=== PATIENT | female | born 2000 | race Caucasian/White ===

== ENCOUNTER 2024-03-15 10:06 | Emergency (ER) | payer BC, MEDICAID, SELFPAY ==
[2024-03-15 10:07] VITALS: PULSE 72; RESP 16; TEMP 35.7; O2SAT 100
[2024-03-15 10:10] VITALS: BP 103/67
--- NOTE | 2024-03-15 10:33 | EDS_ITS ---
HPI HPI - GI History of Present Illness Chief Complaint: Abd Pain Informant: patient Abdominal Pain/Flank Pain Onset: Today Context: Gradual Onset Timing: Intermittent Quality: Cramping Location: Epigastric, RUQ and LUQ Current Severity: Mild Maximum Severity: Mild Worsened by: Nothing Relieved by: Nothing Nausea/Vomiting/Emesis GI Symptom: Positive for Nausea and Vomiting Onset: Days Severity: Mild Diarrhea/Melena/Hematochezia GI Symptom: Positive for Diarrhea; Negative for Melena or Hematochezia Onset: Days Stool Quality: Positive for Loose Severity: Mild Associated Symptoms Associated Symptoms: Negative for Dysuria, Frequency, Hematuria or Urgency Narrative Narrative: 23-year-old female 10 weeks G2, P1 Ab0. States this morning she is in for abdominal epigastric and upper quadrant cramping. She has had intermittent nausea and vomiting with the first trimester. Intermittent loose stools. No melena. No dysuria. No fever. She has never had any prior abdominal surgeries. She had a recent ultrasound done at the [facility] showed a single live any uterine this was done about 1-1/2 weeks ago. Denies any vaginal bleeding. Prior similar symptoms: No Recent Illness/Hospitalization: No PFSH PFSH Medical History no medical history no medical history Allergy/AdvReac Type Severity Reaction Status Date / Time latex Allergy Intermediate Rash Verified 03/15/24 10:10 Penicillins (PCN) Allergy Intermediate Rash Verified 03/15/24 10:10 Social History Smoking Status: Never smoker ROS ROS ED ROS Narrative First trimester nausea and vomiting. Abdominal cramping. Constitutional Constitutional ED: Denies chills or fever(s) ENT ENT ED: Denies ear pain Cardiovascular Cardiovascular: Denies chest pain Respiratory/Chest Respiratory/Chest: Denies cough or dyspnea Gastrointestinal Gastrointestinal: Reports abdominal pain, diarrhea, nausea and vomiting; Denies constipation or melena Genitourinary Genitourinary ED: Denies dysuria or hematuria Musculoskeletal Musculoskeletal: Denies arthralgias, back pain or myalgias Integumentary Denies abscess, Abrasions or rash Neurologic Neurologic: Denies headache(s) Psychiatric Psychiatric: Denies anxiety, depression or suicidal thoughts Endocrine Endocrinology: Denies polydipsia or polyphagia Hematologic/Lymphatic Hematologic/Lymphatic: Denies easy bleeding, easy bruising or lymphadenopathy Allergic/Immunologic Allergic/Immunologic ED: Denies mouth swelling, tongue swelling or urticaria EXAM Physical Exam Narrative Exam Narrative: 23-year-old female no acute distress. Vital signs stable afebrile. H EENT exam unremarkable. Neck nontender. Lungs clear to auscultation bilaterally. Heart regular rhythm no murmur. Abdomen soft, nondistended normal bowel sounds no peritoneal signs. Minimal epigastric tenderness. No Rudd sign or McBurney point tenderness. No distention. No signs of obstruction. No hernia or mass. No uterine or lower quadrant tenderness. Moving all 4 extremities. Nontender no edema. Back nontender. Neurologically she is awake alert no focal motor deficits. Const Vital Signs: 03/15/24 10:07 03/15/24 10:10 Temperature 96.2 F L Temperature Source Temporal Pulse Rate 72 Respiratory Rate 16 Blood Pressure 103/67 Blood Pressure Mean 79 Pulse Ox 100 Oxygen Delivery Method Room Air Positive well nourished and well developed; Negative for obese, cachectic, contractures or unkempt General Appearance ED: well developed and NAD; Negative for unkempt, cachectic, contractures or pallor Nutritional Appearance: Negative for cachectic or obese HEENT Reports moist mucous membranes normocephalic and atraumatic; Negative for trauma or tenderness Eyes PERRL and EOMs intact bilaterally General Eye ED: Negative for pale conjunctiva or scleral icterus Neck no lymphadenopathy, supple and no JVD General: Negative for tenderness Carotids: Negative for other Lymph Lymphatic: Negative for other Resp normal respiratory effort and clear to auscultation bilaterally Effort and Inspection: Negative for respiratory distress Auscultation: Negative for rales, rhonchi or wheezes Cardio regular rate, regular rhythm, S1 normal heart sound, S2 normal heart sound and no murmurs Rate: Negative for bradycardia or tachycardic Rhythm: Negative for abnormal rhythm GI non-distended and no masses; Negative for non-tender GI Narrative: Mild epigastric tenderness. Inspection: Negative for abdominal distention Auscultation: normoactive bowel sounds Palpation: soft and tender; Negative for guarding, rigid, hepatomegaly, splenomegaly, hernia, mass or rebound tenderness present Back/Spine no CVA tenderness General Back: Negative for CVA tenderness Cervical Spine: Negative for cervical spine tenderness Thoracic Spine / Upper Back: Negative for thoracic spinal tenderness Lumbar Spine / Lower Back: Negative for lumbar spinal tenderness Extremity full ROM General Extremety ED: Negative for edema or tenderness General Extremity: Negative for edema Neuro CN's II-XII intact bilaterally and moves all extremities Sensorium / Orientation: alert, oriented to person, oriented to place and oriented to time; Negative for orientation impaired or confused Motor Exam: strength 5/5 throughout Psych mental status grossly normal and thought process normal Appearance: Negative for unkempt Attitude: No agitated Mood & Affect: Negative for depressed, anxious or tearful Skin no wounds General Skin Exam: Negative for jaundice or pallor Lesions: no lesions Rashes: no rashes MDM MDM MDM Narrative Medical decision making narrative: 23-year-old female G2, P1 approximately 10 weeks and ultrasound done a week and a half ago at the [facility] showed a single live IUP. Complaining of upper abdominal cramping today. Exam is benign. IV fluids, Zofran for nausea. Tylenol for discomfort. Screening labs. I do not think she needs an ultrasound. She is having no vaginal bleeding or pelvic pain. Repeat exam at 12:02 PM History & Record Review Discussion w/independent historian: Patient Additional record(s) reviewed:: No prior records Lab Data Attestation: I reviewed the patient's lab results. Lab results narrative: CBC shows a white count of 8. H&H 12 and 38. Platelets 238. Electrolytes shows sodium 138. Gap 4. Normal BUN and creatinine. Liver enzymes unremarkable. Lipase normal at 20. Urinalysis unremarkable. No nitrates. No white or red cells. 1+ bacteria. Contaminated with epithelial cells. Labs: Laboratory Results - last 24 hr 03/15/24 03/15/24 10:40 11:38 WBC 8.9 RBC 4.72 Hgb 12.2 Hct 38.3 MCV 81.1 MCH 25.8 L MCHC 31.9 L RDW Std Deviation 41.9 RDW Coeff of [place] 14.4 Plt Count 238 MPV 10.3 Immature Gran % (Auto) 0.400 Neut % (Auto) 72.8 H Lymph % (Auto) 21.1 [place] % (Auto) 4.7 Eos % (Auto) 0.7 Baso % (Auto) 0.3 Absolute Neuts (auto) 6.5 Absolute Lymphs (auto) 1.88 Nucleated RBC % 0 Sodium 138 Potassium 3.7 Chloride 110 H Carbon Dioxide 24.0 Anion Gap 4 L BUN 5 L Creatinine 0.47 L Est GFR (MDRD) Af Amer 208 Est GFR (MDRD) Non-Af 172 BUN/Creatinine Ratio 10.6 Glucose 79 Calcium 8.7 Total Bilirubin 0.10 L AST 16 ALT 13 Alkaline Phosphatase 60 Total Protein 6.6 Albumin 3.1 L Globulin 3.5 Albumin/Globulin Ratio 0.9 Lipase 20 Urine Color Yellow Urine Clarity Sl. Cloudy Urine pH 7.0 Ur Specific [place] 1.010 Urine Protein Negative Urine Glucose (UA) Normal Urine Ketones Negative Urine Occult Blood Negative Urine Nitrite Negative Urine Bilirubin Negative Urine Urobilinogen Normal Ur Leukocyte Esterase Negative Urine RBC 0 SEEN Urine WBC 0 SEEN Ur Squamous Epith Cells 5-10 SEEN Urine Bacteria 1+ Urine Mucus 0 SEEN Discharge Plan Triage Chief Complaint: Abd Pain Other Complaint: ED Provider: Ray Humphries Dx/Rx/DC Orders Primary Care Provider: Jessica Ocasio Referrals: Jessica Ocasio, DO [Primary Care Provider] - Print Language: Upper Sorbian
[2024-03-15] MEDS: Acetaminophen 500 MG Tablet 1000 MG PO (10:46)
[2024-03-15] MEDS: Ondansetron 4 MG/2 ML Vial IV (10:47)
[2024-03-15] MEDS: 0.9% Normal Saline (1000mL) 1,000 ML 999 ML IV (10:47)
[2024-03-15 10:49] LABS: Absolute Lymphocyte Count 1.88 X10^3/uL (0.83-4.51); Absolute Neutrophil Count 6.5 X10^3/uL (2.0-7.7); Basophil# 0.03 X10^3/uL; Basophil% 0.3 % (0-1); Eosinophil# 0.06 X10^3/uL; Eosinophils% 0.7 % (0-5); Hematocrit 38.3 % (37-47); Hemoglobin 12.2 g/dL (12.0-15.0); Lymphocyte # 1.88 X10^3/ul (0.83-4.51); Lymphocyte % 21.1 % (19-41); Mean Corp Hgb Conc 31.9 g/dL (32-36); Mean Corpuscular Hgb 25.8 pg (27.0-32.0); Mean Corpuscular Volume 81.1 fL (81-99); Mean Platelet Vol. 10.3 fl (6.2-12.0); Monocyte# 0.42 X10^3/uL; Monocyte% 4.7 % (0-10); NRBC Flagged by Analyzer 0 % (0-5); Neutrophil # 6.48 X10^3/uL (2.7-7.7); Neutrophil % 72.8 % (47-70); Platelet Count 238 K/mm3 (150-450); RBC Distribution Width CV 14.4 % (11.6-14.6); RBC Distribution Width SD 41.9 fl (35.1-43.9); Red Blood Count 4.72 M/mm3 (4.2-5.4); White Blood Count 8.9 K/mm3 (4.4-11.0)
[2024-03-15 11:05] LABS: ALB/GLOB Ratio 0.9 RATIO (0.9-2.4); AST(SGOT) 16 U/L (15-37); Alanine Aminotransfer ALT/SGPT 13 U/L (13-56); Albumin, Serum 3.1 g/dL (3.2-5.0); Alkaline Phosphatase 60 U/L (45-117); Anion Gap 4 (5-15); BUN 5 mg/dL (7-18); BUN/Creat Ratio 10.6 RATIO (10-20); Calcium,Total 8.7 mg/dL (8.5-10.1); Chloride 110 mmol/L (98-107); Creatinine, Serum 0.47 mg/dL (0.55-1.02); EST Glomerular Filtration Rate 172 mL/min (>60); Est Glom Filt Rate - Afr Amer 208 mL/min (>60); Globulin 3.5 g/dL (2.2-4.2); Glucose 79 mg/dL (74-106); Lipase 20 U/L (13-75); Potassium 3.7 mmol/L (3.5-5.1); Protein, Total 6.6 g/dL (6.4-8.2); Sodium Level 138 mmol/L (136-145)
--- NOTE | 2024-03-15 11:42 | ED.RN ---
PHYSICIAN NOTIFIED PT STATES SHE HAD SPOTTING WHEN SHE WENT TO THE [facility]
[2024-03-15 11:47] LABS: Mucous, Urine 0 SEEN /hpf (<or=2+); Red Blood Cells-Urine 0 SEEN /hpf (0-5); White Blood Cells 0 SEEN /hpf (0-5)
[2024-03-15 11:51] LABS: Color, Urine Yellow (Yellow); Glucose, Dipstick Normal (Normal); Ketone-Dipstick Negative (Negative); Leukocyte Esterase-Dipstick Negative /ul (Negative); Nitrite-Dipstick Negative (Negative); Occult Blood-Urine Negative /ul (Negative); Protein-Dipstick Negative (Negative); Urine Bilirubin Dipstick Negative (Negative); Urine Clarity Sl. Cloudy (Clear); Urine Urobilinogen Normal (Normal)
[2024-03-15 11:57] LABS: Bacteria 1+ /hpf (None Seen); Squamous Epithelial Cells - UA 5-10 SEEN /hpf (5-10)
[2024-03-15 12:09] VITALS: BP 108/67; PULSE 72; RESP 15; TEMP 36.3; O2SAT 97
== END 2024-03-15 12:16 | disposition home or self-care (01) ==
PROVIDERS: Emergency Provider Emergency Medicine; PCP Student in an Organized Health Care Education/Training Program; Visit Provider Emergency Medicine
DX: O99.891 Other specified diseases and conditions complicating pregnancy (principal); R10.11 Right upper quadrant pain; R10.13 Epigastric pain; R11.0 Nausea; Z3A.10 10 weeks gestation of pregnancy
CPT/HCPCS: 80053; 81001; 83690; 85025; 96361; 96374; 99284; J7030; A4216; J2405

== ENCOUNTER 2024-10-07 05:45 | Inpatient (IN) | payer BC, MEDICAID, SELFPAY ==
[2024-10-07] VITALS (47 sets, daily range): BP systolic 107–139; BP diastolic 61–86; PULSE 60–146; RESP 16–18; TEMP 36.6–37.6; O2SAT 73–100; BMI 28.2
[2024-10-07] MEDS: Lactated Ringers 1,000 ML 50 ML IV (05:42)
[2024-10-07 06:05] LABS: ROM Internal Control Test YES-OK TO RESULT pt. (Internal QC); ROM Patient Test Negative (Negative); Record Kit Lot#, ROM+ K2871
[2024-10-07 06:39] LABS: Absolute Lymphocyte Count 2.46 X10^3/uL (0.83-4.51); Absolute Neutrophil Count 5.5 X10^3/uL (2.0-7.7); Basophil# 0.05 X10^3/uL; Basophil% 0.6 % (0-1); Eosinophil# 0.17 X10^3/uL; Eosinophils% 1.9 % (0-5); Hematocrit 39.5 % (37-47); Hemoglobin 12.2 g/dL (12.0-15.0); Lymphocyte # 2.46 X10^3/ul (0.83-4.51); Lymphocyte % 27.9 % (19-41); Mean Corp Hgb Conc 30.9 g/dL (32-36); Mean Corpuscular Hgb 25.2 pg (27.0-32.0); Mean Corpuscular Volume 81.4 fL (81-99); Mean Platelet Vol. 11.1 fl (6.2-12.0); Monocyte# 0.62 X10^3/uL; NRBC Flagged by Analyzer 0 % (0-5); Neutrophil # 5.45 X10^3/uL (2.7-7.7); Neutrophil % 61.7 % (47-70); POSITIVE MORPHOLOGY YES; Platelet Count 169 K/mm3 (150-450); RBC Distribution Width CV 20.2 % (11.6-14.6); Red Blood Count 4.85 M/mm3 (4.2-5.4); White Blood Count 8.8 K/mm3 (4.4-11.0)
[2024-10-07 06:45] LABS: Differential Indicated SCAN CRITERIA MET
[2024-10-07 07:15] LABS: Syphilis Antibodies Nonreactive (Nonreactive)
[2024-10-07] MEDS: Vancomycin HCl 1,500 MG in 0.9% Normal Saline (500mL Bag) 500 ML 250 MG IV (07:30)
--- NOTE | 2024-10-07 07:30 | PCM.HP.OB ---
HPI - General General Date of Admission: 10/07/24 Date of Service: 10/07/24 Chief Complaint: labor HPI Narrative LISA SINGH, is a 24 F who presents with contractions and LOF. [facility] Medical History (Updated 10/07/24 @ 07:[address] Ana Campos DO) depression HSV (herpes simplex virus) infection Home Medications ?Medication ?Instructions ?Recorded ?Last Taken ?Type PNV#14-iron fum-FA#7-[id number] cap PO 10/07/24 10/06/24 20:00 History 27 mg iron-1 mg-300 mg-50 mg capsule acyclovir 200 mg capsule 200 mg PO TID 10/07/24 10/06/24 19:30 History ferrous sulfate PO 10/07/24 10/06/24 20:00 History Allergy/AdvReac Type Severity Reaction Status Date / Time latex Allergy Intermediate Rash Verified 10/07/24 05:14 Penicillins (PCN) Allergy Intermediate Rash Verified 10/07/24 05:14 Family History no significant family his Surgical History no surgical history Social History Smoking Status: Never smoker History Elective abortions Hx Para 1 Spontaneous abortions Hx # Term Pregnancies Ectopic pregnancies Hx # Pregnancies Multiple births # of living children NST FHR Rate Baby A Baseline: 125 Variability:: Moderate Accelerations:: 15 x 15 Decelerations:: None NST Reactive:: Yes FHR Category:: Category I Uterine Activity:: regular ctx's Vital Signs Vital Signs Vital Signs: 10/07/24 05:19 10/07/24 05:19 10/07/24 05:19 Temperature Temperature Source Pulse Rate 69 Respiratory Rate Blood Pressure 135/85 H BP Systolic 135 BP Diastolic 85 Pulse Ox 95 10/07/24 05:19 10/07/24 05:19 10/07/24 05:19 Temperature 98.7 F Temperature Source Temporal Pulse Rate Respiratory Rate 16 Blood Pressure BP Systolic BP Diastolic Pulse Ox 10/07/24 05:23 10/07/24 05:23 10/07/24 07:02 Temperature Temperature Source Pulse Rate 61 80 Respiratory Rate Blood Pressure 132/85 H BP Systolic 132 BP Diastolic 85 Pulse Ox 10/07/24 07:02 10/07/24 07:07 10/07/24 07:07 Temperature Temperature Source Pulse Rate 70 Respiratory Rate Blood Pressure BP Systolic BP Diastolic Pulse Ox 100 78 10/07/24 07:07 10/07/24 07:07 10/07/24 07:12 Temperature Temperature Source Pulse Rate 84 76 Respiratory Rate Blood Pressure BP Systolic BP Diastolic Pulse Ox 80 10/07/24 07:12 10/07/24 07:13 10/07/24 07:13 Temperature Temperature Source Pulse Rate 80 Respiratory Rate Blood Pressure BP Systolic BP Diastolic Pulse Ox 100 91 10/07/24 07:17 10/07/24 07:17 10/07/24 07:19 Temperature Temperature Source Pulse Rate 86 97 Respiratory Rate Blood Pressure BP Systolic BP Diastolic Pulse Ox 99 10/07/24 07:19 10/07/24 07:22 10/07/24 07:22 Temperature Temperature Source Pulse Rate 73 Respiratory Rate Blood Pressure BP Systolic BP Diastolic Pulse Ox 88 85 10/07/24 07:24 10/07/24 07:24 10/07/24 07:26 Temperature Temperature Source Pulse Rate 69 77 Respiratory Rate Blood Pressure 138/86 H BP Systolic 138 BP Diastolic 86 Pulse Ox 10/07/24 07:26 10/07/24 07:27 10/07/24 07:27 Temperature Temperature Source Pulse Rate 81 Respiratory Rate Blood Pressure BP Systolic BP Diastolic Pulse Ox 73 100 10/07/24 07:29 10/07/24 07:29 Temperature Temperature Source Pulse Rate 80 Respiratory Rate Blood Pressure 139/83 H BP Systolic 139 BP Diastolic 83 Pulse Ox Weight Weight: 164 lb 6 oz Body Mass Index (BMI) 28.2 Labs Labs Labs: Blood Type Pending Antibody Screen Pending Hct 39.5 % (37-47) Hgb 12.2 g/dL (12.0-15.0) Syphilis Total Ab Nonreactive (Nonreactive) Assessment & Plan (1) 39 weeks gestation of : (2) Active labor at term: PLAN: Epidural for pain control. EFW < 4500 grams and pelvis adequate. Routine intrapartum care. (3) History of herpes genitalis: PLAN: Has been on suppression since 36 weeks. No HSV outbreak in this . No active lesions or prodromal symptoms at this time. (4) Positive GBS test: PLAN: Hives with PCN. Resistant to Clinda. Vanc ordered.
[2024-10-07] MEDS: fentaNYL-bupivacaine (epidural) 100 ML BAG EPIDURAL (07:38)
[2024-10-07 07:45] LABS: Anisocytosis 2+; Differential Comment SCANNED
[2024-10-07] MEDS: Oxytocin 10 UNITS/ML Vial IM (10:39)
[2024-10-07] MEDS: Oxytocin 15 Units/NS 250ml 15 UNITS/250 ML IV.SOLN 83 UNITS IV (10:43)
--- NOTE | 2024-10-07 10:52 | EX.PCM.OBVAG ---
Assessment & Plan (1) Positive GBS test: (2) History of herpes genitalis: (3) Active labor at term: (4) 39 weeks gestation of : (5) Vaginal delivery: Vaginal Delivery Maternal Presentation Maternal Presentation: Active Labor Vaginal Delivery Information Procedure Performed: Spontaneous Vaginal Delivery Surgeon/Practitioner: Ana Campos Date of Procedure: 10/07/24 Pre-Procedure Diagnosis: 39 week gestation, spontaneous labor Post-Procedure Diagnosis: As above Type of anesthesia: Epidural Special Medications: None Estimated Blood Loss: 50 mL Fluids Replaced: N/A Findings Description of procedure: Patient complete and pushing. The head of the infant was delivered in left occiput anterior position. The shoulders and body of the infant were delivered spontaneously without any traction, force, or delay. A vigorous viable female infant was placed on the maternal abdomen. The cord was clamped and cut after a 60 second delay by the father of the baby. Cord blood was obtained. The placenta delivered spontaneously and was noted to be intact and normal-appearing with a three-vessel cord. Fundus firm and bleeding hemostatic. A first-degree vaginal laceration was noted to be bleeding. 3-0 Vicryl was used to repair the first-degree vaginal laceration in usual fashion to achieve hemostasis. A vaginal sweep was performed. Sponge and sharp counts were correct. Procedure findings: Vigorous VFI in vertex presentation Presentation: Vertex Amniotic Membrane Rupture Type: Artificial (AROM performed for clear fluid once cvx 10/100/0) Amniotic Fluid Description: Clear Placental Delivery Description: Spontaneous Specimen collected: No Cord Vessel Description: 3 Vessels Cord Entanglement: None A Gender: Female (1 minute): 9 (5 minute): 9 Delayed Cord Clamping: Yes Electron Beam Welding Machine Operator chief inspector: No Post Vaginal Deli Medications given after delivery: IV Pitocin and IM Pitocin Episiotomy Description: None Laceration: 1st degree Complication Complications: No
[2024-10-07] MEDS: Ibuprofen 600 MG Tablet PO ×2 (16:47→23:40)
[2024-10-08] VITALS (8 sets, daily range): BP systolic 111–133; BP diastolic 62–76; PULSE 61–75; RESP 14–16; TEMP 36.4–37.2; O2SAT 96–97
[2024-10-08] MEDS: Ibuprofen 600 MG Tablet PO ×3 (06:13→20:25)
[2024-10-08] MEDS: Senna/Docusate Sodium 1 Tablet PO (07:54)
--- NOTE | 2024-10-08 11:01 | PCM.PN.BLA ---
Progress Note pain well controlled, average lochia. Denies LUCAS or visual changes. Working on Physical Exam Const alert and no apparent distress Narrative: Fundus firm, below umbilicus. Assessment & Plan Assessment/Plan (1) Vaginal delivery: PLAN: PPD#1 Doing well routine care working on . anticipate d/c in am
--- NOTE | 2024-10-08 14:10 | CASEMGMT ---
Social Work Assessment Labor and Delivery Unit Patient Address: [address], [place] [address] Phone number: [phone] Date of Referral: 10/07/2024 Time of Referral: 15:43 Referred By: Ana Campos Date of Intervention: ?10/08/2024 Time of Intervention: 14:11 Reason for Referral: Mental Health History obtained from: Medical records, mother of baby (MOB) and father of baby (FOB).? Household composition: MOB FOB (Elijah Velasco, age 24), their 18 month old son Minh Velasco and their daughter Isabel Velasco, born on 10/07/2024. Patient's parent/guardian status: MOB and FOB have been together for almost 3 years (3 years in December of this year).? MOB and FOB are not .? Both are actively involved and will be providing care for baby. MOB denied any concerns with domestic violence and described a positive and supportive relationship with the FOB. Medical History: : 2, Para, now 2. ?REINA received PNC through [facility] beginning at 8 weeks and 6 days. Visits were observed to be routine. Apgars: 9 and 9. Weight: 3375 grams. Carpenter Packing: Not yet decided but [facility].? REINA hoping to get established with Mer Clark as the compliance assistant for her other child is retiring. Educational Status: MOB and FOB denied any issues or concerns with reading or writing. MOB has some college and the FOB is a high school graduate. Financial Status: MOB and FOB reported their income is sufficient to meet the needs of their family at this time. 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 The FOB has been laid off of work but is scheduled to go back in 1 week, full-time as a gas production line worker.? FOB works days during the week. Infant Supplies: MOB and FOB reported they have all the supplies they need for baby at this time including but not limited to: Car Seat, bassinet, pack-n-play, crib, diapers, bottles, breast pump and clothing. Childcare/Caregiver(s):? MOB reported she and the FOB work opposite schedules and will each be the caregivers for both children. Transportation:? 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 No transportation issues identified. FOB used to be a licensed backhaul driver however due to some ?traffic violation issues?, isn?t able to drive for another year. Programs/Agencies Involved: REINA is currently on Medicaid and receives some food stamps.? WIC used to be involved however MOB didn?t find it to be helpful and does not plan to get reconnected at this time. Both the MOB and FOB were each involved in counseling in the past; MOB due to family conflict and the FOB due to dealing with the divorce of his parents. No current involvement. Children Services/Legal Issues:? Denied. 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 MOB stated the PPD was substantial however denied ever having any thoughts of self-harm during that time. FOLuma reported he has ADHD. ?Substance Use History:? Denied ???Family History: Denied?? Drug Screens: ?None obtained at the time of this admission. ?pack worker supervisor administered the [place].? MOB?s score was a 2. ??pack worker supervisor provided verbal education about the screening tool as well as scores to look out for in the future which MOB reported she understood. Family/Social Stressors: ?MOB and FOB denied any current family or social stressors. Support Systems: Ample.? MOB identified her biggest supports as? the FOB and ?s paternal grandmother (PGM). Depression/Shaken Baby/Safe Sleeping: pack worker supervisor provided verbal and written education on PPD, Safe Sleeping and Shaken Baby.? Parents verbalized an understanding. ??? ASSESSMENT:? MOB and FOB provided consent to social work visit. Upon arrival, MOB was lying in the hospital bed holding and the FOB was sitting close-by. Both MOB and FOB were verbally engaged and social welfare clerk observed positive interaction between the MOB and also towards .?? MOB had wrapped in a plush blanket and was observed to be very gentle and attentive with . FOB was also observed to be helpful and gave MOB something to drink without being asked. At the end of the visit, social welfare clerk requested to speak with the MOB alone which both MOB and FOB were agreeable to.? MOB denied any previous or current issues of domestic violence and reported feeling safe in her home.? MOB denied any drug or alcohol abuse or unmanaged mental health with either herself or the FOB. Safe Plan of Care for related to substance use: N/A; not needed. ? PLAN:? Baby to be discharged home when ready.? pack worker supervisor also provided written information on depression, depression resources and Help Me Grow as additional resources offered by social welfare clerk which MOB and FOB accepted. No other services requested or indicated. Martha Osman, PRINTING ROLLER POLISHER, MANUFACTURING MILLWRIGHT
[2024-10-09 02:19] VITALS: BP 131/77; PULSE 69; O2SAT 96
[2024-10-09 02:30] VITALS: BP 131/77; PULSE 70; RESP 16; TEMP 36.8; O2SAT 96
[2024-10-09 08:17] VITALS: PULSE 60; O2SAT 96
[2024-10-09 08:18] VITALS: BP 127/65; BP 136/68; PULSE 60; PULSE 64; RESP 16; TEMP 36.8; O2SAT 97
[2024-10-09 08:19] VITALS: BP 127/65; PULSE 64
--- NOTE | 2024-10-09 08:35 | PCM.PN.OB ---
Subjective Subjective Doing well per patient and nursing staff. Ambulating and taking PO without difficulty. Voiding and passing flatus. Pain controlled. , services for assistance. Denies headache, visual changes, chest pain, shortness of breath, leg pain or increased bleeding. Lochia normal. Objective Data Objective Data Vital Signs: Vital Signs Temp Pulse Resp BP Pulse Ox O2 Del Method 98.2 F 64 16 127/65 H 97 Room Air 10/09/24 08:18 10/09/24 08:19 10/09/24 08:18 10/09/24 08:19 10/09/24 08:18 10/09/24 08:18 Oxygen Delivery Method Room Air Weight: 164 lb 6 oz Body Mass Index (BMI) 28.2 Intake & Output: Intake and Output for Last 24 Hours 10/07/24 10/08/24 10/09/24 23:59 23:59 23:59 Intake Total 1780.00 / 1780.00 Output Total 1950 / 1950 Balance -170.00 / -170.00 Lab / Micro Data 10/07/24 06:10 ROS Constitutional Constitutional: Reports systems reviewed and no addt'l complaints, except as documented; Denies headache(s) Eyes Eyes: Denies acute decrease in peripheral vision, blurry vision or change in vision ENT HEENT: Reports systems reviewed and no addt'l complaints, except as documented Cardiovascular Cardiovascular: Denies chest pain or dizziness Respiratory/Chest Respiratory/Chest: Denies cough, dyspnea, dyspnea on exertion, shortness of breath at rest or shortness of breath with exertion Gastrointestinal Gastrointestinal: Denies abdominal pain, diarrhea, nausea or vomiting Genitourinary Genitourinary: Denies abdominal discomfort Musculoskeletal Musculoskeletal: Denies limited range of motion Integumentary Integumentary: Reports systems reviewed and no addt'l complaints, except as documented Neurologic Neurologic: Reports systems reviewed and no addt'l complaints, except as documented Psychiatric Psychiatric: Reports systems reviewed and no addt'l complaints, except as documented Endocrine Endocrinology: Reports systems reviewed and no addt'l complaints, except as documented Hematologic/Lymphatic Hematologic/Lymphatic: Reports systems reviewed and no addt'l complaints, except as documented Allergic/Immunologic Allergic/Immunologic: Reports systems reviewed and no addt'l complaints, except as documented Physical Exam Const alert and oriented x3 General Appearance: cooperative Orientation / Consciousness: awake, oriented to person, oriented to place and oriented to time Exam Limitations: no limitations HEENT normocephalic Head and Scalp: normal to inspection, normocephalic and atraumatic Face and Sinus: normal facial exam Eyes General Eye: normal appearance of both eyes Neck full ROM Chest Chest: symmetrical chest wall rise Resp normal respiratory effort and normal air movement Auscultation: clear to auscultation bilaterally Cardio regular rate, regular rhythm, S1 normal heart sound, S2 normal heart sound, no murmurs, no rub, no gallops and no clicks GI normal to inspection, nondistended, normoactive bowel sounds and non-tender appearance of the vagina normal Bladder / Kidney Exam: no CVA tenderness Back/Spine normal ROM Extremity normal to inspection and full ROM Skin no rashes or lesions noted Neuro oriented x3, CN's II-XII intact bilaterally and moves all extremities Sensorium / Orientation: awake, alert and oriented to person Motor Exam: clonus absent Deep Tendon Reflexes: Rt Patellar (L4): 2+ and Lt Patellar (L4): 2+ Assessment & Plan (1) Vaginal delivery: (2) History of depression: PLAN: Plan 1) Routine care, PPD #2 2) Vitals signs stable. BP slightly elevated in 130s. BP check in 2 days and reviewed preeclampsia signs and when to call. Discussed medication if necessary. 3) Pain controlled 4) , services PRN 5) D/C home 6) Follow up in 2 weeks and 6 weeks
--- NOTE | 2024-10-09 08:36 | PCM.DC.SUM ---
Providers Date of Admission: 10/07/24 Primary Care Physician: Dr. Jessica Ocasio, DO Reason For Visit: VAG DELIVERY Diagnosis Discharge Diagnosis (1) Vaginal delivery: Status: Acute Code(s): O80 - Encounter for full-term uncomplicated delivery (2) History of depression: Status: Acute Code(s): Z87.59 - Personal history of other complications of , childbirth and the puerperium; Z86.59 - Personal history of other mental and behavioral disorders Plan 1) Routine care, PPD #2 2) Vitals signs stable. BP slightly elevated in 130s. BP check in 2 days and reviewed preeclampsia signs and when to call. Discussed medication if necessary. 3) Pain controlled 4) , services PRN 5) D/C home 6) Follow up in 2 weeks and 6 weeks Medications at Discharge Home Medications PNV#14-iron [id number] 27 mg iron-1 mg-300 mg-50 mg capsule cap PO 10/07/24 acyclovir 200 mg capsule 200 mg PO TID 10/07/24 acetaminophen 500 mg tablet 1,000 mg (2 x 500 mg) PO Q6H PRN PRN Pain 1-10 Or Fever #0 tabs 10/09/24 ibuprofen 600 mg tablet 600 mg PO Q6H PRN PRN Pain Score 1-10 #0 tabs 10/09/24 Weight / BMI Weight Weight: 164 lb 6 oz Body Mass Index (BMI) 28.2 ABG / Lab / Microbiology Data 10/07/24 06:10 D/C Instructions Discharge Diet: No restrictions Discharge Activity: Return to Normal Activity, May Drive, May Shower and May Take a Tub Bath May resume sexual activity in: 6 weeks Weight Bearing Status: Full weight bearing Call your doctor if you observe: Fever of 101 or Higher, Inability to urinate, Using more than 1 pad per hour, Shortness of breath, Chest pain, Increased palpitations (irregular heartbeat), Calf discomfort and Uncontrolled pain DC O2, CPAP, BIPAP Needs Home O2 Discharge instructions: No Please Follow Up With: Kasia Lambert CNM When: 2 week virtual visit and 6 week visit Meaningful Use Info Meaningful Use Meaningful Use Diagnoses (Choose all that apply): None applicable Ischemic Stroke Statin Dosing Therapy Reference: STATIN DOSE THERAPY REFERENCE: * Patients > 75 years receive moderate or high dose statin therapy. * Patients 75 years or YOUNGER should receive HIGH intensity statin dose unless contraindicated. You will be required to document reason for non-treatment if statin daily dose does not meet guidelines. HIGH DOSE STATIN THERAPY DAILY Atorvastatin > than or = to 40 mg Rosuvastatin > than or = to 20 mg Amlodipine + Atorvastatin > than or = to 2.5/40 mg Ezetimibe + Simvastatin 10/80 mg Simvastatin 80mg Discharge Plan Admission Admit Date/Time: 10/07/24 05:45 Primary Reason for Your Visit: Vaginal Delivery Attending Provider: Ana Campos Primary Care Provider: Jessica Ocasio Discharge Orders/Prescriptions Prescriptions: New acetaminophen 500 mg Tablet 1,000 mg PO Q6H PRN PRN (Reason: Pain 1-10 Or Fever) Qty: 0 0RF ibuprofen 600 mg Tablet 600 mg PO Q6H PRN PRN (Reason: Pain Score 1-10) Qty: 0 0RF Continued acyclovir 200 mg capsule 200 mg PO TID PNV #14-iron-[id number] 27 mg iron-1 mg -300 mg-50 mg capsule PO Discontinued ferrous sulfate PO Referrals / Follow Up: Jessica Ocasio, DO [Primary Care Provider] - Disposition Disposition (needs filled in before D/C Order can be placed): Home, Self Care
--- NOTE | 2024-10-09 08:44 | NURSING ---
BP at 0818 was higher than 0819 due to patient bending her arm trying to calm baby. Retook BP at 0819 with patient's arm straight.
[2024-10-09] MEDS: Ibuprofen 600 MG Tablet PO (08:53)
== END 2024-10-09 10:50 | disposition home or self-care (01) | DRG 807 ==
LOC: WPOUT 05:49 → WP 05:58
PROVIDERS: Admitting Provider Obstetrics & Gynecology; PCP Student in an Organized Health Care Education/Training Program; Referring Provider Obstetrics & Gynecology; Visit Provider Obstetrics & Gynecology
DX: O98.32 Other infections with a predominantly sexual mode of transmission complicating childbirth (principal); Z37.0 Single live birth; R03.0 Elevated blood-pressure reading, without diagnosis of hypertension; A60.00 Herpesviral infection of urogenital system, unspecified; O99.824 Streptococcus B carrier state complicating childbirth; O99.893 Other specified diseases and conditions complicating puerperium; O70.0 First degree perineal laceration during delivery; Z3A.39 39 weeks gestation of pregnancy; Z79.899 Other long term (current) drug therapy; Z86.59 Personal history of other mental and behavioral disorders
CPT/HCPCS: 59025; 59050; 84112; 85025; 86780; 86850; 86900; 86901

== ENCOUNTER 2025-05-25 11:51 | Emergency (ER) | payer BC, MEDICAID, SELFPAY ==
[2025-05-25 11:51] VITALS: BP 113/63; PULSE 72; RESP 16; TEMP 36.9; O2SAT 99; BMI 21.9
[2025-05-25 12:39] LABS: Mucous, Urine 0 SEEN /hpf (<or=2+); Red Blood Cells-Urine 0 SEEN /hpf (0-5)
[2025-05-25 12:42] LABS: Color, Urine Yellow (Yellow); Glucose, Dipstick Normal (Normal); Ketone-Dipstick Negative (Negative); Leukocyte Esterase-Dipstick Negative /ul (Negative); Nitrite-Dipstick Negative (Negative); Occult Blood-Urine 50 /ul (Negative); Protein-Dipstick Negative (Negative); Specific Gravity, Urine 1.010 (1.002-1.030); Urine Bilirubin Dipstick Negative (Negative)
[2025-05-25 12:42] LABS: Hematocrit 47.1 % (37-47); Hemoglobin 15.0 g/dL (12.0-15.0); Immature Granulocytes Count 0.030 X10^3/uL (0.0-0.0); Mean Corp Hgb Conc 31.8 g/dL (32-36); Mean Corpuscular Volume 84.0 fL (81-99); Mean Platelet Vol. 10.9 fl (6.2-12.0); NRBC Flagged by Analyzer 0 % (0-5); Platelet Count 255 K/mm3 (150-450); RBC Distribution Width CV 13.1 % (11.6-14.6); RBC Distribution Width SD 39.8 fl (35.1-43.9); Red Blood Count 5.61 M/mm3 (4.2-5.4); White Blood Count 9.8 K/mm3 (4.4-11.0)
[2025-05-25 12:51] LABS: Squamous Epithelial Cells - UA 0-5 SEEN /hpf (5-10)
[2025-05-25 12:52] LABS: Internal QC Validated? YES +Cl - CLEAR BKGD; Pregnancy, Serum, hCG Quali. NEGATIVE Negative; Record Kit Lot#, Serum Preg. 0000980607
[2025-05-25 13:04] LABS: AST(SGOT) 24 U/L (<=31); Alanine Aminotransfer ALT/SGPT 10 U/L (<=34); Albumin, Serum 5.1 g/dL (3.5-5.0); Alkaline Phosphatase 102 U/L (35-104); Anion Gap 11 (5-15); BUN 9 mg/dL (4-19); BUN/Creat Ratio 13.4 RATIO (10-20); Calcium,Total 9.8 mg/dL (7.6-11.0); Carbon Dioxide 26.9 mmol/L (21.0-32.0); Chloride 101 mmol/L (98-108); Estimated Creatinine Clearance 115.24 ml/min (50-250); Globulin 2.9 g/dL (2.2-4.2); Glucose 54 mg/dL (70-99); Lipase 49 U/L (13-75); Potassium 3.8 mmol/L (3.3-5.1)
--- OUTSIDE RECORDS SUMMARY | 2025-05-25 13:41 | XMS RPT_ITS | CCD ---
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 [facility] Comment on above: Order Comment: Speci men Type: BLOOD SPECIMENOrdering Facility: [facility] Address: [address] [place] [address] Performed By: #### 5 7021-8 ####[facility]ITALAMADORLIA [id number] [place] [address] [place] Hematocrit (Bld) [Volume fraction] 34.1 % Low 36.0-46.0 [facility] Comment on above: Order Comment: Speci men Type: BLOOD SPECIMENOrdering Facility: [facility] Address: [address] [place] [address] Performed By: #### 5 7021-8 ####[facility]PITALAMADORLIA [id number] [place] [address] [place] Hemoglobin (Bld) [Mass/Vol] 10.4 g/dL Low 11.5-15.5 [facility] Comment on above: Order Comment: Speci men Type: BLOOD SPECIMENOrdering Facility: [facility] Address: [address] [place] [address] Performed By: #### 5 7021-8 ####[facility]PITALNCLIA [id number] [place] [address] [place] Immature granulocytes (Bld) [#/Vol] 0.08 10*3/uL Normal <0.10 [facility] Comment on above: Order Comment: Speci men Type: BLOOD SPECIMENOrdering Facility: [facility] Address: [address] [place] [address] Performed By: #### 5 7021-8 ####[facility] [id number] [place] [address] [place] Immature granulocytes/100 WBC (Bld) 1.0 % Normal [facility] Comment on above: Order Comment: Speci men Type: BLOOD SPECIMENOrdering Facility: [facility] Address: [address] [place] [address] Performed By: #### 5 7021-8 ####[facility] [id number] [place] [address] [place] Lymphocytes (Bld) [#/Vol] 2.22 10*3/uL Normal 1.00-4.00 [facility] Comment on above: Order Comment: Speci men Type: BLOOD SPECIMENOrdering Facility: [facility] Address: [address] [place] [address] Performed By: #### 5 7021-8 ####[facility] [id number] [place] [address] [place] Lymphocytes/100 WBC (Bld) 28.7 % Normal [facility] Comment on above: Order Comment: Speci men Type: BLOOD SPECIMENOrdering Facility: [facility] Address: [address] [place] [address] Performed By: #### 5 7021-8 ####[facility] [id number] [place] [address] [place] MCH (RBC) [Entitic mass] 24.2 pg Low 26.0-34.0 [facility] Comment on above: Order Comment: Speci men Type: BLOOD SPECIMENOrdering Facility: [facility] Address: [address] [place] [address] Performed By: #### 5 7021-8 ####[facility] MILDREDGAYBALDEV [id number] [place] [address] [place] MCHC (RBC) [Mass/Vol] 30.5 g/dL Normal 30.5-36.0 [facility] Comment on above: Order Comment: Speci men Type: BLOOD SPECIMENOrdering Facility: [facility] Address: [address] [place] [address] Performed By: #### 5 7021-8 ####[facility]AM[facility]ORUNIV[facility] [id number] [place] [address] [place] MCV (RBC) [Entitic vol] 79.3 fL Low 80.0-100.0 [facility] Comment on above: Order Comment: Speci men Type: BLOOD SPECIMENOrdering Facility: [facility] Address: [address] [place] [address] Performed By: #### 5 7021-8 ####[facility] [id number] [place] [address] [place] Monocytes (Bld) [#/Vol] 0.58 10*3/uL Normal <0.87 [facility] Comment on above: Order Comment: Speci men Type: BLOOD SPECIMENOrdering Facility: [facility] Address: [address] [place] [address] Performed By: #### 5 7021-8 ####[facility]PITALNCLI [id number] [place] [address] [place] Monocytes/100 WBC (Bld) 7.5 % Normal [facility] Comment on above: Order Comment: Speci men Type: BLOOD SPECIMENOrdering Facility: [facility] Address: [address] [place] [address] Performed By: #### 5 7021-8 ####[facility] MILLWNCLIA [id number] [place] [address] [place] Neutrophils (Bld) [#/Vol] 4.68 10*3/uL Normal 1.45-7.50 [facility] Comment on above: Order Comment: Speci men Type: BLOOD SPECIMENOrdering Facility: [facility] Address: [address] [place] [address] Performed By: #### 5 7021-8 ####[facility] H[facility]ITALWMTLIA [id number] [place] [address] [place] Neutrophils/100 WBC (Bld) 60.5 % Normal [facility] Comment on above: Order Comment: Speci men Type: BLOOD SPECIMENOrdering Facility: [facility] Address: [address] [place] [address] Performed By: #### 5 7021-8 ####[facility] [id number] [place] [address] [place] Nucleated RBC (Bld) [#/Vol] 10*3/uL Normal <0.01 [facility] Comment on above: Order Comment: Speci men Type: BLOOD SPECIMENOrdering Facility: [facility] Address: [address] [place] [address] Performed By: #### 5 7021-8 ####[facility] H[facility]ITALL[facility] [id number] [place] [address] [place] Nucleated RBC/100 WBC (Bld) [Ratio] 0.0 /100 WBC Normal [facility] Comment on above: Order Comment: Speci men Type: BLOOD SPECIMENOrdering Facility: [facility] Address: [address] [place] [address] Performed By: #### 5 7021-8 ####[facility]PITALNCLI [id number] [place] [address] [place] Platelet mean volume (Bld) [Entitic vol] 10.1 fL Normal 9.0-12.7 [facility] Comment on above: Order Comment: Speci men Type: BLOOD SPECIMENOrdering Facility: [facility] Address: [address] [place] [address] Performed By: #### 5 7021-8 ####[facility] HOSPITALNCHAKANA [id number] [place] [address] [place] Platelets (Bld) [#/Vol] 239 10*3/uL Normal 150-400 [facility] Comment on above: Order Comment: Speci men Type: BLOOD SPECIMENOrdering Facility: [facility] Address: [address] [place] [address] Performed By: #### 5 7021-8 ####[facility]NC[facility] [id number] [place] [address] [place] RBC (Bld) [#/Vol] 4.30 10*6/uL Normal 3.90-5.20 [facility] Comment on above: Order Comment: Speci men Type: BLOOD SPECIMENOrdering Facility: [facility] Address: [address] [place] [address] Performed By: #### 5 7021-8 ####[facility] HOSPITALNCA [id number] [place] [address] [place] WBC (Bld) [#/Vol] 7.74 10*3/uL Normal 3.70-11.00 [facility] Comment on above: Order Comment: Speci men Type: BLOOD SPECIMENOrdering Facility: [facility] Address: [address] [place] [address] Performed By: #### 5 7021-8 ####[facility]PITALNCLIA [id number] [place] [address] [place] CNCOon 09-01-2024 CNCO Letter Text Normal [facility] URINE OB DIP B/Oon Glucose Ql (U) Negative Neg mg/dL [facility] Protein.monoclonal (U) [Mass/Vol] Negative Neg mg/dL [facility] CBC panel Auto (Bld)on 08-16 Erythrocyte distribution width (RBC) [Ratio] 16.6 % High 11.5-15.0 [facility] Comment on above: Order Comment: Speci men Type: BLOOD SPECIMENOrdering Facility: [facility] Address: [address] [place] [address] Performed By: #### 5 8410-2 ####[facility] [id number] [place] [address] [place] Hematocrit (Bld) [Volume fraction] 30.4 % Low 36.0-46.0 [facility] Comment on above: Order Comment: Speci men Type: BLOOD SPECIMENOrdering Facility: [facility] Address: [address] [place] [address] Performed By: #### 5 8410-2 ####[facility] [id number] [place] [address] [place] Hemoglobin (Bld) [Mass/Vol] 9.4 g/dL Low 11.5-15.5 [facility] Comment on above: Order Comment: Speci men Type: BLOOD SPECIMENOrdering Facility: [facility] Address: [address] [place] [address] Performed By: #### 5 8410-2 ####[facility] [id number] [place] [address] [place] MCH (RBC) [Entitic mass] 24.9 pg Low 26.0-34.0 [facility] Comment on above: Order Comment: Speci men Type: BLOOD SPECIMENOrdering Facility: [facility] Address: [address] [place] [address] Performed By: #### 5 8410-2 ####[facility] [id number] [place] [address] [place] MCHC (RBC) [Mass/Vol] 30.9 g/dL Normal 30.5-36.0 [facility] Comment on above: Order Comment: Speci men Type: BLOOD SPECIMENOrdering Facility: [facility] Address: [address] [place] [address] Performed By: #### 5 8410-2 ####[facility]PITALBAL[facility] [id number] [place] [address] [place] MCV (RBC) [Entitic vol] 80.4 fL Normal 80.0-100.0 [facility] Comment on above: Order Comment: Speci men Type: BLOOD SPECIMENOrdering Facility: [facility] Address: [address] [place] [address] Performed By: #### 5 8410-2 ####[facility] [id number] [place] [address] [place] Nucleated RBC (Bld) [#/Vol] 10*3/uL Normal <0.01 [facility] Comment on above: Order Comment: Speci men Type: BLOOD SPECIMENOrdering Facility: [facility] Address: [address] [place] [address] Performed By: #### 5 8410-2 ####[facility]PITALMAT[facility] [id number] [place] [address] [place] Platelet mean volume (Bld) [Entitic vol] 10.6 fL Normal 9.0-12.7 [facility] Comment on above: Order Comment: Speci men Type: BLOOD SPECIMENOrdering Facility: [facility] Address: [address] [place] [address] Performed By: #### 5 8410-2 ####[facility]PITALNCLIA [id number] [place] [address] [place] Platelets (Bld) [#/Vol] 231 10*3/uL Normal 150-400 [facility] Comment on above: Order Comment: Speci men Type: BLOOD SPECIMENOrdering Facility: [facility] Address: [address] [place] [address] Performed By: #### 5 8410-2 ####[facility]PITALNCLIA [id number] [place] [address] [place] RBC (Bld) [#/Vol] 3.78 10*6/uL Low 3.90-5.20 [facility] Comment on above: Order Comment: Speci men Type: BLOOD SPECIMENOrdering Facility: [facility] Address: [address] [place] [address] Performed By: #### 5 8410-2 ####[facility]PITALNCLIA [id number] [place] [address] [place] WBC (Bld) [#/Vol] 9.12 10*3/uL Normal 3.70-11.00 [facility] Comment on above: Order Comment: Speci men Type: BLOOD SPECIMENOrdering Facility: [facility] Address: [address] [place] [address] Performed By: #### 5 8410-2 ####[facility] HOSPITALNCLIA [id number] [place] [address] [place] Barry 07-24-2024 GUERO Telephone (OBGYWM) ROSA SCHULER ([id number]) 1 F Date Time Provider Department 07/24/24 WILFREDO CAMPOS During your visit today, we recorded the following information about you: Sandra Barboza RN 07/24/2024 11:44 AM Signed Patient did not view provider's [employer] message for CBC result. Left message for patient to call office or check mychart. Message copied below. MUKUND Jackson- You are anemic. I recommend starting Ferrous Sulfate 325 mg by mouth every other day. To take with orange juice if you can to help with absorption, and avoid taking with calcium containing foods/supplements that can interfere with absorption. We will recheck your anemia in 4 weeks. -Rowena Francisco RN 07/24/2024 12:28 PM Signed Pt notified. CBC pending. Please file and will contact Pt to get lab appt scheduled. Wilfredo Campos MD 07/24/2024 1:05 PM Signed filed Sandra Barboza RN 07/24/2024 1:29 PM Signed Added to 08/18/24 appt note to recheck CBC. Sandra Barboza RN Allergies As of Date: 07/24/2024 Noted Allergy Reaction LATEX 09/22/2022 7 - Swelling PENICILLINS 09/22/2022 4 - Hives Date Reviewed: 07/21/2024 Reviewed by: Martha Thomason MD - Fully Assessed Reason for Visit: Results [95] Primary Visit Diagnosis:Anemia during in third trimester [O99.013] Order(s):COMPLETE BLOOD COUNT [SQCBC] Order #: [id number] FUTURE Prescriptions as of 07/24/2024 - no122/iron/folic acid ( MULTI ORAL) Take by mouth once daily. 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 Body mass index (BMI) of 19.0 to 19.9 in adult *03/09/2024 Short interval between pregnancies affecting pr*06/02/2024 Penicillin allergy [Z88.0] 06/02/2024 Other specified anemias [D64.89] 07/21/2024 Encounter Status:Closed by SANDRA BARBOZA on 07/24/24 Normal [facility] CBC W Auto Differential pane l (Bld)on 07-21-2024 Basophils (Bld) [#/Vol] 0.04 10*3/uL Normal <0.11 [facility] Comment on above: Order Comment: Speci men Type: BLOOD SPECIMENOrdering Facility: [facility] Address: [address] [place] [address] Performed By: #### 5 7021-8 ####[facility] [id number] [place] [address] [place] Basophils/100 WBC (Bld) 0.4 % Normal [facility] Comment on above: Order Comment: Speci men Type: BLOOD SPECIMENOrdering Facility: [facility] Address: [address] [place] [address] Performed By: #### 5 7021-8 ####[facility] [id number] [place] [address] [place] Differential cell count method Nom (Bld) Auto Normal [facility] Comment on above: Order Comment: Speci men Type: BLOOD SPECIMENOrdering Facility: [facility] Address: [address] [place] [address] Performed By: #### 5 7021-8 ####[facility] [id number] [place] [address] [place] Eosinophils (Bld) [#/Vol] 0.30 10*3/uL Normal <0.46 [facility] Comment on above: Order Comment: Speci men Type: BLOOD SPECIMENOrdering Facility: [facility] Address: [address] [place] [address] Performed By: #### 5 7021-8 ####[facility]PITALL[facility] [id number] [place] [address] [place] Eosinophils/100 WBC (Bld) 3.3 % Normal [facility] Comment on above: Order Comment: Speci men Type: BLOOD SPECIMENOrdering Facility: [facility] Address: [address] [place] [address] Performed By: #### 5 7021-8 ####[facility] [id number] [place] [address] [place] Erythrocyte distribution width (RBC) [Ratio] 14.0 % Normal 11.5-15.0 [facility] Comment on above: Order Comment: Speci men Type: BLOOD SPECIMENOrdering Facility: [facility] Address: [address] [place] [address] Performed By: #### 5 7021-8 ####[facility] [id number] [place] [address] [place] Hematocrit (Bld) [Volume fraction] 31.4 % Low 36.0-46.0 [facility] Comment on above: Order Comment: Speci men Type: BLOOD SPECIMENOrdering Facility: [facility] Address: [address] [place] [address] Performed By: #### 5 7021-8 ####[facility]PITALNCLI [id number] [place] [address] [place] Hemoglobin (Bld) [Mass/Vol] 9.9 g/dL Low 11.5-15.5 [facility] Comment on above: Order Comment: Speci men Type: BLOOD SPECIMENOrdering Facility: [facility] Address: [address] [place] [address] Performed By: #### 5 7021-8 ####[facility] [id number] [place] [address] [place] Immature granulocytes (Bld) [#/Vol] 0.09 10*3/uL Normal <0.10 [facility] Comment on above: Order Comment: Speci men Type: BLOOD SPECIMENOrdering Facility: [facility] Address: [address] [place] [address] Performed By: #### 5 7021-8 ####[facility] MILLRENETTAWNCLIA [id number] [place] [address] [place] Immature granulocytes/100 WBC (Bld) 1.0 % Normal [facility] Comment on above: Order Comment: Speci men Type: BLOOD SPECIMENOrdering Facility: [facility] Address: [address] [place] [address] Performed By: #### 5 7021-8 ####[facility]PITALNCLIA [id number] [place] [address] [place] Lymphocytes (Bld) [#/Vol] 2.12 10*3/uL Normal 1.00-4.00 [facility] Comment on above: Order Comment: Speci men Type: BLOOD SPECIMENOrdering Facility: [facility] Address: [address] [place] [address] Performed By: #### 5 7021-8 ####[facility] H[facility]PITALNCLIA [id number] [place] [address] [place] Lymphocytes/100 WBC (Bld) 23.4 % Normal [facility] Comment on above: Order Comment: Speci men Type: BLOOD SPECIMENOrdering Facility: [facility] Address: [address] [place] [address] Performed By: #### 5 7021-8 ####[facility]PITALNCLIA [id number] [place] [address] [place] MCH (RBC) [Entitic mass] 25.3 pg Low 26.0-34.0 [facility] Comment on above: Order Comment: Speci men Type: BLOOD SPECIMENOrdering Facility: [facility] Address: [address] [place] [address] Performed By: #### 5 7021-8 ####[facility]PITALNCLIA [id number] [place] [address] [place] MCHC (RBC) [Mass/Vol] 31.5 g/dL Normal 30.5-36.0 [facility] Comment on above: Order Comment: Speci men Type: BLOOD SPECIMENOrdering Facility: [facility] Address: [address] [place] [address] Performed By: #### 5 7021-8 ####[facility] [id number] [place] [address] [place] MCV (RBC) [Entitic vol] 80.3 fL Normal 80.0-100.0 [facility] Comment on above: Order Comment: Speci men Type: BLOOD SPECIMENOrdering Facility: [facility] Address: [address] [place] [address] Performed By: #### 5 7021-8 ####[facility] [id number] [place] [address] [place] Monocytes (Bld) [#/Vol] 0.72 10*3/uL Normal <0.87 [facility] Comment on above: Order Comment: Speci men Type: BLOOD SPECIMENOrdering Facility: [facility] Address: [address] [place] [address] Performed By: #### 5 7021-8 ####[facility] [id number] [place] [address] [place] Monocytes/100 WBC (Bld) 7.9 % Normal [facility] Comment on above: Order Comment: Speci men Type: BLOOD SPECIMENOrdering Facility: [facility] Address: [address] [place] [address] Performed By: #### 5 7021-8 ####[facility] HOSPITALLI [id number] [place] [address] [place] Neutrophils (Bld) [#/Vol] 5.79 10*3/uL Normal 1.45-7.50 [facility] Comment on above: Order Comment: Speci men Type: BLOOD SPECIMENOrdering Facility: [facility] Address: [address] [place] [address] Performed By: #### 5 7021-8 ####[facility] [id number] [place] [address] [place] Neutrophils/100 WBC (Bld) 64.0 % Normal [facility] Comment on above: Order Comment: Speci men Type: BLOOD SPECIMENOrdering Facility: [facility] Address: [address] [place] [address] Performed By: #### 5 7021-8 ####[facility] [id number] [place] [address] [place] Nucleated RBC (Bld) [#/Vol] 10*3/uL Normal <0.01 [facility] Comment on above: Order Comment: Speci men Type: BLOOD SPECIMENOrdering Facility: [facility] Address: [address] [place] [address] Performed By: #### 5 7021-8 ####[facility] [id number] [place] [address] [place] Nucleated RBC/100 WBC (Bld) [Ratio] 0.0 /100 WBC Normal [facility] Comment on above: Order Comment: Speci men Type: BLOOD SPECIMENOrdering Facility: [facility] Address: [address] [place] [address] Performed By: #### 5 7021-8 ####[facility] [id number] [place] [address] [place] Platelet mean volume (Bld) [Entitic vol] 10.2 fL Normal 9.0-12.7 [facility] Comment on above: Order Comment: Speci men Type: BLOOD SPECIMENOrdering Facility: [facility] Address: [address] [place] [address] Performed By: #### 5 7021-8 ####[facility] CAITLINNCLIA [id number] [place] [address] [place] Platelets (Bld) [#/Vol] 259 10*3/uL Normal 150-400 [facility] Comment on above: Order Comment: Speci men Type: BLOOD SPECIMENOrdering Facility: [facility] Address: [address] [place] [address] Performed By: #### 5 7021-8 ####[facility] [id number] [place] [address] [place] RBC (Bld) [#/Vol] 3.91 10*6/uL Normal 3.90-5.20 [facility] Comment on above: Order Comment: Speci men Type: BLOOD SPECIMENOrdering Facility: [facility] Address: [address] [place] [address] Performed By: #### 5 7021-8 ####[facility] [id number] [place] [address] [place] WBC (Bld) [#/Vol] 9.06 10*3/uL Normal 3.70-11.00 [facility] Comment on above: Order Comment: Speci men Type: BLOOD SPECIMENOrdering Facility: [facility] Address: [address] [place] [address] Performed By: #### 5 7021-8 ####[facility] [id number] [place] [address] [place] GESTATIONAL GLUCOSE SCREEN, 1-HOUR, 50 GRAM, NON-FASTINGon 07-21-2024 Glucose [Mass/Vol] 104 mg/dL Normal 74-134 [facility] Comment on above: Order Comment: Speci men Type: BLOOD SPECIMENOrdering Facility: [facility] Address: [address] [place] [address] Result Comment: [facility] Congress of Obstetricians and Gynecologists (Robyn/So) guidelines state a gestational diabetes mellitus positive screen is made, in women not previously diagnosed with overt diabetes, when the 1 hr plasma glucose level is equal to or above 140 mg/dL. The [facility] Reprographics Technician and [facility] [place] recommends a 135 mg/dL cutoff. Performed By: #### G LTGST ####[facility] [id number] [place] [address] [place] Reagin and Treponema pallidu m IgG and IgM [Interp]on 07-21-2024 T. pallidum IgG+IgM IA Ql (S) Non-Reactive Normal Nonreactive [facility] Comment on above: Order Comment: Speci men Type: BLOOD SPECIMENOrdering Facility: [facility] Address: [address] [place] [address] Performed By: #### 7 3752-8 ####[facility] LABIA [id number] [place] [id number] [place] Reagin+T pallidum IgG+IgM Se rPl-Impon 07-21-2024 Reagin and Treponema pallidum IgG and IgM [Interp] Cannot exclude recent Treponemal infection if specimen collected within 7-10 days after appearance of suspect lesions or 2-3 weeks after an exposure. Clinical correlation is required. Normal [facility] Comment on above: Order Comment: Speci men Type: BLOOD SPECIMENOrdering Facility: [facility] Address: [address] [place] [address] Performed By: #### 7 3752-8 ####[facility] LABIA [id number] [place] [id number] [place] Examination level ultrasound on 06-02-2024 Indication Standard anatomic survey Impression REMOTE READ The patient is referred for a standard anatomic survey. - Single, live, intrauterine . - biometry is consistent with the established gestational age. - No malformations were visualized on a complete standard anatomic survey. - The amniotic fluid volume is normal amount. - The placenta is posterior, fundal. - The Transabdominal cervical length measures 32.8 mm with no evidence of funneling or other dynamic changes. - Not all structural malformations can be detected by ultrasound examination. Recommendations Additional follow-up as clinically indicated. Maternal Assessment Height 165 cm Height (ft) 5 ft Height (in) 5 in Physical Exam Initial weight (lb) 114 lb Initial BMI 18.97 kg/m Maternal assessment other: 2 Para 1 Method Transabdominal ultrasound examination. View: Adequate visualization Olmos . Number of fetuses: 1 Dating LMP on: 01/07/2024 Cycle: regular cycle GA by LMP 21 w + 0 d ANDRIA by LMP: 10/13/2024 GA by prior assessment 21 w + 0 d ANDRIA by prior assessment: 10/13/2024 Ultrasound examination on: 06/02/2024 GA by U/S based upon: AC, BPD, Femur, HC GA by U/S 21 w + 0 d ANDRIA by U/S: 10/13/2024 Assigned: based on stated ANDRIA, selected on 06/02/2024 Assigned GA 21 w + 0 d Assigned ANDRIA: 10/13/2024 General Evaluation Cardiac activity present. FHR 140 bpm. movements: present. Presentation: breech Placenta: Placental site: posterior, fundal Umbilical cord: Cord vessels: 3 vessel cord Amniotic fluid: Amount of AF: normal amount. MVP 5.4 cm Growth Overview Exam date GA BPD (mm) HC (mm) AC (mm) FL (mm) HL (mm) EFW (g) 06/02/2024 21w 0d 47.2 21% 183.2 40% 162.3 54% 36.8 88% 33.7 61% 417 63% Biometry Standard BPD 47.2 mm 20w 2d 21% Hadlock OFD 66.4 mm 20w 6d 72% Nicolaides HC 183.2 mm 20w 5d 40% Nitin Cerebellum tr 21.3 mm 20w 1d 32% Hill Nuchal fold 4.7 mm AC 162.3 mm 21w 2d 54% Hadlock Femur 36.8 mm 21w 6d 88% Nitin Humerus 33.7 mm 21w 3d 61% Nitin EFW 417 g 21w 2d 63% Hadlock EFW (lb) 0 lb EFW (oz) 15 oz EFW by: Hadlock (HC-AC-FL) Extended Bar Helper 6.7 mm CM 3.7 mm 9% Nicolaides Extremities / Bony Struc FL / HC 0.20 79% Hadlock Other Structures FHR 140 bpm Anatomy Cranium: normal Lateral ventricles: normal Choroid plexus: normal Midline falx: normal Cavum septi pellucidi: normal Cerebellum: normal Cisterna magna: normal Head / Neck Vermis: Normal but not required for a standard anatomy exam Neck: Normal but not required for a standard anatomy exam Nuchal fold: Normal but not required for a standard anatomy exam Lips: normal Profile: Normal but not required for a standard anatomy exam Nose: Normal but not required for a standard anatomy exam Face Maxilla: Normal but not required for a standard anatomy exam Mandible: Normal but not required for a standard anatomy exam Orbits: Normal but not required for a standard anatomy exam Lens: Normal but not required for a standard anatomy exam 4-chamber view: normal RVOT view: normal LVOT view: normal 3-vessel view: normal 3-bcvtll-mgskjfa view: normal Heart / Thorax Situs: situs solitus (normal) Aortic arch view: Normal but not required for a standard anatomy exam SVC: Normal but not required for a standard anatomy exam IVC: Normal but not required for a standard anatomy exam Cardiac axis: normal Rt lung: Normal but not required for a standard anatomy exam Lt lung: Normal but not required for a standard anatomy exam Diaphragm: Normal but not required for a standard anatomy exam Cord insertion: normal Stomach: normal Kidneys: normal Bladder: normal Genitals: normal Abdomen Abdom. wall: normal Cervical spine: normal Thoracic spine: normal Lumbar spine: normal Sacral spine: normal Arms: normal Legs: normal Rt upper arm: normal Rt forearm: normal Rt hand: normal Rt fingers: normal Lt upper arm: normal Lt forearm: normal Lt hand: normal Lt fingers: normal Rt upper leg: normal Rt lower leg: normal Rt foot: normal Lt upper leg: normal Lt lower leg: normal Lt foot: normal Gender: Unspecified Wants to know sex: no Maternal Structures Uterus / Cervix Uterus: Visualized Cervix: Visualized Approach: Transabdominal Cervical length 32.8 mm Other: Patient declined transvaginal ultrasound for cervical length. Ovaries / Tubes / Adnexa Rt ovary: Not visualized Lt ovary: Visualized Performed By: Kassandra Amaya RDMS, RVT Read By: Sheri Garcia M.D. MATERNAL MEDICINE [facility] Radiology Study observation (narrative) [facility] Quantiferon TB-Gold+on 05-30 QFT MITOGEN QUINN > 10.00 Normal . [facility] Comment on above: Performed By: #### L 3400.8000 #### [facility] [address] [place], [address] QFT NIL VALUE 0 IU/mL Normal . [facility] Comment on above: Performed By: #### L 3400.8000 #### [facility] [address] [place], [address] QFT TB GOLD+ Comment Normal . [facility] Comment on above: Result Comment: Cam tiFERON-TB Gold Plus is a qualitative indirect test for M tuberculosis infection (including disease) and is intended for use in conjunction with risk assessment, radiography, and other medical and diagnostic evaluations. The QuantiFERON-TB Gold Plus result is determined by subtracting the Nil value from either TB antigen (Ag) value. The Mitogen tube serves as a control for the test. Performed By: #### L 3400.8000 #### [facility] [address] [place], [address] QFT TB POS CRIT Negative Normal Negative [facility] Comment on above: Result Comment: No r esponse to M tuberculosis antigens detected. Infection with M tuberculosis is unlikely, but high risk individuals should be considered for additional testing (ATS/IDSA/CDC Clinical Practice Guidelines, 2017). The reference range is an Antigen minus Nil result of <0.35 IU/mL. The specimen received for QuantiFERON testing was incubated by the ordering institution. Specific procedures outlined in our Directory of Services and in the package insert for the QuantiFERON Gold (In Tube) test must be followed to enable for proper stimulation of cells for the production of interferon gamma. Chemiluminescence immunoassay methodology Performed at: [facility] [id number] Costume Technician: Tarun Koehler PhD, Phone: [phone] Performed By: #### L 3400.8000 #### [facility] [address] [place], [place], [address] QFT TB1+ AG QUINN 0 IU/mL Normal . [facility] Comment on above: Performed By: #### L 3400.8000 #### [facility] [address] [place], [place], [address] QFT TB2+ AG QUINN 0.01 IU/mL Normal . [facility] Comment on above: Performed By: #### L 3400.8000 #### [facility] [address] [place], [place], [id number] Office Visit Reporton 2023 Office Visit Report [facility] [address] [place] [address] OFFICE VISIT Date of Service: 05/26/24 MR#: [id number] Acct: [id number] Patient: ROSA SCHULER Rep #: [id number] : 2000 Provider: GARRETT Carey Age/Sex: 23/F Location: [facility] Status: Signed Intake Vital Signs 03/15/24 10:07 Height 1.65 m Intake Visit Reasons: QUANTIFERON, FIT TEST/ [place] Chief Complaint: work physical Allergies latex Allergy (Intermediate, Verified 03/15/24 10:10) Rash Penicillins (PCN) Allergy (Intermediate, Verified 03/15/24 10:10) Rash Office Procedures [facility] Billing Sheet Testing Respirator Fit Testing: Yes Occquant-Quantiferon: Yes Assessment and Plan Assessment and Plan Orders: Orders Quantiferon TB-Gold+ 05/26/24 Z02.1 - Encounter for pre-employment examination 05/30/24 0604 Date Eyad TUCKER Cosigner Signature: Date (if applicable) CC: Normal [facility] Office Visit Reporton [address] [facility] JACEY Thrasher [address] OFFICE VISIT Date of Service: 05/26/24 MR#: [id number] Acct: [id number] Patient: ROSA SCHULER Rep #: [id number] : 2000 Provider: GARRETT Carey Age/Sex: 23/F Location: [facility] Status: Signed Intake Vital Signs 03/15/24 10:07 Height 1.65 m Intake Visit Reasons: PE NON DOT PHYSICAL/ [place] Chief Complaint: work physical Allergies latex Allergy (Intermediate, Verified 03/15/24 10:10) Rash Penicillins (PCN) Allergy (Intermediate, Verified 03/15/24 10:10) Rash PFSH Social History Smoking Status: Never smoker HPI HPI Chief Complaint: work physical Details: ROSA SCHULER, is a 23 F who presents to the office today for work physical [facility] Office Procedures Physical Exam Coding PE Coding Pre-employment PE: Yes Coding Level of Care Code No Charge Diagnoses Physical exam Z00.00 Assessment and Plan Assessment and Plan (1) Physical exam: Status: Acute Plan: work physical [facility] with respirator fitness clearance. 05/26/24 1004 Date Eyad Spring Signature: Date (if applicable) CC: Normal [facility] CNOVon 05-20-2024 CNOV Office Visit (UCWSTR ) ROSA SCHULER ([id number]) 1 F Date Time Provider Department 05/20/24 9:15 AM LOPEZ MARTINEZ [facility] During your visit today, we recorded the following information about you: Temperature Pulse Respiration Blood pressure 97.5 degrees 111/minute 18/minute 118/78 Weight 58.5 kg Lopez Martinez APRN.EARLY CHILDHOOD SPECIALIST 05/20/2024 9:17 AM Signed Subjective HPI Nontoxic-appearing 19-week female presents urgent care chief complaint sore throat. Duration of symptoms 2 days. Associate symptoms listed above. States significant other sick similar signs and symptoms. No OTC medication use. No difficulty swallowing and secretion decreased range of motion neck or trismus. No fevers. Past medical history prescription medications allergies reviewed. BP 118/78 Pulse 111 Temp 36.4 ?C (97.5 ?F) (Tympanic) Resp 18 Wt 58.5 kg (128 lb 15.5 oz) LMP 01/07/2024 SpO2 99% BMI 21.46 kg/m? Hr 93 .Patient presents with: Sore Throat: ST x 2 days PAST MEDICAL HISTORY Diagnosis Date History of depression after my first PAST SURGICAL HISTORY Procedure Laterality Date EXTRACTION, ERUPTED TOOTH OR EXPOSED ROOT (ELEVATION AND/OR FORCEPS REMOVAL) TONSILLECTOMY AND ADENOIDECTOMY ALLERGIES Latex and Penicillins MEDICATIONS no122/iron/folic acid ( MULTI ORAL) Take by mouth. pantoprazole DR (PROTONIX) 40 mg tablet Take 1 tablet by mouth once daily. (Patient not taking: Reported on 05/20/2024) FAMILY HISTORY Problem Relation Age of Onset Diabetes Mother Diabetes Maternal Grandfather Social History Tobacco Use Smoking status: Former Types: Cigarettes Smokeless tobacco: Never Tobacco comments: 2016 stop vaping 2021 Vaping Use Vaping status: Former Quit date: 2022 Substance Use Topics Alcohol use: Not Currently Drug use: Not Currently Comment: marijuana in the past Review of Systems Constitutional: Negative for chills, fever and malaise/fatigue. HENT: Positive for sore throat. Negative for congestion, ear discharge, ear pain and sinus pain. Eyes: Negative for blurred vision, pain, discharge and redness. Respiratory: Negative for cough, hemoptysis, sputum production, shortness of breath, wheezing and stridor. Cardiovascular: Negative for chest pain. Gastrointestinal: Negative for abdominal pain, diarrhea, nausea and vomiting. Musculoskeletal: Negative for myalgias. Skin: Negative for itching and rash. Neurological: Negative for dizziness and headaches. Objective Physical Exam Constitutional: General: She is not in acute distress. Appearance: She is not diaphoretic. HENT: Head: Normocephalic. Jaw: No trismus, tenderness, swelling or pain on movement. Mouth/Throat: Mouth: Mucous membranes are moist. Pharynx: Oropharynx is clear. Uvula midline. Posterior oropharyngeal erythema present. No pharyngeal swelling, oropharyngeal exudate or uvula swelling. Eyes: Conjunctiva/sclera: Conjunctivae normal. Pupils: Pupils are equal, round, and reactive to light. Cardiovascular: Rate and Rhythm: Normal rate and regular rhythm. Heart sounds: Normal heart sounds. Pulmonary: Effort: Pulmonary effort is normal. No tachypnea, accessory muscle usage or respiratory distress. Breath sounds: Normal breath sounds. No stridor. No wheezing, rhonchi or rales. Abdominal: General: There is no distension. Palpations: Abdomen is soft. Tenderness: There is no abdominal tenderness. There is no guarding or rebound. Musculoskeletal: Cervical back: Normal range of motion and neck supple. No edema, erythema, rigidity or tenderness. No pain with movement. Normal range of motion. Lymphadenopathy: Cervical: No cervical adenopathy. Skin: General: Skin is warm and dry. Neurological: Mental Status: She is alert and oriented to person, place, and time. ASSESSMENT/PLAN: 1. Sore throat - ICD9: 462, ICD10: J02.9 (primary diagnosis) - STREP A MOLECULAR (POC) 2. Viral illness - ICD9: 079.99, ICD10: B34.9 Strep test negative. Diagnosed with viral pharyngitis. Follow-up PCP 2 to 3 days reevaluation. Patient was educated on supportive therapies. Patient will follow up with primary care provider as needed. Patient was instructed to immediately proceed to emergency room for any new, worsening, or symptoms lasting longer than anticipated. The patient's clinical presentation is otherwise unremarkable at this time. Based on exam and clinical finding, the patient is stable for discharge. Plan of care was discussed with patient. Patient verbalizes understanding and agrees to plan of care. This note was generated using [employer] software. It may contain errors in wording, punctuation, or spelling. Lopez Martinez APRN.EARLY CHILDHOOD SPECIALIST Allergies As of Date: 05/20/2024 Noted Allergy Reaction LATEX 09/22/2022 7 - Swelling (more content not included)... Normal [facility] STREP A MOLECULAR (POC)on Procedural Control Valid [facility] Strep A (POCT) Negative Negative [facility] nuchal translucency me asured by USon 04-12-2024 Indication First trimester anatomic survey Impression remote read The patient is referred for a first trimester anatomy scan including nuchal translucency measurement as clinically indicated. - Single, live, intrauterine . - Waggoner rump length measurement is consistent with the established gestational age. - A qualitative screen of the nuchal translucency and other anatomic structures was unremarkable on a complete first trimester anatomic assessment. - Not all structural malformations can be detected by ultrasound examination. - An anatomic survey at 18-20 weeks is recommended given no identified risk factors. Maternal Structures: Right Ovary: Size 29 mm x 23 mm x 22 mm Left Ovary: Size 18 mm x 18 mm x 11 mm Recommendations - An anatomic survey at 18-20 weeks given no identified risk factors. - Additional follow up as clinically indicated. Maternal Assessment Height 165 cm Height (ft) 5 ft Height (in) 5 in Weight 53 kg Weight (lb) 116 lb BMI 19.30 kg/m Physical Exam Initial weight (lb) 114 lb Initial BMI 18.97 kg/m Method Transabdominal ultrasound examination [place] . Number of fetuses: 1 Dating LMP on: 01/07/2024 Cycle: regular cycle GA by LMP 12 w + 6 d ANDRIA by LMP: 10/13/2024 Ultrasound examination on: 04/06/2024 GA by U/S based upon: CRL GA by U/S 12 w + 4 d ANDRIA by U/S: 10/15/2024 Assigned: based on the LMP, selected on 03/09/2024 Assigned GA 12 w + 6 d Assigned ANDRIA: 10/13/2024 General Evaluation Cardiac activity present Placenta: posterior Cord vessels: 3 vessel cord, normal insertion Amniotic fluid: normal amount Biometry Standard FHR 148 bpm CRL 61.0 mm 12w 4d 21% Hadlock NT 1.40 mm First Trimester Anatomy Calvarium: normal Falx cerebri: normal Choroid plexus: normal Profile: normal Nasal bone: normal Retronasal triangle: normal Maxilla: normal Mandible: normal Nuchal translucency: Unremarkable Situs: normal Cardiac position: normal Cardiac axis: normal 4-chamber view: normal 4-chamber view with color: normal 7-wzucyw-laxkxou view: normal Abdominal cord insertion: normal Stomach: normal Kidneys: normal Bladder: normal Color doppler of perivesical umbilical arteries: normal Vertebral alignment: normal Arms: normal Hands: normal Legs: normal Feet: normal Maternal Structures Uterus / Cervix Uterus: Visualized Uterus position: anteverted Ovaries / Tubes / Adnexa Rt ovary: Normal Rt ovary D1 29 mm Rt ovary D2 23 mm Rt ovary D3 22 mm Rt ovary Vol 7.5 cm Lt ovary: Normal Lt ovary D1 18 mm Lt ovary D2 18 mm Lt ovary D3 11 mm Lt ovary Vol 1.9 cm Performed By: Angeles Velasquez RDMS Read By: Bar Dinero M.D. MATERNAL MEDICINE [facility] nuchal translucency me asured by USon 04-06-2024 Radiology Study observation (narrative) [facility] CBC W/Diff, Automatedon Absolute Lymph 1.88 X10 3/uL Normal 0.83-4.51 [facility] Comment on above: Performed By: #### L 100.0100, L500.4050, L501.2450 #### [facility] [address] [place], [address] Absolute Neut 6.5 X10 3/uL Normal 2.0-7.7 [facility] Comment on above: Performed By: #### L 100.0100, L500.4050, L501.2450 #### [facility] [address] [place], [address] Basophils/100 WBC (Bld) 0.3 % Normal 0-1 [facility] Comment on above: Performed By: #### L 100.0100, L500.4050, L501.2450 #### [facility] [address] [place], [address] Eosinophils/100 WBC (Bld) 0.7 % Normal 0-5 [facility] Comment on above: Performed By: #### L 100.0100, L500.4050, L501.2450 #### [facility] [address] [place], [address] Erythrocyte distribution width (RBC) [Ratio] 14.4 % Normal 11.6-14.6 [facility] Comment on above: Performed By: #### L 100.0100, L500.4050, L501.2450 #### [facility] [address] [place], [address] Hematocrit (Bld) [Volume fraction] 38.3 % Normal 37-47 [facility] Comment on above: Performed By: #### L 100.0100, L500.4050, L501.2450 #### [facility] [address] [place], [address] Hemoglobin (Bld) [Mass/Vol] 12.2 g/dL Normal 12.0-15.0 [facility] Comment on above: Performed By: #### L 100.0100, L500.4050, L501.2450 #### [facility] [address] [place], [address] IG% 0.400 Normal 0.0-0.9 [facility] Comment on above: Result Comment: IG% - Immature Granulocytes (promyelocytes, myelocytes and metamyelocytes) > 1% indicates that a LEFT SHIFT is Present. Performed By: #### L 100.0100, L500.4050, L501.2450 #### [facility] [address] [place], [address] Lymphocytes/100 WBC (Bld) 21.1 % Normal 19-41 [facility] Comment on above: Performed By: #### L 100.0100, L500.4050, L501.2450 #### [facility] [address] [place], [address] MCH (RBC) [Entitic mass] 25.8 pg Low 27.0-32.0 [facility] Comment on above: Performed By: #### L 100.0100, L500.4050, L501.2450 #### [facility] [address] [place], [address] MCHC (RBC) [Mass/Vol] 31.9 g/dL Low 32-36 [facility] Comment on above: Performed By: #### L 100.0100, L500.4050, L501.2450 #### [facility] [address] [place], [address] MCV (RBC) [Entitic vol] 81.1 fL Normal 81-99 [facility] Comment on above: Performed By: #### L 100.0100, L500.4050, L501.2450 #### [facility] [address] [place], [address] Monocytes/100 WBC (Bld) 4.7 % Normal 0-10 [facility] Comment on above: Performed By: #### L 100.0100, L500.4050, L501.2450 #### [facility] [address] [place], [address] Neutrophils/100 WBC (Bld) 72.8 % High 47-70 [facility] Comment on above: Performed By: #### L 100.0100, L500.4050, L501.2450 #### [facility] [address] [place], [address] Nucleated RBC (Bld) [#/Vol] 0 10*3/uL Normal 0-5 [facility] Comment on above: Performed By: #### L 100.0100, L500.4050, L501.2450 #### [facility] [address] [place], [address] Platelet mean volume (Bld) [Entitic vol] 10.3 fL Normal 6.2-12.0 [facility] Comment on above: Performed By: #### L 100.0100, L500.4050, L501.2450 #### [facility] [address] [place], [address] Platelets (Bld) [#/Vol] 238 10*3/uL Normal 150-450 [facility] Comment on above: Performed By: #### L 100.0100, L500.4050, L501.2450 #### [facility] [address] [place], [address] RBC (Bld) [#/Vol] 4.72 10*6/uL Normal 4.2-5.4 [facility] Comment on above: Performed By: #### L 100.0100, L500.4050, L501.2450 #### [facility] [address] [place], [address] RDW SD 41.9 fl Normal 35.1-43.9 [facility] Comment on above: Performed By: #### L 100.0100, L500.4050, L501.2450 #### [facility] [address] [place], [address] WBC (Bld) [#/Vol] 8.9 10*3/uL Normal 4.4-11.0 [facility] Comment on above: Performed By: #### L 100.0100, L500.4050, L501.2450 #### [facility] [address] [place], [address] Comprehensive Metabolic Prof ilon 03-15-2024 Albumin [Mass/Vol] 3.1 g/dL Low 3.2-5.0 [facility] Comment on above: Performed By: #### L 100.0100, L500.4050, L501.2450 #### [facility] [address] [place], [address] Albumin/Globulin [Mass ratio] 0.9 {ratio} Normal 0.9-2.4 [facility] Comment on above: Performed By: #### L 100.0100, L500.4050, L501.2450 #### [facility] [address] [place], [address] ALK P 60 U/L Normal 45-117 [facility] Comment on above: Performed By: #### L 100.0100, L500.4050, L501.2450 #### [facility] [address] [place], [address] ALT [Catalytic activity/Vol] 13 U/L Normal 13-56 [facility] Comment on above: Performed By: #### L 100.0100, L500.4050, L501.2450 #### [facility] [address] [place], [address] AST [Catalytic activity/Vol] 16 U/L Normal 15-37 [facility] Comment on above: Performed By: #### L 100.0100, L500.4050, L501.2450 #### [facility] [address] [place], [address] Bilirubin [Mass/Vol] 0.10 mg/dL Low 0.20-1.00 [facility] Comment on above: Result Comment: For patients on eltrombopag therapy, use of Dimension [place] TBIL is not recommended. Performed By: #### L 100.0100, L500.4050, L501.2450 #### [facility] [address] [place], [address] BUN/CRE 10.6 RATIO Normal 10-20 [facility] Comment on above: Performed By: #### L 100.0100, L500.4050, L501.2450 #### [facility] [address] [place], [address] CA,Total 8.7 mg/dL Normal 8.5-10.1 [facility] Comment on above: Performed By: #### L 100.0100, L500.4050, L501.2450 #### [facility] [address] [place], [address] Chloride [Moles/Vol] 110 mmol/L High 98-107 [facility] Comment on above: Performed By: #### L 100.0100, L500.4050, L501.2450 #### [facility] [address] [place], [address] CO2 [Moles/Vol] 24.0 mmol/L Normal 21.0-32.0 [facility] Comment on above: Performed By: #### L 100.0100, L500.4050, L501.2450 #### [facility] [address] [place], [address] Creatinine [Mass/Vol] 0.47 mg/dL Low 0.55-1.02 [facility] Comment on above: Result Comment: The validity of the calculated GFR GFRAA in patients over 70 years has not been determined. Clinical correlation is essential. Performed By: #### L 100.0100, L500.4050, L501.2450 #### [facility] [address] [place], [address] EST GFR - AA 208 mL/min Normal >60 [facility] Comment on above: Result Comment: Afri can Romanian GFR Calc Performed By: #### L 100.0100, L500.4050, L501.2450 #### [facility] [address] [place], [address] GAP 4 Low 5-15 [facility] Comment on above: Performed By: #### L 100.0100, L500.4050, L501.2450 #### [facility] [address] [place], [address] GFR/1.73 sq M.predicted among non-blacks MDRD (S/P/Bld) [Vol rate/Area] 172 mL/min/{1.73_m2} Normal >60 [facility] Comment on above: Result Comment: Non- GFR Calc Performed By: #### L 100.0100, L500.4050, L501.2450 #### [facility] [address] [place], [address] Globulin (S) [Mass/Vol] 3.5 g/dL Normal 2.2-4.2 [facility] Comment on above: Performed By: #### L 100.0100, L500.4050, L501.2450 #### [facility] [address] [place], [address] Glucose [Mass/Vol] 79 mg/dL Normal 74-106 [facility] Comment on above: Performed By: #### L 100.0100, L500.4050, L501.2450 #### [facility] [address] [place], [address] Potassium [Moles/Vol] 3.7 mmol/L Normal 3.5-5.1 [facility] Comment on above: Performed By: #### L 100.0100, L500.4050, L501.2450 #### [facility] [address] [place], [address] Sodium [Moles/Vol] 138 mmol/L Normal 136-145 [facility] Comment on above: Performed By: #### L 100.0100, L500.4050, L501.2450 #### [facility] [address] [place], [address] T PROT 6.6 g/dL Normal 6.4-8.2 [facility] Comment on above: Performed By: #### L 100.0100, L500.4050, L501.2450 #### [facility] [address] [place], [address] Urea nitrogen [Mass/Vol] 5 mg/dL Low 7-18 [facility] Comment on above: Performed By: #### L 100.0100, L500.4050, L501.2450 #### [facility] [address] [place], [address] Emergency Department Summary on 03-15-2024 Emergency Department Summary [facility] Medical Records Department [address] [place] [address] Emergency Department Summary 03/15/24 MR#: [id number] Acct: [id number] Name: ROSA SCHULER Rep #: [id number] : 2000 23 From: Ray Humphries MD PCP: Dr. Neo Ocasio, DO Status:DEP ER Location: ED HPI HPI - GI History of Present Illness Chief Complaint: Abd Pain Informant: patient Abdominal Pain/Flank Pain Onset: Today Context: Gradual Onset Timing: Intermittent Quality: Cramping Location: Epigastric, RUQ and LUQ Current Severity: Mild Maximum Severity: Mild Worsened by: Nothing Relieved by: Nothing Nausea/Vomiting/Emesis GI Symptom: Positive for Nausea and Vomiting Onset: Days Severity: Mild Diarrhea/Melena/Hematochezi a GI Symptom: Positive for Diarrhea; Negative for Melena or Hematochezia Onset: Days Stool Quality: Positive for Loose Severity: Mild Associated Symptoms Associated Symptoms: Negative for Dysuria, Frequency, Hematuria or Urgency Narrative Narrative: 23-year-old female 10 weeks G2, P1 Ab0. States this morning she is in for abdominal epigastric and upper quadrant cramping. She has had intermittent nausea and vomiting with the first trimester. Intermittent loose stools. No melena. No dysuria. No fever. She has never had any prior abdominal surgeries. She had a recent ultrasound done at the [facility] [place] showed a single live any uterine this was done about 1-1/2 weeks ago. Denies any vaginal bleeding. Prior similar symptoms: No Recent Illness/Hospitalization: No PFSH PFSH Medical History no medical history no medical history Allergy/AdvReac Type Severity Reaction Status Date / Time latex Allergy Intermediate Rash Verified 03/15/24 10:10 Penicillins (PCN) Allergy Intermediate Rash Verified 03/15/24 10:10 Social History Smoking Status: Never smoker ROS ROS ED ROS Narrative First trimester nausea and vomiting. Abdominal cramping. Constitutional Constitutional ED: Denies chills or fever(s) ENT ENT ED: Denies ear pain Cardiovascular Cardiovascular: Denies chest pain Respiratory/Chest Respiratory/Chest: Denies cough or dyspnea Gastrointestinal Gastrointestinal: Reports abdominal pain, diarrhea, nausea and vomiting; Denies constipation or melena Genitourinary Genitourinary ED: Denies dysuria or hematuria Musculoskeletal Musculoskeletal: Denies arthralgias, back pain or myalgias Integumentary Denies abscess, Abrasions or rash Neurologic Neurologic: Denies headache(s) Psychiatric Psychiatric: Denies anxiety, depression or suicidal thoughts Endocrine Endocrinology: Denies polydipsia or polyphagia Hematologic/Lymphatic Hematologic/Lymphatic: Denies easy bleeding, easy bruising or lymphadenopathy Allergic/Immunologic Allergic/Immunologic ED: Denies mouth swelling, tongue swelling or urticaria EXAM Physical Exam Narrative Exam Narrative: 23-year-old female no acute distress. Vital signs stable afebrile. H EENT exam unremarkable. Neck nontender. Lungs clear to auscultation bilaterally. Heart regular rhythm no murmur. Abdomen soft, nondistended normal bowel sounds no peritoneal signs. Minimal epigastric tenderness. No Rudd sign or McBurney point tenderness. No distention. No signs of obstruction. No hernia or mass. No uterine or lower quadrant tenderness. Moving all 4 extremities. Nontender no edema. Back nontender. Neurologically she is awake alert no focal motor deficits. Const Vital Signs: 03/15/24 10:07 03/15/24 10:10 Temperature 96.2 F L Temperature Source Temporal Pulse Rate 72 Respiratory Rate 16 Blood Pressure 103/67 Blood Pressure Mean 79 Pulse Ox 100 Oxygen Delivery Method Room Air Positive well nourished and well developed; Negative for obese, cachectic, contractures or unkempt General Appearance ED: well developed and NAD; Negative for unkempt, cachectic, contractures or pallor Nutritional Appearance: Negative for cachectic or obese HEENT Reports moist mucous membranes normocephalic and atraumatic; Negative for trauma or tenderness Eyes PERRL and EOMs intact bilaterally General Eye ED: Negative for pale conjunctiva or scleral icterus Neck no lymphadenopathy, supple and no JVD General: Negative for tenderness Carotids: Negative for other Lymph Lymphatic: Negative for other Resp normal respiratory effort and clear to auscultation bilaterally Effort and Inspection: Negative for respiratory distress Auscultation: Negative for rales, rhonchi or wheezes Cardio regular rate, regular rhythm, S1 normal heart sound, S2 normal heart sound and no murmurs Rate: Negative for bradycardia or tachycardic Rhythm: Negative for abnormal rhythm GI non-distended and no masses; Negative for n (more content not included)... Normal [facility] Lipaseon 03-15-2024 Lipase [Catalytic activity/Vol] 20 U/L Normal 13-75 [facility] Comment on above: Result Comment: Pancho serna note: LIPASE revised reference range effective 22. New Lipase methodology. Expected to produce lower values than the previous assay method. NEW Reference Range: 13 - 75 U/L Performed By: #### L 100.0100, L500.4050, L501.2450 #### [facility] [address] [place], [place], [id number] Urinalysis, Completeon 03-15 BACTERIA 1+ /hpf Normal None Seen [facility] Comment on above: Order Comment: CLEAN CATCH Performed By: #### L 400.0001 #### [facility] [address] [place], [address] EPI,SQUAMOUS 5-10 SEEN Normal 5-10 [facility] Comment on above: Order Comment: CLEAN CATCH Performed By: #### L 400.0001 #### [facility] [address] [place], [address] Mucus Ql (Urine sed) 0 SEEN Normal [facility] Comment on above: Order Comment: CLEAN CATCH Performed By: #### L 400.0001 #### [facility] [address] [place], [address] RBC 0 SEEN Normal 0-5 [facility] Comment on above: Order Comment: CLEAN CATCH Performed By: #### L 400.0001 #### [facility] [address] [place], [address] WBC 0 SEEN Normal 0-5 [facility] Comment on above: Order Comment: CLEAN CATCH Performed By: #### L 400.0001 #### [facility] [address] [place], [address] POC LAST INSERTER ULTRASOUNDon 03-09-20 Indication Viability; confirm cardiac activity Impression Single intrauterine gestational sac, CRL is appropriate for clinical dates, corresponding to ANDRIA cardiac activity is visualized Recommendations Follow up for NT scan if desired Method Transvaginal ultrasound examination [place] . Number of embryos: 1 Dating LMP on: 01/07/2024 Cycle: regular cycle GA by LMP 8 w + 6 d ANDRIA by LMP: 10/13/2024 Assigned: based on the LMP, selected on 03/09/2024 Assigned GA 8 w + 6 d Assigned ANDRIA: 10/13/2024 Assessment Gestational sac: visualized. Location: intrauterine Yolk sac: visualized Embryo: visualized Cardiac activity: present General Evaluation Cardiac activity present Performed By: Carrie Garay CNM Read By: Carrie Garay CNM MATERNAL MEDICINE [facility] Radiology Study observation (narrative) [facility] CT HEAD OR BRAIN W/O CONTRAS Ton 08-04-2023 CT HEAD OR BRAIN W/O CONTRAST ORIGINAL EXAMINATION: CT HEAD TECHNIQUE: Axial CT images from skull base to vertex without IV contrast. This exam was performed according to our departmental dose optimization program, and includes the following measures where applicable: automated exposure control, adjustment of the mAs and/or kVp according to patient size and/or exam, and an iterative reconstruction algorithm. COMPARISON: CT head 07/27/2023 HISTORY: ORDERING SYSTEM PROVIDED HISTORY: Reason for Exam: pain; trauma patient FINDINGS: Parenchyma: No acute intracranial hemorrhage, midline shift, mass effect or acute ischemic infarct is demonstrated. The aden-white matter junctions are preserved. No space occupying intra-axial masses or extra-axial fluid collections are seen. Ventricles: No evidence of hydrocephalus or ventricular effacement. Vessels: No atherosclerotic calcifications. Orbits: Unremarkable. Calvarium: Unremarkable. Paranasal sinuses: Clear. Mastoid sinuses: Clear. IMPRESSION: Unremarkable examination. Interpreted by: Josh Mayfield MD Preliminary Report By: Josh Mayfield MD Electronically signed By Josh Mayfield MD Dictated Date: 08/04/2023 8:08:04 AM Prelim Date: 08/04/2023 8:10:46 AM Sign Date: 08/04/2023 8:10:46 AM Ordering Provider: VU THOMAS [facility]) XR CHEST 2 VIEWSon 3 XR CHEST 2 VIEWS ORIGINAL EXAMINATION: TWO XRAY VIEWS OF THE CHEST08/04/2023 8:04 am XR Chest two views COMPARISON: 07/27/2022 HISTORY: ORDERING SYSTEM PROVIDED HISTORY: Reason for Exam: SOB/Cough/Fever, FINDINGS: No suspicious nodule, acute infiltrate, consolidation,mass, pneumothorax, pleural fluid, or vascular congestion is seen. Heart size and mediastinal contours are within normal limits for age and projection. There is a left clavicle fracture evaluated separately. IMPRESSION: No acute cardiopulmonary process. Interpreted by: Greg Perez MD Preliminary Report By: Greg Perez MD Electronically signed By Greg Perez MD Dictated Date: 08/04/2023 8:56:34 AM Prelim Date: 08/04/2023 8:57:15 AM Sign Date: 08/04/2023 8:57:15 AM Ordering Provider: VU THOMAS [facility] XR CLAVICLE LEFTon 3 XR CLAVICLE LEFT ORIGINAL EXAMINATION: 2 XRAY VIEWS OF THE LEFT OILMFAUH93/27/2023 8:03 am COMPARISON: None HISTORY: ORDERING SYSTEM PROVIDED HISTORY: Reason for Exam: pain, trauma FINDINGS: There is a moderately displaced fracture through the middle 3rd of the left clavicle without obvious angulation and with only minimal overriding. There is borderline increased separation of the AC joint. Coracoclavicular distance is within normal limits. IMPRESSION: Left clavicle fracture. Interpreted by: Greg Perez MD Preliminary Report By: Greg Perez MD Electronically signed By Greg Perez MD Dictated Date: 08/04/2023 8:55:24 AM Prelim Date: 08/04/2023 8:56:16 AM Sign Date: 08/04/2023 8:56:16 AM Ordering Provider: VU THOMAS [facility] ([place] 42on 03-29-2023 42 Attempted latch, inf ant latches, sucks a few times then off breast, repeated multiple times and no transfer obtained. Following plan is previous note for home. Parents educated that did not transfer during time of breast Normal [facility] 42 Shown section of Taking Care of Yourself and Baby' Booklet. Reviewed baby-led, cue based feedings (8-12x/day), how to know baby is getting enough, output parameters and milk storage guidelines. Discussed engorgement, plugged ducts and mastitis. Patient encouraged to seek help LAURYN for any concerns. phone number and [facility] Support Group information shared from booklet. Mom voiced understanding. No further questions. States has been better at latching, encouraged mother to call for observation before discharge and strongly encouraged for mother to come to group after discharge Home plan as follows: Patient to feed on demand but if it's been 2-3 hrs and is not showing hunger signs, to unwrap infant, place skin to skin, hand express and attempt at breast for 15-20 minutes. If becomes fussy at breast, calm infant and retry. If no latch obtained after 15-20 minutes or not transferring approprietly at breast, supplement with 2-10 ml (first 24 hrs) 5-15 ml (24-48 hrs) 15-30 ml (48-72 hr) and 30-60 (72-96 hrs) may require more if infant still showing hunger signs. If no STEVO available then formula will need to be given to make up difference. Discussed all alterative feeding methods and nipple confusion risks with mother. Educated mother every time supplementation is given, mother must pump with double electric breast pump to protect milk supply. Mother states understanding of importance of pumping 8-10 times a day. If able to latch and transfers well and no supplementation given then no need to pump. Parents states understanding of feeding plan. Strongly encouraged calling for more observation before discharge and to come to support group for update in plan [facility] CARECOORDon 03-29-2023 CARECOORD Date: 03/29/2023 Name: Rosa Schuler : 2000 County Information Patient Information Primary Caregiver: Self Accompanied by/Relationship: S/O;Family Marital Status: Support System: SO/Family Amish/Cultural Factors: Activities of Daily Living Communication: See demographics Living Arrangements Current Residence: Private residence Lives With: S/O; Family Support System: S/O; Family Income Information Income Source: Employed Financial Resource Strain How hard is it for you to pay for the very basics like food, housing, medical care and heating? N/A Housing Stability In the last 12 months, was there a time when you did not have a steady place to sleep or slept in a retirement (including now)? No Transportation Needs Has the lack of Transportation kept you from medical appointments? No In the past 12 months, has the lack of transportation kept you from meetings, work, or from getting things needed for daily living? No Food Insecurity Within the past 12 months, have you worried that your food would run out before you got the money to buy more? No Stress Do you feel stress - tense, restless, nervous, or anxious, or unable to sleep at night because you mind is troubled all the time? Mood stable Referral To Financial Resources: N/A Community Resources: Admission folder given upon admission to PP Unit Social Work: N/A CLP: N/A Medical Information 22 year old admitted for active labor at 39 weeks. 1 Para 0. Vaginal delivery. History of THC, patient states she did not used during . MAT negative. Discharge Plan Home or Community Resources: Admission folder given upon admission to PP unit Equipment: N/A Education Given: Patient is independent and has insurance. She is prepared with her baby supplies. Denies any needs for housing, transportation or food. Discussion on the A. B. C's of safe sleep. Always place your baby on his or her back to sleep, use a firm sleep surface and your baby should not sleep in an adult bed, on a couch or chair. Keep soft objects, toys and loose bedding out of your baby's sleep area. Reviewed depression. It is common to have blues. This is a normal response to many of the hormonal changes, stress and lack of sleep that go with raising a and physically recovering from the . Don't hesitate to talk to your provider with any concerns. There are resources in your home going booklet. To help prevent germs from spreading to you and your baby, make sure everyone washes their hands before they handle your . Avoid crowds, and keep infant away from sick people, anyone who is sick with a cough or fever, including family members. Post- warning signs information reviewed with patient per nurse with discharge To be discharged to home. Denies any concerns at this time. Additional Information: N/A Mental Health Services: N/A Developmental Delay: N/A Children's Services: N/A Normal [facility] CARECOORD Sw consult due to hx thc use, tox negative on admission. Per RN CM, pt reports no use of thc during . SW available if needed [facility] Progress Noteon 03-29-2023 Progress Note Pt reports the pt pollard s been putting to breast to try to latch . Pt reports latches but she feels like it is not a good latch and he only sucks for a few minutes before getting frustrated. Pt will give formula after latching and then breast pump. Pt is not getting a measurable amount out when she is using the pump thus far. Normal [facility] Progress Note VAGINAL D ELIVERY POST DAY # 2 Rosa Schuler, 22 y.o. This patient was seen & examined today. Her was complicated by: Patient Active Problem List Diagnosis Indication for care in labor and delivery, antepartum Today she is doing well without any chief complaint. Her lochia is light. She denies Headache, Chest Pain, Vision Changes, and Shortness of Breath. She is ambulating well. She is tolerating solids. Vital Signs: Vitals: 03/27/23 1335 03/27/23 2201 03/28/23 0835 03/28/23 1958 BP: 139/84 134/77 123/81 119/80 BP Location: Left arm Patient Position: Sitting Pulse: 90 71 88 82 Resp: 20 16 18 18 Temp: 37.3 ?C (99.2 ?F) 37 ?C (98.6 ?F) 36.8 ?C (98.2 ?F) 37 ?C (98.6 ?F) TempSrc: Temporal Temporal Temporal Temporal SpO2: 99% 97% 98% 95% Weight: Height: Physical Exam: GENERAL APPEARANCE: alert, well appearing, in no apparent distress ABDOMEN : benign non-tender, without masses or organomegaly palpable EXTREMITIES: no redness or tenderness in the calves or thighs, mild pitting edema present in bilateral lower extremities NEUROLOGIC: alert, oriented, normal speech, no focal findings or movement disorder noted UTERUS : normal size, well involuted, firm, non-tender Lab: Lab Results Component Value Date HGB 11.2 (L) 03/27/2023 Lab Results Component Value Date HCT 34.8 (L) 03/27/2023 O+ Antibody Screen: No results found for: LABANTI No results found for: RUBELLAIGG LABOR DELIVERY ??? SCD's ONLY (labor through ambulation) SCD's PLUS Prophylactic Anticoagulation until discharge SCD's PLUS Prophylactic Anticoagulation for 6 weeks SCD's PLUS Therapeutic Anticoagulation for 6 weeks Vaginal Delivery [] BMI ? 40 kg/m2 Delivery All patients Vaginal Delivery [] BMI ? 40 kg/m2 AND [] Antepartum hospitalization ? 72 hours within the past month Delivery 1 Major Risk Factor: [] BMI ? 35 kg/m2 [] Low Risk Thrombophilia [] PPH+RBCs, IR, or operation [] Infection+Antibiotics [] Antepartum hospitalization ? 72 hours within the past month [] PMH: Sickle Cell, SLE, Cardiac Dz, Active IBD, Active Cancer, Nephrotic Syndrome OR 2 Minor Risk Factors: [] Multiple gestation [] Age > 40 [] PPH ? 1,000cc [] (+)FMH of VTE [] Smoker [] Preeclampsia [] BMI ? 40 kg/m2 AND [] Low Risk Thrombophilia OR ANY OF THE FOLLOWING: [] High Risk Thrombophilia without prior VTE [] Low Risk Thrombophilia with (+)FMH of VTE [] Any single prior VTE ANY OF THE FOLLOWING: [] Already on LMWH/UFH [] Multiple prior VTE [] High Risk Thrombophilia with prior VTE Low Risk Thrombophilia: FVL (heterozygous), Prothrombin (heterozygous), Protein C, Protein S High Risk Thrombophilia: FVL (homozygous), Prothrombin (homozygous), FVL+Prothrombin (heterozygous), Antithrombin III, APLS Assessment/Plan: Rosa Schuler is PPD # 2 s/p Care - Doing well, VSS - Male - bottle feeding - Contraception: Depo - Encourage ambulation - VTE Prophylaxis: Not Indicated Thyroid Nodule - S/p biopsy, non-diagnostic - Plan for endocrinology follow-up Disposition: Continue current care. Based on my clinical assessment, this patient is safe for self discharge (does not need transport by wheelchair) if she so chooses. Provider's Name: MD María Jacob MD 03/29/2023, 5:27 AM I reviewed and agree with the care provided by the resident during or immediately following the visit including the patient's medical history, the resident's findings in the physical exam, patient's diagnosis and treatment plan. Doing well, no concerns. Reports good pain control, and her bleeding is decreasing. Infant circ completed this morning. Plan for discharge home. [facility] 42on 03-28-2023 42 Called in to mom's r oom. Mom states she tried to nurse baby but baby will not latch. Mom pumping. Instructed dad on paced bottlefeeding. Instructed to give baby 15cc formula if not latching and nursing. Mom should continue to pump. Normal [facility] 42 [facility] at [facility] but baby sleepy and not rooting. Mom set up with hospital bedside pump, no STEVO obtained. Finger fed baby 12cc formula to assist with suck training and organizing his suck. Normal [facility] 42 Baby over 24 hours o ld and has not latched. Getting drops of colostrum. Attempted to latch baby in laid back position, alert but not rooting. Helped mom express a spoonful of colostrum. Finger fed the 2 ml STEVO to baby. Placed baby skin to skin to see if baby with start rooting after receiving the colostrum. Mom has Spectra pump for home. Normal [facility] Progress Noteon 03-28-2023 Progress Note .Nutrition rescreen completed. Chart reviewed. Patient to be monitored and followed by the diet photographic equipment technician. LAURA Marti [facility] Progress Note Vancomycin therapy h as been discontinued by Dr. Cary Kim on 03/27. Thank you for the consult. Pharmacy signing off for vancomycin dosing. Janell Murray [facility], PharmD Date: 03/28/23 Time: 8:30 AM [facility] Progress Note ------- Attestation signed by Laurie Mac DO at 03/28/2023 11:28 AM (Updated) Patient seen and doing well. Having difficulty with and latching. Working with . Desires circumcision but will wait until is more established. Informed consent obtained. Otherwise pain well controlled and bleeding decreasing. Desires Depo for PPBC. Orders placed and will give prior to discharge. Had an isolated mild range BP during labor but otherwise normotensive. Will continue to monitor and anticipate discharge on PPD#2. VAGINAL DELIVERY POST DAY # 1 Rosa Schuler, 22 y.o. This patient was seen & examined today. Her was complicated by: Patient Active Problem List Diagnosis Indication for care in labor and delivery, antepartum Today she is doing well without any chief complaint. Her lochia is light. She denies Headache, Chest Pain, Vision Changes, and Shortness of Breath. She is ambulating well. She is tolerating solids. Vital Signs: Vitals: 03/27/23 0700 03/27/23 0800 03/27/23 1335 03/27/23 2201 BP: 139/84 134/77 BP Location: Left arm Patient Position: Sitting Pulse: 95 109 90 71 Resp: 20 16 Temp: 36.7 ?C (98.1 ?F) 37.3 ?C (99.2 ?F) 37 ?C (98.6 ?F) TempSrc: Temporal Temporal SpO2: 99% 97% Weight: Height: Physical Exam: GENERAL APPEARANCE: alert, well appearing, in no apparent distress ABDOMEN : benign non-tender, without masses or organomegaly palpable EXTREMITIES: no redness or tenderness in the calves or thighs, no edema NEUROLOGIC: alert, oriented, normal speech, no focal findings or movement disorder noted UTERUS : normal size, well involuted, firm, non-tender Lab: Lab Results Component Value Date HGB 11.2 (L) 03/27/2023 Lab Results Component Value Date HCT 34.8 (L) 03/27/2023 O Antibody Screen: No results found for: LABANTI No results found for: RUBELLAIGG LABOR DELIVERY ??? SCD's ONLY (labor through ambulation) SCD's PLUS Prophylactic Anticoagulation until discharge SCD's PLUS Prophylactic Anticoagulation for 6 weeks SCD's PLUS Therapeutic Anticoagulation for 6 weeks Vaginal Delivery [] BMI ? 40 kg/m2 Delivery All patients Vaginal Delivery [] BMI ? 40 kg/m2 AND [] Antepartum hospitalization ? 72 hours within the past month Delivery 1 Major Risk Factor: [] BMI ? 35 kg/m2 [] Low Risk Thrombophilia [] PPH+RBCs, IR, or operation [] Infection+Antibiotics [] Antepartum hospitalization ? 72 hours within the past month [] PMH: Sickle Cell, SLE, Cardiac Dz, Active IBD, Active Cancer, Nephrotic Syndrome OR 2 Minor Risk Factors: [] Multiple gestation [] Age > 40 [] PPH ? 1,000cc [] (+)FMH of VTE [] Smoker [] Preeclampsia [] BMI ? 40 kg/m2 AND [] Low Risk Thrombophilia OR ANY OF THE FOLLOWING: [] High Risk Thrombophilia without prior VTE [] Low Risk Thrombophilia with (+)FMH of VTE [] Any single prior VTE ANY OF THE FOLLOWING: [] Already on LMWH/UFH [] Multiple prior VTE [] High Risk Thrombophilia with prior VTE Low Risk Thrombophilia: FVL (heterozygous), Prothrombin (heterozygous), Protein C, Protein S High Risk Thrombophilia: FVL (homozygous), Prothrombin (homozygous), FVL+Prothrombin (heterozygous), Antithrombin III, APLS Assessment/Plan: Rosa Schuler is PPD # 1 s/p Care - Doing well, VSS - Male - breast feeding - Contraception: Declines - Encourage ambulation - VTE Prophylaxis: Not Indicated Hx HSV-1 - Primary outbreak at 28 weeks, s/p acute course of valtrex and then valtrex suppression - SSE negative on admission 3. Thyroid Nodule - s/p biopsy that was non-diagnostic - plan to follow up with endo pp 4. Equivocal varicella IgM, Positive IgG - suspected chronic infection - s/p MFM consult, no further workup needed Disposition: Continue current care. Based on my clinical assessment, this patient is safe for self discharge (does not need transport by wheelchair) if she so chooses. Provider's Name: MD Cary Jacob, DO 03/28/2023, 5:45 AM Normal [facility] ABO and Rh group panel (Bld) on 03-27-2023 ABO Grouping O [facility] Blood type and Crossmatch pa mikey (Bld)on 03-27-2023 Blood group antibody screen GEL Ql Negative [facility] CBC panel Auto (Bld)Ordered By: Atif Greene on 03-27-2023 Erythrocyte distribution width (RBC) [Ratio] 16.2 % High 11.5 - 14.5 % [facility] Hematocrit (Bld) [Volume fraction] 34.8 % Low 35.0 - 47.0 % [facility] Hemoglobin (Bld) [Mass/Vol] 11.2 g/dL Low 11.7 - 16.0 g/dL [facility] Interpretation and review of laboratory results Abnormal [facility] MCH (RBC) [Entitic mass] 26.2 pg 26.0 - 34.0 pg [facility] MCHC (RBC) [Mass/Vol] 32.3 % 32.0 - 36.0 % [facility] MCV (RBC) [Entitic vol] 81.1 fL 80.0 - 98.0 fL [facility] Platelet mean volume (Bld) [Entitic vol] 10.2 fL 7.4 - 12.4 fL [facility] Platelets (Bld) [#/Vol] 213 10*3/uL 140 - 440 10*3/uL [facility] RBC (Bld) [#/Vol] 4.29 10*6/uL 3.8 - 5.20 10*6/uL [facility] WBC (Bld) [#/Vol] 12.3 10*3/uL High 3.6 - 10.7 10*3/uL [facility] Comprehensive metabolic 1998 panelon 03-27-2023 Albumin [Mass/Vol] 3.9 g/dL 3.5 - 5.0 g/dL [facility] ALP [Catalytic activity/Vol] 184 U/L High 38 - 126 U/L [facility] ALT [Catalytic activity/Vol] 13 U/L 0 - 34 U/L [facility] Anion gap [Moles/Vol] 12 mmol/L 3 - 13 mmol/L [facility] AST [Catalytic activity/Vol] 34 U/L 15 - 46 U/L [facility] Bilirubin [Mass/Vol] 0.3 mg/dL 0.2 - 1.3 mg/dL [facility] Calcium [Mass/Vol] 8.6 mg/dL 8.4 - 10. 4 mg/dL [facility] Chloride [Moles/Vol] 105 mmol/L 98 - 107 mmol/L [facility] CO2 [Moles/Vol] 19 mmol/L Low 22 - 30 mmol/L [facility] Creatinine [Mass/Vol] 0.48 mg/dL Low 0.52 - 1.04 mg/dL [facility] GFR/1.73 sq M.predicted MDRD (S/P/Bld) [Vol rate/Area] - PINF [facility] Comment on above: Calculation based on the Chronic Kidney Disease Epidemiology Collaboration (CKD-EPI) equation refit without adjustment for race Glucose [Mass/Vol] 81 mg/dL 70 - 100 mg/dL [facility] Interpretation and review of laboratory results Abnormal [facility] Potassium [Moles/Vol] 4.3 mmol/L 3.5 - 5.1 mmol/L [facility] Protein [Mass/Vol] 6.9 g/dL 6.3 - 8.2 g/dL [facility] Sodium [Moles/Vol] 137 mmol/L 135 - 145 mmol/L [facility] Urea nitrogen [Mass/Vol] 16 mg/dL 7 - 17 mg/dL [facility] Consulton 03-27-2023 Consult Pharmacy Managed Van comycin Dosing Service Consult Note Consult Date: 03/27/23 Consulted By: Dr. Sherita Gage Room:H2-302/H2-302 A Patient Name: Rosa Schuler Allergies: Latex and Penicillins Age: 22 y.o. Sex: female Ht: Height: 162.6 cm (5' 4) TBW: Weight: 70.3 kg (155 lb) BMI: Body mass index is 26.61 kg/m?. Calculated CrCl: capped at 125ml/min Lab Results Component Value Date CREATININE 0.48 (L) 03/27/2023 BUN 16 03/27/2023 WBC 12.3 (H) 03/27/2023 Trough: No results found for: VANCOTROUGH Random: No results found for: VANCORANDOM Infectious Diagnosis: GBS Prophylaxis (goal AUC = 400-600 mg/L*h) Antimicrobials: Patient recently received an antibiotic (last 12 hours) Date/Time Action Medication Dose Rate 03/27/23 0218 New Bag vancomycin (Vancocin) 1500 mg in NS 250 mL IVPB (compounded premix) 1,500 mg 125 mL/hr Assessment/Plan: Start Vancomycin 1.5 grams Q 8 hours based on patient age, weight, renal function, and infectious diagnosis (21.3mg/kg). Will assess random level prior to 4th dose on 03/28/23 @ 01:30 and adjust as appropriate. Will follow renal function closely. Thank you for this consult. Please page/call with questions. Date: 03/27/23 Time: 5:33 AM Name: Lucia Lima RPh Phone: [phone] [facility] Labor and Delivery Noteon Labor and Delivery Note Attestation signed by Laurie Mac DO at 03/27/2023 1:27 PM I was present and scrubbed the entire delivery and agree with the delivery note. Vaginal Delivery Note Department of Obstetrics and Gynecology Patient: Rosa Schuler : 2000 Date of delivery: 03/27/2023 Pre-operative Diagnosis: Rosa Schuler at 39w0d 1. Thyroid nodule 2. HSV 3. Hx THC use 4. Equivocal Varicella IgM, Positive IgG Post-operative Diagnosis: Live Born male Delivering Audio Engineer & Risk Advisor(s): Dr. Mac; Dr. Kim Infant Information: Information for the patient's : Govind Schuler [[id number]] Information for the patient's : Govind Schuler [[id number]] Description: normal Meconium Noted: No Anesthesia: epidural anesthesia Complications: None Application and Delivery: Rosa Schuler at 39w0d admitted for active labor. Her labor course AROM with blood tinged fluid. She was known to be GBS positive and received Vancomycin prophylaxis. After pushing with contractions the head delivered Cephalic, occiput anterior over an intact perineum. A nuchal cord was not present. The anterior, then posterior shoulder delivered easily and atraumatically followed by the rest of the infant. The infant was placed on the maternal abdomen and attended by the RN for evaluation. The infant was stimulated and dried. The cord was clamped and cut. The delivery of the placenta was spontaneous and appeared intact. Pitocin was started. The vagina was swept of all clots and debris. The perineum and vagina were evaluated. No lacerations were found.. All counts were correct. Mother and baby tolerated procedure well. No uterotonics were required during delivery. EBL: 100ml QBL: VTE Prophylaxis: Not Indicated LABOR DELIVERY ??? SCD's ONLY (labor through ambulation) SCD's PLUS Prophylactic Anticoagulation until discharge SCD's PLUS Prophylactic Anticoagulation for 6 weeks SCD's PLUS Therapeutic Anticoagulation for 6 weeks Vaginal Delivery [] BMI ? 40 kg/m2 Delivery All patients Vaginal Delivery [] BMI ? 40 kg/m2 AND [] Antepartum hospitalization ? 72 hours within the past month Delivery 1 Major Risk Factor: [] BMI ? 35 kg/m2 [] Low Risk Thrombophilia [] PPH+RBCs, IR, or operation [] Infection+Antibiotics [] Antepartum hospitalization ? 72 hours within the past month [] PMH: Sickle Cell, SLE, Cardiac Dz, Active IBD, Active Cancer, Nephrotic Syndrome OR 2 Minor Risk Factors: [] Multiple gestation [] Age > 40 [] PPH ? 1,000cc [] (+)FMH of VTE [] Smoker [] Preeclampsia [] BMI ? 40 kg/m2 AND [] Low Risk Thrombophilia OR ANY OF THE FOLLOWING: [] High Risk Thrombophilia without prior VTE [] Low Risk Thrombophilia with (+)FMH of VTE [] Any single prior VTE ANY OF THE FOLLOWING: [] Already on LMWH/UFH [] Multiple prior VTE [] High Risk Thrombophilia with prior VTE Low Risk Thrombophilia: FVL (heterozygous), Prothrombin (heterozygous), Protein C, Protein S High Risk Thrombophilia: FVL (homozygous), Prothrombin (homozygous), FVL+Prothrombin (heterozygous), Antithrombin III, APLS Specimen: Cord Gases Blood Type and Rh: O Rubella Immunity Status: No results found for: EMILY Kim DO 03/27/2023, 9:03 AM Normal [facility] - Blood bankon ABO group Nom (Bld) O [facility] D Ag Ql (RBC) Positive [facility] - Drug toxicology Ordered By: aMrbin Conway on 03-27-2023 Amphetamines Ql (U) Negative Negative [facility] Benzodiazepines Ql (U) Negative Negative [facility] Cocaine Ql (U) Negative Negative [facility] Ethanol [Mass/Vol] Negative Negative [facility] Methadone Ql (U) Negative Negative [facility] Opiates Ql (U) Negative Negative [facility] No Panel Informationon 03-27 External Rh Factor Positive [facility] No Panel InformationOrdered By: Marbin Conway on 03-27-2023 BARBITURATES Negative Negative [facility] BUPRENORPHINE SCREEN Negative Negative [facility] FENTANYL Negative Negative [facility] OXYCODONE/OXYMORPHO NE Negative Negative [facility] PCP Negative Negative [facility] THC Negative Negative [facility] The expected value f or the drugs listed above is Negative. The following drugs or drug groups have been screened for by Immunoassay at the following thresholds: Amphetamine class(1000ng/mL) Barbituates(200ng/mL) Benzodiazepines(200ng/mL) Cocaine(300ng/mL) Ethanol (50 ng/mL) Methadone(300ng/mL) Opiates(300ng/mL) Oxycodone(100ng/mL) PCP(25ng/mL) Buprenorphine(5ng/mL) THC(50ng/mL) Fentanyl(1ng/mL) Positive results are NOT confirmed by a more specific alternative method unless requested. If confirmation is needed, request confirmation under separate order. NOTE: These results are for medical treatment only. Analysis performed using non-forensic procedures. [facility] Progress Noteon 03-26-2023 Progress Note Department of Obstet rics and Gynecology Labor and Delivery Triage Note CHIEF COMPLAINT: Contractions HISTORY OF PRESENT ILLNESS: The patient is a 22 y.o. 39w0d. OB History 1 Para Term AB Living SAB IAB Ectopic Multiple Live Births Estimated Due Date: Estimated Date of Delivery: 04/03/23 REVIEW OF SYSTEMS: Pertinent items are noted in HPI. APPEARANCE: Pain: yes PHYSICAL EXAM: Vital Signs: Elevated BPs/Respirations normal effort Vitals: 03/26/23 2128 03/27/23 0054 BP: (!) 137/96 Pulse: 78 Resp: 18 Temp: 36.8 ?C (98.2 ?F) TempSrc: Oral Weight: 155 lb (70.3 kg) Height: 5' 4 (1.626 m) Speculum Exam: negative for HSV lesions heart rate: Category I Cervix: Membranes: Intact BSUS: Vertex presentation Triage course: Patient presented initially 3 cm, 2 hour recheck 4 cm more uncomfortable, wanting epidural. Will admit for Active labor IMPRESSION: Active labor DISCUSSED WITH C PROVIDER: Dr. Mac DISPOSITION: Admit to L&D Normal [facility] Progress Note ------- Attestation signed by Pauline Flores MD at 03/26/2023 9:05 AM Hospital Care (Independent): I independently saw and evaluated the patient. I agree with the findings and plan of care as documented in the resident's note. Department of Obstetrics and Gynecology Labor and Delivery Triage Note CHIEF COMPLAINT: R/o Labor HISTORY OF PRESENT ILLNESS: The patient is a 22 y.o. 38w6d. OB History 1 Para Term AB Living SAB IAB Ectopic Multiple Live Births Patient presents with a chief complaint as above. Endorses Ctx that began at 0200 that are q5-10mins and uncomfortable. Additionally endorses LOF at 0400 for clear fluid and reports leakage since then. Denies DFM/VB Estimated Due Date: Estimated Date of Delivery: 04/03/23 PAST MEDICAL HISTORY: History reviewed. No pertinent past medical history. PAST SURGICAL HISTORY: Past Surgical History: Procedure Laterality Date TONSILLECTOMY WISDOM TOOTH EXTRACTION SOCIAL HISTORY: reports that she has never smoked. She has never used smokeless tobacco. She reports that she does not currently use alcohol. She reports that she does not use drugs. MEDICATIONS: Prior to Admission medications Medication Sig Start Date End Date Taking? Authorizing Provider valACYclovir (Valtrex) 500 MG tablet Take 500 mg by mouth daily. Historical Provider, CARE: Complicated by: HSV, Hx THC REVIEW OF SYSTEMS: Pertinent items are noted in HPI. APPEARANCE: Pain: No PHYSICAL EXAM: Vital Signs: VS wnl-reviewed/Respirations normal effort Vitals: 08/18/23 0540 BP: 129/88 Pulse: 97 Resp: 18 Temp: 36.7 ?C (98 ?F) TempSrc: Oral SpO2: 99% Abdomen: soft, NT, ND, no rebound/guarding Uterus: gravid/non-tender LE Edema: trace Speculum Exam: no pooling of fluid seen, Nitrizine test is negative, no visible HSV lesions heart rate: Category I Cervix: 2/50/-3 Contraction frequency: regular, every 5-10 minutes per patient Membranes: Intact TRIAGE COURSE: Pt presented for r/o labor with contractions. SVE 2/50/-3 changed from 1.5cm in office one week ago. SSE negative for HSV, no pooling of fluid and negative nitrizine. FHT Cat I with baseline 130s, moderate variability, spontaneous accelerations, and no decelerations. Bps normotensive. Plan for recheck in 2 hours. SVE unchanged at this time. FHT Cat I. BPS normotensive. Patient has an appointment later today in the office. Stable for discharge at this time. IMPRESSION: False Labor Pain assessment and plan: None DISCUSSED WITH PNC PROVIDER: Dr. Ling DISPOSITION: Discharge to Home Normal [facility] No Panel Informationon 01-29 External Strep Group B Ag Positive Abnormal Negative [facility] [email or web address] Interpretation and review of laboratory results Abnormal [facility] Progress Noteon 09-22-2022 Reproduction Order Processor Authentication Interface Message Text Maternal Medicine Consult Date of Service: 09/22/2022 Referring Provider: Laurie Mac Primary Care Provider: Neo Ocasio DO Reason for Consult: Dr. Laurie Mac requests that Rosa be evaluated due to equivocal IgM testing for VZV. Rosa is a 22 y.o. at 12w3d gestation who presents for evaluation of concerns related to equivocal testing for VZV on IgM and +IgG with no exposures and no rash this . She is here today for an ultrasound and reports being anxious about this consult. The FOB is here today. HPI OB History Para Term AB Living 1 0 0 0 0 0 SAB IAB Ectopic Multiple Live Births 0 0 0 0 0 # Outcome Date GA Lbr Rich/2nd Weight Sex Delivery Anes PTL Lv 1 Current Past Medical History: Diagnosis Date No past medical history Thyroid nodule Past Surgical History: Procedure Laterality Date TONSILLECTOMY done at 5 years old done at [facility] WISDOM TOOTH EXTRACTION 01/2019 Allergies Allergen Reactions Latex Swelling Pcn [Penicillins] Hives Social History Socioeconomic History Marital status: Single Spouse name: None Number of children: None Years of education: None Highest education level: None Tobacco Use Smoking status: Never Passive exposure: Yes Smokeless tobacco: Never Substance and Sexual Activity Alcohol use: Not Currently Drug use: Yes Types: Marijuana Comment: last used 08/26/22 Infections Live with someone with or exposed to TB No History of STI's Rash or viral illness since last menstruation No 2nd STI GBS 3rd STI Hx of Chicken Pox No vaccinated as child Other infections No Partner has hx of genital herpes No Genetics Age is > than 35y as of estimated date No Thalassemia No Neural Tube Defect No Congenital Heart Defect No Down Syndrome No Talib-Sachs No Argenis Disease No Sickle Cell Disease or Trait No Hemophilia, Thrombophilia No Muscular Dystrophy No Cystic Fibrosis No Marcela's Chorea No Intellectual Disability/Autism No Metabolic Disorder No Recurrent Loss, or a Stillbirth No Inherited Genetic or Chromosomal Disorder No Illicit; Rec.drugs; Alcohol since last menses No Family History Problem Relation Age of Onset High Blood Pressure Mother Diabetes Mellitus II Mother High Blood Pressure Maternal Grandfather Diabetes Mellitus II Maternal Grandfather Heart Disease Paternal Grandfather Outpatient Encounter Medications as of 09/22/2022 Medication Sig Dispense Refill Vit-Fe Fumarate-FA ( VITAMIN PO) Take by mouth daily [DISCONTINUED] cyproheptadine (PERIACTIN) 4 MG tablet Take 2 Tabs (8 mg) by mouth every 12 hours (Patient not taking: Reported on 09/22/2022) 120 Tab 2 [DISCONTINUED] ibuprofen (MOTRIN) 100 MG TABS tablet Take by mouth every 8 hours as needed for Pain [DISCONTINUED] naproxen (NAPROSYN) 250 MG tablet Take by mouth 2 times daily No facility-administered encounter medications on file as of 09/22/2022. Review of Systems negative Physical Exam Vitals: 09/22/22 112 BP: 108/64 Body mass index is 17.63 kg/m . Vitals: 09/22/22 1123 Weight: (!) 46.6 kg (102 lb 11.2 oz) Height: 162.6 cm Laboratory Test Results: Reviewed the labs from OB office Ultrasound Results: - Please see Ultrasound test for full details. Assessment/Plan: Rosa Schuler is a 22 y.o. at 12w3d with: Active Non-Hospital Problems Diagnosis Date Noted Abnormal blood chemistry test 09/26/2022 Drawn on labs IgM VZV 0.94 equivocal results, less than 0.9 is considered negative VZV IgG positive Consult 09/22/22 Discussed that the result cannot be interpreted as positive or negative because it is below the limit of detection for the test, given that the IgG is positive I suspect this result is not clinically relevant The patient reports being vaccinated as a child and no rash or concern this Thyroid nodule 08/27/22: TSH 0.40 Free T4 1.3 Per [facility] records: this has been previously monitored at [facility]. She has ultrasound and insufficient biopsy, then it decreased in size. [facility] getting more records for needed follow up, follow up as recommended by [facility] Family history of diabetes mellitus 08/14/2011 Follow up As clinically indicated Anatomy with MFM to ensure no clinical concerns for VZV, as I stated to the couple I believe this equivocal testing is no clinically relevant given IgG (immunity) is present. I would be more concerned if she was not immune and could consider repeating the testing, but given there is immunity do not repeat this testing. The total patient time of the visit was 20 minutes, of which greater than 50% of the time was spent counseling and coordinating care. Normal [facility] LABORATORYOrdered By: Kassie Smith on 09-05-2022 Appearance (U) Turbid *ABN* (09/05/22 7:48 AM) Invalid Interpretation Code Clear AO Auto Urine SS Bacteria LM.HPF (Urine sed) [#/Area] 1 /[HPF] Invalid Interpretation Code AO Auto Urine SS Bilirubin Ql (U) Negative (09/05/22 7:48 AM) Invalid Interpretation Code Negative AO Auto Urine SS Color (U) Yellow (09/05/22 7:48 AM) Invalid Interpretation Code AO Auto Urine SS Crystals.amorphous LM.HPF (Urine sed) [#/Area] 4 /[HPF] Invalid Interpretation Code AO Auto Urine SS Glucose Test strip (U) [Mass/Vol] Negative Invalid Interpretation Code Negativemg/dL AO Auto Urine SS Hemoglobin Auto test strip (U) [Mass/Vol] Negative (09/05/22 7:48 AM) Invalid Interpretation Code Negative AO Auto Urine SS Ketones Ql (U) >=160 mg/dL Invalid Interpretation Code Negativemg/dL AO Auto Urine SS UA Leuk Est Trace *ABN* (09/05/22 7:48 AM) Invalid Interpretation Code Negative AO Auto Urine SS UA Mucous Trace /HPF Invalid Interpretation Code AO Auto Urine SS UA Nitrite Negative (09/05/22 7:48 AM) Invalid Interpretation Code Negative AO Auto Urine SS UA pH 8.5 *ABN* (09/05/22 7:48 AM) Invalid Interpretation Code 5.0 - 8.0 AO Auto Urine SS UA Protein Trace mg/dL Invalid Interpretation Code Negativemg/dL AO Auto Urine SS UA RBC None Seen /HPF Invalid Interpretation Code None Seen/HPF AO Auto Urine SS UA Spec Grav 1.020 (09/05/22 7:48 AM) Invalid Interpretation Code 1.015-1.025 AO Auto Urine SS UA Specimen Type Clean Catch (09/05/22 7:48 AM) Invalid Interpretation Code AO Auto Urine SS UA Squam Epithelial 15-25 /HPF Invalid Interpretation Code None Seen/HPF AO Auto Urine SS UA Urobilinogen 0.2 E.U./dL Invalid Interpretation Code 0.2-1.0E.U./d L AO Auto Urine SS WBC LM.HPF (Urine sed) [#/Area] 5-10 /HPF Invalid Interpretation Code None Seen/HPF AO Auto Urine SS LABORATORYOrdered By: Herlinda Steele on 09-05-2022 Basophil, Absolute 0.0 103/mcL Invalid Interpretation Code 0.0 - 0.2 10^3/mcL AO Workflow SS Basophils/100 WBC (Bld) 0.1 % Invalid Interpretation Code 0.0 - 2.5 % AO Workflow SS Eosinophil, Absolute 0.0 103/mcL Invalid Interpretation Code 0.0 - 0.4 10^3/mcL AO Workflow SS Eosinophils/100 WBC (Bld) 0.1 % Invalid Interpretation Code 0.0 - 7.0 % AO Workflow SS Erythrocyte distribution width (RBC) [Ratio] 14.0 % Invalid Interpretation Code 11.5 - 14.5 % AO Workflow SS Hematocrit (Bld) [Volume fraction] 37.6 % Invalid Interpretation Code 37.0 - 47.0 % AO Workflow SS Hemoglobin (Bld) [Mass/Vol] 12.6 G/dL Invalid Interpretation Code 12.0 - 16.0 G/dL AO Workflow SS Lymphocyte, Absolute 1.1 103/mcL Invalid Interpretation Code 0.8 - 3.9 10^3/mcL AO Workflow SS Lymphocytes/100 WBC (Bld) 9.0 % Invalid Interpretation Code 10.0 - 50.0 % AO Workflow SS MCH (RBC) [Entitic mass] 27.0 pg Invalid Interpretation Code 27.0 - 31.2 pg AO Workflow SS MCHC 33.5 G/dL Invalid Interpretation Code 33.0 - 37.0 G/dL AO Workflow SS MCV (RBC) [Entitic vol] 80.8 fL Invalid Interpretation Code 80.0 - 94.0 fL AO Workflow SS Monocyte distribution width Auto (Bld) [Entitic vol] 15.66 Invalid Interpretation Code 0.00 - 20.00 AO Workflow SS Comment on above: Result Comment: For ED adult patients suspected of sepsis, MDW<=20.0 does not rule out sepsis or risk of sepsis Monocyte, Absolute 0.4 103/mcL Invalid Interpretation Code 0.2 - 1.0 10^3/mcL AO Workflow SS Monocytes/100 WBC (Bld) 3.1 % Invalid Interpretation Code 1.7 - 13.0 % AO Workflow SS Neutrophil, Absolute 11.0 103/mcL Invalid Interpretation Code 2.9 - 6.2 10^3/mcL AO Workflow SS Neutrophils/100 WBC (Bld) 87.7 % Invalid Interpretation Code 37.0 - 80.0 % AO Workflow SS Platelet mean volume (Bld) [Entitic vol] 8.4 fL Invalid Interpretation Code 7.4 - 10.4 fL AO Workflow SS Platelets (Bld) [#/Vol] 260 103/mcL Invalid Interpretation Code 130 - 400 10^3/mcL AO Workflow SS RBC (Bld) [#/Vol] 4.65 106/mcL Invalid Interpretation Code 4.20 - 5.40 10^6/mcL AO Workflow SS WBC (Bld) [#/Vol] 12.5 103/mcL Invalid Interpretation Code 4.6 - 10.8 10^3/mcL AO Workflow SS LABORATORYOrdered By: SYSTEM SYSTEM on 09-05-2022 Calcium [Mass/Vol] 8.9 mg/dL Invalid Interpretation Code 8.4 - 10.2 mg/dL AO ADM SS Chloride [Moles/Vol] 99 mmol/L Invalid Interpretation Code 98 - 107 mmol/L AO ADM SS CO2 [Moles/Vol] 22 mmol/L Invalid Interpretation Code 22 - 29 mmol/L AO ADM SS Creatinine [Mass/Vol] 0.59 mg/dL Invalid Interpretation Code 0.55 - 1.02 mg/dL AO ADM SS Electrolyte Balance 12.0 mEq/L Invalid Interpretation Code 4.0 - 15.0 mEq/L AO ADM SS GFR 154 ml/min/1.73sqm Invalid Interpretation Code AO Chemistry S GFR Non- 127 ml/min/1.73sqm Invalid Interpretation Code AO Chemistry S Glucose [Mass/Vol] 100 mg/dL Invalid Interpretation Code 70 - 105 mg/dL AO ADM SS HCG Qn mIU/mL Invalid Interpretation Code AO ADM SS Potassium [Moles/Vol] 3.1 mmol/L Invalid Interpretation Code 3.5 - 5.1 mmol/L AO ADM SS Sodium [Moles/Vol] 133 mmol/L Invalid Interpretation Code 136 - 145 mmol/L AO ADM SS Urea nitrogen [Mass/Vol] 5 mg/dL Invalid Interpretation Code 7 - 18 mg/dL AO ADM SS Urea nitrogen/Creatinine [Mass ratio] 8 ratio Invalid Interpretation Code 7 - 27 ratio AO ADM SS Chlamydia sp identified Org specific cx Nom (Genital specimen)on 09-03-2022 External Chlamydia Screen Negative Negative [facility] No Panel Informationon 09-03 External Gonorrhea Screen Negative Negative [facility] HBV surface Ag IA Qlon 09-01 External Hepatitis B Surface Ag Negative Negative, None Detected [facility] HIV 1+2 Ab and HIV1 p24 Ag I A.rapid Nom (S/P/Bld)on 09-01-2022 HIV-1/HIV-2 Ab Negative [facility] No Panel Informationon 09-01 External Rubella IGG Quantitation Positive [facility] Reagin Ab RPR Ql (S)on 09-01 External RPR Non-Reactive Borderline, Nonreactive, Weakly Reactive, Equivocal, Undetermined [facility] LABORATORYOrdered By: Kassie Smith on 08-07-2022 Appearance (U) Cloudy *ABN* (08/07/22 9:32 AM) Invalid Interpretation Code Clear AO Auto Urine SS Bacteria LM.HPF (Urine sed) [#/Area] 4 /[HPF] Invalid Interpretation Code AO Auto Urine SS Bilirubin Ql (U) Negative (08/07/22 9:32 AM) Invalid Interpretation Code Negative AO Auto Urine SS Color (U) Yellow (08/07/22 9:32 AM) Invalid Interpretation Code AO Auto Urine SS Crystals.amorphous LM.HPF (Urine sed) [#/Area] 1 /[HPF] Invalid Interpretation Code AO Auto Urine SS Glucose Test strip (U) [Mass/Vol] 100 mg/dL Invalid Interpretation Code Negativemg/dL AO Auto Urine SS HCG ( test) Ql Positive (08/07/22 9:32 AM) Invalid Interpretation Code AO Manual Urine SS Hemoglobin Auto test strip (U) [Mass/Vol] Trace *ABN* (08/07/22 9:32 AM) Invalid Interpretation Code Negative AO Auto Urine SS Ketones Ql (U) >=160 mg/dL Invalid Interpretation Code Negativemg/dL AO Auto Urine SS test (u) int Detected Invalid Interpretation Code AO Manual Urine SS UA Leuk Est Negative (08/07/22 9:32 AM) Invalid Interpretation Code Negative AO Auto Urine SS UA Nitrite Negative (08/07/22 9:32 AM) Invalid Interpretation Code Negative AO Auto Urine SS UA pH 6.5 (08/07/22 9:32 AM) Invalid Interpretation Code 5.0 - 8.0 AO Auto Urine SS UA Protein Trace mg/dL Invalid Interpretation Code Negativemg/dL AO Auto Urine SS UA RBC 0-5 /HPF Invalid Interpretation Code None Seen/HPF AO Auto Urine SS UA Spec Grav >=1.030 *ABN* (08/07/22 9:32 AM) Invalid Interpretation Code 1.015-1.025 AO Auto Urine SS UA Specimen Type Clean Catch (08/07/22 9:32 AM) Invalid Interpretation Code AO Auto Urine SS UA Squam Epithelial 5-10 /HPF Invalid Interpretation Code None Seen/HPF AO Auto Urine SS UA Urobilinogen 0.2 E.U./dL Invalid Interpretation Code 0.2-1.0E.U./d L AO Auto Urine SS WBC LM.HPF (Urine sed) [#/Area] 0-5 /HPF Invalid Interpretation Code None Seen/HPF AO Auto Urine SS Basophil, Absolute 0.0 103/mcL Invalid Interpretation Code 0.0 - 0.2 10^3/mcL AO Workflow SS Basophils/100 WBC (Bld) 0.4 % Invalid Interpretation Code 0.0 - 2.5 % AO Workflow SS Eosinophil, Absolute 0.0 103/mcL Invalid Interpretation Code 0.0 - 0.4 10^3/mcL AO Workflow SS Eosinophils/100 WBC (Bld) 0.3 % Invalid Interpretation Code 0.0 - 7.0 % AO Workflow SS Erythrocyte distribution width (RBC) [Ratio] 13.4 % Invalid Interpretation Code 11.5 - 14.5 % AO Workflow SS Hematocrit (Bld) [Volume fraction] 37.4 % Invalid Interpretation Code 37.0 - 47.0 % AO Workflow SS Hemoglobin (Bld) [Mass/Vol] 12.4 G/dL Invalid Interpretation Code 12.0 - 16.0 G/dL AO Workflow SS Lymphocyte, Absolute 1.8 103/mcL Invalid Interpretation Code 0.8 - 3.9 10^3/mcL AO Workflow SS Lymphocytes/100 WBC (Bld) 14.4 % Invalid Interpretation Code 10.0 - 50.0 % AO Workflow SS MCH (RBC) [Entitic mass] 26.7 pg Invalid Interpretation Code 27.0 - 31.2 pg AO Workflow SS MCHC 33.3 G/dL Invalid Interpretation Code 33.0 - 37.0 G/dL AO Workflow SS MCV (RBC) [Entitic vol] 80.1 fL Invalid Interpretation Code 80.0 - 94.0 fL AO Workflow SS Monocyte distribution width Auto (Bld) [Entitic vol] 15.31 Invalid Interpretation Code 0.00 - 20.00 AO Workflow SS Comment on above: Result Comment: For ED adult patients suspected of sepsis, MDW<=20.0 does not rule out sepsis or risk of sepsis Monocyte, Absolute 0.6 103/mcL Invalid Interpretation Code 0.2 - 1.0 10^3/mcL AO Workflow SS Monocytes/100 WBC (Bld) 4.9 % Invalid Interpretation Code 1.7 - 13.0 % AO Workflow SS Neutrophil, Absolute 10.2 103/mcL Invalid Interpretation Code 2.9 - 6.2 10^3/mcL AO Workflow SS Neutrophils/100 WBC (Bld) 80.0 % Invalid Interpretation Code 37.0 - 80.0 % AO Workflow SS Platelet mean volume (Bld) [Entitic vol] 7.9 fL Invalid Interpretation Code 7.4 - 10.4 fL AO Workflow SS Platelets (Bld) [#/Vol] 317 103/mcL Invalid Interpretation Code 130 - 400 10^3/mcL AO Workflow SS RBC (Bld) [#/Vol] 4.66 106/mcL Invalid Interpretation Code 4.20 - 5.40 10^6/mcL AO Workflow SS WBC (Bld) [#/Vol] 12.7 103/mcL Invalid Interpretation Code 4.6 - 10.8 10^3/mcL AO Workflow SS LABORATORYOrdered By: SYSTEM SYSTEM on 08-07-2022 Albumin BCP dye [Mass/Vol] 4.4 G/dL Invalid Interpretation Code 3.5 - 5.0 G/dL AO ADM SS Albumin/Globulin [Mass ratio] 1.5 {ratio} Invalid Interpretation Code 1.1 - 2.5 ratio AO ADM SS ALP [Catalytic activity/Vol] 100 U/L Invalid Interpretation Code 40 - 135 U/L AO ADM SS ALT With P-5'-P [Catalytic activity/Vol] 20 U/L Invalid Interpretation Code 14 - 59 U/L AO ADM SS AST With P-5'-P [Catalytic activity/Vol] 22 U/L Invalid Interpretation Code 10 - 40 U/L AO ADM SS Bilirubin [Mass/Vol] 0.6 mg/dL Invalid Interpretation Code 0.2 - 1.0 mg/dL AO ADM SS Calcium [Mass/Vol] 9.5 mg/dL Invalid Interpretation Code 8.4 - 10.2 mg/dL AO ADM SS Chloride [Moles/Vol] 104 mmol/L Invalid Interpretation Code 98 - 107 mmol/L AO ADM SS CO2 [Moles/Vol] 19 mmol/L Invalid Interpretation Code 22 - 29 mmol/L AO ADM SS Creatinine [Mass/Vol] 0.75 mg/dL Invalid Interpretation Code 0.55 - 1.02 mg/dL AO ADM SS Electrolyte Balance 17.0 mEq/L Invalid Interpretation Code 4.0 - 15.0 mEq/L AO ADM SS GFR 117 ml/min/1.73sqm Invalid Interpretation Code AO Chemistry S GFR Non- 97 ml/min/1.73sqm Invalid Interpretation Code AO Chemistry S Globulin 3.0 G/dL Invalid Interpretation Code AO ADM SS Glucose [Mass/Vol] 173 mg/dL Invalid Interpretation Code 70 - 105 mg/dL AO ADM SS Lipase [Catalytic activity/Vol] 16 U/L Invalid Interpretation Code 16 - 77 U/L AO ADM SS Potassium [Moles/Vol] 3.6 mmol/L Invalid Interpretation Code 3.5 - 5.1 mmol/L AO ADM SS Protein [Mass/Vol] 7.4 G/dL Invalid Interpretation Code 6.4 - 8.2 G/dL AO ADM SS Sodium [Moles/Vol] 140 mmol/L Invalid Interpretation Code 136 - 145 mmol/L AO ADM SS Urea nitrogen [Mass/Vol] 14 mg/dL Invalid Interpretation Code 7 - 18 mg/dL AO ADM SS Urea nitrogen/Creatinine [Mass ratio] 19 ratio Invalid Interpretation Code 7 27 ratio AO ADM SS CBC AND DIFFERENTIALon 04-04 % AUTOMATED IMMATURE GRAN 0.4 % Normal 0.0 - 0.9 [facility] Comment on above: Result Comment: Ashleigh ture Granulocyte Count (IG) includes promyelocytes, myelocytes and metamyelocytes but does not include bands. Percent differential counts (%) should be interpreted in the context of the absolute cell counts (cells/L). Performed By: #### C BCDF #### [facility] [address] [place] [address] Basophils (Bld) [#/Vol] 0.04 10*3/uL Normal 0.00 - 0.10 [facility] Comment on above: Performed By: #### C BCDF #### [facility] [address] [place] [address] Basophils/100 WBC (Bld) 0.5 % Normal 0.0 - 2.0 [facility] Comment on above: Performed By: #### C BCDF #### [facility] [address] [place] [address] Eosinophils (Bld) [#/Vol] 0.16 10*3/uL Normal 0.00 - 0.70 [facility] Comment on above: Performed By: #### C BCDF #### [facility] [address] [place] [address] Eosinophils/100 WBC (Bld) 2.1 % Normal 0.0 - 6.0 [facility] Comment on above: Performed By: #### C BCDF #### [facility] [address] [place] [address] Erythrocyte distribution width (RBC) [Ratio] 13.5 % Normal 11.5 - 14.5 [facility] Comment on above: Performed By: #### C BCDF #### [facility] [address] [place] [address] Hematocrit (Bld) [Volume fraction] 42.9 % Normal 36.0 - 46.0 [facility] Comment on above: Performed By: #### C BCDF #### [facility] [address] [place] [address] Hemoglobin (Bld) [Mass/Vol] 13.5 g/dL Normal 12.0 - 16.0 [facility] Comment on above: Performed By: #### C BCDF #### [facility] [address] [place] [address] Lymphocytes (Bld) [#/Vol] 2.36 10*3/uL Normal 1.20 - 4.80 [facility] Comment on above: Performed By: #### C BCDF #### [facility] [address] [place] [address] Lymphocytes/100 WBC (Bld) 30.3 % Normal 13.0 - 44.0 [facility] Comment on above: Performed By: #### C BCDF #### [facility] [address] [place] [address] MCHC (RBC) [Mass/Vol] 31.5 g/dL Low 32.0 - 36.0 [facility] Comment on above: Performed By: #### C BCDF #### [facility] [address] [place] [address] MCV (RBC) [Entitic vol] 87 fL Normal 80 - 100 [facility] Comment on above: Performed By: #### C BCDF #### [facility] [address] [place] [address] Monocytes (Bld) [#/Vol] 0.64 10*3/uL Normal 0.10 - 1.00 [facility] Comment on above: Performed By: #### C BCDF #### [facility] [address] [place] [address] Monocytes/100 WBC (Bld) 8.2 % Normal 2.0 - 10.0 [facility] Comment on above: Performed By: #### C BCDF #### [facility] [address] [place] [address] Neutrophils (Bld) [#/Vol] 4.56 10*3/uL Normal 1.20 - 7.70 [facility] Comment on above: Performed By: #### C BCDF #### [facility] [address] [place] [address] Neutrophils/100 WBC (Bld) 58.5 % Normal 40.0 - 80.0 [facility] Comment on above: Performed By: #### C BCDF #### [facility] [address] [place] [address] NUCLEATED RBC 0.0 /100 WBC Normal 0.0-0.0 [facility] Comment on above: Performed By: #### C BCDF #### [facility] [address] [place] [address] Platelets (Bld) [#/Vol] 236 10*3/uL Normal 150 - 450 [facility] Comment on above: Performed By: #### C BCDF #### [facility] [address] [place] [address] RBC 4.93 x10E12/L Normal 4.00 - 5.20 [facility] Comment on above: Performed By: #### C BCDF #### [facility] [address] [place] [address] WBC (Bld) [#/Vol] 7.8 10*3/uL Normal 4.4 - 11.3 [facility] Comment on above: Performed By: #### C BCDF #### [facility] [address] [place] [address] COMPREHENSIVE PANELon 2021 Albumin [Mass/Vol] 4.8 g/dL Normal 3.4 - 5.0 [facility] Comment on above: Performed By: #### C MP #### [facility] [address] [place] [address] ALP [Catalytic activity/Vol] 77 U/L Normal 33 - 110 [facility] Comment on above: Performed By: #### C MP #### [facility] [address] [place] [address] ALT [Catalytic activity/Vol] 8 U/L Normal 7 - 45 [facility] Comment on above: Result Comment: Mitra ents treated with Sulfasalazine may generate falsely decreased results for ALT. Performed By: #### C MP #### [facility] [address] [place] [address] Anion gap [Moles/Vol] 14 mmol/L Normal 10 - 20 [facility] Comment on above: Performed By: #### C MP #### [facility] [address] [place] [address] AST [Catalytic activity/Vol] 19 U/L Normal 9 - 39 [facility] Comment on above: Performed By: #### C MP #### [facility] [address] [place] [address] Bilirubin [Mass/Vol] 0.3 mg/dL Normal 0.0 - 1.2 [facility] Comment on above: Performed By: #### C MP #### [facility] [address] [place] [address] Calcium [Mass/Vol] 9.4 mg/dL Normal 8.6 - 10.6 [facility] Comment on above: Performed By: #### C MP #### [facility] [address] [place] [address] Chloride [Moles/Vol] 104 mmol/L Normal 98 - 107 [facility] Comment on above: Performed By: #### C MP #### [facility] [address] [place] [address] Creatinine [Mass/Vol] 0.64 mg/dL Normal 0.50 - 1.05 [facility] Comment on above: Performed By: #### C MP #### [facility] [address] [place] [address] eGFR FEMALE >90 Normal >90 [facility] Comment on above: Result Comment: CALC ULATIONS OF ESTIMATED GFR ARE PERFORMED USING THE 2020 CKD-EPI STUDY REFIT EQUATION WITHOUT THE RACE VARIABLE FOR THE IDMS-TRACEABLE CREATININE METHODS. https://jasn.asnjournals.org/content//ASN.[email or web address] 88 Performed By: #### C MP #### [facility] [address] [place] [address] Glucose [Mass/Vol] 70 mg/dL Low 74 - 99 [facility] Comment on above: Performed By: #### C MP #### [facility] [address] [place] [address] HCO3 (Bld) [Moles/Vol] 25 mmol/L Normal 21 - 32 [facility] Comment on above: Performed By: #### C MP #### [facility] [address] [place] [address] Potassium [Moles/Vol] 4.3 mmol/L Normal 3.5 - 5.3 [facility] Comment on above: Performed By: #### C MP #### [facility] [address] [place] [address] Protein [Mass/Vol] 7.0 g/dL Normal 6.4 - 8.2 [facility] Comment on above: Performed By: #### C MP #### [facility] [address] [place] [address] Sodium [Moles/Vol] 139 mmol/L Normal 136 - 145 [facility] Comment on above: Performed By: #### C MP #### [facility] [address] [place] [address] Urea nitrogen [Mass/Vol] 10 mg/dL Normal 6 - 23 [facility] Comment on above: Performed By: #### C MP #### [facility] [address] [place] [address] HEPATITIS B SURF ABon 2021 HEP B SURF AB >1000.0 Normal <10 [facility] Comment on above: Result Comment: INTE RPRETIVE CRITERIA: <10 mIU/mL....NONREACTIVE >=10 mIU/mL...REACTIVE . Biotin interference may cause falsely decreased results. Patients taking a Biotin dose of up to 5 mg/day should refrain from taking Biotin for 24 hours before sample collection. Providers may contact their local laboratory for further information. Performed By: #### H BAB3 #### [facility] [address] [place] [address] LIPID PANEL (CORONARY RISK 2 )on 04-04-2022 Cholesterol [Mass/Vol] 120 mg/dL Normal 0 - 199 [facility] Comment on above: Result Comment: . AGE DESIRABLE BORDERLINE HIGH HIGH 0-19 Y 0 - 169 170 - 199 >/= 200 20-24 Y 0 - 189 190 - 224 >/= 225 >24 Y 0 - 199 200 - 239 >/= 240 All ranges are based on fasting samples. Specific therapeutic targets will vary based on patient-specific cardiac risk. . Pediatric guidelines reference:Pediatrics 2011, 128(S5). Adult guidelines reference: NCEP ATPIII Guidelines, MARTHA 2001, 258:2486-97 . Venipuncture immediately after or during the administration of Metamizole may lead to falsely low results. Testing should be performed immediately prior to Metamizole dosing. Performed By: #### L IPID #### [facility] [address] [place] [address] Cholesterol in HDL [Mass/Vol] 49.7 mg/dL Normal [facility] Comment on above: Result Comment: . AGE VERY LOW LOW NORMAL HIGH 0-19 Y < 35 < 40 40-45 ---- 20-24 Y ---- < 40 >45 ---- >24 Y ---- < 40 40-60 >60 . Performed By: #### L IPID #### [facility] [address] [place] [address] Cholesterol in LDL [Mass/Vol] 58 mg/dL Normal 0 - 119 [facility] Comment on above: Result Comment: . NEAR BORD AGE DESIRABLE OPTIMAL HIGH HIGH VERY HIGH 0-19 Y 0 - 109 --- 110-129 >/= 130 ---- 20-24 Y 0 - 119 --- 120-159 >/= 160 ---- >24 Y 0 - 99 100-129 130-159 160-189 >/=190 . Performed By: #### L IPID #### [facility] [address] [place] [address] Cholesterol in VLDL [Mass/Vol] 13 mg/dL Normal 0 - 40 [facility] Comment on above: Performed By: #### L IPID #### [facility] [address] [place] [address] Cholesterol.total/C holesterol in HDL [Mass ratio] 2.4 {ratio} Normal [facility] Comment on above: Result Comment: REF VALUES DESIRABLE < 3.4 HIGH RISK > 5.0 Performed By: #### L IPID #### [facility] [address] [place] [address] NON-HDL CHOLESTEROL 70 mg/dL Normal 0 - 149 [facility] Comment on above: Result Comment: AGE DESIRABLE BORDERLINE HIGH HIGH VERY HIGH 0-19 Y 0 - 119 120 - 144 >/= 145 >/= 160 20-24 Y 0 - 149 150 - 189 >/= 190 ---- >24 Y 30 MG/DL ABOVE LDL CHOLESTEROL GOAL . Performed By: #### L IPID #### [facility] [address] [place] [address] Triglyceride [Mass/Vol] 64 mg/dL Normal 0 - 149 [facility] Comment on above: Result Comment: . AGE DESIRABLE BORDERLINE HIGH HIGH VERY HIGH 0 D-90 D 19 - 174 ---- ---- ---- 91 D- 9 Y 0 - 74 75 - 99 >/= 100 ---- 10-19 Y 0 - 89 90 - 129 >/= 130 ---- 20-24 Y 0 - 114 115 - 149 >/= 150 ---- >24 Y 0 - 149 150 - 199 200- 499 >/= 500 . Venipuncture immediately after or during the administration of Metamizole may lead to falsely low results. Testing should be performed immediately prior to Metamizole dosing. Performed By: #### L IPID #### [facility] [address] [place] [address] TSH WITH REFLEX TO FREE T4 I F ABNORMALon 04-04-2022 TSH Qn 0.47 m[IU]/L Normal 0.44 - 3.98 [facility] Comment on above: Result Comment: TSH testing is performed using different testing methodology at [facility] than at other [facility]. Direct result comparisons should only be made within the same method. Performed By: #### T HYDS #### [facility] [address] [place] [address] VITAMIN D, 25-HYDROXYon 03-10 VITAMIN D, 25-HYDROXY 36 ng/mL Normal [facility] Comment on above: Result Comment: . DEFICIENCY: < 20 NG/ML INSUFFICIENCY: 20-29 NG/ML SUFFICIENCY: 30-100 NG/ML THIS ASSAY ACCURATELY QUANTIFIES THE SUM OF VITAMIN D3, 25-HYDROXY AND VIT D2,25-HYDROXY. Performed By: #### V TDOH #### [facility] [address] [place] [address] Complete Blood Count + Diffe bijan 04-03-2022 Basophils/100 WBC (Bld) 0.5 % 0.0 - 2.0 [facility] Work Phone: Erythrocyte distribution width (RBC) [Ratio] 13.5 % See Below [facility] Work Phone: Comment on above: Reference Range: 11. 5 - 14.5 Hematocrit (Bld) [Volume fraction] 42.9 % See Below [facility] Work Phone: Comment on above: Reference Range: 36. 0 - 46.0 Hemoglobin (Bld) [Mass/Vol] 13.5 g/dL See Below [facility] Work Phone: Comment on above: Reference Range: 12. 0 - 16.0 Lymphocytes/100 WBC (Bld) 30.3 % See Below [facility] Work Phone: Comment on above: Reference Range: 13. 0 - 44.0 MCHC (RBC) [Mass/Vol] 31.5 g/dL below low threshold See Below [facility] Work Phone: Comment on above: Reference Range: 32. 0 - 36.0 MCV (RBC) [Entitic vol] 87 fL 80 - 100 [facility] Work Phone: Monocytes/100 WBC (Bld) 8.2 % 2.0 - 10.0 [facility] Work Phone: Neutrophils/100 WBC (Bld) 58.5 % See Below [facility] Work Phone: Comment on above: Reference Range: 40. 0 - 80.0 Platelets (Bld) [#/Vol] 236 10*3/uL 150 - 450 [facility] Work Phone: RBC (Bld) [#/Vol] 4.93 {x10E12/L} See Below [facility] Work Phone: Comment on above: Reference Range: 4.0 0 - 5.20 WBC (Bld) [#/Vol] 7.8 10*3/uL 4.4 - 11.3 [facility] Work Phone: Complete Blood Count + Differential 0.04 {x10E9/L} See Below [facility] Work Phone: Comment on above: Reference Range: 0.0 0 - 0.10 Complete Blood Count + Differential 0.16 {x10E9/L} See Below [facility] Work Phone: Comment on above: Reference Range: 0.0 0 - 0.70 Complete Blood Count + Differential 0.64 {x10E9/L} See Below [facility] Work Phone: Comment on above: Reference Range: 0.1 0 - 1.00 Complete Blood Count + Differential 2.36 {x10E9/L} See Below [facility] Work Phone: Comment on above: Reference Range: 1.2 0 - 4.80 Complete Blood Count + Differential 4.56 {x10E9/L} See Below [facility] Work Phone: Comment on above: Reference Range: 1.2 0 - 7.70 Complete Blood Count + Differential 2.1 % 0.0 - 6.0 [facility] Work Phone: Complete Blood Count + Differential 0.4 % 0.0 - 0.9 [facility] Work Phone: Comment on above: Immature Granulocyte Count (IG) includes promyelocytes, myelocytes and metamyelocytes but does not include bands. Percent differential counts (%) should be interpreted in the context of the absolute cell counts (cells/L). Complete Blood Count + Differential 0.0 {/100_WBC} 0.0-0.0 [facility] Work Phone: 19-49 Yearson 04-03-2022 19-49 Years Diagnoses/Problems Health Maintenance/Risks Encounter for preventive health examination (V70.0) (Z00.00) Patient Discussion/Summary 1. Patient to have additional blood titers drawn 2. Patient to call if questions or concerns History of Present Illness Patient presents for physical exam. Fam Hx Mom () living, Dad () living, Exercise walks ETOH denies Caffeine denies Tobacco denies Patient denies other complaints at this time. Review of Systems Constitutional: no chills, not feeling poorly, not feeling tired and no fever. Eyes: no blurred vision, no eyesight problems, no eye pain and eyes not red. ENT: no earache, no discharge from the ear(s), the ears do not feel full, no hearing loss, no nasal congestion and no sinus pressure. Neck: no mass(es). Cardiovascular: no chest pain, no palpitations and no syncope. Respiratory: no cough, no shortness of breath during exertion, no shortness of breath at rest and no wheezing. Gastrointestinal: no abdominal pain, no constipation, no diarrhea, no nausea and no vomiting. Genitourinary: no dysuria. Musculoskeletal: no arthralgias and no localized joint pain. Integumentary: skin wound, but no rashes. Neurological: no confusion. Endocrine: no changes in appetite. Hematologic/Lymphatic: no tendency for easy bleeding and no tendency for easy bruising. Active Problems Problems Abnormal weight loss (783.21) (R63.4) Acute pharyngitis (462) (J02.9) Acute URI (465.9) (J06.9) Amenorrhea, secondary (626.0) (N91.1) Colicky right upper quadrant pain (789.01) (R10.11) Depression with anxiety (300.4) (F41.8) Exophthalmos (376.30) (H05.20) GERD (gastroesophageal reflux disease) (530.81) (K21.9) Headache (784.0) (R51.9) Heartburn (787.1) (R12) Hematochezia (578.1) (K92.1) Nasal valve collapse (478.19) (J34.89) Need for vaccination (V05.9) (Z23) Palpitations (785.1) (R00.2) Syncopal episodes (780.2) (R55) Thyroid nodule (241.0) (E04.1) Thyromegaly (240.9) (E01.0) TMJ (temporomandibular joint disorder) (524.60) (M26.609) Tuberculosis screening (V74.1) (Z11.1) Past Medical History Problems History of Up-to-date with immunizations (V20.2) (Z92.29) Surgical History Problems History of Tonsillectomy Family History Mother No pertinent family history Father Family history of bipolar disorder (V17.0) (Z81.8) Maternal Grandfather Family history of bipolar disorder (V17.0) (Z81.8) Family history of diabetes mellitus (V18.0) (Z83.3) Social History Problems Occasional cigarette smoker (305.1) (Z72.0) Use of non-nicotine containing substance in combustion-free vaporization device (V69.8) (Z72.89) Allergies Medication No Known Drug Allergies Recorded By: Yolanda Moctezuma; 10/13/2017 3:57:13 PM Current Meds Medication NameInstruction Nexplanon 68 MG Subcutaneous Implant Vitals Vital Signs Recorded: [id number] 02:39PM Heart Rate80 Eoaklctq653 Ltmknwqyn65 Blood Pressure Cuff SizeAdult Height5 ft 5 in Eorjwz939 lb BMI Rournqpixk74.14 kg/m2 BSA Calculated1.56 Tobacco Useb) No PHQ-2 #1. Over the last 2 weeks have you felt down, depressed or hopeless? (If yes, answer PHQ-9 below)No PHQ-2 #2. Over the last 2 weeks have you felt little interest or pleasure in doing things? (If yes, answer PHQ-9 below)No Physical Exam Constitutional: Alert and in no acute distress. Well developed, well nourished. Head and Face: Head and face: Normal. Palpation of the face and sinuses: Normal. Eyes: Normal external exam. Pupils were equal in size, round, reactive to light (PERRL) with normal accommodation and extraocular movements intact (EOMI). Ears, Nose, Mouth, and Throat: External inspection of ears and nose: Normal. Otoscopic examination: Normal. Hearing: Normal. Nasal mucosa, septum, and turbinates: Normal. Neck: No neck mass was observed. Supple. Cardiovascular: Palpation of heart: Normal. Heart rate and rhythm were normal, normal S1 and S2, no gallops, no murmurs and no pericardial rub. No peripheral edema. Pulmonary: No respiratory distress. Palpation of chest: Normal. Clear bilateral breath sounds. Abdomen: Soft nontender; no abdominal mass palpated. Normal bowel sounds. No organomegaly. Genitourinary:. External genitalia and vagina: Normal. Urethra: Normal. Bladder: Normal on palpation. Cervix: Normal. Musculoskeletal: Gait and station: Normal. No clubbing or cyanosis of the fingernails. No joint swelling seen, normal movements of all extremities. Range of motion: Normal. Muscle strength/tone: Normal. Skin: Normal skin color and pigmentation, normal skin turgor, and no rash. Neurologic: Cranial nerves 2-12 grossly intact. Deep tendon reflexes were 2+ and symmetric. Sensation: Normal. Coordination: Normal. Psychiatric: Judgment and insight: Intact. Alert and oriented x 3. Recent and remote memory: Normal. Mood and affect: Normal. Lymphatic: No cervical lymphadenopathy. 'Scores and Scales' Signatures (more content not included)... Normal [facility] Hepatitis B Surface Antibody on 04-03-2022 HBV surface Ag IA Ql >1000.0 <10 [facility] Work Phone: Comment on above: INTERPRETIVE CRITERI A:<10 mIU/mL....NONREACTIVE >=10 mIU/mL...REACTIVE . Biotin interference may cause falsely decreased results. Patients taking a Biotin dose of up to 5 mg/day should refrain from taking Biotin for 24 hours before sample collection. Providers may contact their local laboratory for further information. Laboratory - Chemistry and C hemistry - challengeon 04-03-2022 Albumin BCP dye [Mass/Vol] 4.8 g/dL 3.4 - 5.0 [facility] Work Phone: ALP [Catalytic activity/Vol] 77 U/L 33 - 110 [facility] Work Phone: ALT With P-5'-P [Catalytic activity/Vol] 8 U/L 7 - 45 [facility] Work Phone: Comment on above: Patients treated wit h Sulfasalazine may generate falsely decreased results for ALT. Anion gap [Moles/Vol] 14 mmol/L 10 - 20 [facility] Work Phone: AST With P-5'-P [Catalytic activity/Vol] 19 U/L 9 - 39 [facility] Work Phone: Bilirubin [Mass/Vol] 0.3 mg/dL 0.0 - 1.2 [facility] Work Phone: Calcium [Mass/Vol] 9.4 mg/dL 8.6 - 10.6 [facility] Work Phone: Chloride [Moles/Vol] 104 mmol/L 98 - 107 [facility] Work Phone: CO2 [Moles/Vol] 25 mmol/L 21 - 32 [facility] Work Phone: Creatinine [Mass/Vol] 0.64 mg/dL See Below [facility] Work Phone: Comment on above: Reference Range: 0.5 0 - 1.05 Glucose [Mass/Vol] 70 mg/dL below low threshold 74 - 99 [facility] Work Phone: Potassium [Moles/Vol] 4.3 mmol/L 3.5 - 5.3 [facility] Work Phone: Protein [Mass/Vol] 7.0 g/dL 6.4 - 8.2 [facility] Work Phone: Sodium [Moles/Vol] 139 mmol/L 136 - 145 [facility] Work Phone: TSH Qn 0.47 m[IU]/L See Below [facility] Work Phone: Comment on above: Reference Range: 0.4 4 - 3.98 TSH testing is performed using different testing methodology at [facility] than at other [facility]. Direct result comparisons should only be made within the same method. Urea nitrogen [Mass/Vol] 10 mg/dL 6 - 23 [facility] Work Phone: Lipid Panelon 04-03-2022 Cholesterol [Mass/Vol] 120 mg/dL 0 - 199 [facility] Work Phone: Comment on above: . AGE DESIRABLE BORD MARIZOL HIGH HIGH 0-19 Y 0 - 169 170 - 199 >/= 200 20-24 Y 0 - 189 190 - 224 >/= 225 >24 Y 0 - 199 200 - 239 >/= 240 All ranges are based on fasting samples. Specific therapeutic targets will vary based on patient-specific cardiac risk.. Pediatric guidelines reference:Pediatrics 2011, 128(S5). Adult guidelines reference: NCEP ATPIII Guidelines, MARTHA 2001, 258:2486-97. Venipuncture immediately after or during the administration of Metamizole may lead to falsely low results. Testing should be performed immediately prior to Metamizole dosing. Cholesterol in HDL [Mass/Vol] 49.7 mg/dL [facility] Work Phone: Comment on above: . AGE VERY LOW LOW N ORMAL HIGH 0-19 Y < 35 < 40 40-45 ---- 20- 24 Y ---- < 40 >45 ---- >24 Y ---- < 40 40-60 >60. Cholesterol in LDL [Mass/Vol] 58 mg/dL 0 - 119 [facility] [employer] [facility] Work Phone: Comment on above: . NEAR BORD AGE DEONTE RABLE OPTIMAL HIGH HIGH VERY HIGH 0-19 Y 0 - 109 --- 110-129 >/= 130 ---- 20-24 Y 0 - 119 --- 120-159 >/= 160 ---- >24 Y 0 - 99 100-129 130-159 160-189 >/=190. Cholesterol non HDL [Mass/Vol] 70 mg/dL 0 - 149 [facility] [employer] [facility] Work Phone: Comment on above: AGE DESIRABLE BORDER LINE HIGH HIGH VERY HIGH 0-19 Y 0 - 119 120 - 144 >/= 145 >/= 160 20-24 Y 0 - 149 150 - 189 >/= 190 ---- >24 Y 30 MG/DL ABOVE LDL CHOLESTEROL GOAL. Cholesterol.total/C holesterol in HDL [Mass ratio] 2.4 {ratio} [facility] [employer] [facility] Work Phone: Comment on above: REF VALUESDESIRABLE < 3.4HIGH RISK > 5.0 Triglyceride [Mass/Vol] 64 mg/dL 0 - 149 [facility] Work Phone: Comment on above: . AGE DESIRABLE BORD MARIZOL HIGH HIGH VERY HIGH 0 D-90 D 19 - 174 ---- ---- ----91 D- 9 Y 0 - 74 75 - 99 >/= 100 ---- 10-19 Y 0 - 89 90 - 129 >/= 130 ---- 20-24 Y 0 - 114 115 - 149 >/= 150 ---- >24 Y 0 - 149 150 - 199 200- 499 >/= 500. Venipuncture immediately after or during the administration of Metamizole may lead to falsely low results. Testing should be performed immediately prior to Metamizole dosing. Lipid Panel 13 mg/dL 0 - 40 [facility] Work Phone: No Panel Informationon 04-03 >90 >90 [facility] Work Phone: Comment on above: CALCULATIONS OF ELLI MATED GFR ARE PERFORMED USING THE 2020 CKD-EPI STUDY REFIT EQUATION WITHOUT THE RACE VARIABLE FOR THE IDMS-TRACEABLE CREATININE METHODS.https://jasn.asnjournals.org/content/early//ASN. 6153322768 Tobacco Screening.on 022 Adult depression screening assessment No [facility] Work Phone: Tobacco use status [facility]PH[facility] b) No [facility] Work Phone: Tobacco Screening. Adult [facility] Work Phone: Vitamin D 25-Hydroxyon 04-03 25-hydroxyvitamin D3 [Mass/Vol] 36 ng/mL [facility] Work Phone: Comment on above: .DEFICIENCY: < 20 NG /MLINSUFFICIENCY: 20-29 NG/MLSUFFICIENCY: 30-100 NG/MLTHIS ASSAY ACCURATELY QUANTIFIES THE SUM OFVITAMIN D3, 25-HYDROXY AND VIT D2,25-HYDROXY. PPD Result Noteon 03-12-2022 PPD Result Note PPD Results ROSA SCHULER has had the PPD results read:. The PPD was placed on 03-10-2022 The PPD was read on 03-12-2022 It was Read by Karime Tracey RN. PPD Result is negative and showed 0 mm induration Signatures Electronically signed by : Karime Tracey R.N.; Mar 12 2022 10:40AM EST (Author) Normal [facility] LABORATORYOrdered By: Katya olmos on 12-16-2021 Beta HCG ( test) Ql (U) Negative (12/16/21 5:06 PM) [facility] Work Phone: LABORATORYOrdered By: Talita Moctezuma on 12-16-2021 Appearance (U) Cloudy *ABN* (12/16/21 4:44 PM) Invalid Interpretation Code Clear AH Auto Urine SS Bacteria LM.HPF (Urine sed) [#/Area] Trace /HPF Invalid Interpretation Code Negative/HPF AH Auto Urine SS Bilirubin Ql (U) Negative (12/16/21 4:44 PM) Invalid Interpretation Code Neg-Trace AH Auto Urine SS Color (U) Yellow (12/16/21 4:44 PM) Invalid Interpretation Code AH Auto Urine SS Crystals.amorphous LM.HPF (Urine sed) [#/Area] 2 /[HPF] Invalid Interpretation Code AH Auto Urine SS Glucose Test strip (U) [Mass/Vol] Negative Invalid Interpretation Code Negativemg/dL AH Auto Urine SS Hemoglobin Auto test strip (U) [Mass/Vol] Negative (12/16/21 4:44 PM) Invalid Interpretation Code Neg-Trace AH Auto Urine SS Ketones Ql (U) 80 mg/dL Invalid Interpretation Code Neg-Tracemg/d L AH Auto Urine SS UA Leuk Est Negative (12/16/21 4:44 PM) Invalid Interpretation Code Negative AH Auto Urine SS UA Mucous 1+ /HPF Invalid Interpretation Code AH Auto Urine SS UA Nitrite Negative (12/16/21 4:44 PM) Invalid Interpretation Code Negative AH Auto Urine SS UA pH >=8.5 *ABN* (12/16/21 4:44 PM) Invalid Interpretation Code 5.0 - 8.0 AH Auto Urine SS UA Protein 30 mg/dL Invalid Interpretation Code Negativemg/dL AH Auto Urine SS UA RBC Negative Invalid Interpretation Code 0-2/HPF AH Auto Urine SS UA Spec Grav 1.020 (12/16/21 4:44 PM) Invalid Interpretation Code 1.006-1.029 AH Auto Urine SS UA Specimen Type Clean Catch (12/16/21 4:44 PM) Invalid Interpretation Code AH Auto Urine SS UA Squam Epithelial 3-5 /HPF Invalid Interpretation Code 0-20/HPF AH Auto Urine SS UA Urobilinogen 0.2 E.U./dL Invalid Interpretation Code 0.2-1.0E.U./d L AH Auto Urine SS WBC LM.HPF (Urine sed) [#/Area] 0-2 /HPF Invalid Interpretation Code 0-5/HPF AH Auto Urine SS LABORATORYOrdered By: SYSTEM SYSTEM on 12-16-2021 Albumin BCP dye [Mass/Vol] 4.8 G/dL Invalid Interpretation Code 3.2 - 4.8 G/dL AH ADM SS Albumin/Globulin [Mass ratio] 1.8 {ratio} Invalid Interpretation Code 0.9 - 1.6 ratio AH ADM SS ALP [Catalytic activity/Vol] 88 U/L Invalid Interpretation Code 38 - 126 U/L AH ADM SS ALT No additional P-5'-P [Catalytic activity/Vol] 11 U/L Invalid Interpretation Code 10 - 49 U/L AH ADM SS AST [Catalytic activity/Vol] 29 U/L Invalid Interpretation Code 8 - 34 U/L AH ADM SS Basophils (Bld) [#/Vol] 0.00 103/mcL Invalid Interpretation Code 0.00 - 0.27 10^3/mcL AH Remisol SS Basophils/100 WBC (Bld) 0.1 % Invalid Interpretation Code 0.0 - 2.5 % AH Remisol SS Bilirubin [Mass/Vol] 0.60 mg/dL Invalid Interpretation Code 0.20 - 1.20 mg/dL AH ADM SS Calcium [Mass/Vol] 10.5 mg/dL Invalid Interpretation Code 8.7 - 10.4 mg/dL AH ADM SS Chloride [Moles/Vol] 109 mmol/L Invalid Interpretation Code 98 - 110 mEq/L AH ADM SS CO2 [Moles/Vol] 19 mmol/L Invalid Interpretation Code 22 - 32 mEq/L AH ADM SS Creatinine [Mass/Vol] 0.58 mg/dL Invalid Interpretation Code 0.50 - 1.20 mg/dL AH ADM SS Electrolyte Balance 13.0 mEq/L Invalid Interpretation Code 4.0 - 15.0 mEq/L AH ADM SS Eosinophils (Bld) [#/Vol] 0.00 103/mcL Invalid Interpretation Code 0.00 - 0.65 10^3/mcL AH Remisol SS Eosinophils/100 WBC (Bld) 0.0 % Invalid Interpretation Code 0.0 - 6.0 % AH Remisol SS Erythrocyte distribution width (RBC) [Ratio] 13.1 % Invalid Interpretation Code 11.5 - 15.5 % AH Remisol SS GFR/1.73 sq M.predicted among blacks MDRD (S/P/Bld) [Vol rate/Area] ml/min/1.73sqm Invalid Interpretation Code ADM SS GFR/1.73 sq M.predicted among non-blacks MDRD (S/P/Bld) [Vol rate/Area] ml/min/1.73sqm Invalid Interpretation Code AH ADM SS Globulin 2.7 G/dL Invalid Interpretation Code 1.5 - 3.8 G/dL AH ADM SS Glucose [Mass/Vol] 129 mg/dL Invalid Interpretation Code 70 - 110 mg/dL AH ADM SS Hematocrit (Bld) [Volume fraction] 40.3 % Invalid Interpretation Code 34.0 - 46.0 % AH Remisol SS Hemoglobin (Bld) [Mass/Vol] 13.3 G/dL Invalid Interpretation Code 12.0 - 16.0 G/dL Remisol SS Lipase [Catalytic activity/Vol] 20 U/L Invalid Interpretation Code 12 - 53 U/L AH ADM SS Lymphocytes (Bld) [#/Vol] 0.80 103/mcL Invalid Interpretation Code 0.90 - 4.32 10^3/mcL AH Remisol SS Lymphocytes/100 WBC (Bld) 5.3 % Invalid Interpretation Code 20.0 - 40.0 % AH Remisol SS MCH (RBC) [Entitic mass] 26.7 pg Invalid Interpretation Code 27.0 - 33.0 pg AH Remisol SS MCHC (RBC) [Mass/Vol] 33.0 G/dL Invalid Interpretation Code 32.0 - 36.0 G/dL AH Remisol SS MCV (RBC) [Entitic vol] 81.0 fL Invalid Interpretation Code 80.0 - 99.0 fL AH Remisol SS Monocytes (Bld) [#/Vol] 0.60 103/mcL Invalid Interpretation Code 0.09 - 1.40 10^3/mcL AH Remisol SS Monocytes/100 WBC (Bld) 4.4 % Invalid Interpretation Code 2.0 - 13.0 % AH Remisol SS Neutrophils (Bld) [#/Vol] 13.30 103/mcL Invalid Interpretation Code 2.25 - 8.10 10^3/mcL AH Remisol SS Neutrophils/100 WBC (Bld) 90.2 % Invalid Interpretation Code 50.0 - 75.0 % AH Remisol SS Platelet mean volume (Bld) [Entitic vol] 8.8 fL Invalid Interpretation Code 6.6 - 10.5 fL AH Remisol SS Platelets (Bld) [#/Vol] 218 103/mcL Invalid Interpretation Code 150 - 450 10^3/mcL AH Remisol SS Potassium [Moles/Vol] 3.3 mmol/L Invalid Interpretation Code 3.5 - 5.0 mEq/L AH ADM SS Protein [Mass/Vol] 7.5 G/dL Invalid Interpretation Code 5.7 - 8.2 G/dL AH ADM SS RBC (Bld) [#/Vol] 4.97 106/mcL Invalid Interpretation Code 4.10 - 5.30 10^6/mcL AH Remisol SS Sodium [Moles/Vol] 141 mmol/L Invalid Interpretation Code 136 - 145 mEq/L AH ADM SS Urea nitrogen [Mass/Vol] 9.0 mg/dL Invalid Interpretation Code 8.0 - 22.0 mg/dL AH ADM SS Urea nitrogen/Creatinine [Mass ratio] 15.5 ratio Invalid Interpretation Code 10.0 - 22.0 ratio AH ADM SS WBC (Bld) [#/Vol] 14.70 103/mcL Invalid Interpretation Code 4.50 - 10.80 10^3/mcL AH Remisol SS ROUTINE COVIDon 07-30-2021 SARS-CoV-2 (COVID-19) RNA MADDISON+probe Ql (Unsp spec) Positive Invalid Interpretation Code NEGATIVE [facility] Comment on above: Order Comment: Harper ruiz: GABINO Result Comment: Posi tive results are indicative of the presence of SARS-CoV-2 RNA; clinical correlation with patient history and other diagnostic information is necessary to determine patient infection status. Positive results do not rule out bacterial infection or co-infection with other viruses. The agent detected may not be the definite cause of disease. This test has been authorized by the FDA under the Emergency Use Authorization (EUA) for use by authorized laboratories. This test was performed by PCR. Performed By: #### L [phone] #### [facility] [place] [address] [facility] REPORT Normal [facility] DATE OF SERVICE: HISTORY OF PRESENT ILLNESS: This is a 21-year-old female with fever, chills, no taste or smell, sore throat, COVID exposed. She was exposed Yehuda to several people that are COVID positive. ALLERGIES: LATEX, PENICILLIN. PAST MEDICAL HISTORY: Unremarkable. HABITS: Nonsmoker, does drink alcohol. FAMILY HISTORY: Positive for diabetes, cancer, high blood pressure. SOCIAL HISTORY: Unremarkable. PHYSICAL EXAMINATION: Weight 120 pounds, blood pressure 130/87, pulse 70, respirations 20, temperature 97.3, pulse oximetry is 98% on room air. This is a 21-year-old female. HEENT: Membranes are inflamed. Pharynx is inflamed. Neck: Supple. Heart: Regular rate and rhythm. Lungs: Mild expiratory wheeze. No areas of consolidation or solid pneumonias could be appreciated. Extremities and neurologic: Grossly intact. We did do a COVID test. That will be forwarded to the lab. IMPRESSION: Respiratory illness, rule out COVID. [facility] PATIENT NAME: ROSA SCHULER [address] [place] MEDICAL REC #: [id number] [place] [address] [facility] REPORT STATCARE PHYSICIAN PLAN: Self-quarantine until results. Patient is placed on Zithromax 500 once a day for 5 days, Decadron 4 mg once a day for 4 days, and Tessalon Perles for cough. Rest, fluids, finish all medicines. Follow in 7 to 10 days, sooner if complications or problems arise. Jeanne Lang DO /[id number] [facility] File#: [id number] END OF DOCUMENT / CHANGE LOG FOLLOWS Last Edited By [employer]. Signed By Jeanne Lang DO #Jeanne Lackey DO #TIANA on 08/11/2021 08:22 ET on 08/11/2021 08:22 ET Revision Number - 2 Verified/Reviewed by 08/11/21821 TIANA [facility] PATIENT NAME: ROSA SCHULER [address] MEDICAL REC #: [id number] [place] [address] [facility] REPORT STATCARE PHYSICIAN Normal [facility] US Soft Tissue Head/Neckon 0 04-25-2021 US Soft Tissue Head/Neck ULTRASOUND THYROID: Indication: Thyroid nodule. Examination: Ultrasonographic evaluation of the thyroid Comparison: 01/17/2021 with right lobe biopsy 01/31/2021 Findings: RIGHT LOBE: 3.8 x 1.3 x 1.4cm LEFT LOBE: 3.5 x 1.4 x 1.0cm ECHOGENICITY PATTERN: Small right lobe nodule otherwise fairly homogeneous with slightly small size IMPRESSION: THYROID ULTRASOUND : 1. 0.9 cm partly cystic and hypoechoic nodule right lobe with question of tiny microcalcification. This is graded as TI RADS 4-measurement is smaller than on last exam three months ago (measured 1.2 cm) 2. Prominent cervical lymph nodes bilaterally with normal architecture are unchanged since last exam three months ago Report Dictated on Authenticated by: Walt Anderson On: 04/25/2021 11:56 Read by: WALT ANDERSON MD Date: 04/25/2021 11:[address] [facility] [address] Soft Tissue Neck w/ Contr onesimo 04-04-2021 CT Soft Tissue Neck w/ Contrast Patient Name: ROSA SCHULER Computed Tomography ACCESSION EXAM DATE/TIME PROCEDURE ORDERING PROVIDER [id number] 04/04/2021 09:[address] Soft Tissue Neck w/ MATTHEW DAMON Contrast CPT code 79772 [id number] Reason For Exam (CT Soft Tissue Neck w/ Contrast) cervical lymphadenopathy Addendum Addendum: Comparison was made to prior outside thyroid ultrasound images dated 12/27/2020. The right thyroid nodule seen on the current study is essentially unchanged on comparison with the thyroid ultrasound. No additional abnormalities are seen on further review. Report Dictated on Final Addendum Dictated: 04/08/2021 10:17 am Addendum Dictating Physician: DO FLAHERTY ALFRED Signed Date and Time: 04/08/2021 10:18 am Signed by: DO FLAHERTY ALFRED Transcribed Date and Time: 04/08/2021 10:[address] CERVICAL SOFT TISSUES WITH CONTRAST: INDICATION: Cervical lymphadenopathy COMPARISON: No previous studies are available for comparison.. Contrast: 75 cc of Isovue-370. Technique: A multislice, volume acquisition was obtained from the petrous apices to the upper mediastinum. Images were reconstructed in 3 mm intervals in the axial, sagittal and coronal planes. The oropharynx, nasopharynx and surrounding parapharyngeal soft tissues are intact and symmetric in appearance. Tissue planes are generally well preserved. The tongue is grossly unremarkable. The parotid and submandibular glands show no evidence of focal abnormality. The epiglottis is intact. The true and false vocal cords are normal and symmetric in appearance. The subglottic airway and upper trachea are widely patent. There is no evidence of deviation from the midline. Computed Tomography Report Bilateral mildly prominent cervical lymph nodes are present without gross matted lymphadenopathy. The largest lymph node on the right has a short axis dimension of approximately 7 mm. The largest left-sided cervical lymph node has a short axis dimension of approximately 6 mm. There is no disruption of the soft tissue planes. There are no supraclavicular masses. The upper mediastinum is generally unremarkable. The great vessels of the neck are intact. A small right thyroid nodule is noted. IMPRESSION: Mildly prominent bilateral cervical lymph nodes without gross lymphadenopathy. No cervical soft tissue masses or disruption of the soft tissue planes are noted. No supraclavicular nodes are seen Report Dictated on Final Dictated: 04/04/2021 1:52 pm Dictating Physician: DO FLAHERTY ALFRED Signed Date and Time: 04/04/2021 1:56 pm Signed by: DO FLAHERTY ALFRED Transcribed Date and Time: 04/04/2021 1:52 Report last revised on 04/08/2021 10:18 EDT by DO FLAHERTY ALFRED [facility] T-SPOT. TBon 03-25-2021 [facility]. [facility] Work Phone: T-SPOT. TB 0 1 [facility] Work Phone: T-SPOT. TB Negative See Below [facility] Work Phone: Comment on above: Reference Range: Nor mal Value: NegativeA negative test result does not exclude the possibility of exposure to or infection with Mycobacterium tuberculosis (M. tuberculosis). Patients with recent exposure to TB infected individuals exhibiting a negative T-SPOT.TB result should be considered for retesting within 6 weeks or if other relevant clinical symptoms indicate. Results from T-SPOT.TB testing must be used in conjunction with each individual's epidemiological history, current medical status, and results of other diagnostic evaluations. The T-SPOT.TB test is qualitative and results are reported as positive, borderline or negative, given that the test controls perform as expected. In line with the Centers for Disease Control and Prevention's 2010 recommendation to report quantitative measurements alongside the qualitative result, the laboratory provides spot counts for informational purposes only. The T-SPOT.TB test should not be interpreted as a quantitative test. Hepatitis B Surface Antibody on 03-21-2021 HBV surface Ag IA Ql 5.9 {mIU/mL} <10 [facility] [employer] Work Phone: Comment on above: INTERPRETIVE CRITERI A:<10 mIU/mL....NONREACTIVE >=10 mIU/mL...REACTIVE . Biotin interference may cause falsely decreased results. Patients taking a Biotin dose of up to 5 mg/day should refrain from taking Biotin for 24 hours before sample collection. Providers may contact their local laboratory for further information. IO Vision Screeningon 2020 IO Vision Screening 20/25 [facility] Work Phone: IO Vision Screening 20/20 [facility] Work Phone: Mumps IgG Antibodyon 021 MuV IgG (S) [Titer] Positive [facility] Work Phone: Comment on above: INTERPRETATIVE COMME NT NEGATIVE: No IgG antibodies specific to Mumps detected. It is likely that the patient has not had a previous exposure to Mumps through infection or vaccination. Alternatively, the patient may have been exposed to Mumps but a failure to respond may indicate immunodeficiency. EQUIVOCAL:Equivocal results; obtain additional sample for retesting. POSITIVE: IgG antibody to Mumps detected. This may indicate that the patient was exposed to Mumps through infection or vaccination.The interpretation of serological tests should take into accountthe immunological status of the patient. Test results forpatients, including immunocompromised patients, neonates, andpediatric patients, reflect their capacity to respondimmunologically to the virus as well as their exposure to thepathogen. Patients treated with IVIG may demonstrate alteredresults in serological assays. Rubella IgG Antibodyon 03-21 Rubella virus IgG IA Ql Positive [facility] Work Phone: Comment on above: INTERPRETATIVE COMME NT NEGATIVE: No IgG antibodies specific to Rubella detected. It is likely that the patient has not had a previous exposure to Rubella through infection or vaccination. Alternatively, the patient may have been exposed to Rubella but a failure to respond may indicate immunodeficiency. EQUIVOCAL:Equivocal results; obtain additional sample for retesting. POSITIVE: IgG antibody to Rubella detected. This may indicate that the patient was exposed to Rubella through infection or vaccination.The interpretation of serological tests should take into accountthe immunological status of the patient. Test results forpatients, including immunocompromised patients, neonates, andpediatric patients, reflect their capacity to respondimmunologically to the virus as well as their exposure to thepathogen. Patients treated with IVIG may demonstrate alteredresults in serological assays. Rubeola IgG Antibodyon 03-21 MeV IgG IA Ql (S) Positive [employer] [facility] [employer] Work Phone: Comment on above: INTERPRETATIVE COMME NT NEGATIVE: No IgG antibodies specific to Measles detected. It is likely that the patient has not had a previous exposure to Measles through infection or vaccination. Alternatively, the patient may have been exposed to Measles but a failure to respond may indicate immunodeficiency. EQUIVOCAL:Equivocal results; obtain additional sample for retesting. POSITIVE: IgG antibody to Measles detected. This may indicate that the patient was exposed to Measles through infection or vaccination.The interpretation of serological tests should take into accountthe immunological status of the patient. Test results forpatients, including immunocompromised patients, neonates, andpediatric patients, reflect their capacity to respondimmunologically to the virus as well as their exposure to thepathogen. Patients treated with IVIG may demonstrate alteredresults in serological assays. Varicella Zoster IgG Antibod yon 03-21-2021 VZV IgG IA Ql (S) Positive NEGATIVE [employer] [facility] Work Phone: Comment on above: INTERPRETATIVE COMME NT NEGATIVE: No IgG antibodies specific to VZV detected. It is likely that the patient has not had a previous exposure to VZV through infection or vaccination. Alternatively, the patient may have been exposed to VZV but a failure to respond may indicate immunodeficiency. EQUIVOCAL:Equivocal results; obtain additional sample for retesting. POSITIVE: IgG antibody to VZV detected. This may indicate that the patient was exposed to VZV through infection or vaccination.The interpretation of serological tests should take into accountthe immunological status of the patient. Test results forpatients, including immunocompromised patients, neonates, andpediatric patients, reflect their capacity to respondimmunologically to the virus as well as their exposure to thepathogen. Patients treated with IVIG may demonstrate alteredresults in serological assays. Cytology Reporton 01-31-2021 Pathology / Cytology See Reference Lab Report [facility] Comment on above: Order Comment: RT TH YROID NODULE WITH MO LECULAR Performed By: #### U #### [facility] [address] [place] [address] US Guided FNA of 1st lesiono n 01-31-2021 US Guided FNA of 1st lesion ULTRASOUND GUIDED THYROID BIOPSY (RIGHT): CLINICAL INDICATION: Complex cystic lesion with a large solid component in the medial aspect of the mid-level of the right lobe COMPARISON: Ultrasound from 01/17/2021 PROCEDURE: Real-time ultrasonographic evaluation of the thyroid demonstrates a complex cystic lesion on the right as noted on the prior examination. There are no clearly identified microcalcifications at this time. The solid component results in the TI-RADS 4 classification. Ultrasound evaluation of the cervical lymph nodes demonstrates multiple elongated lymph nodes, none of which demonstrate cortical thickness of greater than 0.3 cm. Lymph node biopsy was not performed at this time. Following discussion with the patient regarding risks, benefits and alternatives along with timeout to document the patient's name, site and nature of the procedure, the skin was sterilely prepared and local anesthesia was applied. The ultrasound probe was prepared with a sterile cover and sterile gel was utilized. Under real-time ultrasound guidance, fine needle aspiration of the complex cystic nodule on the right, (into the solid component) was performed utilizing a 25-gauge spinal needle. Two additional passes were performed with separate 25-guage spinal needles as well. One of the specimens was submitted for molecular imaging with Affir[employer]. Cytology was submitted for evaluation. The patient tolerated procedure well. Report Dictated on Authenticated by: Lopez Monte On: 01/31/2021 13:45 Read by: LOPEZ MONTE MD Date: 01/31/2021 13:45 [facility] US Soft Tissue Head/Neckon 0 01-17-2021 US Soft Tissue Head/Neck *ADDENDUM Addendum: The dominant lesion in the right lobe measuring up to 1.2 cm has six TI- Rads points, based on identifiable features, including 1 point because it is partially cystic, 2 points for hypoechogenicity, 3 points for microcalcifications. The number of points corresponds to a TI-RADS level 4 lesion, which is moderately suspicious. Aspiration recommended for lesions >= 1.5 cm. See original report. Report Dictated on Authenticated by: Varsha Farias On: 02/04/2021 21:46 Read by: VARSHA FARIAS MD Date: 02/04/2021 21:46 *ORIGINAL Indication: Thyroid nodule. Adenopathy. FINDINGS: Right lobe 1.2 x 1.4 x 3.7 cm, normal size. Nodules detail below. Location: Mid pole Size: 0.8 x 0.8 x 1.2cm (AP x transverse x cephalocaudad) Echogenicity: Partially cystic. Hypoechoic. Margins: well-circumscribed Microcalcifications: Microcalcifications. TI-RADS: 6 Change since last exam: Not applicable Left lobe 1.3 x 1.3 x 3.6 cm. No discrete nodules. Evaluation was performed for the presence of lymph nodes. Right neck: level 1: lymph node 2.9 x 0.6 x 1.4 cm. level 2:1.5 x 0.4 x 1.4 cm lymph node. Left neck Level 2: 1.5 x 05 x 1.3 Level 2: 1.4 x 0.6 x 1.3 cm. Left 3: 2.6 x 0.6 x 1.2 cm. Left 3: 2.1 x 0.5 x 1 cm. IMPRESSION: Dominant nodule of the right lobe. Consider biopsy. Below is an example of published guidelines for evaluation of nodules to be used at the physician's discretion. Bilateral neck adenopathy possibly related. The significance is not certain. TI-RADS (2017) Reference: Ekaterina Gross. ACR Thyroid Imaging, Reporting and Data System (TI-RADS): White Paper of the ACR TI-RADS. Journal of [employer]. December 2016. Thyroid nodule details (add points for total score): Composition(points): 1 - mixed cystic and solid 2 - solid Echogenicity: 1 - hyperechoic or isoechoic 2 - hypoechoic 3 - very hypoechoic Shape: 3 - taller than wide Margin: 2 - lobulated or irregular 3 - extrathyroidal extension Echogenic foci: 1 - macrocalcifications 2 - rim calcification 3 - microcalcifications Risk for malignancy: TI-RADS 1 - 0 points - (benign) <2% risk TI-RADS 2 - 2 points - (not suspicious) <5% TI-RADS 3 - 3 points - (mildly suspicious) <5% - FNA >/= 2.5cm. Follow >1.5cm at 1, 3 and 5 years TI-RADS 4 - 4-6 points - (moderately suspicious) 5-20% - FNA >/= 1.5cm. Follow >1cm at 1, 2, 3 and 5 years TI-RADS 5 - 7+ points - (highly suspicious) >20% - FNA >/= 1cm. Follow >0.5cm every year for up to 5 years . Report Dictated on Authenticated by: Varsha Farias On: 01/17/2021 10:06 Read by: VARSHA FARIAS MD Date: 01/17/2021 10:06 [facility] TSH Receptor Antibodyon Thyrotropin Receptor Ab <1.10 Normal 0.00-1.75 [facility] Comment on above: Order Comment: Perfo rmed at: - [facility] [id number] Costume Technician: Shannan Richardson MD, Phone: [phone] Performed By: #### T SHRAB #### [facility] RESULTS ACTHon 01-08-2021 ACTH, Plasma 14.8 pg/mL Normal 7.2-63.3 [facility] Comment on above: Order Comment: Perfo rmed at: - [facility] [address] [id number] Costume Technician: Tarun Koehler PhD, Phone: [phone] Result Comment: ACTH reference interval for samples collected between 7 and 10 AM. Performed By: #### A CT #### [facility] RESULTS Cortisol Totalon 01-07-2021 Biotin Interference Samples should not b e taken from patients receiving therapy with high biotin doses (i.e. >5mg/day) until at least 8 hours following the last biotin administration. [facility] Comment on above: Performed By: #### T HYCASR, ABHINAV #### [place] [address] Cortisol 10.0 ug/mL [facility] Comment on above: Performed By: #### T HYCASR, ABHINAV #### [place] [address] Cortisol Ref Range AM CORTISOL 6.2 - 19 .4 PM CORTISOL 2.3 - 11.9 [facility] Comment on above: Performed By: #### T HYCASR, ABHINAV #### [place] [id number] Thyroid Cascading Reflexon 0 01-07-2021 Biotin Interference Concentrations of Bi otin in excess of 100ng/ml in patient samples can potentially result in interference of TSH. [facility] Comment on above: Performed By: #### T HYCASR, ABHINAV #### [place] [address] TSH 1.39 uIU/mL Normal 0.27-4.20 [facility] Comment on above: Performed By: #### T HYCASR, ABHINAV #### [place] [address] TSH comment <0.001% of patients express a rare TSH variant which yields falsely low values in this assay. Interpret low TSH values along with T4 and T3 levels and the clinical history. [facility] Comment on above: Performed By: #### T HYCASR, ABHINAV #### [place] [id number] Antithyroid Perox. Abon 05-2 TPO Ab Qn 33 [IU]/mL [facility] Work Phone: Comment on above: Negative: <=60 U/mLP ositive: >60 U/mL Radiologyon 12-27-2020 US Thyroid gland Normal [facility] Work Phone: T3 - Free Triiodothyronine, Serumon 12-27-2020 Free T3 [Mass/Vol] 3.9 pg/mL 3.0 - 4.7 [facility] [employer] Work Phone: T4 - Free Thyroxine, Serumon 12-27-2020 Free T4 [Mass/Vol] 1.35 ng/dL See Below [facility] Work Phone: Comment on above: Reference Range: 0.7 8 - 1.48 Thyroxine Free testing is performed using different testing methodology at [facility] than at other [facility]. Direct result comparisons should only be made within the same method. TSH - Thyroid Stimulating Ho rmone, Serumon 12-27-2020 TSH Qn 0.63 m[IU]/L See Below [facility] Work Phone: Comment on above: Reference Range: 0.4 4 - 3.98 TSH testing is performed using different testing methodology at [facility] than at other [facility]. Direct result comparisons should only be made within the same method. Thyrotropin Receptor Abon TSH receptor Ab Qn (S) <1.10 See Below [facility] [employer] Work Phone: Comment on above: Reference Range: 0.0 0 - 1.75 ADDITIONAL INFORMATION At a decision limit of 1.75 IU/L, this assay has 97% sensitivity and 99% specificity for detection of Graves' disease. In healthy individuals and in patients with thyroid disease without diagnosis of Graves' disease, the upper limit of anti-TSHR values are 1.22 IU/L and 1.58 IU/L, respectively (97.5th percentiles). Test Performed by:[facility] [place] [id number] Director: Walt Conley M.D. Ph.D.; CLIA# [id number] US THYROIDon 12-27-2020 US THYROID Patient Name: ROSA SCHULER STUDY: US THYROID 12/27/2020 11:26 am INDICATION: 20 y/o F with Capitation's, exophthalmos, thyromegaly, syncopal episodes. COMPARISON: None. ACCESSION NUMBER(S): [id number] ORDERING CLINICIAN: NEO OCASIO TECHNIQUE: Multiple grayscale ultrasonographic images were obtained through the thyroid. FINDINGS: RIGHT THYROID LOBE: The right thyroid measures at 3.9 x 1.2 x 1.2 cm. A complex cystic and solid nodule is seen in the posteromedial right lobe of the thyroid, measuring at up to 1.1 x 0.7 x 0.7 cm. The right lobe of the thyroid is otherwise homogeneous in echotexture without additional nodules. LEFT THYROID LOBE: The left thyroid measures at 3.6 x 1.0 x 1.1 cm. The left lobe of the thyroid is homogeneous in echotexture without discrete nodules. ISTHMUS: The isthmus measures at 1 mm in thickness. CERVICAL LYMPHADENOPATHY: None. IMPRESSION: Complex cystic and solid nodule in the right lobe of the thyroid, as above. Electronically signed by: KIM NOVAK MD [facility] Anion gap [Moles/Vol] 6 mmol/L Normal 5-16 [facility] Comment on above: Order Comment: Campu s: M Performed By: #### L 500.05202, L500.95833, L500.97998 #### [facility] [address] [place] [address] Calcium [Mass/Vol] 10.3 mg/dL Normal 8.5-10.5 [facility] Comment on above: Order Comment: Campu s: M Result Comment: NOTE NEW NORMAL RANGE DUE TO REAGENT CHANGE Performed By: #### L 500.15721, L500.20140, L500.21602 #### [facility] [address] [place] [address] Chloride [Moles/Vol] 108 mmol/L High 98-107 [facility] Comment on above: Order Comment: Campu s: M Performed By: #### L 500.58861, L500.34454, L500.82761 #### [facility] [address] [place] [address] CO2 [Moles/Vol] 24.0 mmol/L Normal 21-32 [facility] Comment on above: Order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 [facility] [email or web address] 03-26-2023 05:40-0400 Systolic blood pressure 129 mm[Hg] Laurie Marsley DO Work Phone: [facility] [email or web address] 01-13-2023 14:23-0400 Body temperature 97.7 [degF] DR TONY PURCELL DO [facility] 01-13-2023 14:23-0400 Diastolic Blood Pressure Non-Invasive [address] TONY PURCELL DO [facility] 01-13-2023 14:23-0400 Heart rate 84 /min DR TONY PURCELL DO [facility] 01-13-2023 14:23-0400 Respiratory rate 16 /min DR TONY PURCELL DO [facility] 01-13-2023 14:23-0400 Systolic Blood Pressure Non-Invasive [address] TONY PURCELL DO [facility] 11-15-2022 06:24-0400 Body height 165.1 cm MARYBETH ARREAGA MD [facility] 11-15-2022 06:24-0400 Body weight 50 kg MARYBETH ARREAGA MD [facility] 11-15-2022 06:24-0400 Body weight 18.34 kg/m2 MARYBETH ARREAGA MD [facility] 11-15-2022 06:13-0400 Body temperature 98.06 [degF] MARYBETH ARREAGA MD [facility] 11-15-2022 06:13-0400 Diastolic Blood Pressure Non-Invasive 62 1 MARYBETH ARREAGA MD [facility] 11-15-2022 06:13-0400 Heart rate 76 /min MARYBETH ARREAGA MD [facility] 11-15-2022 06:13-0400 Systolic Blood Pressure Non-Invasive 111 1 MARYBETH ARREAGA MD [facility] 09-05-2022 10:18-0500 Diastolic Blood Pressure Non-Invasive [address] AYLEEN PUGA MD [facility] 09-05-2022 10:18-0500 Heart rate 70 /min DR AYLEEN PUGA MD [facility] 09-05-2022 10:18-0500 Respiratory rate 18 /min DR AYLEEN PUGA MD [facility] 09-05-2022 10:18-0500 Systolic Blood Pressure Non-Invasive [address] AYLEEN PUGA MD [facility] 09-05-2022 06:11-0500 Body height 162.[address] AYLEEN PUGA MD [facility] 09-05-2022 06:11-0500 Body temperature 98.06 [degF] DR AYLEEN PUGA MD [facility] 09-05-2022 06:11-0500 Body weight [address] AYLEEN PUGA MD [facility] 09-05-2022 06:11-0500 Diastolic Blood Pressure Non-Invasive [address] AYLEEN PUGA MD [facility] 09-05-2022 06:11-0500 Heart rate 73 /min DR AYLEEN PUGA MD [facility] 09-05-2022 06:11-0500 Respiratory rate 18 /min DR AYLEEN PUGA MD [facility] 09-05-2022 06:11-0500 Systolic Blood Pressure Non-Invasive [address] AYLEEN PUGA MD [facility] 08-07-2022 11:55-0500 Diastolic Blood Pressure Non-Invasive 70 1 GEREMIAS MOCTEZUMA DO [facility] [facility] 08-07-2022 11:55-0500 Heart rate 94 /min GEREMIAS MOCTEZUMA DO [facility] 08-07-2022 11:55-0500 Respiratory rate 18 /min GEREMIAS MOCTEZUMA DO [facility] 08-07-2022 11:55-0500 Systolic Blood Pressure Non-Invasive 118 1 GEREMIAS MOCTEZUMA DO [facility] 08-07-2022 08:10-0500 Body temperature 98.24 [degF] GEREMIAS MOCTEZUMA DO [facility] 08-07-2022 08:10-0500 Diastolic Blood Pressure Non-Invasive 72 1 GEREMIAS MOCTEZUMA DO [facility] 08-07-2022 08:10-0500 Heart rate 102 /min GEREMIAS MOCTEZUMA DO [facility] 08-07-2022 08:10-0500 Respiratory rate 18 /min GEREMIAS MOCTEZUMA DO [facility] 08-07-2022 08:10-0500 Systolic Blood Pressure Non-Invasive 110 1 GEREMIAS MOCTEZUMA DO [facility] 07-27-2022 21:57-0500 Diastolic Blood Pressure Non-Invasive 68 1 GEREMIAS MOCTEZUMA DO [facility] 07-27-2022 21:57-0500 Heart rate 78 /min GEREMIAS MOCTEZUMA DO [facility] 07-27-2022 21:57-0500 Respiratory rate 18 /min GEREMIAS MOCTEZUMA DO [facility] 07-27-2022 21:57-0500 Systolic Blood Pressure Non-Invasive 120 1 GEREMIAS MOCTEZUMA DO [facility] 07-27-2022 20:00-0500 Diastolic Blood Pressure Non-Invasive 70 1 GEREMIAS MOCTEZUMA DO [facility] 07-27-2022 20:00-0500 Heart rate 82 /min GEREMIAS MOCTEZUMA DO [facility] 07-27-2022 20:00-0500 Systolic Blood Pressure Non-Invasive 128 1 GEREMIAS MOCTEZUMA DO [facility] 07-27-2022 18:11-0500 Body temperature 98.24 [degF] GEREMIAS MOCTEZUMA DO [facility] 07-27-2022 18:11-0500 Diastolic Blood Pressure Non-Invasive 78 1 GEREMIAS MOCTEZUMA DO [facility] 07-27-2022 18:11-0500 Heart rate 110 /min GEREMIAS MOCTEZUMA DO [facility] 07-27-2022 18:11-0500 Respiratory rate 20 /min GEREMIAS MOCTEZUMA DO [facility] 07-27-2022 18:11-0500 Systolic Blood Pressure Non-Invasive 122 1 GEREMIAS MOCTEZUMA DO [facility] 04-03-2022 14:39-0400 Body height 165.1 cm Neo Ocasio Work Phone: [employer] [facility] Work Phone: 04-03-2022 14:39-0400 Body mass index (BMI) [Ratio] 19.14 kg/m2 Neo Ocasio Work Phone: [employer] [facility] Work Phone: 04-03-2022 14:39-0400 Body surface area Derived from formula 1.56 m2 Neo Ocasio Work Phone: [facility] Work Phone: 04-03-2022 14:39-0400 Body weight 52.16 kg Neo Ocasio Work Phone: [facility] Work Phone: 04-03-2022 14:39-0400 Diastolic blood pressure 68 mm[Hg] Neo Ocasio Work Phone: [facility] Work Phone: 04-03-2022 14:39-0400 Heart rate 80 /min Neo Ocasio Work Phone: [facility] Work Phone: 04-03-2022 14:39-0400 Systolic blood pressure 100 mm[Hg] Neo Ocasio Work Phone: [facility] Work Phone: 12-16-2021 17:06-0400 Diastolic blood pressure 51 mm[Hg] ELOISA [facility] 12-16-2021 17:06-0400 Heart rate 74 /min ELOISA KEARNEY MD [facility] 12-16-2021 17:06-0400 Respiratory rate 16 /min ELOISA KEARNEY MD [facility] 12-16-2021 17:06-0400 Systolic blood pressure 101 mm[Hg] ELOISA KEARNEY MD [facility] 12-16-2021 16:43-0400 Diastolic blood pressure 28 mm[Hg] ELOISA KEARNEY MD [facility] 12-16-2021 16:43-0400 Heart rate 72 /min ELOISA KEARNEY MD [facility] 12-16-2021 16:43-0400 Respiratory rate 16 /min ELOISA KEARNEY MD [facility] 12-16-2021 16:43-0400 Systolic blood pressure 92 mm[Hg] ELOISA KEARNEY MD [facility] 12-16-2021 14:07-0400 Diastolic blood pressure 74 mm[Hg] ELOISA KEARNEY MD [facility] 12-16-2021 14:07-0400 Heart rate 99 /min ELOISA KEARNEY MD [facility] 12-16-2021 14:07-0400 Respiratory rate 18 /min ELOISA KEARNEY MD [facility] 12-16-2021 14:07-0400 Systolic blood pressure 109 mm[Hg] ELOISA KEARNEY MD [facility] 12-16-2021 13:15-0400 Body temperature 97.7 [degF] ELOISA KEARNEY MD [facility] 12-16-2021 13:15-0400 Body weight 54.5 kg ELOISA KEARNEY MD [facility] 03-21-2021 10:03-0400 Body temperature 98 [degF] Neo Ocasio Work Phone: [facility] Work Phone: 03-21-2021 10:03-0400 Body weight 48.54 kg Neo Ocasio Work Phone: [facility] Work Phone: 03-21-2021 10:03-0400 Diastolic blood pressure 60 mm[Hg] Neo Ocasio Work Phone: [facility] Work Phone: 03-21-2021 10:03-0400 Heart rate 80 /min Neo Ocasio Work Phone: [facility] Work Phone: 03-21-2021 10:03-0400 Systolic blood pressure 102 mm[Hg] Neo Ocasio Work Phone: [facility] Work Phone: 12-27-2020 09:11-0400 Body height 164.47 cm Neo Ocasio Work Phone: [facility] Work Phone: 12-27-2020 09:11-0400 Body mass index (BMI) [Ratio] 17.68 kg/m2 Neo Ocasio Work Phone: [facility] Work Phone: 12-27-2020 09:11-0400 Body surface area Derived from formula 1.5 m2 Neo Ocasio Work Phone: [facility] Work Phone: 12-27-2020 09:11-0400 Body temperature 97.7 [degF] Neo Ocasio Work Phone: [facility] Work Phone: 12-27-2020 09:11-0400 Body weight 47.81 kg Neo Ocasio Work Phone: [facility] Work Phone: 12-27-2020 09:11-0400 Diastolic blood pressure 68 mm[Hg] Neo Ocasio Work Phone: [facility] Work Phone: 12-27-2020 09:11-0400 Heart rate 68 /min Neo Ocasio Work Phone: [facility] Work Phone: 12-27-2020 09:11-0400 Systolic blood pressure 108 mm[Hg] Neo Ocasio Work Phone: [facility] Work Phone: Encounters Encounter Date Encounter Type Care Provider Facility Start: 04-11-2025 End: 04-11-2025 ambulatory Key Madera APRN.EARLY CHILDHOOD SPECIALIST Work Phone: Psychiatry Comment on above: History of postpartu m depression (Primary Dx); Suicidal thoughts; Anxiety Start: 04-11-2025 End: 04-11-2025 Telemedicine consultation with patient Key Jonesguru ANHEARLY CHILDHOOD SPECIALIST Work Phone: Psychiatry Start: 03-27-2025 End: 03-27-2025 E-mail encounter from caregiver Key J Aniceto MAGAÑA Work Phone: Psychiatry Start: 03-27-2025 End: 03-27-2025 Patient encounter procedure Key Madera APRN.EARLY CHILDHOOD SPECIALIST Work Phone: Psychiatry Comment on above: Appointment Start: 03-21-2025 End: 03-21-2025 Telephone encounter Kasia Lambert APRN.CNM Work Phone: OB/Gynecology Comment on above: Appointment Start: 03-20-2025 End: 03-20-2025 Patient encounter procedure Kasia Lambert APRN.CNM Work Phone: OB/Gynecology Comment on above: History of postpartu m depression (Primary Dx); Suicidal thoughts; Anxiety; depression Start: 03-20-2025 End: 03-20-2025 ambulatory KASIA LAMBERT Facility:[facility] Start: 01-31-2025 End: 01-31-2025 Telephone encounter Martha Thomason MD Work Phone: OB/Gynecology Comment on above: Refill Request Start: 12-22-2024 End: 12-22-2024 Patient encounter procedure Wilfredo Campos MD Work Phone: OB/Gynecology Comment on above: Encounter for IUD in sertion (Primary Dx) Start: 12-22-2024 End: 12-22-2024 ambulatory WILFREDO CAMPOS Facility:[facility] Start: 12-14-2024 End: 12-14-2024 Patient encounter procedure Wilfredo Campos MD Work Phone: OB/Gynecology Comment on above: care and examination (HCC) (Primary Dx); Encounter for insertion of Mirena IUD Start: 12-14-2024 End: 12-14-2024 ambulatory WILFREDO CAMPOS Facility:[facility] Start: 11-02-2024 End: 11-02-2024 Office outpatient new 45 minutes Linda Soria MD Work Phone: [facility] Comment on above: Closed displaced fra cture of nasal bone, initial encounter (Primary Dx); Non-seasonal allergic rhinitis, unspecified trigger; Hypertrophy of inferior nasal turbinate Start: 11-02-2024 End: 11-06-2024 ambulatory PHYSICIAN NO [facility] Start: 10-28-2024 End: 10-28-2024 Emergency department patient visit DEEPTI SINGH CERDA [facility] Start: 10-13-2024 ambulatory Ted Harrison Facility[facility] Start: 10-07-2024 End: 10-09-2024 ambulatory Wilfredo Campos MD Work Phone: OB/Gynecology Comment on above: Ob Delivery Note Start: 10-07-2024 End: 10-09-2024 Evaluation and management of inpatient Neo Ocasio Facility:[facility] Start: 10-06-2024 End: 10-06-2024 ambulatory TED HARRISON Facility:[facility] Start: 10-06-2024 End: 10-06-2024 Patient encounter procedure Ted Harrison MD Work Phone: OB/Gynecology Comment on above: Supervision of high risk in third trimester (Primary Dx); Anemia during in third trimester; 39 weeks gestation of ; Genital herpes simplex virus (HSV) infection in mother affecting Start: 09-29-2024 End: 09-29-[facility] Start: 09-29-2024 End: 11-29-2024 Follow-up encounter Bhumi Salmeron APRN.CNP Work Phone: OB/Gynecology Start: 09-29-2024 End: 09-29-2024 [facility] Comment on above: Population Health Na vigation Outreach (Ob peds) Supervision of high risk in third trimester (Primary Dx); 38 weeks gestation of ; Anemia during in third trimester; Genital herpes simplex virus (HSV) infection in mother affecting ; Group beta Strep positive; Anemia due to other cause, not classified Start: 09-22-2024 End: 11-22-2024 Follow-up encounter Martha Thomason MD Work Phone: OB/Gynecology Start: 09-19-2024 End: 09-19-2024 ambulatory MARTHA THOMASON Facility:[facility] Start: 09-19-2024 End: 09-19-2024 Patient encounter procedure Martha Thomason MD Work Phone: OB/Gynecology Comment on above: 36 weeks gestation o f (Primary Dx); Encounter for supervision of other normal in third trimester Start: 09-14-2024 End: 09-15-2024 Telephone encounter Ted Harrison MD Work Phone: OB/Gynecology Comment on above: Breast Pump RX Start: 09-13-2024 End: 09-13-2024 ambulatory MARTHA THOMASON Facility:[facility] Start: 09-13-2024 End: 09-13-2024 Office outpatient visit 15 minutes Martha Thomason MD Work Phone: OB/Gynecology Comment on above: 35 weeks gestation o f (Primary Dx); Encounter for supervision of other normal in third trimester Start: 09-01-2024 End: 09-01-2024 ambulatory MARTHA THOMASON Facility:[facility] Start: 09-01-2024 End: 09-01-2024 Patient encounter procedure Ted Harrison MD Work Phone: OB/Gynecology Comment on above: Encounter for superv ision of other normal in third trimester (Primary Dx); Anemia during in third trimester; 34 weeks gestation of Start: 08-16-2024 End: 08-16-2024 Office outpatient visit 15 minutes Martha Thomason MD Work Phone: OB/Gynecology Comment on above: Encounter for superv ision of other normal in third trimester (Primary Dx); Anemia during in third trimester; 31 weeks gestation of ; Anemia due to other cause, not classified Start: 08-16-2024 End: 08-16-2024 ambulatory MARTHA THOMASON Facility:[facility] Start: 08-04-2024 End: 08-04-2024 ambulatory MARTHA MIGUEL Facility:[facility] Start: 08-04-2024 End: 08-04-2024 Office outpatient visit 15 minutes Martha Thomason MD Work Phone: OB/Gynecology Comment on above: Encounter for superv ision of other normal in third trimester (Primary Dx); Anemia during in third trimester; 30 weeks gestation of Start: 07-24-2024 End: 07-24-2024 Telephone encounter Wilfredo Campos MD Work Phone: OB/Gynecology Comment on above: Results Start: 07-21-2024 End: 07-21-2024 Office outpatient visit 15 minutes Martha Thomason MD Work Phone: OB/Gynecology Comment on above: Encounter for superv ision of other normal in second trimester (Primary Dx); 28 weeks gestation of Start: 07-21-2024 End: 07-21-2024 ambulatory MARTHA THOMASON Facility:[facility] Start: 06-30-2024 End: 06-30-2024 ambulatory WILFREDO CAMPOS Facility:[facility] Start: 06-30-2024 End: 06-30-2024 Patient encounter procedure Wilfredo Campos MD Work Phone: OB/Gynecology Comment on above: Encounter for superv ision of other normal in second trimester (Primary Dx); 25 weeks gestation of ; Short interval between pregnancies affecting in second trimester, antepartum Start: 06-02-2024 End: 06-02-2024 ambulatory [facility] Facility:[facility] Start: 06-02-2024 End: 06-02-2024 Patient encounter procedure Bhumi Salmeron APRN.EARLY CHILDHOOD SPECIALIST Work Phone: OB/Gynecology Comment on above: Encounter for superv ision of other normal in second trimester (Primary Dx); 21 weeks gestation of ; Heartburn during in first trimester; Short interval between pregnancies affecting in second trimester, antepartum; Penicillin allergy Encounter for anatomic survey (Primary Dx); 21 weeks gestation of Start: 05-26-2024 Encounter for genera l adult medical examination without abnormal findings Eyad TUCKER [facility] Start: 05-26-2024 End: 05-26-2024 ambulatory Eyad TUCKER Facility[facility] Start: 05-20-2024 End: 05-20-2024 ambulatory [facility] Facility:[facility] Start: 05-20-2024 End: 05-20-2024 Office outpatient visit 15 minutes Lopez Martinez APRN.EARLY CHILDHOOD SPECIALIST Work Phone: [facility] Comment on above: Sore throat (Primary Dx); Viral illness Start: 05-05-2024 End: 05-05-2024 [facility] Facility:[facility] Start: 05-05-2024 End: 05-05-2024 Patient encounter procedure Carrie Garay APRN.CNM Work Phone: OB/Gynecology Comment on above: 17 weeks gestation o f (Primary Dx); Multigravida in second trimester; Nausea and vomiting during Start: 04-06-2024 End: 04-06-2024 Patient encounter procedure Wilfredo Campos MD Work Phone: OB/Gynecology Comment on above: Encounter for superv ision of normal first in second trimester (Primary Dx); 12 weeks gestation of Encounter for lela watson screening for malformation using ultrasound (Primary Dx); with uncertain dates, antepartum Start: 03-23-2024 End: 03-23-2024 Patient encounter procedure Ted Harrison MD Work Phone: OB/Gynecology Comment on above: Bleeding in early pr egnancy (Primary Dx) Start: 03-15-2024 End: 03-15-2024 Emergency department patient visit Ray Humphries Facility:[facility] Start: 03-09-2024 End: 03-09-2024 Patient encounter procedure Carrie Tobymitseh HAJIM Work Phone: OB/Gynecology Comment on above: with uncer tain dates, antepartum (Primary Dx); Screening for cervical cancer; Screening for human papillomavirus; Nausea and vomiting during ; Heartburn during in first trimester; Post depression; Genital herpes simplex virus (HSV) infection in mother affecting ; 8 weeks gestation of ; Encounter for supervision of normal first in first trimester; Body mass index (BMI) of 19.0 to 19.9 in adult Start: 11-12-2023 End: 11-16-2023 ambulatory YUMIKO LONGORIA MD Facility:[facility] Start: 11-11-2023 End: 11-11-2023 ambulatory YUMIKO LONGORIA MD Facility:[facility] Start: 08-04-2023 End: 08-04-2023 Emergency department patient visit DR NEO OCASIO DO Facility:[facility] Start: 08-04-2023 End: 08-04-2023 Emergency department patient visit VU THOMAS MD [facility] Start: 03-26-2023 End: 03-29-2023 Evaluation and management of inpatient RICK HUFF [facility] Start: 03-26-2023 End: 03-29-2023 Evaluation and management of inpatient Rick Huff MD Work Phone: [facility] Start: 03-26-2023 End: 03-26-[address] [facility] Start: 03-26-2023 End: 03-26-2023 Subsequent hospital visit by physician Laurie Mac DO Work Phone: [facility] Start: 01-16-2023 End: 01-16-2023 Emergency department patient visit ELOISA KEARNEY MD Facility:[facility] Start: 01-13-2023 End: 01-13-[address] TONY PURCELL DO Facility:[facility] Start: 01-13-2023 End: 01-13-[address] TONY PURCELL DO [facility] Start: 11-15-2022 End: 11-15-2022 SAME DAY STAY MARYBETH ARREAGA MD [facility] Start: 11-03-2022 End: 11-03-2022 ambulatory [facility] Start: 09-22-2022 End: 09-22-2022 ambulatory NEO OCASIO [facility] Start: 09-05-2022 End: 09-05-2022 Emergency department patient visit DR AYLEEN PUGA MD [facility] Start: 08-07-2022 End: 08-07-2022 Emergency department patient visit GEREMIAS MOCTEZUMA DO [facility] Start: 07-27-2022 End: 07-27-2022 Emergency department patient visit GEREMIAS MOCTEZUMA DO [facility] Start: 04-04-2022 Chart Update Neo Ocasio Work Phone: [facility] Work Phone: Start: 03-10-2022 Patient encounter procedure Neo Ocasio Work Phone: [employer] [facility] Work Phone: Start: 12-19-2021 Patient encounter procedure Neo Marcus Ocasio Work Phone: [employer] [facility] Work Phone: Start: 12-16-2021 End: 12-16-2021 Emergency department patient visit ELO[facility] Start: 07-31-2021 Patient encounter procedure Jeanne Lang DO Work Phone: [facility] Start: 07-31-2021 Progress Note Jeanne hinton DO Work Phone: [facility] Start: 07-29-2021 End: 07-29-2021 Subsequent hospital visit by physician Jeanne Lang Work Phone: [facility] Comment on above: FEVER,CHILLS,NO TAST E SMELL,SORE THROAT,COVID EXPO Start: 05-02-2021 Patient encounter procedure Neochitra Ocasio Work Phone: [employer] [facility] Work Phone: Start: 04-25-2021 End: 04-25-2021 ambulatory NEO OCASIO [facility] Start: 03-28-2021 Chart Update Neo Ocasio Work Phone: [employer] [facility] Work Phone: Start: 03-24-2021 Chart Update Neo Ocasio Work Phone: [employer] [facility] Work Phone: Start: 01-31-2021 End: 02-01-2021 ambulatory IRVING SENIOR MD [facility] Start: 01-17-2021 End: 01-18-2021 ambulatory IRVING SENIOR MD [facility] Start: 01-07-2021 End: 01-08-2021 ambulatory IRVING SENIOR MD [facility] Start: 12-30-2020 Chart Update Neo Ocasio Work Phone: [facility] Work Phone: Start: 12-04-2019 Patient encounter procedure Neo Ocasio [facility] Work Phone: Start: 11-28-2019 Patient encounter procedure Neo Ocasio [facility] Work Phone: Start: 11-13-2019 Patient encounter procedure Neo Ocasio [facility] Work Phone: Start: 05-29-2019 Patient encounter procedure Neo Ocasio [facility] Work Phone: Start: 11-25-2018 Patient encounter procedure Neo Ocasio [facility] Work Phone: Start: 10-11-2018 Patient encounter procedure Neo Ocasio [facility] Work Phone: Start: 09-13-2018 Patient encounter procedure Neo Ocasio [facility] Work Phone: Start: 08-17-2018 Patient encounter procedure Neo Ocasio [facility] Work Phone: Start: 05-03-2018 Patient encounter procedure Neo Ocasio [facility] Work Phone: Start: 03-22-2018 Patient encounter procedure Neo Ocasio [facility] Work Phone: Start: 03-07-2018 Patient encounter procedure Neo Ocasio [facility] Work Phone: Procedures Date Procedure Procedure Detail Performing Clinician Start: 12-22-2024 UA DIP,URINE HCG (POC) Wilfredo Campos MD Work Phone: Start: 12-14-2024 UA DIP,URINE HCG (POC) Wilfredo Campos MD Work Phone: Start: 10-06-2024 Urnls dip stick/tabl et rgnt non-auto w/o micrscp Ted Harrison MD Work Phone: Start: 09-29-2024 Urnls dip stick/tabl et rgnt non-auto w/o micrscp Kasia Fausto SANFORIZING MACHINE OPERATOR.CNM Work Phone: Start: 09-19-2024 Urnls dip stick/tabl et rgnt non-auto w/o micrscp Martha Thomason MD Work Phone: Start: 09-01-2024 Urnls dip stick/tabl et rgnt non-auto w/o micrscp Ted Harrison MD Work Phone: Start: 06-02-2024 Us preg uterus after 1st trimest / gestation Carrie Garay SANFORIZING MACHINE OPERATOR.CNM Work Phone: Start: 05-20-2024 STREP A MOLECULAR (POC) Lopez Martinez SANFORIZING MACHINE OPERATOR.EARLY CHILDHOOD SPECIALIST Work Phone: Start: 04-06-2024 Us nuchal translucency 1st gestation Carrie Garay SANFORIZING MACHINE OPERATOR.CNM Work Phone: Start: 03-09-2024 Us uterus l imited /> fetuses Carrie Plotmitesh SANFORIZING MACHINE OPERATOR.CNM Work Phone: Start: 03-09-2024 Microscopic observat ion [Identifier] in Cervix by Cyto stain Linda Soria MD Work Phone: Start: 03-27-2023 [facility] RH FACT OR, EXTERNAL RESULT Laurie Mac DO Work Phone: Start: 03-27-2023 MEDICATION ASSISTED TREATMENT PANEL Sherita Gage DO Work Phone: Start: 03-27-2023 ABO and Rh group [Ty pe] in Blood by Confirmatory method Sherita Gage DO Work Phone: Start: 03-27-2023 End: 03-27-2023 Blood typing serologic abo Sherita Morris lezama DO Work Phone: Start: 03-27-2023 Comprehensive metabo lic panel Sherita Nancebillsiria DO Work Phone: Start: 03-27-2023 OXYGEN THERAPY Sherita Caceres Steve DO Work Phone: Start: 01-29-2023 Iadna streptococcus group b amplified probe tq Laurie Mac DO Work Phone: Start: 09-03-2022 Chlamydia trachomatis M abilio Mac DO Work Phone: Start: 09-01-2022 Antibody hiv-1&hiv-2 single result Laurie Mac DO Work Phone: Start: 09-01-2022 Iaad ia hepatitis b surface antigen Laurie Mac DO Work Phone: Start: 04-03-2022 Lipid 1996 panel - S david or Plasma Laurie Mac DO Work Phone: Start: 12-07-2020 Ecg routine ecg w/le ast 12 lds i&r only Start: 12-04-2019 Blood count complete auto&auto difrntl wbc Neo Ocasio Start: 12-04-2019 CMV IgG and IgM Ab Rubin en Ocasio Start: 12-04-2019 Comprehensive metabo lic 2000 panel Neo Ocasio Start: 12-04-2019 EBV Screen (VCA IgG/IgM) Neo Ocasio Hx of tonsillectomy ELOISA RENNER MD Tonsillectomy Neo Ocasio Tonsillectomy ELOISA KEARNEY MD Plan of Treatment Date Care Activity Detail Author Start: 2050 Zoster Vaccines (1 o f 2) Zoster Vaccines (1 of 2) [facility] Start: 12-20-2031 DTaP/Tdap/Td Vaccine s (8 - Td or Tdap) DTaP/Tdap/Td Vaccines (8 - Td or Tdap) [facility] Start: 12-20-2031 Tetanus vaccination Tetanus: Every [address] [facility] Start: 12-20-2031 Urine microalbumin profile DTaP,Tdap,Td Vaccine (8 - Td or Tdap) [facility] Start: 04-03-2027 Lipid panel Lipid Panel [facility] Start: 03-09-2027 Screening for malign ant neoplasm of cervix [facility] Start: 04-11-2025 End: 04-11-2025 Patient encounter procedure 04/11/2025 1:00 PM EDT [facility] [address] [place] [address] Key Madera, SANFORIZING MACHINE OPERATOR.EARLY CHILDHOOD SPECIALIST [address] [place] [address] new referral for Psychiatry Comment on above: new referral for Start: 04-09-2025 Influenza vaccination [facility] Start: 03-20-2025 End: 06-18-2025 25-hydroxyvitamin D3 [Mass/volume] in Serum or Plasma [facility] Comment on above: Expected: 03/20/2025 , Expires: 06/18/2025 Start: 03-20-2025 End: 06-18-2025 Thyrotropin [Units/volume] in Serum or Plasma [facility] Work Phone: Comment on above: Expected: 03/20/2025 , Expires: 06/18/2025 Start: 03-20-2025 End: 06-18-2025 Thyroxine (T4) free [Mass/volume] in Serum or Plasma [facility] Comment on above: Expected: 03/20/2025 , Expires: 06/18/2025 Start: 03-09-2025 GC (Gonorrhea) Screening (18-24) GC (Gonorrhea) Screening (18-24) [facility] Start: 03-09-2025 Screening for Chlamy manny trachomatis Chlamydia Screening (18-24) [facility] Start: 02-01-2025 End: 02-01-2025 Patient encounter procedure 02/01/2025 4:00 PM EDT Office Visit [facility] [address] [place] [address] [place] [address] Linda Soria MD [address] [place] [address] [facility] Start: 01-29-2025 End: 01-29-2025 Patient encounter procedure 01/29/2025 3:20 PM EDT Office Visit OB/Gynecology [address] [place] [address] Wilfredo Campos MD [address] [place] [address] IUD follow up OB/Gynecology Comment on above: IUD follow up Start: 12-22-2024 End: 12-22-2024 Patient encounter procedure 12/22/2024 11:10 AM EDT Office Visit OB/Gynecology [address] [place] [address] Kaylyn Che MD [address] [place] [address] iud insert OB/Gynecology Comment on above: iud insert Start: 10-13-2024 End: 10-13-2024 Patient encounter procedure 10/13/2024 3:15 PM EST Routine Office Visit OB/Gynecology [address] [place] [address] Kasia Lambert APRN.CN [address] [place] [address] OB OB/Gynecology Comment on above: OB Start: 10-06-2024 End: 10-06-2024 Patient encounter procedure 10/06/2024 2:40 PM EST Routine Office Visit OB/Gynecology [address] [place] [address] Ted Harrison MD [address] [place] [address] OB OB/Gynecology Comment on above: OB Start: 09-29-2024 End: 09-29-2024 Patient encounter procedure 09/29/2024 2:30 PM EST Routine Office Visit OB/Gynecology [address] [place] [address] Kasia Lambert APRN.CN [address] [place] [address] OB OB/Gynecology Comment on above: OB Start: 09-19-2024 End: 09-19-2024 Patient encounter procedure 09/19/2024 2:50 PM EST Routine Office Visit OB/Gynecology [address] [place] [address] Martha Thomason MD [address] [place] [address] OB Routine OB/Gynecology Comment on above: OB Routine Start: 09-16-2024 End: 12-16-2024 CBC panel - Blood by Automated count COMPLETE BLOOD COUNT Lab Routine Anemia during in third trimester Expected: 09/16/2024, Expires: 12/16/2024 [facility] Work Phone: Comment on above: Expected: 09/16/2024 , Expires: 12/16/2024 Start: 09-01-2024 End: 12-01-2024 ANEMIA REFLEX PANEL [facility] Work Phone: Comment on above: Expected: 09/01/2024 , Expires: 12/01/2024 Start: 09-01-2024 End: 09-01-2024 Patient encounter procedure 09/01/2024 9:50 AM EST Routine Office Visit OB/Gynecology [address] [place] [address] Ted Harrison MD [address] [place] [address] OB Routine OB/Gynecology Comment on above: OB Routine Start: 08-24-2024 End: 11-23-2024 CBC panel - Blood by Automated count COMPLETE BLOOD COUNT Lab Routine Anemia during in third trimester Expected: 08/24/2024 (Approximate), Expires: 11/23/2024 [facility] Work Phone: Comment on above: Expected: 08/24/2024 (Approximate), Expires: 11/23/2024 Start: 08-18-2024 RSV Vaccine (1 - Ris k 1-dose series) RSV Vaccine (1 - Risk 1-dose series) [facility] Start: 08-18-2024 End: 08-18-2024 Patient encounter procedure OB/Gynecology Comment on above: OB Routine OB Routine - check C BC Start: 08-04-2024 End: 08-04-2024 Patient encounter procedure 08/04/2024 9:50 AM EST Routine Office Visit OB/Gynecology [address] [place] [address] Martha Thomason MD [address] [place], [place] [id number] OB Routine OB/Gynecology Comment on above: OB Routine Start: 07-21-2024 End: 10-20-2024 CBC W Auto Differential panel - Blood COMPLETE BLOOD COUNT AND DIFFERENTIAL Lab Routine 25 weeks gestation of Encounter for supervision of other normal in second trimester Short interval between pregnancies affecting in second trimester, antepartum Expected: 07/21/2024 (Approximate), Expires: 10/20/2024 [facility] Comment on above: Expected: 07/21/2024 (Approximate), Expires: 10/20/2024 Start: 07-21-2024 End: 10-20-2024 GESTATIONAL GLUCOSE SCREEN, 1-HOUR, 50 GRAM, NON-FASTING GESTATIONAL GLUCOSE SCREEN, 1-HOUR, 50 GRAM, NON-FASTING Lab Routine 25 weeks gestation of Encounter for supervision of other normal in second trimester Short interval between pregnancies affecting in second trimester, antepartum Expected: 07/21/2024 (Approximate), Expires: 10/20/2024 [facility] Work Phone: Comment on above: Expected: 07/21/2024 (Approximate), Expires: 10/20/2024 Start: 07-21-2024 End: 10-20-2024 SYPHILIS TREPONEMAL W/REFLEX SYPHILIS TREPONEMAL W/REFLEX Lab Routine 25 weeks gestation of Encounter for supervision of other normal in second trimester Short interval between pregnancies affecting in second trimester, antepartum Expected: 07/21/2024 (Approximate), Expires: 10/20/2024 [facility] Comment on above: Expected: 07/21/2024 (Approximate), Expires: 10/20/2024 Start: 07-21-2024 End: 07-21-2024 Patient encounter procedure 07/21/2024 10:20 AM EST Routine Office Visit OB/Gynecology [address] [place] [address] Martha Thomason MD [address] [place] [address] OB Routine OB/Gynecology Comment on above: OB Routine Start: 07-21-2024 End: 07-21-2024 ambulatory 07/21/2024 10:00 AM EST Results Only [place] [facility] [address] [place] [address] Glucose Test and LABS [facility] Comment on above: Glucose Test and LAB S Start: 06-30-2024 End: 06-30-2024 Patient encounter procedure 06/30/2024 10:10 AM EST Routine Office Visit OB/Gynecology [address] [place] [address] Wilfredo Campos MD [address] [place] [address] OB OB/Gynecology Comment on above: OB Start: 06-02-2024 End: 06-02-2024 Patient encounter procedure OB/Gynecology Comment on above: Anatomy Anatomy/OB Start: 06-01-2024 End: 06-01-2024 Patient encounter procedure OB/Gynecology Comment on above: Anatomy Anatomy/OB Start: 05-05-2024 End: 05-05-2024 Patient encounter procedure 05/05/2024 2:30 PM EDT Routine Office Visit OB/Gynecology [address] [place] [address] Carrie Garay APRN.[facility] [address] [place] [address] OB OB/Gynecology Comment on above: OB Start: 04-09-2024 Covid-19 Vaccine ( season) Covid-19 Vaccine () [facility] Start: 04-09-2024 Covid-19 Vaccine ( season) Covid-19 Vaccine () [facility] Start: 04-09-2024 Influenza vaccination Influenza Vacc ine (#1) [facility] Start: 04-06-2024 End: 04-06-2024 Patient encounter procedure OB/Gynecology Comment on above: Nuchal Est New OB OB-Needs repeat urin e culture Start: 03-09-2024 End: 06-08-2024 CBC panel - Blood by Automated count COMPLETE BLOOD COUNT Lab Routine with uncertain dates, antepartum Expected: 03/09/2024, Expires: 06/08/2024 [facility] Work Phone: Comment on above: Expected: 03/09/2024 , Expires: 06/08/2024 Start: 03-09-2024 End: 06-08-2024 Hepatitis B virus surface Ag [Presence] in Serum HEPATITIS B SURFACE ANTIGEN Lab Routine with uncertain dates, antepartum Expected: 03/09/2024, Expires: 06/08/2024 [facility] Comment on above: Expected: 03/09/2024 , Expires: 06/08/2024 Start: 03-09-2024 End: 06-08-2024 Hepatitis C virus Ab [Presence] in Serum HEPATITIS C ANTIBODY IA WITH CONFIRMATION Lab Routine with uncertain dates, antepartum Expected: 03/09/2024, Expires: 06/08/2024 [facility] Comment on above: Expected: 03/09/2024 , Expires: 06/08/2024 Start: 03-09-2024 End: 06-08-2024 HIV 1+2 Ab [Presence] in Serum or Plasma by Immunoassay HIV 1/2 COMBO WITH REFLEX TO DIFFERENTIATION Lab Routine with uncertain dates, antepartum Expected: 03/09/2024, Expires: 06/08/2024 [facility] Comment on above: Expected: 03/09/2024 , Expires: 06/08/2024 Start: 03-09-2024 End: 03-09-2025 NUCHAL TRANSLUCENCY WHI NUCHAL TRANSLUCENCY WHI Anc Imaging Routine with uncertain dates, antepartum Expected: 03/09/2024, Expires: 03/09/2025 [facility] Comment on above: Expected: 03/09/2024 , Expires: 03/09/2025 Start: 03-09-2024 End: 03-09-2025 OBSTETRIC ULTRASOUND WHI OBSTETRIC ULTRASOUND WHI Anc Imaging Routine with uncertain dates, antepartum Expected: 03/09/2024, Expires: 03/09/2025 [facility] Comment on above: Expected: 03/09/2024 , Expires: 03/09/2025 Start: 03-09-2024 End: 06-08-2024 RUBELLA IGG ANTIBODY RUBELLA IGG ANTIBODY Lab Routine with uncertain dates, antepartum Expected: 03/09/2024, Expires: 06/08/2024 [facility] Comment on above: Expected: 03/09/2024 , Expires: 06/08/2024 Start: 03-09-2024 End: 06-08-2024 SYPHILIS TOTAL W/REFLEX SYPHILIS TOTAL W/REFLEX Lab Routine with uncertain dates, antepartum Expected: 03/09/2024, Expires: 06/08/2024 [facility] Comment on above: Expected: 03/09/2024 , Expires: 06/08/2024 Start: 03-09-2024 End: 06-08-2024 TYPE + SCREEN TYPE + SCREEN Blood Bank Routine with uncertain dates, antepartum Expected: 03/09/2024, Expires: 06/08/2024 [facility] Comment on above: Expected: 03/09/2024 , Expires: 06/08/2024 Start: 09-03-2023 Screening for Chlamy manny trachomatis Chlamydia and Gonorrhea Screening [facility] Start: 04-09-2023 Covid-19 Vaccine () Covid-19 Vaccine () [facility] Start: 04-09-2023 Influenza vaccination Influenza Vacc ine (#1) [facility] Start: 2021 Screening for malign ant neoplasm of cervix [facility] Start: 2018 Anxiety Screening Anxiety Screening [facility] Start: 2018 GC (Gonorrhea) Screening (18-24) GC (Gonorrhea) Screening (18-24) [facility] Start: 2018 Hepatitis C screening Hepatitis C Sc reening [facility] Start: 2018 HIV screening HIV Screening [facility] Start: 2018 Screening for Chlamy manny trachomatis Chlamydia Screening () [facility] Start: 2016 Meningococcal B Vaccine: Consider Based On Risk (1 of 2 - Patient Seeks Protection) Meningococcal B Vaccine: Consider Based On Risk (1 of 2 - Patient Seeks Protection) [facility] Start: 11-15-2015 History and physical examination, annual for health maintenance Wellness Visit [facility] Start: 2014 Peds To Adult Transition Annual Assessment Peds To Adult Transition Annual Assessment [facility] Start: 2012 Depression Screening [facility] Start: 2012 Peds To Adult Transition Initial Discussion Peds To Adult Transition Initial Discussion [facility] Start: 02-12-2012 HPV Vaccine (2 - 2-d ose series) HPV Vaccine (2 - 2-dose series) [facility] Start: 02-12-2012 HPV Vaccines (2 - 2-dose series) HPV Vaccines (2 - 2-dose series) [facility] Start: 2000 COVID-19 Vaccine (#1) COVID-19 Vacci ne (#1) [facility] Start: 2000 HIV screening HIV Screening [facility] Start: 2000 Screening for Chlamy manny trachomatis Chlamydia Screening [facility] Bacteria identified in Urine by Culture URINE CULTURE Microbiology Routine with uncertain dates, antepartum 03/09/2024 9:50 AM EDT [facility] Bacteria identified in Urine by Culture URINE CULTURE Microbiology Routine 12 weeks gestation of Encounter for supervision of normal first in second trimester 04/06/2024 10:13 AM EDT [facility] Work Phone: Chlamydia trachomatis+Neisseria gonorrhoeae DNA [Presence] in Unspecified specimen by MADDISON with probe detection GONORRHEA/CHLAMYDIA NAAT Lab Routine with uncertain dates, antepartum 03/09/2024 9:50 AM EDT [facility] GROUP B STREPTOCOCCU S BY PCR, ROUTINE SCREENING GROUP B STREPTOCOCCUS BY PCR, ROUTINE SCREENING Microbiology Routine 36 weeks gestation of Encounter for supervision of other normal in third trimester 09/19/2024 3:02 PM EST [facility] Work Phone: Insertion intrauteri ne device iud INSERT INTRAUTERINE DEVICE Procedures Routine care and examination (HCC) Encounter for insertion of Mirena IUD Ordered: 12/14/2024 [facility] Work Phone: Comment on above: Ordered: 12/14/2024 Insertion intrauteri ne device iud INSERT INTRAUTERINE DEVICE Procedures Routine Encounter for IUD insertion Ordered: 12/22/2024 [facility] Work Phone: Comment on above: Ordered: 12/22/2024 PAP TEST PAP TEST Lab Rou deb with uncertain dates, antepartum Screening for cervical cancer Screening for human papillomavirus 03/09/2024 9:50 AM EDT [facility] End: 03-26-2023 US POCUS OB LIMITED [facility] Work Phone: Comment on above: Once for 1 Occurrenc es starting 03/26/2023 until 03/26/2023 Immunizations Immunization Date Immunization Notes Care Provider [facility] 03-27-2023 diphtheria, tetanus toxoids and acellular pertussis vaccine, unspecified formulation Rick Huff MD Work Phone: [facility] 03-27-2023 measles, mumps and rubella virus vaccine Rick Huff MD Work Phone: [facility] 03-10-2022 tuberculin skin test ; purified protein derivative solution, intradermal; Translations: [Tubersol 5 UNIT/0.1ML Intradermal Solution] Neo Ocasio Work Phone: [facility] Work Phone: Comment on above: Series: 12-19-2021 hepatitis B vaccine, adult dosage; Translations: [Hepatitis B, adult] Neo Ocasio Work Phone: [facility] Work Phone: Comment on above: Series: 12-19-2021 tetanus toxoid, redu abdi diphtheria toxoid, and acellular pertussis vaccine, adsorbed; Translations: [Tdap (Boostrix)] Neo Ocasio Work Phone: [facility] Work Phone: Comment on above: Series: 05-02-2021 hepatitis B vaccine, adult dosage; Translations: [Hepatitis B, adult] Neo Ocasio Work Phone: [facility] Work Phone: Comment on above: Series: 03-28-2021 hepatitis B vaccine, adult dosage; Translations: [Hepatitis B, adult] Neo Ocasio Work Phone: [facility] Work Phone: Comment on above: Series: 05-03-2018 meningococcal oligosaccharide (groups A, C, Y and W-135) diphtheria toxoid conjugate vaccine (MCV4O); Translations: [Menveo Intramuscular Solution Reconstituted] Neo Ocasio [facility] Work Phone: Comment on above: Series: 08-18-2012 influenza virus vacc ine, live, attenuated, for intranasal use Neo Ocasio Work Phone: [facility] Work Phone: 08-18-2012 influenza virus vacc ine, unspecified formulation Laurie Mac DO Work Phone: [facility] 08-14-2011 human papilloma viru s vaccine, quadrivalent Noe Ocasio Work Phone: [facility] Work Phone: Comment on above: Series: 08-14-2011 influenza virus vacc ine, live, attenuated, for intranasal use Neo Ocasio Work Phone: [facility] Work Phone: 08-14-2011 meningococcal polysaccharide (groups A, C, Y and W-135) diphtheria toxoid conjugate vaccine (MCV4P) Neo Ocasio Work Phone: [facility] Work Phone: Comment on above: Series: 08-14-2011 tetanus toxoid, redu abdi diphtheria toxoid, and acellular pertussis vaccine, adsorbed Neo Ocasio Work Phone: [facility] Work Phone: Comment on above: Series: 08-14-2011 HPV, unspecified formulation Laurie Mac DO Work Phone: [facility] 06-13-2010 influenza virus vacc ine, live, attenuated, for intranasal use Neo Ocasio Work Phone: [facility] Work Phone: 03-27-2009 varicella virus vaccine Rubin Ocasio Work Phone: [facility] Work Phone: Comment on above: Series: 03-27-2005 diphtheria, tetanus toxoids and acellular pertussis vaccine Neo Ocasio Work Phone: [facility] Work Phone: Comment on above: Series: 03-27-2005 measles, mumps and rubella virus vaccine Neo Ocasio Work Phone: [facility] Work Phone: Comment on above: Series: 03-27-2005 poliovirus vaccine, inactivated Neo Ocasio Work Phone: [facility] Work Phone: Comment on above: Series: 05-11-2003 measles, mumps and rubella virus vaccine Neo Ocasio Work Phone: [facility] Work Phone: Comment on above: Series: 05-11-2002 diphtheria, tetanus toxoids and acellular pertussis vaccine Neo Ocasio Work Phone: [facility] Work Phone: Comment on above: Series: 05-11-2002 haemophilus influenz ae type b vaccine, PRP-OMP conjugate Neo Ocasio Work Phone: [facility] Work Phone: Comment on above: Series: 05-11-2002 hepatitis B vaccine, pediatric or pediatric/adolescent dosage Neo Ocasio Work Phone: [facility] Work Phone: Comment on above: Series: 05-11-2002 varicella virus vaccine Rubin Ocasio Work Phone: [facility] Work Phone: 05-26-2001 poliovirus vaccine, inactivated Neo Ocasio Work Phone: [facility] Work Phone: Comment on above: Series: 2000 diphtheria, tetanus toxoids and acellular pertussis vaccine, unspecified formulation Neo Ocasio Work Phone: [facility] Work Phone: 2000 pneumococcal conjuga te vaccine, 13 valent Neo Ocasio Work Phone: [facility] Work Phone: Comment on above: Series: 2000 diphtheria, tetanus toxoids and acellular pertussis vaccine, unspecified formulation Neo Ocasio Work Phone: [facility] Work Phone: 2000 haemophilus influenz ae type b vaccine, PRP-OMP conjugate Neo Ocasio Work Phone: [facility] Work Phone: Comment on above: Series: 2000 pneumococcal conjuga te vaccine, 13 valent Neo Ocasio Work Phone: [facility] Work Phone: Comment on above: Series: 2000 poliovirus vaccine, inactivated Neo Ocasio Work Phone: [facility] Work Phone: 2000 diphtheria, tetanus toxoids and acellular pertussis vaccine, unspecified formulation Neo Ocasio Work Phone: [facility] Work Phone: 2000 haemophilus influenz ae type b vaccine, PRP-T conjugate Neo Ocasio Work Phone: [facility] Work Phone: 2000 hepatitis B vaccine, pediatric or pediatric/adolescent dosage Neo Ocasio Work Phone: [facility] Work Phone: Comment on above: Series: 2000 pneumococcal conjuga te vaccine, 7 valent Neo Marcus Ninfa Work Phone: [facility] Work Phone: 2000 poliovirus vaccine, inactivated Neo Marcus Ninfa Work Phone: [facility] Work Phone: 2000 hepatitis B vaccine, pediatric or pediatric/adolescent dosage Neo Marcus Ninfa Work Phone: [facility] Work Phone: Payers Date Payer Category Payer Unknown [id number] 2024 Self-pay 2023 [facility] [id number] 2023 Unknown [id number] 2023 Medicaid [id number] 2022 Medicaid [id number] 2022 Private Health Insurance [id number] 2014 Unknown 2000 Unknown [id number] 2.16.8 [id number] 2000 Unknown [id number] 2.16.8 [id number] 2000 Unknown [id number] 2.16.8 [id number] 2000 Unknown [id number] 2.16.8 [id number] 2000 Unknown [id number] 2.16. [id number] 2000 Unknown [id number] 2.16. [id number] 2000 Unknown [id number] 2.16. [id number] 2000 Unknown [id number] 2.16.8 [id number] 2000 Unknown [id number] 2.16.8 [id number] 2000 Unknown [id number] 2.16.8 [id number] 2000 Unknown [id number] 2.16.8 [id number] 2000 Unknown [id number] 2.16.8 [id number] 2000 Unknown [id number] 2.16. [id number] 2000 Unknown [id number] 2.16. [id number] 1959 Unknown [id number] Unknown [id number] 2.16.8 [id number] Unknown [id number] 2.16.8 [id number] Unknown [id number] 2.16.8 [id number] Unknown [id number] 2.16.8 [id number] Unknown [id number] 2.16.8 [id number] Unknown [id number] 2.16.8 [id number] Social History Date Type Detail Facility Assertion Tobacco smoking consumption unknown (finding) [facility] Work Phone: Start: 03-26-2023 End: 03-23-2024 Occasional cigarette smoker Occasional cigarette smoker [facility] Start: 2000 Sex Assigned At Not on file [facility] Start: 03-26-2023 End: 11-02-2024 Tobacco smoking status Never smoked tobacco (finding) [facility] Assigned At Sex [facility] Start: 09-05-2022 End: 03-09-2024 Tobacco smoking status Ex-smoker (finding) [facility] Start: 03-26-2023 End: 03-09-2024 Tobacco use and exposure Smokeless tobacco non-user [facility] Start: 03-26-2023 End: 12-22-2024 Alcohol intake Ex-drinker (finding) [facility] Start: 03-26-2023 End: 03-23-2024 Tobacco use panel [facility] Start: 07-11-2022 [facility] Start: 03-16-2023 End: 03-27-2023 Exposure to SARS-CoV-2 (event) Not sure [facility] History of tobacco use Current smoker [facility] History of tobacco use Cigarette Smoker C [facility] Start: 06-27-2021 National Score (1-10 0), lower number is lower risk 51 [facility] Start: 03-09-2024 Tobacco Comment 2017 stop vaping [facility] The thought of edouard nair myself has occurred to me Sometimes [facility] Functional Status Date Assessment Result Facility 08-04-2023 [facility] Functional Status Standard Safet y ID band on, Allergy Band on, Call device within reach, Bed in low position, Wheels locked [facility] 01-13-2023 Functional Status Activity Statu s ADL Ambulating in room [facility] 11-15-2022 Functional Status [facility]-05[facility] Functional Status Independent Eva [facility] 09-05-2022 Functional Status Standard Safet y ID band on, Allergy Band on, Call device within reach, Bed in low position, Wheels locked, Upper/Half-Length side-rails up, personal items within reach, Visitor at bedside [facility] 12-16-2021 Functional Status Eva patino 12-16-2021 Functional Status Eva patino NEGATED: Highlighted row Functional performance Functional status health issues are not documented Disease [facility] Work Phone: Mental Status Date Assessment Result Facility 12-27-2023 Mental Status Orientation Orie nted x 4 [facility] 08-04-2023 Mental Status [facility] 11-15-2022 Mental Status Orientation Orie nted x 4 [facility] 09-05-2022 Mental Status Orientation Orie nted x 4 [facility] 09-05-2022 Mental Status [facility] 07-27-2022 Mental Status Orientation Orie nted x 4 [facility] 12-16-2021 Mental Status [facility] 12-16-2021 [facility] Status [facility] NEGATED: Highlighted row Cognitive function [Interpretation] Cognitive status health issues are not documented Disease [facility] Work Phone: Clinical Notes 07-31-2021 to 04-11-2025 Key Madera APRN.CNP - 04/11/2025 1:26 PM EDTTelephone Encounter - Ju Cordon LPN - 03/27/2025 10:06 AM EDTTelephone Encounter - Ju Cordon LPN - 03/27/2025 10:06 AM EDT Note Date & Type Note Facility 04-11-2025 Note HNO ID: [id number] Author: KEY MADERA APRN.CNP Service: ? Author Type: Nurse Practitioner Type: Progress Notes Filed: 04/11/2025 13:28 Note Text: Patient did not log in for her new patient appointment today. [facility] 04-11-2025 History of Present illness Narrative Formatting of this note might be differe nt from the original. Patient did not log in for her new patient appointment today. documented in this encounter [facility] 03-27-2025 Note HNO ID: [id number] Author: SRI BRAY LISW Service: ? Author Type: Gardening Supervisor Type: Progress Notes Filed: 03/27/2025 12:49 Note Text: Summary: Integrated Mental Health Plan of Care Integrated Mental Health Plan of Care Review of referral with patient. Was patient aware of [facility] referral placement by provider?Yes Is the patient currently connected for care : No Is the patient agreeable to connecting to services? Yes If agreeable to referral, are they:Psychiatry Assisted in making appt at: [facility] Psychiatry Appointment date and time: 04/11/25 @ 1pm Current priority status of the referral Medium Additional information [facility] did not speak with patient directly. Patient scheduled with [facility] psychiatry for 04/11/25 @ 1pm with Key Madera APRN.EARLY CHILDHOOD SPECIALIST. [facility] 03-27-2025 Telephone encounter Note Formatting of this note might be differe nt from the original. MC message sent with VV info sent. Ju Cordon LPN [facility] 03-27-2025 Miscellaneous Notes Formatting of this note might be differe nt from the original. MC message sent with VV info sent. Ju Cordon LPN documented in this encounter [facility] 03-21-2025 Telephone encounter Note Formatting of this note might be differe nt from the original. Patient notified and is ok with scheduling with Key, [facility] 03-21-2025 Miscellaneous Notes Formatting of this note might be differe nt from the original. Patient notified and is ok with scheduling with Key, Left message for patient to call office. Mychart message sent to Pt as well. Rowena Mckeon RN Can you please call patient and let her know I spoke with pyschiatry and ok to start her on Lexapro. Start with half a tablet by mouth once daily for 7 days then increase to full tablet. Can patient make virtual appointment on April 11 at either 1 pm or 2 pm? This would be with Key Madera CNP. If so can you notify Key's office to assist with scheduling. Key offered these times. Thank you, Kasia Lambert APRN.CNM documented in this encounter [facility] 03-21-2025 Telephone encounter Note Formatting of this note might be differe nt from the original. Left message for patient to call office. Mychart message sent to Pt as well. Rowena Mckeon RN [facility] 03-21-2025 Telephone encounter Note Formatting of this note might be differe nt from the original. Can you please call patient and let her know I spoke with pyschiatry and ok to start her on Lexapro. Start with half a tablet by mouth once daily for 7 days then increase to full tablet. Can patient make virtual appointment on April 11 at either 1 pm or 2 pm? This would be with Key Madera CNP. If so can you notify Key's office to assist with scheduling. Key offered these times. Thank you, Kasia Lambert APRN.CNM [facility] 03-20-2025 Instructions Kasia Lambert APRN.CNM - 03/20/2025 3:14 PM EDT CRISIS: CRISIS HOTLINE [phone], 911 or go to the nearest ER. [facility] [phone] / [facility] [phone] https://www.[facility] healthcare systemrb.org Crisis text line text the word HOME to [phone] Here are some links for wonderful Providers here in the community and surrounding areas. Do not hesitate to contact their offices, many are offering virtual visits during this time. 3-555-6-NZBA0NRAV - [place] Maternal Mental Health Hotline If you are in suicidal crisis, please call or text 8-796-831-TALK ( ) or visit the National Suicide Prevention Lifeline website. mchb.[facility] hospitala.gov Referral to the [facility] To schedule an appointment, please call the [place] [facility] Appointment Line: [phone] option 1 [facility] Psychology, Psychiatry, Counseling Connect with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 proceed with the sensitive examination. (Sensitive examination includes inspection and/or palpation of the breasts, pelvis, prostate and anorectal regions). BP 100/60 Wt 140 lb 9.6 oz (63.8kg) LMP 01/07/2024 GENERAL: pleasant, female in no apparent distress HEENT: Normocephalic and atraumatic NECK: full range of motion DERMATOLOGY: Normal, without lesions, non-icteric, and non-hirsute BREAST: soft, non-tender, symmetric, no dominant mass, normal nipple-areolar complex, no lymphadenopathy, and no nipple discharge CHEST: Normal inspiratory effort ABDOMEN: soft, non-tender, and no masses. INCISION: N/A PELVIC: external genitalia normal, normal Bartholin's glands, urethra, Randalia's glands, no vulvar lesions, no cervical lesions, good vaginal support, physiologic discharge present, normal appearing perineal body and perianal region BIMANUAL: uterus normal size, shape and consistency, no adnexal masses, and non-tender NEURO: exam grossly non-focal EXTREMITIES: normal ASSESSMENT AND PLAN: 24 year old status post with normal course. Contraception plan: IUD - Mirena Follow up: RTC for insertion of IUD Wilfredo Campos DO [facility] 12-14-2024 History of Present illness Narrative Formatting of this note is different fro m the original. Pediatric Acute Care Unit Nurse offered: Patient declines. VISIT Rosa Schuler is a 24 year old year old here for visit. Delivery Summary: 10/07/2024 ROS/ Recovery: Feeding: Bottle feeding problems: None Menses since delivery: None Menstrual pattern prior to : Irregular periods Panther Burn since delivery: Resumed. Using withdrawal method and last sexually active a few days ago Depression: denies symptoms of depression. OB Depression and Anxiety Screening- This Encounter Over the past 2 weeks have you felt down, depressed, or hopeless? Negative Over the past two weeks, have you felt little interest or pleasure in doing things? Negative Feeling nervous, anxious or on edge 0-Not at all Not being able to stop or control worrying 0-Not al all Anxiety Pre-Screening Total (If >/= 3 additional questions will be reviewed) 0 Emotional support: Yes Bowel symptoms: Negative for abdominal discomfort, blood in stools or black stools and change in bowel habits Abdomen: N/A Bladder symptoms: No dysuria, gross hematuria, urinary frequency, urinary urgency, or incontinence Other issues: BP, was told to f/u after delivery , discuss control Last Pap: 2023 normal HPV: N/A PAST MEDICAL HISTORY Diagnosis Date History of depression after my first Other specified anemias 07/21/2024 PAST SURGICAL HISTORY Procedure Laterality Date EXTRACTION, ERUPTED TOOTH OR EXPOSED ROOT (ELEVATION AND/OR FORCEPS REMOVAL) TONSILLECTOMY & ADENOIDECTOMY <AGE 12 FAMILY HISTORY Problem Relation Age of Onset Diabetes Mother Diabetes Maternal Grandfather Social History Tobacco Use Smoking status: Former Types: Cigarettes Smokeless tobacco: Never Tobacco comments: 2016 stop vaping 2021 Vaping Use Vaping status: Former Quit date: 2022 Substance Use Topics Alcohol use: Not Currently Drug use: Not Currently Comment: marijuana in the past PHYSICAL EXAMINATION: SENSITIVE EXAM: The sensitive examination was discussed with the Patient or Patient's Authorized Insole Rasper. As applicable, any other physician, advance practice provider, medical student, or other health professional student that will be observing or involved in the sensitive examination for educational or training purposes was discussed with the Patient or Authorized Insole Rasper. The Patient or Authorized Insole Rasper has agreed to proceed with the sensitive examination. (Sensitive examination includes inspection and/or palpation of the breasts, pelvis, prostate and anorectal regions). BP 100/60 Wt 140 lb 9.6 oz (63.8kg) LMP 01/07/2024 GENERAL: pleasant, female in no apparent distress HEENT: Normocephalic and atraumatic NECK: full range of motion DERMATOLOGY: Normal, without lesions, non-icteric, and non-hirsute BREAST: soft, non-tender, symmetric, no dominant mass, normal nipple-areolar complex, no lymphadenopathy, and no nipple discharge CHEST: Normal inspiratory effort ABDOMEN: soft, non-tender, and no masses. INCISION: N/A PELVIC: external genitalia normal, normal Bartholin's glands, urethra, Randalia's glands, no vulvar lesions, no cervical lesions, good vaginal support, physiologic discharge present, normal appearing perineal body and perianal region BIMANUAL: uterus normal size, shape and consistency, no adnexal masses, and non-tender NEURO: exam grossly non-focal EXTREMITIES: normal ASSESSMENT AND PLAN: 24 year old status post with normal course. Contraception plan: IUD - Mirena Follow up: RTC for insertion of IUD Wilfredo Campos DO documented in this encounter [facility] 11-02-2024 Note [facility] [address] ([address]) [facility] [address] MEDICAL OFFICE [facility] [address] Dept: [phone] Loc: [phone] MD Rosa Joy 24 y.o. female Patient presents with a chief complaint of ED F/U 10/28 - closed fracture of nasal bone Temp 97.9 degrees F (36.6 degrees C) (Oral) Ht 5' 5 Wt 62.7 kg (138 lb 3.2 oz) BMI 23.00 kg/m History of Presenting Illness: The patient/caregiver reports a history of complaint with the following features: Onset: started after injury 5 days ago Timing: new onset Duration: since injury, struck in face with toddler's head Quality: nasal tenderness Location: nasal dorsum Severity: pain mild, left obstruction Risk factors: history of nasal collapse prior to injury Alleviating factors: no relief with Afrin limited use Aggravating factors: nothing makes it worse Associated factors: no nosebleeds Review of systems covering 10 systems is reviewed and pertinent positives and negatives are noted as above. History reviewed. No pertinent past medical history. Current Medications[1] Allergies[2] History reviewed. No pertinent surgical history. Social History [3] History reviewed. No pertinent family history. PHYSICAL EXAM: The patient was examined today 11/02/2024 with findings as follows: CONSTITUTIONAL: General Appearance: well-appearing, nontoxic, alert, no acute distress Communication: understanding at normal conversational tones, normal voicing, speech intelligible HEAD/FACE: Head: atraumatic, normocephalic, no lesions Facial Inspection: no lesions, healthy skin Facial Strength: motor strength normal, symmetric strength, symmetric movement Sinuses: no sinus tenderness Salivary Glands: no enlargements of parotid glands, no tenderness of parotid glands, no masses of parotid glands, clear salivary flow on palpation from Stensen's ducts, no duct stones of Stensen's duct, no enlargement of submandibular glands, no tenderness of submandibular glands, no masses of submandibular glands, clear salivary flow from Albany's ducts, no stones of Albany's ducts Temporomandibular Joint: no crepitus with motion, no tenderness on palpation, no trismus, motion symmetric EYES: Pupils: PERRLA, extra-ocular movements intact, no nystagmus, sclera white, no redness of eyes, no watering of eyes EARS: Bilateral External Ears: no pits, no tags Right External Ear: normally formed, no lesions, no mastoid tenderness Left External Ear: normally formed, no lesions, no mastoid tenderness Right External Auditory Canal: normal, healthy skin, no obstructing cerumen, no discharge Left External Auditory Canal: normal, healthy skin, no obstructing cerumen, no discharge Right Tympanic Membrane: normal landmarks, translucent, mobile to pneumatic otoscopy, no perforation Left Tympanic Membrane: normal landmarks, translucent, mobile to pneumatic otoscopy, no perforation Hearing: intact to spoken voice NOSE: Nasal Skin: no lesions, no lacerations, no scars Nasal Dorsum: symmetric with no visible or palpable deformities, mild fading bruising Nasal Tip: normal symmetric nasal tip, normal nasal valves Nasal Mucosa: normal, pink and moist Septum: not markedly deformed, midline, no exposed vessels, no bleeding, no septal granuloma Turbinates: 4+size Nasopharynx: normal ORAL CAVITY/MOUTH: Lips, teeth, gums: normal lips, normal gums, dentition intact, no dental pain on palpation Oral Mucosa: normal, moist, no lesions Palate: normal hard palate, normal soft palate, symmetric palatal elevation Floor of Mouth: normal floor of mouth Tongue: normal tongue, no lesions, no edema, no masses, normal mucosa, mobile Tonsils: normal tonsils, symmetric, no lesions Posterior pharynx: normal NECK: Neck: no masses, trachea midline, normal range of motion, no cysts or pits, no tenderness to palpation Thyroid: normal thyroid, no enlargement, no tenderness, no nodules LYMPH NODES: Cervical: no palpable lymph node enlargement RESPIRATORY: Inspection/Auscultation: good air movement, chest expands symmetrically, normal breath sounds, no wheezing, no stridor CARDIOVASCULAR SYSTEM: Auscultation: regular rate and rhythm, carotid pulse normal, no carotid thrills, no carotid bruits Observation/Palpation of Peripheral Vascular System: no varicosities, no cyanosis, no edema SKIN: General Appearance: no lesions, warm and dry, normal turgor, no bruising NEUROLOGICAL SYSTEM: Orientation: oriented to time, oriented to place, oriented to person Cranial Nerves: Cranial Nerves II-XII intact, normal facial movement PSYCHIATRIC: Mood and affect: normal mood, normal affect Assessment and Plan: She presents after nasal injury. I have independently reviewed the patient's CT maxillofacial results and images with them today. This shows some high nasal septal deviation and minima (more content not included)... [facility] 11-02-2024 History of Present illness Narrative Formatting of this note is different fro m the original. [facility] [address] ([address]) [facility] [address] [facility] [address] Dept: [phone] Loc: [phone] MD Rosa Joy 24 y.o. female Patient presents with a chief complaint of ED F/U 10/28 - closed fracture of nasal bone Temp 97.9 F (36.6 C) (Oral) Ht 5' 5 Wt 62.7 kg (138 lb 3.2 oz) BMI 23.00 kg/m History of Presenting Illness: The patient/caregiver reports a history of complaint with the following features: Onset: started after injury 5 days ago Timing: new onset Duration: since injury, struck in face with toddler's head Quality: nasal tenderness Location: nasal dorsum Severity: pain mild, left obstruction Risk factors: history of nasal collapse prior to injury Alleviating factors: no relief with Afrin limited use Aggravating factors: nothing makes it worse Associated factors: no nosebleeds Review of systems covering 10 systems is reviewed and pertinent positives and negatives are noted as above. History reviewed. No pertinent past medical history. Current Medications[1] Allergies[2] History reviewed. No pertinent surgical history. Social History [3] History reviewed. No pertinent family history. PHYSICAL EXAM: The patient was examined today 11/02/2024 with findings as follows: CONSTITUTIONAL: General Appearance: well-appearing, nontoxic, alert, no acute distress Communication: understanding at normal conversational tones, normal voicing, speech intelligible HEAD/FACE: Head: atraumatic, normocephalic, no lesions Facial Inspection: no lesions, healthy skin Facial Strength: motor strength normal, symmetric strength, symmetric movement Sinuses: no sinus tenderness Salivary Glands: no enlargements of parotid glands, no tenderness of parotid glands, no masses of parotid glands, clear salivary flow on palpation from Stensen's ducts, no duct stones of Stensen's duct, no enlargement of submandibular glands, no tenderness of submandibular glands, no masses of submandibular glands, clear salivary flow from Albany's ducts, no stones of Albany's ducts Temporomandibular Joint: no crepitus with motion, no tenderness on palpation, no trismus, motion symmetric EYES: Pupils: PERRLA, extra-ocular movements intact, no nystagmus, sclera white, no redness of eyes, no watering of eyes EARS: Bilateral External Ears: no pits, no tags Right External Ear: normally formed, no lesions, no mastoid tenderness Left External Ear: normally formed, no lesions, no mastoid tenderness Right External Auditory Canal: normal, healthy skin, no obstructing cerumen, no discharge Left External Auditory Canal: normal, healthy skin, no obstructing cerumen, no discharge Right Tympanic Membrane: normal landmarks, translucent, mobile to pneumatic otoscopy, no perforation Left Tympanic Membrane: normal landmarks, translucent, mobile to pneumatic otoscopy, no perforation Hearing: intact to spoken voice NOSE: Nasal Skin: no lesions, no lacerations, no scars Nasal Dorsum: symmetric with no visible or palpable deformities, mild fading bruising Nasal Tip: normal symmetric nasal tip, normal nasal valves Nasal Mucosa: normal, pink and moist Septum: not markedly deformed, midline, no exposed vessels, no bleeding, no septal granuloma Turbinates: 4+size Nasopharynx: normal ORAL CAVITY/MOUTH: Lips, teeth, gums: normal lips, normal gums, dentition intact, no dental pain on palpation Oral Mucosa: normal, moist, no lesions Palate: normal hard palate, normal soft palate, symmetric palatal elevation Floor of Mouth: normal floor of mouth Tongue: normal tongue, no lesions, no edema, no masses, normal mucosa, mobile Tonsils: normal tonsils, symmetric, no lesions Posterior pharynx: normal NECK: Neck: no masses, trachea midline, normal range of motion, no cysts or pits, no tenderness to palpation Thyroid: normal thyroid, no enlargement, no tenderness, no nodules LYMPH NODES: Cervical: no palpable lymph node enlargement RESPIRATORY: Inspection/Auscultation: good air movement, chest expands symmetrically, normal breath sounds, no wheezing, no stridor CARDIOVASCULAR SYSTEM: Auscultation: regular rate and rhythm, carotid pulse normal, no carotid thrills, no carotid bruits Observation/Palpation of Peripheral Vascular System: no varicosities, no cyanosis, no edema SKIN: General Appearance: no lesions, warm and dry, normal turgor, no bruising NEUROLOGICAL SYSTEM: Orientation: oriented to time, oriented to place, oriented to person Cranial Nerves: Cranial Nerves II-XII intact, normal facial movement PSYCHIATRIC: Mood and affect: normal mood, normal affect Assessment and Plan: She presents after nasal injury. I have independently reviewed the patient's CT maxillofacial results and images with them today. This shows some high nasal septal deviation and minimally displaced nasal bone fracture. This clinically does not seem displaced to warrant surgical reduction. There is also significant inferior turbinate hypertrophy that is the more likely source of her more chronic nasal obstruction complaints and a trial of nasal steroid and nasal antihistamine is suggested. 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 1. Closed displaced fracture of nasal bone, initial encounter 2. Non-seasonal allergic rhinitis, unspecified trigger fluticasone propionate (FLONASE) 50 mcg/actuation nasal spray azelastine (ASTELIN) 137 mcg (0.1 %) nasal spray 3. Hypertrophy of inferior nasal turbinate Return in about 3 months (around 02/02/2025). The patient and/or caregiver is to notify the office if no improvement or worsening of symptoms is noted prior to the scheduled follow-up for sooner evaluation. The patient and/or caregiver is able to state an understanding of these recommendations and is agreeable to the treatment plan. --Linda Soria MD on 11/02/2024 at 4:32 PM An electronic signature was used to authenticate this note. [1] Current Outpatient Medications: azithromycin (ZITHROMAX) 250 MG tablet, Take 1 (one) tablet (250 mg total) by mouth daily for 5 days ., Disp: 5 tablet, Rfl: 0 azelastine (ASTELIN) 137 mcg (0.1 %) nasal spray, 1 (one) spray by Each Nare route 2 (two) times a day ., Disp: 30 mL, Rfl: 12 fluticasone propionate (FLONASE) 50 mcg/actuation nasal spray, Instill 2 (two) sprays into each nostril daily ., Disp: 16 g, Rfl: 12 [2] Allergies Allergen Reactions Latex Swelling Penicillins Rash [3] Social History Socioeconomic History Marital status: Single Tobacco Use Smoking status: Never Smokeless tobacco: Never Review of Systems Constitutional: Negative. HENT: Positive for sinus pressure and sinus pain. Eyes: Negative. Respiratory: Negative. Cardiovascular: Negative. Gastrointestinal: Negative. Endocrine: Negative. Genitourinary: Negative. Musculoskeletal: Negative. Skin: Negative. Allergic/Immunologic: Negative. Neurological: Negative. Hematological: Negative. Psychiatric/Behavioral: Negative. documented in this encounter [facility] 10-09-2024 Note HNO ID: [id number] Author: MARTHA JACOBO RN Service: ? Author Type: Registered Nurse Type: Progress Notes Filed: 10/09/2024 08:55 Note Text: Patient delivered via at [facility] on 10/07/24 per Tony Maldonado See OB Outcome note. Martha Jacobo RN [facility] 10-09-2024 History of Present illness Narrative Formatting of this note might be differe nt from the original. Patient delivered via at [facility] on 10/07/24 per Tony Maldonado See OB Outcome note. Martha Jacobo RN documented in this encounter [facility] 10-09-2024 Note [facility] Medical Records Department [address] [place] [address] Discharge Summary 10/09/24 0836 MR#: [id number] Acct: [id number] Name: ROSA SCHULER Rep #: [id number] : 2000 24 From: Kasia Lambert CNM PCP: Dr. Neo Ocasio DO Status:ADM IN Location: [place] [id number] Providers Date of Admission: 10/07/24 Primary Care Physician: Dr. Neo Ocasio DO Reason For Visit: VAG DELIVERY Diagnosis Discharge Diagnosis (1) Vaginal delivery: Status: Acute Code(s): O80 - Encounter for full-term uncomplicated delivery (2) History of depression: Status: Acute Code(s): Z87.59 - Personal history of other complications of , childbirth and the puerperium; Z86.59 - Personal history of other mental and behavioral disorders Plan 1) Routine care, PPD #2 2) Vitals signs stable. BP slightly elevated in 130s. BP check in 2 days and reviewed preeclampsia signs and when to call. Discussed medication if necessary. 3) Pain controlled 4) , services PRN 5) D/C home 6) Follow up in 2 weeks and 6 weeks Medications at Discharge Home Medications PNV#[id number] 27 mg iron-1 mg-300 mg-50 mg capsule cap PO 10/07/24 acyclovir 200 mg capsule 200 mg PO TID 10/07/24 acetaminophen 500 mg tablet 1,000 mg (2 x 500 mg) PO Q6H PRN PRN Pain 1-10 Or Fever #0 tabs 10/09/24 ibuprofen 600 mg tablet 600 mg PO Q6H PRN PRN Pain Score 1-10 #0 tabs 10/09/24 Weight / BMI Weight Weight: 164 lb 6 oz Body Mass Index (BMI) 28.2 ABG / Lab / Microbiology Data 10/07/24 06:10 D/C Instructions Discharge Diet: No restrictions Discharge Activity: Return to Normal Activity, May Drive, May Shower and May Take a Tub Bath May resume sexual activity in: 6 weeks Weight Bearing Status: Full weight bearing Call your doctor if you observe: Fever of 101 or Higher, Inability to urinate, Using more than 1 pad per hour, Shortness of breath, Chest pain, Increased palpitations (irregular heartbeat), Calf discomfort and Uncontrolled pain DC O2, CPAP, BIPAP Needs Home O2 Discharge instructions: No Please Follow Up With: Kasia Lambert CNM When: 2 week virtual visit and 6 week visit Meaningful Use Info Meaningful Use Meaningful Use Diagnoses (Choose all that apply): None applicable Ischemic Stroke Statin Dosing Therapy Reference: STATIN DOSE THERAPY REFERENCE: * Patients > 75 years receive moderate or high dose statin therapy. * Patients 75 years or YOUNGER should receive HIGH intensity statin dose unless contraindicated. You will be required to document reason for non-treatment if statin daily dose does not meet guidelines. HIGH DOSE STATIN THERAPY DAILY Atorvastatin > than or = to 40 mg Rosuvastatin > than or = to 20 mg Amlodipine + Atorvastatin > than or = to 2.5/40 mg Ezetimibe + Simvastatin 10/80 mg Simvastatin 80mg Discharge Plan Admission Admit Date/Time: 10/07/24 05:45 Primary Reason for Your Visit: Vaginal Delivery Attending Provider: Wilfredo Campos Primary Care Provider: Neo Ocasio Discharge Orders/Prescriptions Prescriptions: New acetaminophen 500 mg Tablet 1,000 mg PO Q6H PRN PRN (Reason: Pain 1-10 Or Fever) Qty: 0 0RF ibuprofen 600 mg Tablet 600 mg PO Q6H PRN PRN (Reason: Pain Score 1-10) Qty: 0 0RF Continued acyclovir 200 mg capsule 200 mg PO TID PNV #[id number] 27 mg iron-1 mg -300 mg-50 mg capsule PO Discontinued ferrous sulfate PO Referrals / Follow Up: Neo Ocasio DO [Primary Care Provider] - Disposition Disposition (needs filled in before D/C Order can be placed): Home, Self Care 10/09/24 0839 Cosigner Signature (if applicable): CC: KARINE Lambert; Dr. Neo Ocasio DO Signed [facility] 10-06-2024 Progress note Formatting of this note might be differe nt from the original. KJ - S: Rosa denies LOF, contractions or vaginal bleeding. O: 39w0d, see flow sheet SENSITIVE EXAM: Sensitive exam not performed. A/P: Assessment & Plan Supervision of high risk in third trimester Orders: URINE OB DIP B/O Anemia during in third trimester Continue iron & PNV 39 weeks gestation of Genital herpes simplex virus (HSV) infection in mother affecting Continue acyclovir Reviewed labor & FM precautions GBS positive Ted Harrison MD [facility] 10-06-2024 Miscellaneous Notes Formatting of this note might be differe nt from the original. KJ - S: Rosa denies LOF, contractions or vaginal bleeding. O: 39w0d, see flow sheet SENSITIVE EXAM: Sensitive exam not performed. A/P: Assessment & Plan Supervision of high risk in third trimester Orders: URINE OB DIP B/O Anemia during in third trimester Continue iron & PNV 39 weeks gestation of Genital herpes simplex virus (HSV) infection in mother affecting Continue acyclovir Reviewed labor & FM precautions GBS positive Ted Harrison MD documented in this encounter [facility] 10-06-2024 Instructions Maria De Jesus Srinivasan MA - 10/06/2024 2:35 PM EST SEQUENTIAL SCREENINGS The [facility] offers sequential screenings for women who are interested in screenings for chromosomal abnormalities and certain defects during a . The sequential screen combines ultrasound and blood tests to determine the risk of chromosomal abnormalities, including Down's Syndrome (Trisomy 21) and Trisomy 18, as well as open neural tube defects including spina bifida. Ultrasound examination is performed between 11 weeks and 13 weeks gestational age. Blood tests are drawn after the ultrasound and again later in the between 15 and 21 weeks gestational age. Please let your physician know if you are interested in this testing. It will require an appointment with our geothermal hvac technician. This is not an ultrasound performed by a physician in our office during a routine visit. SIGNS AND SYMPTOMS OF LABOR 1. Contractions every 10 minutes or more often 2. Clear, pink, or brownish fluid (water) leaking from vagina 3. Feeling that baby is pushing down, pressure 4. Low, dull backache 5. Cramps that feel like a period 6. Cramps with or without diarrhea If you notice any of the above symptoms, contact our office at [phone] and ask to speak with a nurse. After hours, you can call doctors registry at [phone] OR call [facility] at [phone] and ask to have the doctor automation and control engineer paged. If you consider this an emergency, dial 0-1-9 or go to your nearest emergency department. NEED HELP? Are you dealing with a violent or abusive relationship? Are you a victim of rape or sexual assult? Call [facility] ([place]) 24 hour Crisis Hotline: 250.379.4461 or 263-059-3458. MANUAL Your Guide to a Healthy manual is now on-line. Visit [email or web address] to download your free copy documented in this encounter [facility] 10-02-2024 Note HNO ID: [id number] Author: ISABEL MATA, ? Service: ? Author Type: Patient Gmat Instructor Type: Progress Notes Filed: 10/02/2024 09:00 Note Text: POPULATION HEALTH NAVIGATION OUTREACH Action/FYI 3rd attempt left message to add supervisor hot dip plating to ob provider field Reason for Outreach Medicaid OB/Peds Care Gaps due: N/A Patient Contacted: Unable or unnecessary to reach patient: Unable to reach patient Left message Navigation Signature: Isabel Dann, Population Health Navigator October 02, 2024 9:00 AM [facility] 09-29-2024 Progress note Formatting of this note might be differe nt from the original. EH - S: Rosa is a 24 year old female who presents at 38w0d for a routine visit. Feeling movement. Denies headache, visual changes, chest pain, shortness of breath, vaginal bleeding, leakage of fluid, or dysuria. Feeling well, no complaints. O: See flow sheet Gen: No apparent distress Abd: Gravid, nontender, S=D ASSESSMENT/PLAN: 1. Supervision of high risk in third trimester - ICD9: V23.9, ICD10: O09.93 (primary diagnosis) - Pre register at [facility] 2. 38 weeks gestation of - ICD9: V22.2, ICD10: Z3A.38 3. Anemia during in third trimester - ICD9: 648.23, ICD10: O99.013 - Continue oral iron - Recheck CBC today 4. Genital herpes simplex virus (HSV) infection in mother affecting - ICD9: 647.63, 054.19, ICD10: O98.319, A60.09 - Continue Acyclovir 5. Group beta Strep positive - ICD9: 041.02, ICD10: B95.1 - Penicillin allergy - Susceptible to Vancomycin Labor precautions and kick counts reviewed. RTO 1 in week or sooner as needed. Bhumi Salmeron APRN.EARLY CHILDHOOD SPECIALIST [facility] 09-29-2024 Miscellaneous Notes Formatting of this note might be differe nt from the original. EH - S: Rosa is a 24 year old female who presents at 38w0d for a routine visit. Feeling movement. Denies headache, visual changes, chest pain, shortness of breath, vaginal bleeding, leakage of fluid, or dysuria. Feeling well, no complaints. O: See flow sheet Gen: No apparent distress Abd: Gravid, nontender, S=D ASSESSMENT/PLAN: 1. Supervision of high risk in third trimester - ICD9: V23.9, ICD10: O09.93 (primary diagnosis) - Pre register at [facility] 2. 38 weeks gestation of - ICD9: V22.2, ICD10: Z3A.38 3. Anemia during in third trimester - ICD9: 648.23, ICD10: O99.013 - Continue oral iron - Recheck CBC today 4. Genital herpes simplex virus (HSV) infection in mother affecting - ICD9: 647.63, 054.19, ICD10: O98.319, A60.09 - Continue Acyclovir 5. Group beta Strep positive - ICD9: 041.02, ICD10: B95.1 - Penicillin allergy - Susceptible to Vancomycin Labor precautions and kick counts reviewed. RTO 1 in week or sooner as needed. hBumi Salmeron APRN.EARLY CHILDHOOD SPECIALIST documented in this encounter [facility] 09-29-2024 Instructions Tree Faust MA - 09/29/2024 2:18 PM EST SEQUENTIAL SCREENINGS The [facility] offers sequential screenings for women who are interested in screenings for chromosomal abnormalities and certain defects during a . The sequential screen combines ultrasound and blood tests to determine the risk of chromosomal abnormalities, including Down's Syndrome (Trisomy 21) and Trisomy 18, as well as open neural tube defects including spina bifida. Ultrasound examination is performed between 11 weeks and 13 weeks gestational age. Blood tests are drawn after the ultrasound and again later in the between 15 and 21 weeks gestational age. Please let your physician know if you are interested in this testing. It will require an appointment with our geothermal hvac technician. This is not an ultrasound performed by a physician in our office during a routine visit. SIGNS AND SYMPTOMS OF LABOR 1. Contractions every 10 minutes or more often 2. Clear, pink, or brownish fluid (water) leaking from vagina 3. Feeling that baby is pushing down, pressure 4. Low, dull backache 5. Cramps that feel like a period 6. Cramps with or without diarrhea If you notice any of the above symptoms, contact our office at [phone] and ask to speak with a nurse. After hours, you can call doctors registry at [phone] OR call [facility] at [phone] and ask to have the doctor automation and control engineer paged. If you consider this an emergency, dial 9-1-4 or go to your nearest emergency department. NEED HELP? Are you dealing with a violent or abusive relationship? Are you a victim of rape or sexual assult? Call [facility] ([place]) 24 hour Crisis Hotline: 661.605.1450 or 151-910-1965. MANUAL Your Guide to a Healthy manual is now on-line. Visit [email or web address] to download your free copy documented in this encounter [facility] 09-29-2024 Note HNO ID: [id number] Author: ISABEL MATA, ? Service: ? Author Type: Patient Gmat Instructor Type: Progress Notes Filed: 09/29/2024 08:18 Note Text: POPULATION HEALTH NAVIGATION OUTREACH Action/FYI Left message to add supervisor hot dip plating to OB provider field, verify/est pcp My chart sent Reason for Outreach Medicaid OB/Peds Care Gaps due: N/A Patient Contacted: Unable or unnecessary to reach patient: Unable to reach patient Left message Observe Medical message sent Navigation Signature: Isabel Mata Population Health Navigator September 29, 2024 8:17 AM [facility] 09-29-2024 History of Present illness Narrative Formatting of this note is different fro m the original. POPULATION HEALTH NAVIGATION OUTREACH Action/FYI Left message to add supervisor hot dip plating to OB provider field, verify/est pcp My chart sent Reason for Outreach Medicaid OB/Peds Care Gaps due: N/A Patient Contacted: Unable or unnecessary to reach patient: Unable to reach patient Left message iMERt message sent Navigation Signature: Isabel Mata Population Health Navigator September 29, 2024 8:17 AM documented in this encounter [facility] 09-29-2024 Note Patient Outreach (NE TNAV) FRANCISCOROSA Jacques ([id number]) 1 F Date Time Provider Department 09/29/24 ISABEL MATA During your visit today, we recorded the following information about you: Isabel Mata 09/29/2024 8:18 AM Signed POPULATION HEALTH NAVIGATION OUTREACH Action/FYI Left message to add supervisor hot dip plating to OB provider field, verify/est pcp My chart sent Reason for Outreach Medicaid OB/Peds Care Gaps due: N/A Patient Contacted: Unable or unnecessary to reach patient: Unable to reach patient Left message iMERt message sent Navigation Signature: Isabel Mata LeTV Navigator September 29, 2024 8:17 AM Isabel Mata 10/02/2024 9:00 AM Signed POPULATION [facility] NAVIGATION OUTREACH Action/FYI 3rd attempt left message to add supervisor hot dip plating to ob provider field Reason for Outreach Medicaid OB/Peds Care Gaps due: N/A Patient Contacted: Unable or unnecessary to reach patient: Unable to reach patient Left message Navigation Signature: Isabel Mata LeTV Navigator October 02, 2024 9:00 AM Allergies As of Date: 09/29/2024 Noted Allergy Reaction LATEX 09/22/2022 7 - Swelling PENICILLINS 09/22/2022 4 - Hives Date Reviewed: 09/29/2024 Reviewed by: Bhumi Salmeron APRN.EARLY CHILDHOOD SPECIALIST - Fully Assessed Reason for Visit: Population Health Navigation Outreach [3910] Cmt: Ob peds Prescriptions as of 10/02/2024 - acyclovir (ZOVIRAX) 400 mg tablet Take 1 tablet by mouth three times a day. - ferrous sulfate (IRON, FERROUS SULFATE,) 325 mg (65 mg iron) tablet Take 325 mg by mouth. - no122/iron/folic acid ( MULTI ORAL) Take by mouth once daily. 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 S: Rosa Schuler is a 24 year old female who presents at 10/13/2024, by Last Menstrual Period for a routine visit. Denies headache, visual changes, chest pain, shortness of breath, vaginal bleeding, leakage of fluid, or dysuria. Feeling well, no complaints. Good movement, No contractions O: See flow sheet Gen: No apparent distress Abd: Gravid, nontender GBS today VTX today Started acyclovir ASSESSMENT/PLAN: 1. 36 weeks gestation of - ICD9: V22.2, ICD10: Z3A.36 (primary diagnosis) - URINE OB DIP B/O - GROUP B STREPTOCOCCUS BY PCR, ROUTINE SCREENING 2. Encounter for supervision of other normal in third trimester - ICD9: V22.1, ICD10: Z34.83 - URINE OB DIP B/O - GROUP B STREPTOCOCCUS BY PCR, ROUTINE SCREENING Martha Thomason MD [facility] 09-19-2024 Miscellaneous Notes Formatting of this note might be differe nt from the original. S: Rosa Schuler is a 24 year old female who presents at 10/13/2024, by Last Menstrual Period for a routine visit. Denies headache, visual changes, chest pain, shortness of breath, vaginal bleeding, leakage of fluid, or dysuria. Feeling well, no complaints. Good movement, No contractions O: See flow sheet Gen: No apparent distress Abd: Gravid, nontender GBS today VTX today Started acyclovir ASSESSMENT/PLAN: 1. 36 weeks gestation of - ICD9: V22.2, ICD10: Z3A.36 (primary diagnosis) - URINE OB DIP B/O - GROUP B STREPTOCOCCUS BY PCR, ROUTINE SCREENING 2. Encounter for supervision of other normal in third trimester - ICD9: V22.1, ICD10: Z34.83 - URINE OB DIP B/O - GROUP B STREPTOCOCCUS BY PCR, ROUTINE SCREENING Martha Thomason MD documented in this encounter [facility] 09-19-2024 Instructions Talita Cornell MA - 09/19/2024 2:28 PM EST SEQUENTIAL SCREENINGS The [facility] offers sequential screenings for women who are interested in screenings for chromosomal abnormalities and certain defects during a . The sequential screen combines ultrasound and blood tests to determine the risk of chromosomal abnormalities, including Down's Syndrome (Trisomy 21) and Trisomy 18, as well as open neural tube defects including spina bifida. Ultrasound examination is performed between 11 weeks and 13 weeks gestational age. Blood tests are drawn after the ultrasound and again later in the between 15 and 21 weeks gestational age. Please let your physician know if you are interested in this testing. It will require an appointment with our geothermal hvac technician. This is not an ultrasound performed by a physician in our office during a routine visit. SIGNS AND SYMPTOMS OF LABOR 1. Contractions every 10 minutes or more often 2. Clear, pink, or brownish fluid (water) leaking from vagina 3. Feeling that baby is pushing down, pressure 4. Low, dull backache 5. Cramps that feel like a period 6. Cramps with or without diarrhea If you notice any of the above symptoms, contact our office at [phone] and ask to speak with a nurse. After hours, you can call doctors registry at [phone] OR call [facility] at [phone] and ask to have the doctor automation and control engineer paged. If you consider this an emergency, dial [phone]- or go to your nearest emergency department. NEED HELP? Are you dealing with a violent or abusive relationship? Are you a victim of rape or sexual assult? Call [facility] ([place]) 24 hour Crisis Hotline: 791.515.8801 or 845-540-1864. MANUAL Your Guide to a Healthy manual is now on-line. Visit [email or web address] to download your free copy documented in this encounter [facility] 09-15-2024 Telephone encounter Note Formatting of this note might be differe nt from the original. Order signed and faxed. Kassandra Anderson RN [facility] 09-15-2024 Miscellaneous Notes Formatting of this note might be differe nt from the original. Order signed and faxed. Kassandra Anderson RN Received breast pump RX from [employer]. To KJ to sign. Martha Jacobo RN documented in this encounter [facility] 09-14-2024 Telephone encounter Note Formatting of this note might be differe nt from the original. Received breast pump RX from [employer]. To CARLOS to sign. Martha Jacobo RN [facility] 09-13-2024 Progress note Formatting of this note might be differe nt from the original. S: Rosa Schuler is a 24 year old female who presents at 10/13/2024, by Last Menstrual Period for a routine visit. Denies headache, visual changes, chest pain, shortness of breath, vaginal bleeding, leakage of fluid, or dysuria. Feeling well, no complaints. Good movement, No contractions O: See flow sheet Gen: No apparent distress Abd: Gravid, nontender Spotting after intercourse. Only with wiping. No none on underwear No blood on exam Cervix closed ASSESSMENT/PLAN: 1. 35 weeks gestation of - ICD9: V22.2, ICD10: Z3A.35 (primary diagnosis) PTL precautions 2. Encounter for supervision of other normal in third trimester - ICD9: V22.1, ICD10: Z34.83 Martha Thomason MD [facility] 09-13-2024 Miscellaneous Notes Formatting of this note might be differe nt from the original. S: Rosa Schuler is a 24 year old female who presents at 10/13/2024, by Last Menstrual Period for a routine visit. Denies headache, visual changes, chest pain, shortness of breath, vaginal bleeding, leakage of fluid, or dysuria. Feeling well, no complaints. Good movement, No contractions O: See flow sheet Gen: No apparent distress Abd: Gravid, nontender Spotting after intercourse. Only with wiping. No none on underwear No blood on exam Cervix closed ASSESSMENT/PLAN: 1. 35 weeks gestation of - ICD9: V22.2, ICD10: Z3A.35 (primary diagnosis) PTL precautions 2. Encounter for supervision of other normal in third trimester - ICD9: V22.1, ICD10: Z34.83 Martha Thomason MD documented in this encounter [facility] 09-13-2024 Instructions Talita Cornell MA - 09/13/2024 2:58 PM EST SEQUENTIAL SCREENINGS The [facility] offers sequential screenings for women who are interested in screenings for chromosomal abnormalities and certain defects during a . The sequential screen combines ultrasound and blood tests to determine the risk of chromosomal abnormalities, including Down's Syndrome (Trisomy 21) and Trisomy 18, as well as open neural tube defects including spina bifida. Ultrasound examination is performed between 11 weeks and 13 weeks gestational age. Blood tests are drawn after the ultrasound and again later in the between 15 and 21 weeks gestational age. Please let your physician know if you are interested in this testing. It will require an appointment with our geothermal hvac technician. This is not an ultrasound performed by a physician in our office during a routine visit. SIGNS AND SYMPTOMS OF LABOR 1. Contractions every 10 minutes or more often 2. Clear, pink, or brownish fluid (water) leaking from vagina 3. Feeling that baby is pushing down, pressure 4. Low, dull backache 5. Cramps that feel like a period 6. Cramps with or without diarrhea If you notice any of the above symptoms, contact our office at [phone] and ask to speak with a nurse. After hours, you can call doctors registry at [phone] OR call [facility] at [phone] and ask to have the doctor automation and control engineer paged. If you consider this an emergency, dial 9-0 or go to your nearest emergency department. NEED HELP? Are you dealing with a violent or abusive relationship? Are you a victim of rape or sexual assult? Call [facility] ([place]) 24 hour Crisis Hotline: 134.281.7995 or 442-826-5647. MANUAL Your Guide to a Healthy manual is now on-line. Visit [email or web address] to download your free copy documented in this encounter [facility] 09-01-2024 Progress note Formatting of this note might be differe nt from the original. KJ - VB No. LOF No. CTXS No. Movement: present. Other c/o: No. Medication list reviewed. Physical Exam See Flow Sheet Gen: no accute distress, well appearing Abd: soft, nontender, gravid A/P 34w0d Estimated Date of Delivery: 10/13/24 Anemia - encouraged Fe & Regular PNV use. Repeat CBC today. H/o HSV - start prophylaxis at 36 weeks. PTL precautions reviewed, Kick counts reviewed. Ted Harrison MD [facility] 09-01-2024 Miscellaneous Notes Formatting of this note might be differe nt from the original. KJ - VB No. LOF No. CTXS No. Movement: present. Other c/o: No. Medication list reviewed. Physical Exam See Flow Sheet Gen: no accute distress, well appearing Abd: soft, nontender, gravid A/P 34w0d Estimated Date of Delivery: 10/13/24 Anemia - encouraged Fe & Regular PNV use. Repeat CBC today. H/o HSV - start prophylaxis at 36 weeks. PTL precautions reviewed, Kick counts reviewed. Ted Harrison MD documented in this encounter [facility] 09-01-2024 Instructions Maria De Jesus Srinivasan MA - 09/01/2024 9:44 AM EST SEQUENTIAL SCREENINGS The [facility] offers sequential screenings for women who are interested in screenings for chromosomal abnormalities and certain defects during a . The sequential screen combines ultrasound and blood tests to determine the risk of chromosomal abnormalities, including Down's Syndrome (Trisomy 21) and Trisomy 18, as well as open neural tube defects including spina bifida. Ultrasound examination is performed between 11 weeks and 13 weeks gestational age. Blood tests are drawn after the ultrasound and again later in the between 15 and 21 weeks gestational age. Please let your physician know if you are interested in this testing. It will require an appointment with our geothermal hvac technician. This is not an ultrasound performed by a physician in our office during a routine visit. SIGNS AND SYMPTOMS OF LABOR 1. Contractions every 10 minutes or more often 2. Clear, pink, or brownish fluid (water) leaking from vagina 3. Feeling that baby is pushing down, pressure 4. Low, dull backache 5. Cramps that feel like a period 6. Cramps with or without diarrhea If you notice any of the above symptoms, contact our office at [phone] and ask to speak with a nurse. After hours, you can call doctors registry at [phone] OR call [facility] at [phone] and ask to have the doctor automation and control engineer paged. If you consider this an emergency, dial or go to your nearest emergency department. NEED HELP? Are you dealing with a violent or abusive relationship? Are you a victim of rape or sexual assult? Call [facility] ([place]) 24 hour Crisis Hotline: 599.274.3704 or 293-192-1717. MANUAL Your Guide to a Healthy manual is now on-line. Visit [email or web address] to download your free copy documented [facility] [facility] 08[facility]16[facility]2024 Progress note Formatting of this note might be differe nt from the original. S: Rosa Schuler is a 24 year old female who presents at 10/13/2024, by Last Menstrual Period for a routine visit. Denies headache, visual changes, chest pain, shortness of breath, vaginal bleeding, leakage of fluid, or dysuria. Feeling well, no complaints. Good movement, No contractions O: See flow sheet Gen: No apparent distress Abd: Gravid, nontender CBC without improvement. Taking Iron every other day. Would prefer to take daily before IV infusion Will repeat in one month ASSESSMENT/PLAN: 1. Encounter for supervision of other normal in third trimester - ICD9: V22.1, ICD10: Z34.83 (primary diagnosis) 2. Anemia during in third trimester - ICD9: 648.23, ICD10: O99.013 Increase iron to daily 3. 31 weeks gestation of - ICD9: V22.2, ICD10: Z3A.31 PTL precautions Martha Thomason MD [facility] 08-16-2024 Miscellaneous Notes Formatting of this note might be differe nt from the original. S: Rosa Schuler is a 24 year old female who presents at 10/13/2024, by Last Menstrual Period for a routine visit. Denies headache, visual changes, chest pain, shortness of breath, vaginal bleeding, leakage of fluid, or dysuria. Feeling well, no complaints. Good movement, No contractions O: See flow sheet Gen: No apparent distress Abd: Gravid, nontender CBC without improvement. Taking Iron every other day. Would prefer to take daily before IV infusion Will repeat in one month ASSESSMENT/PLAN: 1. Encounter for supervision of other normal in third trimester - ICD9: V22.1, ICD10: Z34.83 (primary diagnosis) 2. Anemia during in third trimester - ICD9: 648.23, ICD10: O99.013 Increase iron to daily 3. 31 weeks gestation of - ICD9: V22.2, ICD10: Z3A.31 PTL precautions Martha Thomason MD documented in this encounter [facility] 08-16-2024 Instructions Diego Arciniega MA - 08/16/2024 2:47 PM EST SEQUENTIAL SCREENINGS The [facility] offers sequential screenings for women who are interested in screenings for chromosomal abnormalities and certain defects during a . The sequential screen combines ultrasound and blood tests to determine the risk of chromosomal abnormalities, including Down's Syndrome (Trisomy 21) and Trisomy 18, as well as open neural tube defects including spina bifida. Ultrasound examination is performed between 11 weeks and 13 weeks gestational age. Blood tests are drawn after the ultrasound and again later in the between 15 and 21 weeks gestational age. Please let your physician know if you are interested in this testing. It will require an appointment with our geothermal hvac technician. This is not an ultrasound performed by a physician in our office during a routine visit. SIGNS AND SYMPTOMS OF LABOR 1. Contractions every 10 minutes or more often 2. Clear, pink, or brownish fluid (water) leaking from vagina 3. Feeling that baby is pushing down, pressure 4. Low, dull backache 5. Cramps that feel like a period 6. Cramps with or without diarrhea If you notice any of the above symptoms, contact our office at [phone] and ask to speak with a nurse. After hours, you can call doctors registry at [phone] OR call [facility] at [phone] and ask to have the doctor automation and control engineer paged. If you consider this an emergency, dial 9--8 or go to your nearest emergency department. NEED HELP? Are you dealing with a violent or abusive relationship? Are you a victim of rape or sexual assult? Call [facility] ([place]) 24 hour Crisis Hotline: 224.455.1442 or 477-943-2410. MANUAL Your Guide to a Healthy manual is now on-line. Visit [email or web address] to download your free copy documented in this encounter [facility] 08-04-2024 Progress note Formatting of this note might be differe nt from the original. S: Rosa Schuler is a 24 year old female who presents at 10/13/2024, by Last Menstrual Period for a routine visit. Denies headache, visual changes, chest pain, shortness of breath, vaginal bleeding, leakage of fluid, or dysuria. Feeling well, no complaints. Good movement, No contractions O: See flow sheet Gen: No apparent distress Abd: Gravid, nontender ASSESSMENT/PLAN: 1. Encounter for supervision of other normal in third trimester - ICD9: V22.1, ICD10: Z34.83 (primary diagnosis) 2. Anemia during in third trimester - ICD9: 648.23, ICD10: O99.013 Taking oral Iron. Repeat CBC next visit 3. 30 weeks Martha Thomason MD [facility] 08-04-2024 Miscellaneous Notes Formatting of this note might be differe nt from the original. S: Rosa Schuler is a 24 year old female who presents at 10/13/2024, by Last Menstrual Period for a routine visit. Denies headache, visual changes, chest pain, shortness of breath, vaginal bleeding, leakage of fluid, or dysuria. Feeling well, no complaints. Good movement, No contractions O: See flow sheet Gen: No apparent distress Abd: Gravid, nontender ASSESSMENT/PLAN: 1. Encounter for supervision of other normal in third trimester - ICD9: V22.1, ICD10: Z34.83 (primary diagnosis) 2. Anemia during in third trimester - ICD9: 648.23, ICD10: O99.013 Taking oral Iron. Repeat CBC next visit 3. 30 weeks Martha Thomason MD documented in this encounter [facility] 08-04-2024 Instructions Maria De Jesus Srinivasan MA - 08/04/2024 9:38 AM EST SEQUENTIAL SCREENINGS The [facility] offers sequential screenings for women who are interested in screenings for chromosomal abnormalities and certain defects during a . The sequential screen combines ultrasound and blood tests to determine the risk of chromosomal abnormalities, including Down's Syndrome (Trisomy 21) and Trisomy 18, as well as open neural tube defects including spina bifida. Ultrasound examination is performed between 11 weeks and 13 weeks gestational age. Blood tests are drawn after the ultrasound and again later in the between 15 and 21 weeks gestational age. Please let your physician know if you are interested in this testing. It will require an appointment with our geothermal hvac technician. This is not an ultrasound performed by a physician in our office during a routine visit. SIGNS AND SYMPTOMS OF LABOR 1. Contractions every 10 minutes or more often 2. Clear, pink, or brownish fluid (water) leaking from vagina 3. Feeling that baby is pushing down, pressure 4. Low, dull backache 5. Cramps that feel like a period 6. Cramps with or without diarrhea If you notice any of the above symptoms, contact our office at [phone] and ask to speak with a nurse. After hours, you can call doctors registry at [phone] OR call [facility] at [phone] and ask to have the doctor automation and control engineer paged. If you consider this an emergency, dial 0-2-8 or go to your nearest emergency department. NEED HELP? Are you dealing with a violent or abusive relationship? Are you a victim of rape or sexual assult? Call [facility] [place] ([facility] 24 hour Crisis Hotline: 201.179.3630 or 085-537-8945. MANUAL Your Guide to a Healthy manual is now on-line. Visit [email or web address] to download your free copy documented in this encounter [facility] 07-24-2024 Telephone encounter Note Formatting of this note might be differe nt from the original. Added to 08/18/24 appt note to recheck CBC. Sandra Barboza RN [facility] 07-24-2024 Miscellaneous Notes Formatting of this note might be differe nt from the original. Added to 08/18/24 appt note to recheck CBC. Sandra Barboza RN filed Pt notified. CBC pending. Please file and will contact Pt to get lab appt scheduled. Patient did not view provider's mychart message for CBC result. Left message for patient to call office or check mychart. Message copied below. Sandra Barboza RN [facility]- You are anemic. I recommend starting Ferrous Sulfate 325 mg by mouth every other day. To take with orange juice if you can to help with absorption, and avoid taking with calcium containing foods/supplements that can interfere with absorption. We will recheck your anemia in 4 weeks. -Dr. Campos documented in this encounter [facility] 07-24-2024 Telephone encounter Note Formatting of this note might be differe nt from the original. filed [facility] 07-24-2024 Telephone encounter Note Formatting of this note might be differe nt from the original. Pt notified. CBC pending. Please file and will contact Pt to get lab appt scheduled. [facility] 07-24-2024 Telephone encounter Note Formatting of this note might be differe nt from the original. Patient did not view provider's mychart message for CBC result. Left message for patient to call office or check mychart. Message copied below. Sandra Barboza RN Rosa- You are anemic. I recommend starting Ferrous Sulfate 325 mg by mouth every other day. To take with orange juice if you can to help with absorption, and avoid taking with calcium containing foods/supplements that can interfere with absorption. We will recheck your anemia in 4 weeks. -Dr. Campos [facility] 07-21-2024 Progress note Formatting of this note might be differe nt from the original. S: Rosa Schuler is a 24 year old female who presents at 10/13/2024, by Last Menstrual Period for a routine visit. Denies headache, visual changes, chest pain, shortness of breath, vaginal bleeding, leakage of fluid, or dysuria. Feeling well, no complaints. Good movement, No contractions O: See flow sheet Gen: No apparent distress Abd: Gravid, nontender GCT today LARC declined Declined TDAP ASSESSMENT/PLAN: 1. Encounter for supervision of other normal in second trimester - ICD9: V22.1, ICD10: Z34.82 (primary diagnosis) 2. 28 weeks gestation of - ICD9: V22.2, ICD10: Z3A.28 PTL precautions Angelique Thomason MD [facility] 07-21-2024 Miscellaneous Notes Formatting of this note might be differe nt from the original. S: Rosa Schuler is a 24 year old female who presents at 10/13/2024, by Last Menstrual Period for a routine visit. Denies headache, visual changes, chest pain, shortness of breath, vaginal bleeding, leakage of fluid, or dysuria. Feeling well, no complaints. Good movement, No contractions O: See flow sheet Gen: No apparent distress Abd: Gravid, nontender GCT today LARC declined Declined TDAP ASSESSMENT/PLAN: 1. Encounter for supervision of other normal in second trimester - ICD9: V22.1, ICD10: Z34.82 (primary diagnosis) 2. 28 weeks gestation of - ICD9: V22.2, ICD10: Z3A.28 PTL precautions Angelique Thomason MD documented in this encounter [facility] 07-21-2024 Instructions Kristen Marquez LPN - 07/21/2024 10:10 AM EST SEQUENTIAL SCREENINGS The [facility] offers sequential screenings for women who are interested in screenings for chromosomal abnormalities and certain defects during a . The sequential screen combines ultrasound and blood tests to determine the risk of chromosomal abnormalities, including Down's Syndrome (Trisomy 21) and Trisomy 18, as well as open neural tube defects including spina bifida. Ultrasound examination is performed between 11 weeks and 13 weeks gestational age. Blood tests are drawn after the ultrasound and again later in the between 15 and 21 weeks gestational age. Please let your physician know if you are interested in this testing. It will require an appointment with our geothermal hvac technician. This is not an ultrasound performed by a physician in our office during a routine visit. SIGNS AND SYMPTOMS OF LABOR 1. Contractions every 10 minutes or more often 2. Clear, pink, or brownish fluid (water) leaking from vagina 3. Feeling that baby is pushing down, pressure 4. Low, dull backache 5. Cramps that feel like a period 6. Cramps with or without diarrhea If you notice any of the above symptoms, contact our office at [phone] and ask to speak with a nurse. After hours, you can call doctors registry at [phone] OR call [facility] at [phone] and ask to have the doctor automation and control engineer paged. If you consider this an emergency, dial 9-9-2 or go to your nearest emergency department. NEED HELP? Are you dealing with a violent or abusive relationship? Are you a victim of rape or sexual assult? Call [facility] [place] ([place]) 24 hour Crisis Hotline: 905.902.2005 or 785-533-0299. MANUAL Your Guide to a Healthy manual is now on-line. Visit [email or web address] to download your free copy documented in this encounter [facility] 06-30-2024 Progress note Formatting of this note might be differe nt from the original. SW- Leg cramps overnight. No ctx, vb, lof. Good FM PE: Gen- NAD, well appearing Abd- Soft, gravid, NT See flowsheet A/p 25 wk gestation - 28 wk labs ordered - Discussed upcoming expectations - RTO 28 wk labs Wilfredo Campos DO [facility] 06-30-2024 Miscellaneous Notes Formatting of this note might be differe nt from the original. SW- Leg cramps overnight. No ctx, vb, lof. Good FM PE: Gen- NAD, well appearing Abd- Soft, gravid, NT See flowsheet A/p 25 wk gestation - 28 wk labs ordered - Discussed upcoming expectations - RTO 28 wk labs Wilfredo Campos DO documented in this encounter [facility] 06-30-2024 Instructions Talita Cornell MA - 06/30/2024 9:57 AM EST SEQUENTIAL SCREENINGS The [facility] offers sequential screenings for women who are interested in screenings for chromosomal abnormalities and certain defects during a . The sequential screen combines ultrasound and blood tests to determine the risk of chromosomal abnormalities, including Down's Syndrome (Trisomy 21) and Trisomy 18, as well as open neural tube defects including spina bifida. Ultrasound examination is performed between 11 weeks and 13 weeks gestational age. Blood tests are drawn after the ultrasound and again later in the between 15 and 21 weeks gestational age. Please let your physician know if you are interested in this testing. It will require an appointment with our geothermal hvac technician. This is not an ultrasound performed by a physician in our office during a routine visit. SIGNS AND SYMPTOMS OF LABOR 1. Contractions every 10 minutes or more often 2. Clear, pink, or brownish fluid (water) leaking from vagina 3. Feeling that baby is pushing down, pressure 4. Low, dull backache 5. Cramps that feel like a period 6. Cramps with or without diarrhea If you notice any of the above symptoms, contact our office at [phone] and ask to speak with a nurse. After hours, you can call doctors registry at [phone] OR call [facility] at [phone] and ask to have the doctor automation and control engineer paged. If you consider this an emergency, dial 9--0 or go to your nearest emergency department. NEED HELP? Are you dealing with a violent or abusive relationship? Are you a victim of rape or sexual assult? Call [facility] ([place]) 24 hour Crisis Hotline: 422.501.8441 or 952-471-3137. MANUAL Your Guide to a Healthy manual is now on-line. Visit [email or web address] to download your free copy documented in this encounter [facility] 06-02-2024 Instructions Yolanda Moody LPN - 06/02/2024 8:46 AM EDT SEQUENTIAL SCREENINGS The [facility] offers sequential screenings for women who are interested in screenings for chromosomal abnormalities and certain defects during a . The sequential screen combines ultrasound and blood tests to determine the risk of chromosomal abnormalities, including Down's Syndrome (Trisomy 21) and Trisomy 18, as well as open neural tube defects including spina bifida. Ultrasound examination is performed between 11 weeks and 13 weeks gestational age. Blood tests are drawn after the ultrasound and again later in the between 15 and 21 weeks gestational age. Please let your physician know if you are interested in this testing. It will require an appointment with our geothermal hvac technician. This is not an ultrasound performed by a physician in our office during a routine visit. SIGNS AND SYMPTOMS OF LABOR 1. Contractions every 10 minutes or more often 2. Clear, pink, or brownish fluid (water) leaking from vagina 3. Feeling that baby is pushing down, pressure 4. Low, dull backache 5. Cramps that feel like a period 6. Cramps with or without diarrhea If you notice any of the above symptoms, contact our office at [phone] and ask to speak with a nurse. After hours, you can call doctors registry at [phone] OR call [facility] at [phone] and ask to have the doctor automation and control engineer paged. If you consider this an emergency, dial 9-- or go to your nearest emergency department. NEED HELP? Are you dealing with a violent or abusive relationship? Are you a victim of rape or sexual assult? Call [facility] ([place]) 24 hour Crisis Hotline: 191.276.5279 or 058-986-1849. MANUAL Your Guide to a Healthy manual is now on-line. Visit [email or web address] to download your free copy documented in this encounter [facility] 06-02-2024 Progress note Formatting of this note might be differe nt from the original. EH - S: Rosa is a 23 year old female who presents at 21w0d for a routine visit. Feeling movement. Denies headache, visual changes, chest pain, shortness of breath, vaginal bleeding, leakage of fluid, or dysuria. Feeling well, no complaints. O: See flow sheet Gen: No apparent distress Abd: Gravid, nontender, S=D ASSESSMENT/PLAN: 1. Encounter for supervision of other normal in second trimester - ICD9: V22.1, ICD10: Z34.82 (primary diagnosis) - Continue PNV - BP low, feels well. Has not eaten yet today. 2. 21 weeks gestation of - ICD9: V22.2, ICD10: Z3A.21 - Anatomy ultrasound today, report pending PTL precautions reviewed. RTO in 4 weeks or sooner as needed. Bhumi Salmeron APRN.EARLY CHILDHOOD SPECIALIST [facility] 06-02-2024 Miscellaneous Notes Formatting of this note might be differe nt from the original. EH - S: Rosa is a 23 year old female who presents at 21w0d for a routine visit. Feeling movement. Denies headache, visual changes, chest pain, shortness of breath, vaginal bleeding, leakage of fluid, or dysuria. Feeling well, no complaints. O: See flow sheet Gen: No apparent distress Abd: Gravid, nontender, S=D ASSESSMENT/PLAN: 1. Encounter for supervision of other normal in second trimester - ICD9: V22.1, ICD10: Z34.82 (primary diagnosis) - Continue PNV - BP low, feels well. Has not eaten yet today. 2. 21 weeks gestation of - ICD9: V22.2, ICD10: Z3A.21 - Anatomy ultrasound today, report pending PTL precautions reviewed. RTO in 4 weeks or sooner as needed. Bhumi Salmeron APRN.EARLY CHILDHOOD SPECIALIST documented in this encounter [facility] 05-20-2024 Note HNO ID: [id number] Author: LOPEZ MARTINEZ APRN.EARLY CHILDHOOD SPECIALIST Service: ? Author Type: Nurse Practitioner Type: Progress Notes Filed: 05/20/2024 09:17 Note Text: Subjective HPI Nontoxic-appearing 19-week female presents urgent care chief complaint sore throat. Duration of symptoms 2 days. Associate symptoms listed above. States significant other sick similar signs and symptoms. No OTC medication use. No difficulty swallowing and secretion decreased range of motion neck or trismus. No fevers. Past medical history prescription medications allergies reviewed. BP 118/78 Pulse 111 Temp 36.4 ?C (97.5 ?F) (Tympanic) Resp 18 Wt 58.5 kg (128 lb 15.5 oz) LMP 01/07/2024 SpO2 99% BMI 21.46 kg/m? Hr 93 .Patient presents with: Sore Throat: ST x 2 days PAST MEDICAL HISTORY Diagnosis Date History of depression after my first PAST SURGICAL HISTORY Procedure Laterality Date EXTRACTION, ERUPTED TOOTH OR EXPOSED ROOT (ELEVATION AND/OR FORCEPS REMOVAL) TONSILLECTOMY AND ADENOIDECTOMY ALLERGIES Latex and Penicillins MEDICATIONS no122/iron/folic acid ( MULTI ORAL) Take by mouth. pantoprazole DR (PROTONIX) 40 mg tablet Take 1 tablet by mouth once daily. (Patient not taking: Reported on 05/20/2024) FAMILY HISTORY Problem Relation Age of Onset Diabetes Mother Diabetes Maternal Grandfather Social History Tobacco Use Smoking status: Former Types: Cigarettes Smokeless tobacco: Never Tobacco comments: 2017 stop vaping 2021 Vaping Use Vaping status: Former Quit date: 2022 Substance Use Topics Alcohol use: Not Currently Drug use: Not Currently Comment: marijuana in the past Review of Systems Constitutional: Negative for chills, fever and malaise/fatigue. HENT: Positive for sore throat. Negative for congestion, ear discharge, ear pain and sinus pain. Eyes: Negative for blurred vision, pain, discharge and redness. Respiratory: Negative for cough, hemoptysis, sputum production, shortness of breath, wheezing and stridor. Cardiovascular: Negative for chest pain. Gastrointestinal: Negative for abdominal pain, diarrhea, nausea and vomiting. Musculoskeletal: Negative for myalgias. Skin: Negative for itching and rash. Neurological: Negative for dizziness and headaches. Objective Physical Exam Constitutional: General: She is not in acute distress. Appearance: She is not diaphoretic. HENT: Head: Normocephalic. Jaw: No trismus, tenderness, swelling or pain on movement. Mouth/Throat: Mouth: Mucous membranes are moist. Pharynx: Oropharynx is clear. Uvula midline. Posterior oropharyngeal erythema present. No pharyngeal swelling, oropharyngeal exudate or uvula swelling. Eyes: Conjunctiva/sclera: Conjunctivae normal. Pupils: Pupils are equal, round, and reactive to light. Cardiovascular: Rate and Rhythm: Normal rate and regular rhythm. Heart sounds: Normal heart sounds. Pulmonary: Effort: Pulmonary effort is normal. No tachypnea, accessory muscle usage or respiratory distress. Breath sounds: Normal breath sounds. No stridor. No wheezing, rhonchi or rales. Abdominal: General: There is no distension. Palpations: Abdomen is soft. Tenderness: There is no abdominal tenderness. There is no guarding or rebound. Musculoskeletal: Cervical back: Normal range of motion and neck supple. No edema, erythema, rigidity or tenderness. No pain with movement. Normal range of motion. Lymphadenopathy: Cervical: No cervical adenopathy. Skin: General: Skin is warm and dry. Neurological: Mental Status: She is alert and oriented to person, place, and time. ASSESSMENT/PLAN: 1. Sore throat - ICD9: 462, ICD10: J02.9 (primary diagnosis) - STREP A MOLECULAR (POC) 2. Viral illness - ICD9: 079.99, ICD10: B34.9 Strep test negative. Diagnosed with viral pharyngitis. Follow-up PCP 2 to 3 days reevaluation. Patient was educated on supportive therapies. Patient will follow up with primary care provider as needed. Patient was instructed to immediately proceed to emergency room for any new, worsening, or symptoms lasting longer than anticipated. The patient's clinical presentation is otherwise unremarkable at this time. Based on exam and clinical finding, the patient is stable for discharge. Plan of care was discussed with patient. Patient verbalizes understanding and agrees to plan of care. This note was generated using [employer] software. It may contain errors in wording, punctuation, or spelling. Lopez Martinez APRN.[facility] 05-20-2024 History of Present illness Narrative Formatting of this note is different fro m the original. Subjective HPI Nontoxic-appearing 19-week female presents urgent care chief complaint sore throat. Duration of symptoms 2 days. Associate symptoms listed above. States significant other sick similar signs and symptoms. No OTC medication use. No difficulty swallowing and secretion decreased range of motion neck or trismus. No fevers. Past medical history prescription medications allergies reviewed. BP 118/78 Pulse 111 Temp 36.4 C (97.5 F) (Tympanic) Resp 18 Wt 58.5 kg (128 lb 15.5 oz) LMP 01/07/2024 SpO2 99% BMI 21.46 kg/m Hr 93 .Patient presents with: Sore Throat: ST x 2 days PAST MEDICAL HISTORY Diagnosis Date History of depression after my first PAST SURGICAL HISTORY Procedure Laterality Date EXTRACTION, ERUPTED TOOTH OR EXPOSED ROOT (ELEVATION AND/OR FORCEPS REMOVAL) TONSILLECTOMY & ADENOIDECTOMY <AGE 12 ALLERGIES Latex and Penicillins MEDICATIONS no122/iron/folic acid ( MULTI ORAL) Take by mouth. pantoprazole DR (PROTONIX) 40 mg tablet Take 1 tablet by mouth once daily. (Patient not taking: Reported on 05/20/2024) FAMILY HISTORY Problem Relation Age of Onset Diabetes Mother Diabetes Maternal Grandfather Social History Tobacco Use Smoking status: Former Types: Cigarettes Smokeless tobacco: Never Tobacco comments: 2016 stop vaping 2021 Vaping Use Vaping status: Former Quit date: 2022 Substance Use Topics Alcohol use: Not Currently Drug use: Not Currently Comment: marijuana in the past Review of Systems Constitutional: Negative for chills, fever and malaise/fatigue. HENT: Positive for sore throat. Negative for congestion, ear discharge, ear pain and sinus pain. Eyes: Negative for blurred vision, pain, discharge and redness. Respiratory: Negative for cough, hemoptysis, sputum production, shortness of breath, wheezing and stridor. Cardiovascular: Negative for chest pain. Gastrointestinal: Negative for abdominal pain, diarrhea, nausea and vomiting. Musculoskeletal: Negative for myalgias. Skin: Negative for itching and rash. Neurological: Negative for dizziness and headaches. Objective Physical Exam Constitutional: General: She is not in acute distress. Appearance: She is not diaphoretic. HENT: Head: Normocephalic. Jaw: No trismus, tenderness, swelling or pain on movement. Mouth/Throat: Mouth: Mucous membranes are moist. Pharynx: Oropharynx is clear. Uvula midline. Posterior oropharyngeal erythema present. No pharyngeal swelling, oropharyngeal exudate or uvula swelling. Eyes: Conjunctiva/sclera: Conjunctivae normal. Pupils: Pupils are equal, round, and reactive to light. Cardiovascular: Rate and Rhythm: Normal rate and regular rhythm. Heart sounds: Normal heart sounds. Pulmonary: Effort: Pulmonary effort is normal. No tachypnea, accessory muscle usage or respiratory distress. Breath sounds: Normal breath sounds. No stridor. No wheezing, rhonchi or rales. Abdominal: General: There is no distension. Palpations: Abdomen is soft. Tenderness: There is no abdominal tenderness. There is no guarding or rebound. Musculoskeletal: Cervical back: Normal range of motion and neck supple. No edema, erythema, rigidity or tenderness. No pain with movement. Normal range of motion. Lymphadenopathy: Cervical: No cervical adenopathy. Skin: General: Skin is warm and dry. Neurological: Mental Status: She is alert and oriented to person, place, and time. ASSESSMENT/PLAN: 1. Sore throat - ICD9: 462, ICD10: J02.9 (primary diagnosis) - STREP A MOLECULAR (POC) 2. Viral illness - ICD9: 079.99, ICD10: B34.9 Strep test negative. Diagnosed with viral pharyngitis. Follow-up PCP 2 to 3 days reevaluation. Patient was educated on supportive therapies. Patient will follow up with primary care provider as needed. Patient was instructed to immediately proceed to emergency room for any new, worsening, or symptoms lasting longer than anticipated. The patient's clinical presentation is otherwise unremarkable at this time. Based on exam and clinical finding, the patient is stable for discharge. Plan of care was discussed with patient. Patient verbalizes understanding and agrees to plan of care. This note was generated using [employer] software. It may contain errors in wording, punctuation, or spelling. Lopez Martinez APRN.CNP documented in this encounter [facility] 05-05-2024 Progress note Formatting of this note might be differe nt from the original. S: Rosa Schuler is a 23 year old female who presents at 17 weeks gestation. Starting to feel occasional flutters. Denies headache, visual changes, chest pain, shortness of breath, vaginal bleeding, leakage of fluid, or dysuria. Nausea has resolved and appetite increased. O: See flow sheet Gen: No apparent distress Abd: Gravid, nontender ASSESSMENT/PLAN: 1. 17 weeks gestation of - ICD9: V22.2, ICD10: Z3A.17 (primary diagnosis) 2. Multigravida in second trimester - ICD9: V22.1, ICD10: Z34.82 - RTO 3 weeks for anatomy US and CHRIS Garay APRN.CNM [facility] 05-05-2024 Miscellaneous Notes Formatting of this note might be differe nt from the original. S: Rosa Schuler is a 23 year old female who presents at 17 weeks gestation. Starting to feel occasional flutters. Denies headache, visual changes, chest pain, shortness of breath, vaginal bleeding, leakage of fluid, or dysuria. Nausea has resolved and appetite increased. O: See flow sheet Gen: No apparent distress Abd: Gravid, nontender ASSESSMENT/PLAN: 1. 17 weeks gestation of - ICD9: V22.2, ICD10: Z3A.17 (primary diagnosis) 2. Multigravida in second trimester - ICD9: V22.1, ICD10: Z34.82 - RTO 3 weeks for anatomy US and CHRIS Garay APRN.CNM documented in this encounter [facility] 05-05-2024 Instructions Lindsey Escalante MA - 05/05/2024 2:23 PM EDT SEQUENTIAL SCREENINGS The [facility] offers sequential screenings for women who are interested in screenings for chromosomal abnormalities and certain defects during a . The sequential screen combines ultrasound and blood tests to determine the risk of chromosomal abnormalities, including Down's Syndrome (Trisomy 21) and Trisomy 18, as well as open neural tube defects including spina bifida. Ultrasound examination is performed between 11 weeks and 13 weeks gestational age. Blood tests are drawn after the ultrasound and again later in the between 15 and 21 weeks gestational age. Please let your physician know if you are interested in this testing. It will require an appointment with our geothermal hvac technician. This is not an ultrasound performed by a physician in our office during a routine visit. SIGNS AND SYMPTOMS OF LABOR 1. Contractions every 10 minutes or more often 2. Clear, pink, or brownish fluid (water) leaking from vagina 3. Feeling that baby is pushing down, pressure 4. Low, dull backache 5. Cramps that feel like a period 6. Cramps with or without diarrhea If you notice any of the above symptoms, contact our office at [phone] and ask to speak with a nurse. After hours, you can call doctors registry at [phone] OR call [facility] at [phone] and ask to have the doctor automation and control engineer paged. If you consider this an emergency, dial 9-8-0 or go to your nearest emergency department. NEED HELP? Are you dealing with a violent or abusive relationship? Are you a victim of rape or sexual assult? Call [facility] ([facility] 24 hour Crisis Hotline: 621.135.9014 or 543-819-0475. MANUAL Your Guide to a Healthy manual is now on-line. Visit [email or web address] to download your free copy documented in this encounter [facility] 04-06-2024 Progress note Formatting of this note might be differe nt from the original. SW- Pt doing well. NT today. No pain, vb, lof PE: Gen- NAD, well appearing Abd- ND See flowsheet A/p 12 wk gestation - Declines aneuploidy and carrier screening - NOB labs to be drawn - RTO 4 wks - Schedule anatomy US Wilfredo Campos DO [facility] 04-06-2024 Miscellaneous Notes Formatting of this note might be differe nt from the original. SW- Pt doing well. NT today. No pain, vb, lof PE: Gen- NAD, well appearing Abd- ND See flowsheet A/p 12 wk gestation - Declines aneuploidy and carrier screening - NOB labs to be drawn - RTO 4 wks - Schedule anatomy US Wilfredo Campos DO documented in this encounter [facility] 04-06-2024 Instructions Talita Cornell MA - 04/06/2024 9:45 AM EDT SEQUENTIAL SCREENINGS The [facility] offers sequential screenings for women who are interested in screenings for chromosomal abnormalities and certain defects during a . The sequential screen combines ultrasound and blood tests to determine the risk of chromosomal abnormalities, including Down's Syndrome (Trisomy 21) and Trisomy 18, as well as open neural tube defects including spina bifida. Ultrasound examination is performed between 11 weeks and 13 weeks gestational age. Blood tests are drawn after the ultrasound and again later in the between 15 and 21 weeks gestational age. Please let your physician know if you are interested in this testing. It will require an appointment with our geothermal hvac technician. This is not an ultrasound performed by a physician in our office during a routine visit. SIGNS AND SYMPTOMS OF LABOR 1. Contractions every 10 minutes or more often 2. Clear, pink, or brownish fluid (water) leaking from vagina 3. Feeling that baby is pushing down, pressure 4. Low, dull backache 5. Cramps that feel like a period 6. Cramps with or without diarrhea If you notice any of the above symptoms, contact our office at [phone] and ask to speak with a nurse. After hours, you can call doctors registry at [phone] OR call [facility] at [phone] and ask to have the doctor automation and control engineer paged. If you consider this an emergency, dial 9-1-9 or go to your nearest emergency department. NEED HELP? Are you dealing with a violent or abusive relationship? Are you a victim of rape or sexual assult? Call [facility] ([place]) 24 hour Crisis Hotline: 299.748.1025 or 376-988-3872. MANUAL Your Guide to a Healthy manual is now on-line. Visit [email or web address] to download your free copy documented in this encounter [facility] 03-23-2024 Progress note Formatting of this note might be differe nt from the original. KJ - Patient presents in ED follow up. She was seen for cramping & scant spotting. She denies any further bleeding. VB No. LOF No. CTXS No. Movement: absent. Other c/o: No. Medication list reviewed. Physical Exam See Flow Sheet Gen: no accute distress, well appearing TAUS: active fetus with fca A/P 10w6d Estimated Date of Delivery: 10/13/24 Reassuring bedside US Follow up for NT as scheduled Ted Harrison MD [facility] 03-23-2024 Miscellaneous Notes Formatting of this note might be differe nt from the original. KJ - Patient presents in ED follow up. She was seen for cramping & scant spotting. She denies any further bleeding. VB No. LOF No. CTXS No. Movement: absent. Other c/o: No. Medication list reviewed. Physical Exam See Flow Sheet Gen: no accute distress, well appearing TAUS: active fetus with fca A/P 10w6d Estimated Date of Delivery: 10/13/24 Reassuring bedside US Follow up for NT as scheduled Ted Harrison MD documented in this encounter [facility] 03-23-2024 Instructions Olivia Shen MA - 03/23/2024 1:17 PM EDT SEQUENTIAL SCREENINGS The [facility] offers sequential screenings for women who are interested in screenings for chromosomal abnormalities and certain defects during a . The sequential screen combines ultrasound and blood tests to determine the risk of chromosomal abnormalities, including Down's Syndrome (Trisomy 21) and Trisomy 18, as well as open neural tube defects including spina bifida. Ultrasound examination is performed between 11 weeks and 13 weeks gestational age. Blood tests are drawn after the ultrasound and again later in the between 15 and 21 weeks gestational age. Please let your physician know if you are interested in this testing. It will require an appointment with our geothermal hvac technician. This is not an ultrasound performed by a physician in our office during a routine visit. SIGNS AND SYMPTOMS OF LABOR 1. Contractions every 10 minutes or more often 2. Clear, pink, or brownish fluid (water) leaking from vagina 3. Feeling that baby is pushing down, pressure 4. Low, dull backache 5. Cramps that feel like a period 6. Cramps with or without diarrhea If you notice any of the above symptoms, contact our office at [phone] and ask to speak with a nurse. After hours, you can call doctors registry at [phone] OR call [facility] at [phone] and ask to have the doctor automation and control engineer paged. If you consider this an emergency, dial 9-1-9 or go to your nearest emergency department. NEED HELP? Are you dealing with a violent or abusive relationship? Are you a victim of rape or sexual assult? Call [facility] [place] ([place]) 24 hour Crisis Hotline: 976.942.4465 or 492-242-9147. MANUAL Your Guide to a Healthy manual is now on-line. Visit [email or web address] to download your free copy documented in this encounter [facility] 03-09-2024 Progress note Formatting of this note might be differe nt from the original. Patient seen for NOB. See progress note. Carrie Garay APRN.CNM [facility] 03-09-2024 Miscellaneous Notes Formatting of this note might be differe nt from the original. Patient seen for NOB. See progress note. Carrie Garay APRN.CNM documented in this encounter [facility] 03-09-2024 History of Present illness Narrative Formatting of this note might be differe nt from the original. OB point of care ultrasound was performed. See imaging tab for details. Tree Faust MA INITIAL OB ASSESSMENT HPI: Rosa is a 23 year old No obstetric history on file. White here to establish Obstetrical Care. Patient's last menstrual period was 01/07/2024. from OB Dating Form. was unplanned but accepted Complaints: Severe nausea/vomiting OB History T1 L1 SAB0 IAB0 Ectopic0 Multiple0 Live Births1 Previous history: Prior : No History of 4th degree laceration: Perineal Laceration, 3rd or 4th degree No History of shoulder dystocia: Shoulder Dystocia No History of Hypertensive disorders including pre-eclampsia or gestational hypertension: Gestational Hypertension No Preeclampsia No History of gestational diabetes: Diabetes in No Patient's Risk Screening for delivery: Have you had a prior olmos between 20w and 36w6d? No How many pregnancies have you had before? 1 Did you have a previous baby with a GBS Infection? No Please select all that apply for any prior : N/A MEDICAL/PSYCHOSOCIAL HISTORY: Severe bleeding with delivery No Thyroid Disease No Gestational Hypertension No Preeclampsia No Diabetes in No No results found for: ABORHD BMI 19.07 kg/(m^2) Last Pap: History of abnormal pap: Abnormal Pap No Prior treatment for cervical dysplasia: none Last HPV: N/A History of STDs: possibly Herpes (HSV1) Partner History of STDs: HSV Did you have a partner with Herpes? (!) Yes Tobacco use: No E-Cigarette/Vaping Use: No Caffeine use: Occasional Drug use: Did use marijuana, has since quit Alcohol use: No Multivitamin with Folic acid: Yes Would refuse blood transfusion if medically necessary: No Social Needs: How often does this describe you? I don't have enough money to pay my bills: Never Within the past 12 months, have you worried that your food would run out before you had money to buy more? Never In the past 12 months, has lack of reliable transportation kept you from going to medical appointments or work, or from getting things needed for daily living? Never In the past 12 months, have you had any concerns about having a place to live, or about the condition or quality of your housing? Never Would you like more information on any of the following (please check all that apply)? Centering (group care classes); [facility]; [facility]ianest[facility] Nurse care Social History: Do you have any history of depression, anxiety, PTSD, or other mood problems? No Do you have a history of abuse or trauma that may impact your experience? No Are you currently employed? No Depression/Anxiety Screening: denies symptoms of depression. OB Depression and Anxiety Screening- This Encounter (since 03/08/2024) Over the past 2 weeks have you felt down, depressed, or hopeless? Negative Over the past two weeks, have you felt little interest or pleasure in doing things? Negative Feeling nervous, anxious or on edge 0-Not at all Not being able to stop or control worrying 0-Not al all Anxiety Pre-Screening Total (If >/= 3 additional questions will be reviewed) 0 Genetic Screening: Partner present: No Patient verbalized knowledge of partner family health history: No Do you or your partner have any personal or family history of defects not previously discussed: No Do you have history of a complicated by anomaly, genetic condition, or demise: No Low Dose ASA Screening: Screening for low dose aspirin use for the prevention of pre-eclampsia: High risk factors: None Moderate risk ractors: None OB Risk Screening: Completed, positive findings include: Patient answered 'Yes' to Partner with Herpes Marital Status:Co-habitating Partner: Name: Elijah Age: 29 Occupation: Works for [employer] Gender: Male PAST MEDICAL HISTORY No date: History of depression Comment: after my first PAST SURGICAL HISTORY No date: EXTRACTION, ERUPTED TOOTH OR EXPOSED ROOT (ELEVATION AND/OR FORCEPS REMOVAL) No date: TONSILLECTOMY & ADENOIDECTOMY <AGE 12 Current Outpatient Medications Medication Sig Dispense Refill no122/iron/folic acid ( MULTI ORAL) Take by mouth. No current facility-administered medications for this visit. Allergies As of Date: 03/09/2024 Allergen Noted Reaction LATEX 09/22/2022 Swelling PENICILLINS 09/22/2022 Hives Fully Assessed 03/09/2024 Does patient have penicillin allergy: Yes, plan for allergy testing. REVIEW OF SYSTEMS: GENERAL: Negative for: Fever or Chills and Positive for: Fatigue HEENT: Negative for: Headache, Impaired Vision, Ringing in Ears, Nosebleeds NECK: Negative for: Swelling, Pain, Stiffness RESPIRATORY: Negative for: Cough, Shortness of breath, Wheezing GASTROINTESTINAL: Negative for: Heartburn, Constipation, Diarrhea, Blood in stool, Vomiting, Positive for: Constipation, Positive for: Nausea and Vomiting, and Positive for: Heartburn MUSCULOSKELETAL: Negative for: Muscle or joint pain, stiffness, Joint swelling NEUROLOGIC/PSYCHIATRIC: Negative for: Weakness, Paralysis, Numbness, Tingling, Tremor, Memory loss and positive for pp anxiety / depression- no medications SKIN: Negative for: Rash, Itching GENITOURINARY: Negative for: vaginal itching, vaginal discharge, hematuria or dysuria PHYSICAL EXAM: BP 92/64 Ht 5' 5 (1.65m) Wt 114 lb 9.6 oz (52.0kg) LMP 01/07/2024 BMI 19.07 kg/(m^2). GENERAL: pleasant in no apparent distress DERMATOLOGY: Normal and without lesions NECK: Supple and full range of motion CHEST: Normal inspiratory effort BREAST: soft, non-tender, symmetric, no dominant mass, normal nipple-areolar complex, no lymphadenopathy, and no nipple discharge ABDOMEN: soft, non-tender, and no masses NEURO: alert and oriented x3,exam grossly non-focal PELVIS: External genitalia normal without lesions. Perineal body intact. No cervical lesions. Cervix closed. Vaginal introits with small non- approximated opening- possible laceration from previous delivery that was not repaired. Clinical Pelvimetry: Pelvimetry clinically assessed as adequate Limited OB ultrasound exam: single intrauterine , positive cardiac activity, and crown-rump length 8.2 weeks gestation ASSESSMENT/PLAN: 1. with uncertain dates, antepartum - ICD9: V22.1, ICD10: Z34.90 (primary diagnosis) 2. Screening for cervical cancer - ICD9: V76.2, ICD10: Z12.4 3. Screening for human papillomavirus - ICD9: V73.81, ICD10: Z11.51 4. Nausea and vomiting during - ICD9: 643.90, ICD10: O21.9 5. 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 8 weeks gestation of - ICD9: V22.2, ICD10: Z3A.08 9. Encounter for supervision of normal first in first trimester - ICD9: V22.0, ICD10: Z34.01 10. Body mass index (BMI) of 19.0 to 19.9 in adult - ICD9: V85.1, ICD10: Z68.1 PLAN: 1) Patient oriented to practice. Discussed nutrition, folic acid supplementation, dietary guidelines, exercise, smoking, alcohol, caffeine, and drug use. Discussed gestational weight gain guidelines. Discussed routine OB labs including STD/HIV. Discussed how to access Your guide to a health and the [employer]. Patient has penicillin allergy, plan for allergy testing. Reviewed midwifery and gage designer services that are available. Rx Protonix 40 mg PO Daily Vitamin B6 and Unisom 2) Screening: Hemoglobin A1C: declined Baby Aspirin: The patient has been counseled about the potential benefits of low dose aspirin in and our recommendation that this be offered to all patients, regardless of whether they meet the high risk criteria specified above. She Declines Aneuploidy Screening: Discussed aneuploidy screening, nuchal translucency/first trimester early anatomy ultrasound and NIPT. The risks/benefits and limitations of NIPT/aneuploidy screening were reviewed including the potential for false negative and false positive results. The availability of genetic counseling was reviewed. Information on aneuploidy screening was provided. The patient declines screening Myriad Carrier Screening: Discussed myriad carrier screening. We discussed the availability of professional-society guided carrier screening and reviewed the conditions screened and limitations of screening. The availability of genetic counseling was reviewed. Information on carrier screening was provided. The patient Declines 3) Patient offered option of Virtual Visits. Patient prefers in person visits. Follow up in 4 weeks or sooner prn. Carrie Garay APRN.CNM documented in this encounter [facility] 03-09-2024 Instructions Carrie Garay APRN.CNM - 03/09/2024 8:44 AM EDT Please select the following link to access the [facility] Your Guide to a Healthy . [email or web address] As you may already know, morning sickness can often be more appropriately called evening sickness or feuxh-vdmmuq-vt-the-day sickness. While there are the shahram few, most women (50-90%) experience some degree of nausea, some have vomiting, and a few develop a severe form of vomiting during called hyperemesis gravidarum. What causes the nausea and vomiting of ? We can't explain why some people feel fine and others are green for months. Even the same woman may feel vastly different in each . There is some relationship between nausea and the level of the hormone hCG. In twin pregnancies, and in other situations where the hCG is greater than expected, nausea and vomiting tend to be worse. In a destined for miscarriage, hCG levels tend to be low, and nausea is often less severe. This being said, a lack of nausea doesn't guarantee that the is destined for miscarriage. The fact that nausea and vomiting are often signs of a healthy can offer a silver lining in the dark cloud of miserable nausea. How long will the nausea last? Fortunately, for most women, nausea and vomiting are a first trimester event, peaking at week 9-10 and waning by week 14-16. When you are feeling bad the weeks can go by slowly but most moms do feel tremendously better by the middle of the . Whether morning sickness is a brief experience or lasts through most of the , there are treatments that can make the weeks or months more tolerable. What can you do about it? Diet: See what works for you. Try eating bland dry foods, and avoid fatty or spicy foods. It is okay to eat a less than perfectly balanced diet in the first trimester. Have your liquids separately from dry foods. Try sports drinks, water, clear juices, Roger-aid, or non-caffeinated tea. Avoid carbonated beverages that fill up your stomach. Try eating lots of little meals. If you tend to feel sick when you first wake up, leave crackers next to the bed for a quick snack before rising. Keeping healthy snacks with you all day to nibble when you feel queasy can sometimes even prevent nausea from starting. vitamins and nausea: Pre- vitamins can sometimes worsen nausea in . While folate is necessary, especially early in the , it comes as a smaller pill that many people find more tolerable than the complete vitamin pill. Ask your practitioner if it is okay to temporarily replace vitamins and iron with just a folate pill if you find a significant worsening in the level of your nausea from the vitamins. Alternative therapies: Acupressure may be used to treat nausea in , and is not known to have any risks for the fetus. Wristbands (marketed for seasickness) that put pressure on an acupressure point at the wrist are often available at drugstores or travel stores. Latricia root is used for nausea in many traditional cultures. Some women take fresh grated latricia or latricia tablets. It is possible that the pill form contains other ingredients or contaminants, so you may want to try fresh latricia first. Medications: Emetrol is the only nausea medication approved for use in . It is available over the counter and is soothing to the stomach. A prescription medication called Bendectin was available in the 1970s-1979's and was shown to be safe in , but the company stopped marketing it in the [place] due to the costs of liability coverage. Bendectin contained 10 milligrams of vitamin B6 and 10 milligrams of Doxylamine. Two tablets were given at bedtime and a total of up to 4 tablets could be used in a 24-hour period. Interestingly, Unisom , which contains a higher dose (25 mg.) of the same medication, Doxylamine, is currently marketed as an hagj-pkk-fvyhmde sleeping pill. Ask your practitioner if creating a vitamin B6/Doxylamine combination with nffp-cmc-aneugol medications would be safe for you. Prescription medications like Compazine and Phenergan can be used if the benefits outweigh possible risks, but these have not been clearly shown to be safe in . Zofran , an expensive anti-nausea medication often used to treat nausea from chemotherapy, can also be used. Can I throw up so much it harms the baby? The act of vomiting cannot hurt your fetus, which is protected inside the uterus. If you get dehydrated or develop a metabolic imbalance, this can be unhealthy. As long as you can keep down liquids, you and your baby will generally do all right. Eat when you feel able. If you are unable to keep anything down, or if you notice potential signs of dehydration such as lightheadedness, or concentrated and/or infrequent urination, call your practitioner. Some women need brief hospital admission for intravenous fluids and anti-nausea medications if their condition becomes severe. This severe form of nausea and vomiting is called Hyperemesis Gravidarum. As with many symptoms of , remind yourself that this, too, shall pass, and you'll have a wonderful baby to show for it! TREATMENT OPTIONS, SHORT VERSION: Frequent small meals Hydrate throughout day [employer] wrist pressure point applicators Latricia root (powdered, in capsules) 250mg four times a day Vitamin B6 25 mg tablet three times a day Also may be taken with half a tablet of Unisom three times a day (Doxylamine 12.5 mg) If severe (weight loss, dehydration), call us and come in for IV hydration and possible medication in the form of injections. Prescription medications such as Phenergan, Compazine, Reglan documented in this encounter [facility] 11-13-2023 Note . MICRO - Microbiology PROCEDURE: Culture Beta Strep Only [*1] SOURCE: Throat BODY SITE: Throat COLLECTED DATE/TIME: 11/11/2023 19:24 EDT RECEIVED DATE/TIME: 11/11/2023 22:52 EDT START DATE/TIME: 11/11/2023 22:53 EDT FREE TEXT SOURCE: FINAL REPORTS Final Report [] Verified Date/Time/Personnel: 11/13/2023 07:24 EDT No Beta Strep isolated at 48hrs. PRELIMINARY REPORTS Preliminary Report [] Verified Date/Time/Personnel: 11/12/2023 11:04 EDT No beta Strep isolated at 24 hours. Performing Locations *1: This test was performed at: [facility], [address] [place] [address], [facility] , [facility] ([place]) 08-04-2023 Hospital Discharge instructions Patient Education 08/04/2023 09:09:36 Abrasions Abrasions Abrasions are skin scrapes. Their treatment depends on how large and deep the abrasion is. Home care You may be prescribed an antibiotic cream or ointment to apply to the wound. This helps prevent infection. Follow instructions when using this medicine. General care To care for the abrasion, do the following each day for as long as directed by your healthcare provider. oIf you were given a bandage, change it once a day. If your bandage sticks to the wound, soak it in warm water until it loosens. oWash the area with soap and warm water. You may do this in a sink or under a tub faucet or shower. Rinse off the soap. Then pat the area dry with a clean towel. oIf antibiotic ointment or cream was prescribed, reapply it to the wound as directed. Cover the wound with a fresh nonstick bandage. If the bandage becomes wet or dirty, change it as soon as possible. oSome antibiotic ointments or cream can cause an allergic reaction or dermatitis. This may cause redness, itching and or hives. If this occurs, stop using the ointment immediately and wash off any remaining ointment. You may need to take some allergy medicine to relieve symptoms. You may use acetaminophen or ibuprofen to control pain unless another pain medicine was prescribed. Talk with your healthcare provider before using these medicines if you have chronic liver or kidney disease or ever had a stomach ulcer or GI bleeding. Don t use ibuprofen in children younger than six months old. Most skin wounds heal within 10 days. But an infection may occur even with treatment. So it s important to watch the wound for signs of infection as listed below. Follow-up care Follow up with your healthcare provider, or as advised. When to seek medical advice Call your healthcare provider right away if any of these occur: Fever of 100.4 F (38 C) or higher, or as directed by your healthcare provider Increasing pain, redness, swelling, or drainage from the wound Bleeding from the wound that does not stop after a few minutes of steady, firm pressure Decreased ability to move any body part near the wound 8612-1244 [employer]. [address] [place] [address]. All rights reserved. This information is not intended as a substitute for professional medical care. Always follow your healthcare professional's instructions. 08/04/2023 09:09:35 Fracture, Clavicle Collarbone Fracture You have a break (fracture) in your collarbone (clavicle). This will cause swelling, pain, and bruising. The first few weeks will be the most painful. This is because deep breathing, coughing, or changing position from sitting to lying down may cause the broken ends to move slightly. The fracture will heal in about 4 to 6 weeks. Most people can return to normal activities in about 3 months. In children, this injury will heal often by reshaping the bone back to normal. In adults, a noticeable bump in the bone may remain. Treatment is with a sling or a special type of arm sling called a shoulder immobilizer. This supports your arm and eases pain. Home care Follow these guidelines when caring for yourself or your child at home: Put an ice pack on the injured area. Do this for 20 minutes every 1 to 2 hours on the first day. You can make an ice pack by wrapping a plastic bag of ice cubes in a thin towel. Keep using the ice pack 3 to 4 times a day for the next 2 days. Then use it as needed to ease pain and swelling. If you were given a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 reviewed with patient per nurse with discharge To be discharged to home. Denies any concerns at this time. Additional Information: N/A Mental Health Services: N/A Developmental Delay: N/A Children's Services: N/A [facility] 03-29-2023 Miscellaneous Notes Formatting of this note might be differe nt from the original. Date: 03/29/2023 Name: Rosa Schuler : 2000 [facility] Information Patient Information Primary Caregiver: Self Accompanied by/Relationship: S/O;Family Marital Status: Support System: SO/Family Amish/Cultural Factors: Activities of Daily Living Communication: See demographics Living Arrangements Current Residence: Private residence Lives With: S/O; Family Support System: S/O; Family Income Information Income Source: Employed Financial Resource Strain How hard is it for you to pay for the very basics like food, housing, medical care and heating? N/A Housing Stability In the last 12 months, was there a time when you did not have a steady place to sleep or slept in a retirement (including now)? No Transportation Needs Has the lack of Transportation kept you from medical appointments? No In the past 12 months, has the lack of transportation kept you from meetings, work, or from getting things needed for daily living? No Food Insecurity Within the past 12 months, have you worried that your food would run out before you got the money to buy more? No Stress Do you feel stress - tense, restless, nervous, or anxious, or unable to sleep at night because you mind is troubled all the time? Mood stable Referral To Financial Resources: N/A Community Resources: Admission folder given upon admission to PP Unit Social Work: N/A CLP: N/A Medical Information 22 year old admitted for active labor at 39 weeks. 1 Para 0. Vaginal delivery. History of THC, patient states she did not used during . MAT negative. Discharge Plan Home or Community Resources: Admission folder given upon admission to PP unit Equipment: N/A Education Given: Patient is independent and has insurance. She is prepared with her baby supplies. Denies any needs for housing, transportation or food. Discussion on the A. B. C's of safe sleep. Always place your baby on his or her back to sleep, use a firm sleep surface and your baby should not sleep in an adult bed, on a couch or chair. Keep soft objects, toys and loose bedding out of your baby's sleep area. Reviewed depression. It is common to have blues. This is a normal response to many of the hormonal changes, stress and lack of sleep that go with raising a and physically recovering from the . Don't hesitate to talk to your provider with any concerns. There are resources in your home going booklet. To help prevent germs from spreading to you and your baby, make sure everyone washes their hands before they handle your . Avoid crowds, and keep infant away from sick people, anyone who is sick with a cough or fever, including family members. Post- warning signs information reviewed with patient per nurse with discharge To be discharged to home. Denies any concerns at this time. Additional Information: N/A Mental Health Services: N/A Developmental Delay: N/A Children's Services: N/A Attempted latch, latches, sucks a few times then off breast, repeated multiple times and no transfer obtained. Following plan is previous note for home. Parents educated that infant did not transfer during time of breast Sw consult due to hx thc use, tox negative on admission. Per RN CM, pt reports no use of thc during . SW available if needed Shown section of Taking Care of Yourself and Baby' Booklet. Reviewed baby-led, cue based feedings (8-12x/day), how to know baby is getting enough, output parameters and milk storage guidelines. Discussed engorgement, plugged ducts and mastitis. Patient encouraged to seek help LAURYN for any concerns. phone number and [facility] information shared from booklet. Mom voiced understanding. No further questions. States has been better at latching, encouraged mother to call for observation before discharge and strongly encouraged for mother to come to group after discharge Home plan as follows: Patient to feed on demand but if it's been 2-3 hrs and infant is not showing hunger signs, to unwrap infant, place skin to skin, hand express and attempt infant at breast for 15-20 minutes. If becomes fussy at breast, calm and retry. If no latch obtained after 15-20 minutes or infant not transferring approprietly at breast, supplement infant with 2-10 ml (first 24 hrs) 5-15 ml (24-48 hrs) 15-30 ml (48-72 hr) and 30-60 (72-96 hrs) may require more if infant still showing hunger signs. If no STEVO available then formula will need to be given to make up difference. Discussed all alterative feeding methods and nipple confusion risks with mother. Educated mother every time supplementation is given, mother must pump with double electric breast pump to protect milk supply. Mother states understanding of importance of pumping 8-10 times a day. If able to latch and transfers well and no supplementation given then no need to pump. Parents states understanding of feeding plan. Strongly encouraged calling for more observation before discharge and to come to support group for update in plan Called in to mom's room. Mom states she tried to nurse baby but baby will not latch. Mom pumping. Instructed dad on paced bottlefeeding. Instructed to give baby 15cc formula if not latching and nursing. Mom should continue to pump. Attempted baby at breast again but baby sleepy and not rooting. Mom set up with hospital bedside pump, no STEVO obtained. Finger fed baby 12cc formula to assist with suck training and organizing his suck. Baby over 24 hours old and has not latched. Getting drops of colostrum. Attempted to latch baby in laid back position, infant alert but not rooting. Helped mom express a spoonful of colostrum. Finger fed the 2 ml STEVO to baby. Placed baby skin to skin to see if baby with start rooting after receiving the colostrum. Mom has Spectra pump for home. Images from the original note were not included. Vaginal Delivery Note Department of Obstetrics and Gynecology Patient: Rosa Schuler : 2000 Date of delivery: 03/27/2023 Pre-operative Diagnosis: Rosa Schuler at 39w0d 1. Thyroid nodule 2. HSV 3. Hx THC use 4. Equivocal Varicella IgM, Positive IgG Post-operative Diagnosis: Live Born male Delivering Audio Engineer & Risk Advisor(s): Dr. Mac; Dr. Kim Infant Information: Information for the patient's : Govind Schuler [[id number]] Information for the patient's : Govind Schuler [[id number]] Description: normal Meconium Noted: No Anesthesia: epidural anesthesia Complications: None Application and Delivery: Rosa Schuler at 39w0d admitted for active labor. Her labor course AROM with blood tinged fluid. She was known to be GBS positive and received Vancomycin prophylaxis. After pushing with contractions the head delivered Cephalic, occiput anterior over an intact perineum. A nuchal cord was not present. The anterior, then posterior shoulder delivered easily and atraumatically followed by the rest of the . The was placed on the maternal abdomen and attended by the RN for evaluation. The infant was stimulated and dried. The cord was clamped and cut. The delivery of the placenta was spontaneous and appeared intact. Pitocin was started. The vagina was swept of all clots and debris. The perineum and vagina were evaluated. No lacerations were found.. All counts were correct. Mother and baby tolerated procedure well. No uterotonics were required during delivery. EBL: 100ml QBL: VTE Prophylaxis: Not Indicated LABOR DELIVERY ??? SCD's ONLY (labor through ambulation) SCD's PLUS Prophylactic Anticoagulation until discharge SCD's PLUS Prophylactic Anticoagulation for 6 weeks SCD's PLUS Therapeutic Anticoagulation for 6 weeks Vaginal Delivery [] BMI ? 40 kg/m2 Delivery All patients Vaginal Delivery [] BMI ? 40 kg/m2 AND [] Antepartum hospitalization ? 72 hours within the past month Delivery 1 Major Risk Factor: [] BMI ? 35 kg/m2 [] Low Risk Thrombophilia [] PPH+RBCs, IR, or operation [] Infection+Antibiotics [] Antepartum hospitalization ? 72 hours within the past month [] PMH: Sickle Cell, SLE, Cardiac Dz, Active IBD, Active Cancer, Nephrotic Syndrome OR 2 Minor Risk Factors: [] Multiple gestation [] Age > 40 [] PPH ? 1,000cc [] (+)FMH of VTE [] Smoker [] Preeclampsia [] BMI ? 40 kg/m2 AND [] Low Risk Thrombophilia OR ANY OF THE FOLLOWING: [] High Risk Thrombophilia without prior VTE [] Low Risk Thrombophilia with (+)FMH of VTE [] Any single prior VTE ANY OF THE FOLLOWING: [] Already on LMWH/UFH [] Multiple prior VTE [] High Risk Thrombophilia with prior VTE Low Risk Thrombophilia: FVL (heterozygous), Prothrombin (heterozygous), Protein C, Protein S High Risk Thrombophilia: FVL (homozygous), Prothrombin (homozygous), FVL+Prothrombin (heterozygous), Antithrombin III, APLS Specimen: Cord Gases Blood Type and Rh: O Rubella Immunity Status: No results found for: RUBELLAMINDY Kim DO 03/27/2023, 9:03 AM Associated attestation - Laurie Mac DO - 03/27/2023 1:27 PM EDT I was present and scrubbed the entire delivery and agree with the delivery note. documented in this encounter [facility] 03-29-2023 Hospital course Narrative Formatting of this note is different fro m the original. Images from the original note were not included. Obstetric Discharge Summary Rosa Schuler 03/26/2023 Reasons for Admission on 03/26/2023 8:46 PM Indication for care in labor and delivery, antepartum [O75.9] Onset of Labor Surgical Operations & Procedures: Delivery Type: Vaginal, Spontaneous Delivery Laceration(s): none Delivery Complications: none Pertinent Findings & Procedures: Information for the patient's : Govind Schuler [[id number]] male 3125 g (6 lb 14.2 oz) Apgars: Information for the patient's : Govind Schuler [[id number]] course normal. Blood Type/Rh: No results found for: ABORH Antibody Screen: No results found for: LABANTI Rubella: No results found for: RUBELLAIGG Discharge to: Home Contraception: Will discuss at PP visit : yes Meds: Medication List START taking these medications DSS 100 MG capsule Take 1 capsule (100 mg) by mouth 2 times daily as needed for constipation (Vaginal Delivery) for up to 10 days. ibuprofen 600 MG tablet Take 1 tablet (600 mg) by mouth every 6 hours as needed for mild pain (1-3). CONTINUE taking these medications 1 PO valACYclovir 500 MG tablet Commonly known as: Valtrex Where to Get Your Medications These medications were sent to [facility] [address] [facility] [address] [facility] [address] DSS 100 MG capsule ibuprofen 600 MG tablet Activity: activity as tolerated and no lifting, sex, or Strenuous exercise for 6 weeks. Diet: regular diet Follow up: 5-6 weeks with Primary OB Condition on discharge: good and stable Discharge date: 03/29/2023 Indication for care in labor and delivery, antepartum [O75.9] Patient Active Problem List Diagnosis Spontaneous vaginal delivery GARRETT Yen on 03/29/2023 at 11:24 AM Comments: Home care, Follow-up care and control were reviewed. Signs and symptoms of mastitis and Post Depression were reviewed. The patient is to notify her physician if any of these occur. documented in this encounter [facility] 03-29-2023 Hospital Discharge instructions AGRRETT Yen - 03/29/2023 11:23 AM EDT Images from the original note were not included. Thank you for allowing us to care of you at [facility]. This time can be one of many emotional ups and downs and many changes in your life. In these first weeks try to take good care of yourself because you will likely feel very tired. It may take 4 to 6 weeks to feel like yourself again, and possibly longer if you had a . FOLLOW-UP: Your follow-up care is a ivy part of your treatment and safety. Follow-up with your OB providerin 4 weeks or as specified by your OB provider. If you had high blood pressure, visit your OB provider within 3-5 days after being home. Most women's blood pressure will return to pre- levels after delivery. However, some patients continue to have problems with their blood pressure, and some even get worse. Very high blood pressure can lead to seizures or stroke which can be life threatening. If ordered by your provider, take your blood pressure at home and call your OB provider if you have a high reading. Your OB provider can write you a prescription for a blood pressure monitor if you do not have one. Be sure to make and go to all appointments, and call your OB provider if you are having problems. It's also a good idea to know your test results and keep a list of the medicines you take. BLEEDING Vaginal bleeding will decrease in amount over the next few weeks. Bleeding may picking belt operator and then decrease again around 7-10 days . Use pads instead of tampons for the bloody flow that may last as long as 2 weeks. You will notice that as your activity increases, your flow may increase. Call your provider if you are saturating one maxi pad in an hour & passing large clots for 3 hours or more. ACTIVITY NO SEXUAL activity for 6 weeks or until advised by your OB provider; Nothing in vagina: intercourse, tampons, or douching. Begin to think about your reproductive life plan. Talk to your OB provider about if and when you would like another baby in the future. The recommendation for safe spacing is 18-24 months. Showering is okay; NO tub baths, swimming, or hot tubs. Gradually increase your activity. Resume exercise regimen only after advised by your )OB provider. Avoid lifting anything heavier than ten pounds or a gallon of milk for six weeks. Avoid driving 1 week for vaginal delivery and 2 weeks for section, or longer if you are on prescription pain medicine unless otherwise instructed by your OB provider . Rise slowly from a lying to sitting and then a standing position. Climb stairs carefully. You may feel tired or have a lack of energy. You may continue your vitamin to replenish nutrients post-delivery. Nap when whenever you can to catch up on sleep. EMOTIONS You may feel crawford, sad, teary, & overwhelmed for the first 2 weeks ; however, feelings of depression may occur any time within the first year after delivery. Contact your OB provider if you feel you may be showing signs of depression, or have thoughts of harming yourself or or anyone.. WOUND CARE For Vaginal Delivery: Shower daily, and cleanse your perineum (bottom) with mild soap from front to back. Use the plastic squirt bottle until bleeding stops each time you use the restroom instead of wiping with toilet paper. Ease soreness of hemorrhoids and the area between your vagina and rectum with ice compresses or witch sudarshan pads. If used, stitches will dissolve in 4-6 weeks on their own. You may use a sitz bath or soak in a clean tub with drain open and water running for comfort. Kegel exercises will help restore bladder control. To do these tighten your muscles as if you were stopping your urine flow. Hold for a few seconds and then relax. Do these throughout the day. For Section Delivery: Keep your incision clean and dry. If you had steri-strips you may remove these once they start falling off. If you have bertin they need to be removed 3-10 daysafter delivery. If you have steri-strips, remove after 7 - 10 days. Do not wear clothing that irritates the incision line. If your incision is in a crease that is not dry, use a hair-dryer to dry the area 3 times a day. If you develop fever, shaking chills, redness, swelling, drainage or discharge from your wound, or if your wound looks like it is coming apart call your provider immediately. BREAST CARE If you develop a warm, red, tender area on your breast or develop a fever contact your OB provider. If your breasts become engorged ask your provider because treatment can vary according to your needs. DIET & CONSTIPATION Eat a well-balanced diet focusing on foods high in fiber and protein such as: whole grain cereals and breads, fruits and vegetables and legumes (eg, beans, lentils) Drink 8-10 glasses of fluids daily, especially water. Limit caffeine. To avoid constipation you may take a mild wrfj-brs-pmmohxm stool softener (such as colace) as recommended by your OB provider. SWELLING Try to keep your legs elevated when you are sitting or lying down. Stay hydrated and take walks. If you had high blood pressure, weigh yourself at the same time each day. Write down your weight and take the record to your OB provider appointment. MEDICATIONS Take all medications prescribed for you exactly as ordered. Don't take any drugs not prescribed to you or over the counter medicines unless recommended by your provider. Don't smoke. WHEN TO CALL THE OB PROVIDER Signs of infection, including fever and chills Increased bleeding: soaking more than one pad an hour or passing clots the size of an egg or larger. Wounds that become red, swollen or drain pus Vaginal discharge that smells foul New pain, swelling, or tenderness in your legs Pain that you can't control with the medications you've been given Pain, burning, urgency or frequency of urination, or persistent bleeding in the urine Cough, shortness of breath, or serious difficulty catching your breath Chest pain or pain in the upper right area of your belly Headache (very painful) or vision changes like blurry or double vision, seeing spots or 'auras' Swelling that is worse or weight gain of more than 3 pounds in 3 days Depression, suicidal thoughts, or feelings of harming someone else Breasts that are hot, red and accompanied by fever Any cracking or bleeding from the nipple or areola (the dark-colored area of the breast) You may have been given a magnet like this: If so, we encourage you to use it on your refrigerator as a reminder of when to call your OB provider. IIn case of an emergency, call 911 immediately. If you are Covid-19 positive or a Person Under Investigation (PUI) These could be signs that your COVID-19 symptoms are worsening and you may need emergency care: You are severely dizzy or lightheaded. You are confused or can't think clearly. Your face and lips have a blue color. You are unable to respond to others or are very hard to wake up. Prevention steps for People with confirmed or suspected COVID-19 (including persons under investigation) who do not need to be hospitalized and People with confirmed COVID-19 who were hospitalized and determined to be medically stable to go home Your healthcare provider and public health staff will evaluate whe ther you can be cared for at home. If it is determined that you do not need to be hospitalized and can be isolated at home, you will be monitored by staff from your local or state health department. You should follow the prevention steps below until a healthcare provider or local or state health department says you can return to your normal activities. Stay home except to get medical care People who are mildly ill with COVID-19 are able to isolate at home during their illness. You should restrict activities outside your home, except for getting medical care. Do not go to work, school, or public areas. Avoid using public transportation, ride-sharing, or taxis. Separate yourself from other people and animals in your home People: As much as possible, you should stay in a specific room and away from other people in your home. Also, you should use a separate bathroom, if available. Animals: You should restrict contact with pets and other animals while you are sick with COVID-19, just like you would around other people. Although there have not been reports of pets or other animals becoming sick with COVID-19, it is still recommended that people sick with COVID-19 limit contact with animals until more information is known about the virus. When possible, have another member of your household care for your animals while you are sick. If you are sick with COVID-19, avoid contact with your pet, including petting, snuggling, being kissed or licked, and sharing food. If you must care for your pet or be around animals while you are sick, wash your hands before and after you interact with pets and wear a facemask. Call ahead before visiting your provider If you have a medical appointment, call the healthcare provider and tell them that you have or may have COVID-19. This will help the healthcare provider's office take steps to keep other people from getting infected or exposed. Wear a facemask You should wear a facemask when you are around other people (e.g., sharing a room or vehicle) or pets and before you enter a healthcare provider's office. If you are not able to wear a facemask (for example, because it causes trouble breathing), then people who live with you should not stay in the same room with you, or they should wear a facemask if they enter your room. Cover your coughs and sneezes Cover your mouth and nose with a tissue when you cough or sneeze. Throw used tissues in a lined trash can. Immediately wash your hands with soap and water for at least 20 seconds or, if soap and water are not available, clean your hands with an alcohol-based hand director pharmacology that contains at least 60% alcohol. Clean your hands often Wash your hands often with soap and water for at least 20 seconds, especially after blowing your nose, coughing, or sneezing; going to the bathroom; and before eating or preparing food. If soap and water are not readily available, use an alcohol-based hand director pharmacology with at least 60% alcohol, covering all surfaces of your hands and rubbing them together until they feel dry. Soap and water are the best option if hands are visibly dirty. Avoid touching your eyes, nose, and mouth with unwashed hands. Avoid sharing personal household items You should not share dishes, drinking glasses, cups, eating utensils, towels, or bedding with other people or pets in your home. After using these items, they should be washed thoroughly with soap and water. Clean all high-touch surfaces everyday High touch surfaces include counters, tabletops, doorknobs, bathroom fixtures, toilets, phones, keyboards, tablets, and bedside tables. Also, clean any surfaces that may have blood, stool, or body fluids on them. Use a household cleaning spray or wipe, according to the label instructions. Labels contain instructions for safe and effective use of the cleaning product including precautions you should take when applying the product, such as wearing gloves and making sure you have good ventilation during use of the product. Monitor your symptoms Seek prompt medical attention if your illness is worsening (e.g., difficulty breathing). Before seeking care, call your healthcare provider and tell them that you have, or are being evaluated for, COVID-19. Put on a facemask before you enter the facility. These steps will help the healthcare provider's office to keep other people in the office or waiting room from getting infected or exposed. Ask your healthcare provider to call the local or state health department. Persons who are placed under active monitoring or facilitated self-monitoring should follow instructions provided by their local health department or occupational health professionals, as appropriate. When working with your local health department check their available hours. If you have a medical emergency and need to call 911, notify the dispatch personnel that you have, or are being evaluated for COVID-19. If possible, put on a facemask before emergency medical services arrive. Discontinuing home isolation Patients with confirmed COVID-19 should remain under home isolation precautions until the risk of secondary transmission to others is thought to be low. The decision to discontinue home isolation precautions should be made on a ahao-qp-rwpt basis, in consultation with healthcare providers and state and local health departments. Information on COVID-19 for all patients Call your provider before your next appointment if you develop any of the following symptoms: fever, cough, fatigue, anorexia, shortness of breath, sputum production, and muscle pains. Headache, confusion, rhinorrhea, sore throat, hemoptysis, vomiting, and diarrhea have been reported but are less common. Some persons with COVID-19 have experienced gastrointestinal symptoms such as diarrhea and nausea prior to developing fever and lower respiratory tract signs and symptoms. Ways to [place] with Anxiety & Stress It is normal to feel anxious or worried about COVID-19. You might feel sad about canceling celebrations and staying away from family and friends. Keep in mind that most people do not get severely ill from COVID-19. It is important to have a plan in case you get sick to prevent spreading the disease to others including an Advanced Care Plan (communicating and documenting your desired health care plan with family and healthcare team). You can take care of yourself by: Taking a break from watching the news Take deep breaths, stretch or meditate Getting exercise, eating healthy foods, and drinking plenty of water Finding activities you can enjoy inside your home Staying in touch with your family and friends. Tell your partner, family, and friends how you are feeling. Advance Care Planning People with COVID-19 may have no symptoms, mild symptoms, such as fever, cough, and shortness of breath or they may have more severe illness, developing severe and fatal pneumonia. As a result, Advance Care Planning with attention to naming a health care decision maker (someone you trust to make healthcare decisions for you if you could not speak for yourself) and sharing other health care preferences is important BEFORE a possible health crisis. Please contact your Primary Care Provider to discuss Advance Care Planning. Learning About Coronavirus (COVID-19) Coronavirus (COVID-19): Overview What is coronavirus (COVID-19)? The coronavirus disease (COVID-19) is caused by a virus. It is an illness that was first found in [facility], in July 2019. It has since spread worldwide. The virus can cause fever, cough, and trouble breathing. In severe cases, it can cause pneumonia and make it hard to breathe without help. It can cause . Coronaviruses are a large group of viruses. They cause the common cold. They also cause more serious illnesses like [place] respiratory syndrome (MERS) and severe acute respiratory syndrome (SARS). COVID-19 is caused by a novel coronavirus. That means it's a new type that has not been seen in people before. This virus spreads dafjxj-dt-rwsjls through droplets from coughing and sneezing. It can also spread when you are close to someone who is infected. It is always good practice to clean high touch surfaces frequently and avoid touching your mouth, nose and eyes until you have washed your hands if you touched these areas. What can you do to protect yourself from coronavirus (COVID-19)? The best way to protect yourself from getting sick is to: Wear a face mask. Avoid areas where there is an outbreak. Avoid contact with people who may be infected. Wash your hands often with soap or alcohol-based hand sanitizers. Avoid crowds and try to stay at least 6 feet away from other people. Wash your hands often, especially after you cough or sneeze. Use soap and water, and scrub for at least 20 seconds. If soap and water aren't available, use an alcohol-based hand director pharmacology. Call 911 anytime you think you may need emergency care. For example, call if: You have severe trouble breathing. (You can't talk at all.) You have constant chest pain or pressure. You are severely dizzy or lightheaded. You are confused or can't think clearly. Your face and lips have a blue color. You pass out (lose consciousness) or are very hard to wake up. Call your OB Provider now if you develop symptoms such as: Shortness of breath. Fever. Cough. If you need to get care, call ahead to the provider's office for instructions before you go. Make sure you wear a face mask, to prevent exposing other people to the virus. Where can you get the latest information? The following health organizations are tracking and studying this virus. Their websites contain the most up-to-date information. You'll also learn what to do if you think you may have been exposed to the virus. U.[place]. Centers for Disease Control and Prevention (CDC): The CDC provides updated news about the disease and travel advice. The website also tells you how to prevent the spread of infection. www.cdc.gov World Health Organization (WHO): WHO offers information about the virus outbreaks. WHO also has travel advice. www.who.int Current as of: November 08, 2019 Content Version: 12.4 [employer]. Care instructions adapted under license by your healthcare professional. If you have questions about a medical condition or this instruction, always ask your healthcare professional. [employer] disclaims any warranty or liability for your use of this information. General Recommendations for Routine Cleaning and Disinfection of Households Community members can practice routine cleaning of frequently touched surfaces (for example: tables, doorknobs, light switches, handles, desks, toilets, faucets, sinks) with household drum loader and unloader and EPA-registered disinfectants that are appropriate for the surface, following label instructions. Labels contain instructions for safe and effective use of the cleaning product including precautions you should take when applying the product, such as wearing gloves and making sure you have good ventilation during use of the product. These guidelines are focused on household settings and are meant for the general public. Cleaning refers to the removal of germs, dirt, and impurities from surfaces. Cleaning does not kill germs, but by removing them, it lowers their numbers and the risk of spreading infection. Disinfecting refers to using chemicals to kill germs on surfaces. This process does not necessarily clean dirty surfaces or remove germs, but by killing germs on a surface after cleaning, it can further lower the risk of spreading infection. General Recommendations for Cleaning and Disinfection of Households with People Isolated in Home Care - Confirmed or suspected COVID 19 Household members should educate themselves about COVID-19 symptoms and preventing the spread of COVID-19 in homes. Clean and disinfect high-touch surfaces daily in household common areas (e.g. tables, hard-backed chairs, doorknobs, light switches, remotes, handles, desks, toilets, sinks) In the bedroom/bathroom dedicated for an ill person: consider reducing cleaning frequency to as-needed (e.g., soiled items and surfaces) to avoid unnecessary contact with the ill person. As much as possible, an ill person should stay in a specific room and away from other people in their home. The caregiver can provide personal cleaning supplies for an ill person's room and bathroom, unless the room is occupied by child or another person for whom such supplies would not be appropriate. These supplies include tissues, paper towels, drum loader and unloader and EPA-registered disinfectants (see list link at CDC website). If a separate bathroom is not available, the bathroom should be cleaned and disinfected after each use by an ill person. If this is not possible, the caregiver should wait as long as practical after use by an ill person to clean and disinfect the high-touch surfaces. How to clean and disinfect: Hard Surfaces Wear disposable gloves when cleaning and disinfecting surfaces. Gloves should be discarded after each cleaning. If reusable gloves are used, those gloves should be dedicated for cleaning and disinfection of surfaces for COVID-19 and should not be used for other purposes. Consult the federal appellate clerk's instructions for cleaning and disinfection products used. Clean hands immediately after gloves are removed. If surfaces are dirty, they should be cleaned using a detergent or soap and water prior to disinfection. For disinfection, diluted household bleach solutions, alcohol solutions with at least 70% alcohol, and most common EPA-registered household disinfectants should be effective. Diluted household bleach solutions can be used if appropriate for the surface. Follow federal appellate clerk's instructions for application and proper ventilation. Check to ensure the product is not past its expiration date. Never mix household bleach with ammonia or any other cleanser. Unexpired household bleach will be effective against coronaviruses when properly diluted. Prepare a bleach solution by mixin tablespoons (1/3rd cup) bleach per gallon of water or 4 teaspoons bleach per quart of water Products with EPA-approved emerging viral pathogens [facility] icone[facility]ternal icon are expected to be effective against COVID-19 based on data for harder to kill viruses. Follow the federal appellate clerk's instructions for all cleaning and disinfection products (e.g., concentration, application method and contact time, etc.). Soft (porous) surfaces such as carpeted floor, rugs, and drapes Remove visible contamination if present and clean with appropriate drum loader and unloader indicated for use on these surfaces. After cleaning: Launder items as appropriate in accordance with the federal appellate clerk's instructions. If possible, launder items using the warmest appropriate water setting for the items and dry items completely, or Clothing, towels, linens and other items that go in the laundry Wear disposable gloves when handling dirty laundry from an ill person and then discard after each use. If using reusable gloves, those gloves should be dedicated for cleaning and disinfection of surfaces for COVID-19 and should not be used for other household purposes. Clean hands immediately after gloves are removed. If no gloves are used when handling dirty laundry, be sure to wash hands afterwards. If possible, do not shake dirty laundry. This will minimize the possibility of dispersing virus through the air. Launder items as appropriate in accordance with the federal appellate clerk's instructions. If possible, launder items using the warmest appropriate water setting for the items and dry items completely. Dirty laundry from an ill person can be washed with other people's items. Clean and disinfect clothes hampers according to guidance above for surfaces. If possible, consider placing a real estate subagent that is either disposable (can be thrown away) or can be laundered. CDC has a list of EPA approved cleaning products on their website - https://www.cdc.gov/coronavirus/2019-ncov/commun delta/home/cleaning-disinfection.html https://www.[employer]/Novel-Coronavi imq-Bilsdznw-Fyzdtxvp-List.pdf Grocery Stores with delivery and picking belt operator services: [employer]: Free picking belt operator at locations Delivery is $12.95 a month Website - [employer] [place]: Interlocking Tower Operator $2.95 (1st order is free) Delivery is $14.95 Website - [employer] [place]: lockstitch cup setter is free Delivery is $5.95 Website - [employer]: lockstitch cup setter is $4.95 Delivery is $9.95 Website [employer]: lockstitch cup setter is $4.95 Delivery is $9.95 Website [employer]: Can be ordered for delivery and picking belt operator with [employer] Website - [employer]: Free deliver for first 3 orders of $35 or more Website - [employer] Will deliver from [facility], [employer], [employer], and [employer]. Annual membership is $99 Monthly membership is $14 documented in this encounter [facility] 03-29-2023 Obstetrics Note Formatting of this note might be differe nt from the original. Attempted latch, latches, sucks a few times then off breast, repeated multiple times and no transfer obtained. Following plan is previous note for home. Parents educated that infant did not transfer during time of breast [facility] 03-29-2023 Note Formatting of this n ote might be different from the original. Sw consult due to hx thc use, tox negative on admission. Per RN CM, pt reports no use of thc during . SW available if needed [facility] Phone: 03-29-2023 Note Formatting of this n ote might be different from the original. Sw consult due to hx thc use, tox negative on admission. Per RN CM, pt reports no use of thc during . SW available if needed [facility] Phone: 03-29-2023 Obstetrics Note Formatting of this note might be differe nt from the original. Shown section of Taking Care of Yourself and Baby' Booklet. Reviewed baby-led, cue based feedings (8-12x/day), how to know baby is getting enough, output parameters and milk storage guidelines. Discussed engorgement, plugged ducts and mastitis. Patient encouraged to seek help LAURYN for any concerns. phone number and [facility] Support Group information shared from booklet. Mom voiced understanding. No further questions. States infant has been better at latching, encouraged mother to call for observation before discharge and strongly encouraged for mother to come to group after discharge Home plan as follows: Patient to feed on demand but if it's been 2-3 hrs and infant is not showing hunger signs, to unwrap , place skin to skin, hand express and attempt infant at breast for 15-20 minutes. If becomes fussy at breast, calm infant and retry. If no latch obtained after 15-20 minutes or not transferring approprietly at breast, supplement with 2-10 ml (first 24 hrs) 5-15 ml (24-48 hrs) 15-30 ml (48-72 hr) and 30-60 (72-96 hrs) may require more if still showing hunger signs. If no STEVO available then formula will need to be given to make up difference. Discussed all alterative feeding methods and nipple confusion risks with mother. Educated mother every time supplementation is given, mother must pump with double electric breast pump to protect milk supply. Mother states understanding of importance of pumping 8-10 times a day. If able to latch and transfers well and no supplementation given then no need to pump. Parents states understanding of feeding plan. Strongly encouraged calling for more observation before discharge and to come to support group for update in plan [facility] 03-29-2023 History of Present illness Narrative Formatting of this note might be differe nt from the original. Pt reports the pt has been putting to breast to try to latch infant. Pt reports latches but she feels like it is not a good latch and he only sucks for a few minutes before getting frustrated. Pt will give formula after latching and then breast pump. Pt is not getting a measurable amount out when she is using the pump thus far. Images from the original note were not included. VAGINAL DELIVERY POST DAY # 2 Rosa Schuler, 22 y.o. This patient was seen & examined today. Her was complicated by: Patient Active Problem List Diagnosis Indication for care in labor and delivery, antepartum Today she is doing well without any chief complaint. Her lochia is light. She denies Headache, Chest Pain, Vision Changes, and Shortness of Breath. She is ambulating well. She is tolerating solids. Vital Signs: Vitals: 03/27/23 1335 03/27/23 2201 03/28/23 0835 03/28/23 1958 BP: 139/84 134/77 123/81 119/80 BP Location: Left arm Patient Position: Sitting Pulse: 90 71 88 82 Resp: 20 16 18 18 Temp: 37.3 C (99.2 F) 37 C (98.6 F) 36.8 C (98.2 F) 37 C (98.6 F) TempSrc: Temporal Temporal Temporal Temporal SpO2: 99% 97% 98% 95% Weight: Height: Physical Exam: GENERAL APPEARANCE: alert, well appearing, in no apparent distress ABDOMEN : benign non-tender, without masses or organomegaly palpable EXTREMITIES: no redness or tenderness in the calves or thighs, mild pitting edema present in bilateral lower extremities NEUROLOGIC: alert, oriented, normal speech, no focal findings or movement disorder noted UTERUS : normal size, well involuted, firm, non-tender Lab: Lab Results Component Value Date HGB 11.2 (L) 03/27/2023 Lab Results Component Value Date HCT 34.8 (L) 03/27/2023 O+ Antibody Screen: No results found for: LABANTI No results found for: RUBELLAIGG LABOR DELIVERY ??? SCD's ONLY (labor through ambulation) SCD's PLUS Prophylactic Anticoagulation until discharge SCD's PLUS Prophylactic Anticoagulation for 6 weeks SCD's PLUS Therapeutic Anticoagulation for 6 weeks Vaginal Delivery [] BMI ? 40 kg/m2 Delivery All patients Vaginal Delivery [] BMI ? 40 kg/m2 AND [] Antepartum hospitalization ? 72 hours within the past month Delivery 1 Major Risk Factor: [] BMI ? 35 kg/m2 [] Low Risk Thrombophilia [] PPH+RBCs, IR, or operation [] Infection+Antibiotics [] Antepartum hospitalization ? 72 hours within the past month [] PMH: Sickle Cell, SLE, Cardiac Dz, Active IBD, Active Cancer, Nephrotic Syndrome OR 2 Minor Risk Factors: [] Multiple gestation [] Age > 40 [] PPH ? 1,000cc [] (+)FMH of VTE [] Smoker [] Preeclampsia [] BMI ? 40 kg/m2 AND [] Low Risk Thrombophilia OR ANY OF THE FOLLOWING: [] High Risk Thrombophilia without prior VTE [] Low Risk Thrombophilia with (+)FMH of VTE [] Any single prior VTE ANY OF THE FOLLOWING: [] Already on LMWH/UFH [] Multiple prior VTE [] High Risk Thrombophilia with prior VTE Low Risk Thrombophilia: FVL (heterozygous), Prothrombin (heterozygous), Protein C, Protein S High Risk Thrombophilia: FVL (homozygous), Prothrombin (homozygous), FVL+Prothrombin (heterozygous), Antithrombin III, APLS Assessment/Plan: Rosa Schuler is PPD # 2 s/p Care - Doing well, VSS - Male - bottle feeding - Contraception: Depo - Encourage ambulation - VTE Prophylaxis: Not Indicated Thyroid Nodule - S/p biopsy, non-diagnostic - Plan for endocrinology follow-up Disposition: Continue current care. Based on my clinical assessment, this patient is safe for self discharge (does not need transport by wheelchair) if she so chooses. Provider's Name: MD María Jacob MD 03/29/2023, 5:27 AM I reviewed and agree with the care provided by the resident during or immediately following the visit including the patient's medical history, the resident's findings in the physical exam, patient's diagnosis and treatment plan. Doing well, no concerns. Reports good pain control, and her bleeding is decreasing. Infant circ completed this morning. Plan for discharge home. .Nutrition rescreen completed. Chart reviewed. Patient to be monitored and followed by the diet photographic equipment technician. LAURA Marti Vancomycin therapy has been discontinued by Dr. Cary Kim on 03/27. Thank you for the consult. Pharmacy signing off for vancomycin dosing. Janell Murray RPh, PharmD Date: 03/28/23 Time: 8:30 AM Images from the original note were not included. VAGINAL DELIVERY POST DAY # 1 Rosa Schuler, 22 y.o. This patient was seen & examined today. Her was complicated by: Patient Active Problem List Diagnosis Indication for care in labor and delivery, antepartum Today she is doing well without any chief complaint. Her lochia is light. She denies Headache, Chest Pain, Vision Changes, and Shortness of Breath. She is ambulating well. She is tolerating solids. Vital Signs: Vitals: 03/27/23 0700 03/27/23 0800 03/27/23 1335 03/27/23 2201 BP: 139/84 134/77 BP Location: Left arm Patient Position: Sitting Pulse: 95 109 90 71 Resp: 20 16 Temp: 36.7 C (98.1 F) 37.3 C (99.2 F) 37 C (98.6 F) TempSrc: Temporal Temporal SpO2: 99% 97% Weight: Height: Physical Exam: GENERAL APPEARANCE: alert, well appearing, in no apparent distress ABDOMEN : benign non-tender, without masses or organomegaly palpable EXTREMITIES: no redness or tenderness in the calves or thighs, no edema NEUROLOGIC: alert, oriented, normal speech, no focal findings or movement disorder noted UTERUS : normal size, well involuted, firm, non-tender Lab: Lab Results Component Value Date HGB 11.2 (L) 03/27/2023 Lab Results Component Value Date HCT 34.8 (L) 03/27/2023 O Antibody Screen: No results found for: LABANTI No results found for: RUBELLAIGG LABOR DELIVERY ??? SCD's ONLY (labor through ambulation) SCD's PLUS Prophylactic Anticoagulation until discharge SCD's PLUS Prophylactic Anticoagulation for 6 weeks SCD's PLUS Therapeutic Anticoagulation for 6 weeks Vaginal Delivery [] BMI ? 40 kg/m2 Delivery All patients Vaginal Delivery [] BMI ? 40 kg/m2 AND [] Antepartum hospitalization ? 72 hours within the past month Delivery 1 Major Risk Factor: [] BMI ? 35 kg/m2 [] Low Risk Thrombophilia [] PPH+RBCs, IR, or operation [] Infection+Antibiotics [] Antepartum hospitalization ? 72 hours within the past month [] PMH: Sickle Cell, SLE, Cardiac Dz, Active IBD, Active Cancer, Nephrotic Syndrome OR 2 Minor Risk Factors: [] Multiple gestation [] Age > 40 [] PPH ? 1,000cc [] (+)FMH of VTE [] Smoker [] Preeclampsia [] BMI ? 40 kg/m2 AND [] Low Risk Thrombophilia OR ANY OF THE FOLLOWING: [] High Risk Thrombophilia without prior VTE [] Low Risk Thrombophilia with (+)FMH of VTE [] Any single prior VTE ANY OF THE FOLLOWING: [] Already on LMWH/UFH [] Multiple prior VTE [] High Risk Thrombophilia with prior VTE Low Risk Thrombophilia: FVL (heterozygous), Prothrombin (heterozygous), Protein C, Protein S High Risk Thrombophilia: FVL (homozygous), Prothrombin (homozygous), FVL+Prothrombin (heterozygous), Antithrombin III, APLS Assessment/Plan: Rosa Schuler is PPD # 1 s/p Care - Doing well, VSS - Male - breast feeding - Contraception: Declines - Encourage ambulation - VTE Prophylaxis: Not Indicated Hx HSV-1 - Primary outbreak at 28 weeks, s/p acute course of valtrex and then valtrex suppression - SSE negative on admission 3. Thyroid Nodule - s/p biopsy that was non-diagnostic - plan to follow up with endo pp 4. Equivocal varicella IgM, Positive IgG - suspected chronic infection - s/p MFM consult, no further workup needed Disposition: Continue current care. Based on my clinical assessment, this patient is safe for self discharge (does not need transport by wheelchair) if she so chooses. Provider's Name: MD Cary Jacob DO 03/28/2023, 5:45 AM Associated attestation - Laurie Mac DO - 03/28/2023 11:28 AM EDT Patient seen and doing well. Having difficulty with and latching. Working with . Desires circumcision but will wait until is more established. Informed consent obtained. Otherwise pain well controlled and bleeding decreasing. Desires Depo for PPBC. Orders placed and will give prior to discharge. Had an isolated mild range BP during labor but otherwise normotensive. Will continue to monitor and anticipate discharge on PPD#2. Images from the original note were not included. Labor Progress Note Date: 03/27/2023 Time: 3:58 AM Subjective: Rosa Schuler is a 22 y.o. female at 39w0d admitted for Active Labor Complications: HSV Thyroid nodule Hx THC Use Equivocal Varicella IgM, Positive IgG SVE on admission: /-3 GBS: [x]Pos []Neg []Unknown Cx:defer FHP: defer FHT: Cat II [place]:q2-6min A/P: 1. Active Labor Plan to AROM at 0615 following adequate dosing of Vanc for GBS prophylaxis. FHT Cat II for intermittent late decels that resolved with conservative measures, but overall reassuring with 130 baseline, moderate variability and accels present. BP normotensive. at this time for blood-tinged fluid. SVE now 6/90/-2. Feeling comfortable with epidural. CCM. Dr. Mac updated via text. Complete at 0630. Will set room and prepare for practice push at this time. Dr. Mac en route to hospital. fHT Cat II for rare late decelerations with moderate variability and accelerations. Patient pushing with Dr. Mac at bedside. descent noted with pushing now at +1 station. FHT Cat II for decelerations with pushing and quick return to baseline. Moderate variability noted. Patient successfully delivered with Dr. Mac and Dr. Kim. Images from the original note were not included. Department of Obstetrics and Gynecology Labor and Delivery Triage Note CHIEF COMPLAINT: Contractions HISTORY OF PRESENT ILLNESS: The patient is a 22 y.o. 39w0d. OB History 1 Para Term AB Living SAB IAB Ectopic Multiple Live Births Estimated Due Date: Estimated Date of Delivery: 04/03/23 REVIEW OF SYSTEMS: Pertinent items are noted in HPI. APPEARANCE: Pain: yes PHYSICAL EXAM: Vital Signs: Elevated BPs/Respirations normal effort Vitals: 03/26/23 2128 03/27/23 0054 BP: (!) 137/96 Pulse: 78 Resp: 18 Temp: 36.8 C (98.2 F) TempSrc: Oral Weight: 155 lb (70.3 kg) Height: 5' 4 (1.626 m) Speculum Exam: negative for HSV lesions heart rate: Category I Cervix: Membranes: Intact BSUS: Vertex presentation Triage course: Patient presented initially 3 cm, 2 hour recheck 4 cm more uncomfortable, wanting epidural. Will admit for Active labor IMPRESSION: Active labor DISCUSSED WITH [facility] PROVIDER: Dr. Mac DISPOSITION: Admit to L&D documented in this encounter [facility] 03-28-2023 Obstetrics Note Formatting of this note might be differe nt from the original. Called in to mom's room. Mom states she tried to nurse baby but baby will not latch. Mom pumping. Instructed dad on paced bottlefeeding. Instructed to give baby 15cc formula if not latching and nursing. Mom should continue to pump. [facility] 03-28-2023 Obstetrics Note Formatting of this note might be differe nt from the original. Attempted baby at breast again but baby sleepy and not rooting. Mom set up with hospital bedside pump, no STEVO obtained. Finger fed baby 12cc formula to assist with suck training and organizing his suck. [facility] 03-28-2023 Obstetrics Note Formatting of this note might be differe nt from the original. Baby over 24 hours old and has not latched. Getting drops of colostrum. Attempted to latch baby in laid back position, alert but not rooting. Helped mom express a spoonful of colostrum. Finger fed the 2 ml STEVO to baby. Placed baby skin to skin to see if baby with start rooting after receiving the colostrum. Mom has Spectra pump for home. [facility] 03-27-2023 Labor and delivery summary note Formatting of this note is different fro m the original. Images from the original note were not included. Vaginal Delivery Note Department of Obstetrics and Gynecology Patient: Rosa Schuler : 2000 Date of delivery: 03/27/2023 Pre-operative Diagnosis: Rosa Schuler at 39w0d 1. Thyroid nodule 2. HSV 3. Hx THC use 4. Equivocal Varicella IgM, Positive IgG Post-operative Diagnosis: Live Born male Delivering Audio Engineer & Risk Advisor(s): Dr. Mac; Dr. Kim Infant Information: Information for the patient's : Govind Schuler [[id number]] Information for the patient's : Govind Schuler [[id number]] Description: normal Meconium Noted: No Anesthesia: epidural anesthesia Complications: None Application and Delivery: Rosa Schuler at 39w0d admitted for active labor. Her labor course AROM with blood tinged fluid. She was known to be GBS positive and received Vancomycin prophylaxis. After pushing with contractions the head delivered Cephalic, occiput anterior over an intact perineum. A nuchal cord was not present. The anterior, then posterior shoulder delivered easily and atraumatically followed by the rest of the . The was placed on the maternal abdomen and attended by the RN for evaluation. The was stimulated and dried. The cord was clamped and cut. The delivery of the placenta was spontaneous and appeared intact. Pitocin was started. The vagina was swept of all clots and debris. The perineum and vagina were evaluated. No lacerations were found.. All counts were correct. Mother and baby tolerated procedure well. No uterotonics were required during delivery. EBL: 100ml QBL: VTE Prophylaxis: Not Indicated LABOR DELIVERY ??? SCD's ONLY (labor through ambulation) SCD's PLUS Prophylactic Anticoagulation until discharge SCD's PLUS Prophylactic Anticoagulation for 6 weeks SCD's PLUS Therapeutic Anticoagulation for 6 weeks Vaginal Delivery [] BMI ? 40 kg/m2 Delivery All patients Vaginal Delivery [] BMI ? 40 kg/m2 AND [] Antepartum hospitalization ? 72 hours within the past month Delivery 1 Major Risk Factor: [] BMI ? 35 kg/m2 [] Low Risk Thrombophilia [] PPH+RBCs, IR, or operation [] Infection+Antibiotics [] Antepartum hospitalization ? 72 hours within the past month [] PMH: Sickle Cell, SLE, Cardiac Dz, Active IBD, Active Cancer, Nephrotic Syndrome OR 2 Minor Risk Factors: [] Multiple gestation [] Age > 40 [] PPH ? 1,000cc [] (+)FMH of VTE [] Smoker [] Preeclampsia [] BMI ? 40 kg/m2 AND [] Low Risk Thrombophilia OR ANY OF THE FOLLOWING: [] High Risk Thrombophilia without prior VTE [] Low Risk Thrombophilia with (+)FMH of VTE [] Any single prior VTE ANY OF THE FOLLOWING: [] Already on LMWH/UFH [] Multiple prior VTE [] High Risk Thrombophilia with prior VTE Low Risk Thrombophilia: FVL (heterozygous), Prothrombin (heterozygous), Protein C, Protein S High Risk Thrombophilia: FVL (homozygous), Prothrombin (homozygous), FVL+Prothrombin (heterozygous), Antithrombin III, APLS Specimen: Cord Gases Blood Type and Rh: O Rubella Immunity Status: No results found for: ZOHRAELLAIGG Cary Kim DO 03/27/2023, 9:03 AM Associated attestation - Laurie Mac DO - 03/27/2023 1:27 PM EDT I was present and scrubbed the entire delivery and agree with the delivery note. [facility] 03-27-2023 Note Labor Progress Note Date: 03/27/2023 Time: 3:58 AM Subjective: Rosa Schuler is a 22 y.o. female at 39w0d admitted for Active Labor Complications: HSV Thyroid nodule Hx THC Use Equivocal Varicella IgM, Positive IgG SVE on admission: /-3 GBS: [x]Pos []Neg []Unknown Cx:defer FHP: defer FHT: Cat II [place]:q2-6min A/P: 1. Active Labor Plan to AROM at 0615 following adequate dosing of Vanc for GBS prophylaxis. FHT Cat II for intermittent late decels that resolved with conservative measures, but overall reassuring with 130 baseline, moderate variability and accels present. BP normotensive. at this time for blood-tinged fluid. SVE now /-2. Feeling comfortable with epidural. CCM. Dr. Mac updated via text. Complete at 0630. Will set room and prepare for practice push at this time. Dr. Mac en route to hospital. fHT Cat II for rare late decelerations with moderate variability and accelerations. Patient pushing with Dr. Mac at bedside. descent noted with pushing now at +1 station. FHT Cat II for decelerations with pushing and quick return to baseline. Moderate variability noted. Patient successfully delivered with Dr. Mac and Dr. Kim. [facility] 03-27-2023 Consult note Formatting of this note is different fro m the original. Pharmacy Managed Vancomycin Dosing Service Consult Note Consult Date: 03/27/23 Consulted By: Dr. Sherita Gage [facility] Patient Name: Rosa Schuler Allergies: Latex and Penicillins Age: 22 y.o. Sex: female Ht: Height: 162.6 cm (5' 4) TBW: Weight: 70.3 kg (155 lb) BMI: Body mass index is 26.61 kg/m . Calculated CrCl: capped at 125ml/min Lab Results Component Value Date CREATININE 0.48 (L) 03/27/2023 BUN 16 03/27/2023 WBC 12.3 (H) 03/27/2023 Trough: No results found for: VANCOTROUGH Random: No results found for: VANCORANDOM Infectious Diagnosis: GBS Prophylaxis (goal AUC = 400-600 mg/L*h) Antimicrobials: Patient recently received an antibiotic (last 12 hours) Date/Time Action Medication Dose Rate 03/27/23 0218 New Bag vancomycin (Vancocin) 1500 mg in NS 250 mL IVPB (compounded premix) 1,500 mg 125 mL/hr Assessment/Plan: Start Vancomycin 1.5 grams Q 8 hours based on patient age, weight, renal function, and infectious diagnosis (21.3mg/kg). Will assess random level prior to 4th dose on 03/28/23 @ 01:30 and adjust as appropriate. Will follow renal function closely. Thank you for this consult. Please page/call with questions. Date: 03/27/23 Time: 5:33 AM Name: Lucia Lima RPh Phone: [phone] [facility] 03-27-2023 Consult note Formatting of this note is different fro m the original. Pharmacy Managed Vancomycin Dosing Service Consult Note Consult Date: 03/27/23 Consulted By: Dr. Sherita Gage Room:[facility] A Patient Name: Rosa Schuler Allergies: Latex and Penicillins Age: 22 y.o. Sex: female Ht: Height: 162.6 cm (5' 4) TBW: Weight: 70.3 kg (155 lb) BMI: Body mass index is 26.61 kg/m . Calculated CrCl: capped at 125ml/min Lab Results Component Value Date CREATININE 0.48 (L) 03/27/2023 BUN 16 03/27/2023 WBC 12.3 (H) 03/27/2023 Trough: No results found for: VANCOTROUGH Random: No results found for: VANCORANDOM Infectious Diagnosis: GBS Prophylaxis (goal AUC = 400-600 mg/L*h) Antimicrobials: Patient recently received an antibiotic (last 12 hours) Date/Time Action Medication Dose Rate 03/27/23 0218 New Bag vancomycin (Vancocin) 1500 mg in NS 250 mL IVPB (compounded premix) 1,500 mg 125 mL/hr Assessment/Plan: Start Vancomycin 1.5 grams Q 8 hours based on patient age, weight, renal function, and infectious diagnosis (21.3mg/kg). Will assess random level prior to 4th dose on 03/28/23 @ 01:30 and adjust as appropriate. Will follow renal function closely. Thank you for this consult. Please page/call with questions. Date: 03/27/23 Time: 5:33 AM Name: Lucia Lima RPh Phone: [phone] documented in this encounter [facility] 03-27-2023 Note Epidural Block Time Out: 03/27/2023 2:38 AM Patient location during procedure: OB Start time: 03/27/2023 2:39 AM End time: 03/27/2023 2:45 AM Reason for block: labor analgesia Staffing Performed: NUTRITION CONSULTANT Resident/NUTRITION CONSULTANT: JULIET Shirley CRNA Performed by: JULIET Shirley CRNA Authorized by: JULIET Shirley CRNA Preanesthetic Checklist Completed: patient identified, IV checked, site marked, risks and benefits discussed, surgical consent, monitors and equipment checked, pre-op evaluation, timeout performed, IV bolus and anesthesia consent given Block Placement Patient position: sitting Prep: ChloraPrep Sterility prep: drape, gloves, cap, hand and mask Sedation level: no sedation Patient monitoring: heart rate Approach: midline Location: lumbar Lumbar location: L3-L4 Epidural Loss of resistance technique: saline Guidance: landmark technique Needle Needle type: Eren Needle gauge: 17 G Needle length: 9 cm Needle insertion depth: 6 cm Catheter type: multi-orifice Catheter size: 19 G Catheter at skin depth: 13 cm Catheter securement method: surgical tape, liquid medical adhesive and clear occlusive dressing Test dose: negative Medications Administered lidocaine-EPINEPHrine (Xylocaine W/EPI) 1.5 %-1:[id number] injection - Epidural 3 mL - 03/27/2023 2:43:00 AM ropivacaine (Naropin) 0.2 % epidural bolus - Epidural 15 mL - 03/27/2023 2:44:00 AM Assessment Block outcome: pain improved Number of attempts: 1 Procedure assessment: patient tolerated procedure well with no immediate complications [facility] 03-27-2023 Note Attestation signed by Laurie Mac DO at 03/27/2023 9:14 AM I agree with the findings and plan of care as documented in the resident's note. Obstetrical History and Physical CHIEF COMPLAINT: Active labor HISTORY OF PRESENT ILLNESS: The patient is a 22 y.o. female at 39w0d OB History 1 Para Term AB Living SAB IAB Ectopic Multiple Live Births Patient presents with a chief complaint as above and is being admitted for active phase labor Denies DFM/VB/LOF/POLLARD/EpigastricPain/Visual changes Estimated Due Date: Estimated Date of Delivery: 04/03/23 PC-01 HARDSTOP. Current EGA is 39w0d Is this patient being delivered between [id number] weeks with an acceptable medical indication (obstetric, maternal, and/or )? NA: Not Applicable: This patient is being delivered outside of the PC-01 range ([id number]) for reasons indicated in the medical record. CARE: Complications: See below PAST OB HISTORY: OB History Para Term AB Living 1 SAB IAB Ectopic Multiple Live Births # Outcome Date GA Lbr Rich/2nd Weight Sex Delivery Anes PTL Lv 1 Current Detailed OB History G1 current Past Medical History: History reviewed. No pertinent past medical history. Past Surgical History: Past Surgical History: Procedure Laterality Date TONSILLECTOMY WISDOM TOOTH EXTRACTION Allergies: Latex and Penicillins Social History: Social History Socioeconomic History Marital status: Single Spouse name: Not on file Number of children: Not on file Years of education: Not on file Highest education level: Not on file Occupational History Not on file Tobacco Use Smoking status: Never Smokeless tobacco: Never Substance and Sexual Activity Alcohol use: Not Currently Drug use: Never Sexual activity: Yes Partners: Male Other Topics Concern Not on file Social History Narrative Not on file Social Determinants of Health Financial Resource Strain: Not on file Food Insecurity: Not on file Transportation Needs: Not on file Physical Activity: Not on file Stress: Not on file Social Connections: Not on file Intimate Partner Violence: Not on file Housing Stability: Not on file Family History: No family history on file. Medications Prior to Admission: Medications Prior to Admission Medication Sig Dispense Refill Last Dose MV-Min-Fe Fum-FA-DHA ( 1 PO) Take 1 tablet by mouth daily. 03/26/2023 valACYclovir (Valtrex) 500 MG tablet Take 500 mg by mouth daily. 03/26/2023 REVIEW OF SYSTEMS: Const: Negative HEENT: Negative Resp: Negative CVS: Negative GI: Negative : Negative MSK: Negative Breast: Negative Skin: Negative Heme/Lymph:Negative Endo: Negative Neuro: Negative Psych: Negative PHYSICAL EXAM: Vitals: 03/26/23 2128 03/27/23 0054 BP: (!) 137/96 Pulse: 78 Resp: 18 Temp: 36.8 ?C (98.2 ?F) TempSrc: Oral Weight: 155 lb (70.3 kg) Height: 5' 4 (1.626 m) General appearance: awake, alert, cooperative, no apparent distress, and appears stated age Neurologic: Awake, alert, oriented to name, place and time. Lungs: No increased work of breathing, good air exchange Abdomen: Soft, non tender, gravid, consistent with her gestational age Sterile Speculum Exam: Membranes: Intact HSV Lesions:absent Cervix: 4/90/-3 Contraction frequency: 4 min Labs: cbc, cmp, t&s Blood Type/Rh: No results found for: RH Group B Strep: No components found for: GRPBPCR Fetus: EFW: 7 lb by Leopolds Presentation: Vertex by U/S Solis Score: NA 0 1 2 3 Position Posterior Mid Anterior - Consistency Firm Medium Soft - Effacement 0-30% 40-50% 60-70% 80% or > Dilation 0cm 1-2cm 3-4cm 5cm or > Station -3 -2 -1, 0 +1, +2 LABOR DELIVERY ??? SCD's ONLY (labor through ambulation) SCD's PLUS Prophylactic Anticoagulation until discharge SCD's PLUS Prophylactic Anticoagulation for 6 weeks SCD's PLUS Therapeutic Anticoagulation for 6 weeks Vaginal Delivery [] BMI ? 40 kg/m2 Delivery All patients Vaginal Delivery [] BMI ? 40 kg/m2 AND [] Antepartum hospitalization ? 72 hours within the past month Delivery 1 Major Risk Factor: [] BMI ? 35 kg/m2 [] Low Risk Thrombophilia [] PPH+RBCs, IR, or operation [] Infection+Antibiotics [] Antepartum hospitalization ? 72 hours within the past month [] PMH: Sickle Cell, SLE, Cardiac Dz, Active IBD, Active Cancer, Nephrotic Syndrome OR 2 Minor Risk Factors: [] Multiple gestation [] Age > 40 [] PPH ? 1,000cc [] (+)FMH of VTE [] Smoker [] Preeclampsia [] BMI ? 40 kg/m2 AND [] Low Risk Thrombophilia OR ANY OF THE FOLLOWING: (more content not included)... [facility] 03-27-2023 Note Patient: Rosa hernandez Procedure Information Date: 03/27/23 Procedure: Labor Analgesia Relevant Problems No relevant active problems Clinical information reviewed: Tobacco Allergies Meds Med Hx Surg Hx Fam Hx Soc Hx Physical Exam Airway Mallampati: II TM distance: >3 FB Neck ROM: full Mouth Open: limited and normalendotracheal tube not in place Cardiovascular - normal exam Dental Pulmonary - normal exam Abdominal - normal exam Anesthesia Plan patient is NPO appropriate Any family history or previous problems with anesthesia no ASA 2 epidural Any family history or previous problems with anesthesia no The patient is not a current smoker. Anesthetic plan and risks discussed with patient. Use of blood products discussed with who consented to blood products. Additional Equipment Requests [facility] 03-27-2023 History and physical note Formatting of this note is different fro m the original. Obstetrical History and Physical CHIEF COMPLAINT: Active labor HISTORY OF PRESENT ILLNESS: The patient is a 22 y.o. female at 39w0d OB History 1 Para Term AB Living SAB IAB Ectopic Multiple Live Births Patient presents with a chief complaint as above and is being admitted for active phase labor Denies DFM/VB/LOF/POLLARD/EpigastricPain/Visual changes Estimated Due Date: Estimated Date of Delivery: 04/03/23 PC-01 HARDSTOP. Current EGA is 39w0d Is this patient being delivered between [id number]-[id number] weeks with an acceptable medical indication (obstetric, maternal, and/or )? NA: Not Applicable: This patient is being delivered outside of the PC-01 range ([id number]) for reasons indicated in the medical record. CARE: Complications: See below PAST OB HISTORY: OB History Para Term AB Living 1 SAB IAB Ectopic Multiple Live Births # Outcome Date GA Lbr Rich/2nd Weight Sex Delivery Anes PTL Lv 1 Current Detailed OB History G1 current Past Medical History: History reviewed. No pertinent past medical history. Past Surgical History: Past Surgical History: Procedure Laterality Date TONSILLECTOMY WISDOM TOOTH EXTRACTION Allergies: Latex and Penicillins Social History: Social History Socioeconomic History Marital status: Single Spouse name: Not on file Number of children: Not on file Years of education: Not on file Highest education level: Not on file Occupational History Not on file Tobacco Use Smoking status: Never Smokeless tobacco: Never Substance and Sexual Activity Alcohol use: Not Currently Drug use: Never Sexual activity: Yes Partners: Male Other Topics Concern Not on file Social History Narrative Not on file Social Determinants of Health Financial Resource Strain: Not on file Food Insecurity: Not on file Transportation Needs: Not on file Physical Activity: Not on file Stress: Not on file Social Connections: Not on file Intimate Partner Violence: Not on file Housing Stability: Not on file Family History: No family history on file. Medications Prior to Admission: Medications Prior to Admission Medication Sig Dispense Refill Last Dose MV-Min-Fe Fum-FA-DHA ( 1 PO) Take 1 tablet by mouth daily. 03/26/2023 valACYclovir (Valtrex) 500 MG tablet Take 500 mg by mouth daily. 03/26/2023 REVIEW OF SYSTEMS: Const: Negative HEENT: Negative Resp: Negative CVS: Negative GI: Negative : Negative MSK: Negative Breast: Negative Skin: Negative Heme/Lymph:Negative Endo: Negative Neuro: Negative Psych: Negative PHYSICAL EXAM: Vitals: 03/26/238 03/27/23 0054 BP: (!) 137/96 Pulse: 78 Resp: 18 Temp: 36.8 C (98.2 F) TempSrc: Oral Weight: 155 lb (70.3 kg) Height: 5' 4 (1.626 m) General appearance: awake, alert, cooperative, no apparent distress, and appears stated age Neurologic: Awake, alert, oriented to name, place and time. Lungs: No increased work of breathing, good air exchange Abdomen: Soft, non tender, gravid, consistent with her gestational age Sterile Speculum Exam: Membranes: Intact HSV Lesions:absent Cervix: 4/90/-3 Contraction frequency: 4 min Labs: cbc, cmp, t&s Blood Type/Rh: No results found for: RH Group B Strep: No components found for: GRPBPCR Fetus: EFW: 7 lb by Leopolds Presentation: Vertex by U/S Solis Score: NA 0 1 2 3 Position Posterior Mid Anterior - Consistency Firm Medium Soft - Effacement 0-30% 40-50% 60-70% 80% or > Dilation 0cm 1-2cm 3-4cm 5cm or > Station -3 -2 -1, 0 +1, +2 LABOR DELIVERY ??? SCD's ONLY (labor through ambulation) SCD's PLUS Prophylactic Anticoagulation until discharge SCD's PLUS Prophylactic Anticoagulation for 6 weeks SCD's PLUS Therapeutic Anticoagulation for 6 weeks Vaginal Delivery [] BMI ? 40 kg/m2 Delivery All patients Vaginal Delivery [] BMI ? 40 kg/m2 AND [] Antepartum hospitalization ? 72 hours within the past month Delivery 1 Major Risk Factor: [] BMI ? 35 kg/m2 [] Low Risk Thrombophilia [] PPH+RBCs, IR, or operation [] Infection+Antibiotics [] Antepartum hospitalization ? 72 hours within the past month [] PMH: Sickle Cell, SLE, Cardiac Dz, Active IBD, Active Cancer, Nephrotic Syndrome OR 2 Minor Risk Factors: [] Multiple gestation [] Age > 40 [] PPH ? 1,000cc [] (+)FMH of VTE [] Smoker [] Preeclampsia [] BMI ? 40 kg/m2 AND [] Low Risk Thrombophilia OR ANY OF THE FOLLOWING: [] High Risk Thrombophilia without prior VTE [] Low Risk Thrombophilia with (+)FMH of VTE [] Any single prior VTE ANY OF THE FOLLOWING: [] Already on LMWH/UFH [] Multiple prior VTE [] High Risk Thrombophilia with prior VTE Low Risk Thrombophilia: FVL (heterozygous), Prothrombin (heterozygous), Protein C, Protein S High Risk Thrombophilia: FVL (homozygous), Prothrombin (homozygous), FVL+Prothrombin (heterozygous), Antithrombin III, APLS ASSESSMENT AND PLAN: 1. Active labor Admission: Admit to L&D FHR: Category 1 Celestone: not indicated Pain control plan: desires epidural Delivery Plan: AROM, expectant GBS: GBS positive, vancomycin for GBS prophylaxis LARC: Declines Intrapartum SCDs: Not Indicated VTE Prophylaxis: Not Indicated GBS positive - Allergic to PCN - Sensitivities obtained, Patient will be for Vancomycin for GBS prophylaxis Hx HSV-1 - Primary Outbreak at 28 weeks, s/p acute course of Valtrex and then Valtrex for suppression - Denies current outbreak - SSE negative on admission Thyroid nodule - s/p biopsy that was non-diagnostic - Screened with US and then lost to follow up - Plan to follow up with endo pp Hx THC use - MAT on admission Equivocal Varicella IgM, Positive IgG - suspected chronic infection - s/p MFM consult, no further workup needed tHTN - Mild rang BP on admission - PreE labs pending Discussed with Dr Mac, who agrees with plan. Sherita Gage DO 03/27/2023, 1:54 AM Associated attestation - Laurie Mac DO - 03/27/2023 9:14 AM EDT I agree with the findings and plan of care as documented in the resident's note. [facility] 03-27-2023 History and physical note Formatting of this note is different fro m the original. Obstetrical History and Physical CHIEF COMPLAINT: Active labor HISTORY OF PRESENT ILLNESS: The patient is a 22 y.o. female at 39w0d OB History 1 Para Term AB Living SAB IAB Ectopic Multiple Live Births Patient presents with a chief complaint as above and is being admitted for active phase labor Denies DFM/VB/LOF/POLLARD/EpigastricPain/Visual changes Estimated Due Date: Estimated Date of Delivery: 04/03/23 PC-01 HARDSTOP. Current EGA is 39w0d Is this patient being delivered between 06x3s-31v5z weeks with an acceptable medical indication (obstetric, maternal, and/or )? NA: Not Applicable: This patient is being delivered outside of the PC-01 range ([id number]) for reasons indicated in the medical record. CARE: Complications: See below PAST OB HISTORY: OB History Para Term AB Living 1 SAB IAB Ectopic Multiple Live Births # Outcome Date GA Lbr Rich/2nd Weight Sex Delivery Anes PTL Lv 1 Current Detailed OB History G1 current Past Medical History: History reviewed. No pertinent past medical history. Past Surgical History: Past Surgical History: Procedure Laterality Date TONSILLECTOMY WISDOM TOOTH EXTRACTION Allergies: Latex and Penicillins Social History: Social History Socioeconomic History Marital status: Single Spouse name: Not on file Number of children: Not on file Years of education: Not on file Highest education level: Not on file Occupational History Not on file Tobacco Use Smoking status: Never Smokeless tobacco: Never Substance and Sexual Activity Alcohol use: Not Currently Drug use: Never Sexual activity: Yes Partners: Male Other Topics Concern Not on file Social History Narrative Not on file Social Determinants of Health Financial Resource Strain: Not on file Food Insecurity: Not on file Transportation Needs: Not on file Physical Activity: Not on file Stress: Not on file Social Connections: Not on file Intimate Partner Violence: Not on file Housing Stability: Not on file Family History: No family history on file. Medications Prior to Admission: Medications Prior to Admission Medication Sig Dispense Refill Last Dose MV-Min-Fe Fum-FA-DHA ( 1 PO) Take 1 tablet by mouth daily. 03/26/2023 valACYclovir (Valtrex) 500 MG tablet Take 500 mg by mouth daily. 03/26/2023 REVIEW OF SYSTEMS: Const: Negative HEENT: Negative Resp: Negative CVS: Negative GI: Negative : Negative MSK: Negative Breast: Negative Skin: Negative Heme/Lymph:Negative Endo: Negative Neuro: Negative Psych: Negative PHYSICAL EXAM: Vitals: 03/26/23 2128 03/27/23 0054 BP: (!) 137/96 Pulse: 78 Resp: 18 Temp: 36.8 C (98.2 F) TempSrc: Oral Weight: 155 lb (70.3 kg) Height: 5' 4 (1.626 m) General appearance: awake, alert, cooperative, no apparent distress, and appears stated age Neurologic: Awake, alert, oriented to name, place and time. Lungs: No increased work of breathing, good air exchange Abdomen: Soft, non tender, gravid, consistent with her gestational age Sterile Speculum Exam: Membranes: Intact HSV Lesions:absent Cervix: 4/90/-3 Contraction frequency: 4 min Labs: cbc, cmp, t&s Blood Type/Rh: No results found for: RH Group B Strep: No components found for: GRPBPCR Fetus: EFW: 7 lb by Leopolds Presentation: Vertex by U/S Solis Score: NA 0 1 2 3 Position Posterior Mid Anterior - Consistency Firm Medium Soft - Effacement 0-30% 40-50% 60-70% 80% or > Dilation 0cm 1-2cm 3-4cm 5cm or > Station -3 -2 -1, 0 +1, +2 LABOR DELIVERY ??? SCD's ONLY (labor through ambulation) SCD's PLUS Prophylactic Anticoagulation until discharge SCD's PLUS Prophylactic Anticoagulation for 6 weeks SCD's PLUS Therapeutic Anticoagulation for 6 weeks Vaginal Delivery [] BMI ? 40 kg/m2 Delivery All patients Vaginal Delivery [] BMI ? 40 kg/m2 AND [] Antepartum hospitalization ? 72 hours within the past month Delivery 1 Major Risk Factor: [] BMI ? 35 kg/m2 [] Low Risk Thrombophilia [] PPH+RBCs, IR, or operation [] Infection+Antibiotics [] Antepartum hospitalization ? 72 hours within the past month [] PMH: Sickle Cell, SLE, Cardiac Dz, Active IBD, Active Cancer, Nephrotic Syndrome OR 2 Minor Risk Factors: [] Multiple gestation [] Age > 40 [] PPH ? 1,000cc [] (+)FMH of VTE [] Smoker [] Preeclampsia [] BMI ? 40 kg/m2 AND [] Low Risk Thrombophilia OR ANY OF THE FOLLOWING: [] High Risk Thrombophilia without prior VTE [] Low Risk Thrombophilia with (+)FMH of VTE [] Any single prior VTE ANY OF THE FOLLOWING: [] Already on LMWH/UFH [] Multiple prior VTE [] High Risk Thrombophilia with prior VTE Low Risk Thrombophilia: FVL (heterozygous), Prothrombin (heterozygous), Protein C, Protein S High Risk Thrombophilia: FVL (homozygous), Prothrombin (homozygous), FVL+Prothrombin (heterozygous), Antithrombin III, APLS ASSESSMENT AND PLAN: 1. Active labor Admission: Admit to L&D FHR: Category 1 Celestone: not indicated Pain control plan: desires epidural Delivery Plan: AROM, expectant GBS: GBS positive, vancomycin for GBS prophylaxis LARC: Declines Intrapartum SCDs: Not Indicated VTE Prophylaxis: Not Indicated GBS positive - Allergic to PCN - Sensitivities obtained, Patient will be for Vancomycin for GBS prophylaxis Hx HSV-1 - Primary Outbreak at 28 weeks, s/p acute course of Valtrex and then Valtrex for suppression - Denies current outbreak - SSE negative on admission Thyroid nodule - s/p biopsy that was non-diagnostic - Screened with US and then lost to follow up - Plan to follow up with endo pp Hx THC use - MAT on admission Equivocal Varicella IgM, Positive IgG - suspected chronic infection - s/p MFM consult, no further workup needed tHTN - Mild rang BP on admission - PreE labs pending Discussed with Dr Mac, who agrees with plan. Sherita Gage DO 03/27/2023, 1:54 AM Associated attestation - Laurie Mac DO - 03/27/2023 9:14 AM EDT I agree with the findings and plan of care as documented in the resident's note. documented in this encounter [facility] 03-26-2023 Hospital Discharge instructions Joaquina Jerez DO - 03/26/2023 8:21 AM EDT Follow up appointment with your doctor/mill roll operator - Keep next scheduled appointment Activity - Normal Activity Call your doctor/mill roll operator if you have: - leaking fluid - vaginal bleeding - regular contractions: More than 6 contractions in one hour - decreased movement - worsening abdominal (belly) pain - headache, blurry vision, increased swelling, upper abdominal pain If you are going home with contractions that are uncomfortable/painful- we recommend these coping strategies: rhythmic breathing, hydrotherapy, imagery or visualization, gentle massage, walking and changing your position. Treatment Verification: Rosa Schuler was assessed on Labor and Delivery for a related visit on 03/26/23 . Joaquina Jerez DO [facility] documented in this encounter [facility] 03-26-2023 History of Present illness Narrative Formatting of this note is different fro m the original. Department of Obstetrics and Gynecology Labor and Delivery Triage Note CHIEF COMPLAINT: R/o Labor HISTORY OF PRESENT ILLNESS: The patient is a 22 y.o. 38w6d. OB History 1 Para Term AB Living SAB IAB Ectopic Multiple Live Births Patient presents with a chief complaint as above. Endorses Ctx that began at 0200 that are q5-10mins and uncomfortable. Additionally endorses LOF at 0400 for clear fluid and reports leakage since then. Denies DFM/VB Estimated Due Date: Estimated Date of Delivery: 04/03/23 PAST MEDICAL HISTORY: History reviewed. No pertinent past medical history. PAST SURGICAL HISTORY: Past Surgical History: Procedure Laterality Date TONSILLECTOMY WISDOM TOOTH EXTRACTION SOCIAL HISTORY: reports that she has never smoked. She has never used smokeless tobacco. She reports that she does not currently use alcohol. She reports that she does not use drugs. MEDICATIONS: Prior to Admission medications Medication Sig Start Date End Date Taking? Authorizing Provider valACYclovir (Valtrex) 500 MG tablet Take 500 mg by mouth daily. Historical Provider, CARE: Complicated by: HSV, Hx THC REVIEW OF SYSTEMS: Pertinent items are noted in HPI. APPEARANCE: Pain: No PHYSICAL EXAM: Vital Signs: VS wnl-reviewed/Respirations normal effort Vitals: 03/26/23 0540 BP: 129/88 Pulse: 97 Resp: 18 Temp: 36.7 C (98 F) TempSrc: Oral SpO2: 99% Abdomen: soft, NT, ND, no rebound/guarding Uterus: gravid/non-tender LE Edema: trace Speculum Exam: no pooling of fluid seen, Nitrizine test is negative, no visible HSV lesions heart rate: Category I Cervix: 2/50/-3 Contraction frequency: regular, every 5-10 minutes per patient Membranes: Intact TRIAGE COURSE: Pt presented for r/o labor with contractions. SVE 2/50/-3 changed from 1.5cm in office one week ago. SSE negative for HSV, no pooling of fluid and negative nitrizine. FHT Cat I with baseline 130s, moderate variability, spontaneous accelerations, and no decelerations. Bps normotensive. Plan for recheck in 2 hours. SVE unchanged at this time. FHT Cat I. BPS normotensive. Patient has an appointment later today in the office. Stable for discharge at this time. IMPRESSION: False Labor Pain assessment and plan: None DISCUSSED WITH C PROVIDER: Dr. Ling DISPOSITION: Discharge to Home Associated attestation - Pauline Flores MD - 03/26/2023 9:05 AM EDT Hospital Care (Independent): I independently saw and evaluated the patient. I agree with the findings and plan of care as documented in the resident's note. documented in this encounter [facility] 01-13-2023 Hospital Discharge instructions Patient Education 01/13/2023 15:40:55 7 - Labor and Delivery Outpatient Instructions(CUSTOM) [facility] HOME-GOING INSTRUCTIONS _X_ You are to follow up with your physician in __2_ days/weeks. ACTIVITY ___ Bedrest _X__Activity as tolerated ___ No work/school for ___ days. ___Other PRESCRIPTION GIVEN ___Yes NAUSEA/VOMITING ___ Take small, frequent amounts of clear liquids. Avoid fruit juices and milk. ___ Increase fluid intake to a minimum of 8 ounces of fluid every hour while awake. ___ Soft diet. Rice, crackers, bananas, Jell-O, cooked carrots, applesauce. ___ [place] diet. Avoid caffeine, chocolate, alcohol, spiced/greasy foods. URINARY TRACT INFECTION ___ Drink 8-12 glasses of water every day. ___ Urinate frequently; do not limit fluids to reduce frequency of urination. ___ Call your physician if burning and frequency with urination returns after taking all your medication. ___ Call your physician if you have a temperature of 100.4 degrees Fahrenheit or higher. ___ Wipe from front to back. SIGNS OF PRE-ECLAMPSIA ___ Severe heartburn. ___ Persistent headache not relieved by Tylenol. ___ Increased in swelling of face, hands and feet. ___ Blurred vision, double vision, or spots in the eyes. ___ Persistent vomiting. ___ *Convulsions or seizures. LABOR ___ Restrict activity. _X__ Drink 8-12 glasses of water every day. _X__ Urinate frequently ___ Pelvic rest. No sexual intercourse/ Call your physician if you experience: _X__ Increase in vaginal discharge, leaking fluid, or vaginal bleeding. _X__ More than 4, 5, or 6 contractions in one hour. _X__ Burning and frequency with urination. DECREASED MOVEMENT _X__ Lie down on your left side, drink some fluids and relax. Count the movements. You need to have 10 movements in 2 hours. _X__ If you do not feel the 10 movements, call your physician. OTHER ___ After an exam you may experience some spotting or discharge. As long as it is not bright red and heavy like a period or continues to leak as if your water broke, it is to be expected. ___ LABOR Call your physician if you experience: _X__ Painful uterine contractions every _5__ minutes for _1__ hours. _X__A gush or continuous trickle of watery discharge. COME TO THE HOSPITAL AND CALL PHYSICIAN IF: _X__ Your abdomen feels continually firm. _X__ *Bleeding is bright red and enough to saturate a pad in one hour or less. *Call 911 or go to the nearest Emergency Room for assistance. Form [id number] D: 07/17 Document Released: 07/26/2006 Document Revised: 07/14/2012 Document Reviewed: 07/26/2006 ExitCare Patient Information 2012 [employer]. Follow Up Care 01/13/2023 14:11:51 With:Follow up with primary care provider Address:Unknown When: Unknown [facility] 11-15-2022 Hospital Discharge instructions Patient Education 11/15/2022 06:37:28 7 - Labor and Delivery Outpatient Instructions (CUSTOM) [facility] HOME-GOING INSTRUCTIONS _X_ You are to follow up with your physician on Wednesday11/16/2022. ACTIVITY __x_ Bedrest ___Activity as tolerated ___ No work/school for ___ days. ___Other PRESCRIPTION GIVEN ___Yes NAUSEA/VOMITING ___ Take small, frequent amounts of clear liquids. Avoid fruit juices and milk. ___ Increase fluid intake to a minimum of 8 ounces of fluid every hour while awake. ___ Soft diet. Rice, crackers, bananas, Jell-O, cooked carrots, applesauce. ___ [place] diet. Avoid caffeine, chocolate, alcohol, spiced/greasy foods. URINARY TRACT INFECTION ___ Drink 8-12 glasses of water every day. ___ Urinate frequently; do not limit fluids to reduce frequency of urination. ___ Call your physician if burning and frequency with urination returns after taking all your medication. ___ Call your physician if you have a temperature of 100.4 degrees Fahrenheit or higher. ___ Wipe from front to back. SIGNS OF PRE-ECLAMPSIA ___ Severe heartburn. ___ Persistent headache not relieved by Tylenol. ___ Increased in swelling of face, hands and feet. ___ Blurred vision, double vision, or spots in the eyes. ___ Persistent vomiting. ___ *Convulsions or seizures. LABOR _x__ Restrict activity. _x__ Drink 8-12 glasses of water every day. _x__ Urinate frequently _x__ Pelvic rest. No sexual intercourse/ Call your physician if you experience: _x__ Increase in vaginal discharge, leaking fluid, or vaginal bleeding. _x__ More than 4, 5, or 6 contractions in one hour. __x_ Burning and frequency with urination. DECREASED MOVEMENT ___ Lie down on your left side, drink some fluids and relax. Count the movements. You need to have 10 movements in 2 hours. ___ If you do not feel the 10 movements, call your physician. OTHER ___ After an exam you may experience some spotting or discharge. As long as it is not bright red and heavy like a period or continues to leak as if your water broke, it is to be expected. ___ LABOR Call your physician if you experience: ___ Painful uterine contractions every ___ minutes for ___ hours. ___A gush or continuous trickle of watery discharge. COME TO THE HOSPITAL AND CALL PHYSICIAN IF: ___ Your abdomen feels continually firm. ___ *Bleeding is bright red and enough to saturate a pad in one hour or less. *Call 911 or go to the nearest Emergency Room for assistance. Form [id number] D: 07/17 Document Released: 07/26/2006 Document Revised: 07/14/2012 Document Reviewed: 07/26/2006 ExitCare Patient Information 2012 [employer]. Follow Up Care 11/15/2022 05:47:52 With:triston brantley Address: When:11/16/2022 [facility] 09-05-2022 Evaluation + Plan note Diagnostic Tests PendingUrine Culture 09/05/22 [facility] 09-05-2022 Emergency department Discharge summary Discharge Instructions Thank you for allowing [facility] to assist you with your healthcare needs. The following is important discharge information regarding your hospital visit. Diagnosis from Today's Visit Hyperemesis gravidarum UTI - Urinary tract infection Vomiting - What to Do Next Instructions from Your Care Team No qualifying data available. Post Acute Orders No qualifying data available. You Need to Schedule the Following Appointments Follow Up with Go to emergency room if symptoms worsen When Within 2-4 days Follow Up with NEO OCASIO DO When Within 2-4 days Where: [address] [place] [address]- Allergies Latex penicillin Medications Please ask your primary doctor or pharmacist before taking any other medication not listed, including over the counter drugs, herbal medications, vitamins and or supplements as they may interact with your home medications. What How Much When Why Instructions Last Dose Unchanged dicyclomine (dicyclomine 20 mg oral tablet) 1 tab(s) by mouth Four (4) times a day as needed for abdominal discomfort Diarrhea and vomiting Abdominal pain Duration: 3 Days Unchanged nitrofurantoin (Macrobid 100 mg oral capsule) 1 cap by mouth Two (2) times a day Excessive vomiting in UTI - Urinary tract infection Duration: 7 Days Take with food Unchanged promethazine (promethazine 25 mg oral tablet) 1 tab(s) by mouth Every 6 hours Duration: 3 Days Unchanged promethazine (promethazine 25 mg rectal suppository) 1 suppository(ies) in the rectum Every 6 hours Duration: 3 Days Please take this list to your next doctor s visit. Bring all medications you take, including over the counter medications, herbals and other supplements with you to your doctor s visit. Patients and families are reminded to discard old lists and to update any records with all medication providers or retail pharmacies. Education Materials Hyperemesis Gravidarum Hyperemesis gravidarum is a severe form of morning sickness that can affect some women during . It may develop around the 5th week and last until the 16th week of . In some women, it may last longer. Symptoms include severe nausea and vomiting. This can lead to problems such as weight loss and dehydration. It's not clear what causes hyperemesis gravidarum. It may be from rising hormone levels early in the . It can be a serious threat to mother and fetus if symptoms are severe. Follow the advice below carefully. If your symptoms don't get better with home care measures, you may need to stay in the hospital. In the hospital, you may get IV (intravenous) fluids and medicines. Home care Diet Keep a log of the foods you eat and how they affect your symptoms. Don't eat foods that trigger your symptoms. Eat small meals often throughout the day rather than 3 large meals. This can help keep your stomach from being empty. An empty stomach can make nausea worse. Choose foods that are high in carbohydrates. Eating foods high in protein may also help. Limit greasy or spicy foods. Before getting out of bed in the morning, try eating crackers or dry toast. This may help settle your stomach. Drink cold, clear liquids. Drinking small amounts of liquids with electrolytes, such as sports drinks, may help as well. Medicine If needed, your healthcare provider may prescribe certain medicines to help ease nausea and vomiting. Your provider may suggest vitamin B6 and latricia. Don t try any igbx-luh-anhvsoq medicines or home remedies without talking with your provider first. Follow-up care Follow up with your healthcare provider, or as advised. When to seek medical advice Call your healthcare provider right away if any of these occur: Signs of dehydration. These include dry mouth, extreme thirst, dark urine or little urine output, dizziness, weakness, or fainting. Vomiting that won t stop Inability to keep down liquids Frequent diarrhea Weight loss or no weight gain over a 2-week period Severe constant pain in the lower right abdomen Fever of 100.4 F (38 C) or higher, or as directed by your healthcare provider [id number] [employer]. [address] [place] [address]. All rights reserved. This information is not intended as a substitute for professional medical care. Always follow your healthcare professional's instructions. Additional Information VACCINATE! IT SAVES LIVES! Members of the community who have not yet received the COVID-19 vaccine and would like to receive it can visit one of [facility] vaccine clinics. There are many vaccine clinic locations within the [facility]. For locations and available times, please visit [email or web address]. It is important to note that some COVID mobile vaccine clinics are held outdoors and may be canceled in rainy or stormy conditions. To learn more about pediatric vaccinations (ages 5-11), we invite you to visit the [facility] webpage. [email or web address] To learn more about the COVID-19 vaccine, we invite you to visit the [facility] website for a list of frequently asked questions. [email or web address] [facility] Patient Portal Access Instructions: Stay connected with your healthcare team and access your personal medical information anytime with the [facility] Patient Portal. If you would like a full copy of your medical records please contact the [facility] Medical Records Department Wednesday through Wednesday between 8a.m. and 4:30p.m. Please follow the directions below to access the portal: 1.Access the email account you provided upon registration to the [facility].2.Look for an invitation email from [facility].3.Open the email and access the invitation link: [facility].Fill in the required urbina to create your account. Sign into www.Bday with your username and password that you created in the above steps to stay up to date. You can then view a summary of results, a summary of your visits, and the ability to download your summaries to your computer or send the information securely to a physician. Remember that your healthcare information is confidential, so carefully consider who you will allow to register on the [facility] Patient Portal for access to your information. You can also access the [facility] Patient Portal on the [employer] fernando. Simply click on Health Records under Health Data and then click on the [facility] logo. HOW TO SAFELY DISPOSE OF PRESCRIPTION MEDICATIONS Please use one of the following methods to safely dispose of your unused medications. 1.Use a drug disposal kit: the drug disposal pouch allows you to safely discard your old and unused drugs. Ask your nurse to give you one when you are discharged.2.Visit a local take-back location: Many local pharmacies and police departments have programs that collect old and unwanted prescription drugs. Call your local pharmacy or go to http://Klooff.[employer]/6C9Jr5e to find one close to you.3.Make use of household items: Use cat litter or old coffee grounds to dispose medications if other options are not available. Mix your drugs with these household products, seal them in an airtight container and throw it into the garbage. Call [facility]: [phone] to be sure your drugs can be disposed of in this way. Some medicines may require a different approach.4.Never flush your medications down the toilet. IF YOU HAVE BEEN PRESCRIBED AN OPIOIDS FOR PAIN If you have been prescribed an opioid (such as hydrocodone, oxycodone or morphine), it is critical to understand the possible side effects and risks of opioid pain medications. Even when taken as directed, opioids can have several side effects including: Tolerance, meaning you might need to take more of a medication for the same pain relief. Nausea, vomiting and/or constipation. Sleepiness, dizziness, dry mouth, confusion, depression or itching. Physical dependence, meaning you have withdrawal symptoms when a medication is stopped ? this can develop within a few days. KNOW YOUR RESPONSIBILITIES It is important to know exactly how much and how often to take the opioid pain medications you are prescribed. Never take opioids in higher amounts or more often than prescribed. Do not combine opioids with alcohol or other drugs that cause drowsiness, such as benzodiazepines, also known as benzos, including diazepam and alprazolam, muscle relaxants or sleep aids. Never sell or share prescription opioids. This is illegal. Store opioids in a secure place and out of reach of others (including children, family, friends and visitors). The last page(s) of this document has been signed and retained as a CHART COPY Signatures Patient Education Materials Hyperemesis Gravidarum Medication Leaflets My discharge plan and instructions have been reviewed and explained to me and IFRANCISCO MARTINA M understand my current condition and have read and understand these discharge instructions. I have received a written copy of the plan/instructions. If I have questions, I am aware that I should contact my doctor. Patient/Insole Rasper Signature: Date/Time: Relationship to Patient: Witness Name/Signature: Date/Time: [facility] Evatammy Ozuna 09-05-2022 Hospital Discharge instructions Patient Education 09/05/2022 06:13:44 Hyperemesis Gravidarum Hyperemesis Gravidarum Hyperemesis gravidarum is a severe form of morning sickness that can affect some women during . It may develop around the 5th week and last until the 16th week of . In some women, it may last longer. Symptoms include severe nausea and vomiting. This can lead to problems such as weight loss and dehydration. It's not clear what causes hyperemesis gravidarum. It may be from rising hormone levels early in the . It can be a serious threat to mother and fetus if symptoms are severe. Follow the advice below carefully. If your symptoms don't get better with home care measures, you may need to stay in the hospital. In the hospital, you may get IV (intravenous) fluids and medicines. Home care Diet Keep a log of the foods you eat and how they affect your symptoms. Don't eat foods that trigger your symptoms. Eat small meals often throughout the day rather than 3 large meals. This can help keep your stomach from being empty. An empty stomach can make nausea worse. Choose foods that are high in carbohydrates. Eating foods high in protein may also help. Limit greasy or spicy foods. Before getting out of bed in the morning, try eating crackers or dry toast. This may help settle your stomach. Drink cold, clear liquids. Drinking small amounts of liquids with electrolytes, such as sports drinks, may help as well. Medicine If needed, your healthcare provider may prescribe certain medicines to help ease nausea and vomiting. Your provider may suggest vitamin B6 and latricia. Don t try any wbev-akl-yjoberh medicines or home remedies without talking with your provider first. Follow-up care Follow up with your healthcare provider, or as advised. When to seek medical advice Call your healthcare provider right away if any of these occur: Signs of dehydration. These include dry mouth, extreme thirst, dark urine or little urine output, dizziness, weakness, or fainting. Vomiting that won t stop Inability to keep down liquids Frequent diarrhea Weight loss or no weight gain over a 2-week period Severe constant pain in the lower right abdomen Fever of 100.4 F (38 C) or higher, or as directed by your healthcare provider [phone] [employer]. [address] [place] [address]. All rights reserved. This information is not intended as a substitute for professional medical care. Always follow your healthcare professional's instructions. Follow Up Care 09/05/2022 06:02:17 With:Go to emergency room if symptoms worsen Address:Unknown When:2-4 days With:NEO OCASIO DO Address: [address] [place] [id number]- When:2-4 days [facility] 08-07-2022 Hospital Discharge instructions Patient Education 08/07/2022 10:15:58 Hyperemesis Gravidarum Hyperemesis Gravidarum Hyperemesis gravidarum is a severe form of morning sickness that can affect some women during . It may develop around the 5th week and last until the 16th week of . In some women, it may last longer. Symptoms include severe nausea and vomiting. This can lead to problems such as weight loss and dehydration. It's not clear what causes hyperemesis gravidarum. It may be from rising hormone levels early in the . It can be a serious threat to mother and fetus if symptoms are severe. Follow the advice below carefully. If your symptoms don't get better with home care measures, you may need to stay in the hospital. In the hospital, you may get IV (intravenous) fluids and medicines. Home care Diet Keep a log of the foods you eat and how they affect your symptoms. Don't eat foods that trigger your symptoms. Eat small meals often throughout the day rather than 3 large meals. This can help keep your stomach from being empty. An empty stomach can make nausea worse. Choose foods that are high in carbohydrates. Eating foods high in protein may also help. Limit greasy or spicy foods. Before getting out of bed in the morning, try eating crackers or dry toast. This may help settle your stomach. Drink cold, clear liquids. Drinking small amounts of liquids with electrolytes, such as sports drinks, may help as well. Medicine If needed, your healthcare provider may prescribe certain medicines to help ease nausea and vomiting. Your provider may suggest vitamin B6 and latricia. Don t try any bzpl-fin-lfcosyj medicines or home remedies without talking with your provider first. Follow-up care Follow up with your healthcare provider, or as advised. When to seek medical advice Call your healthcare provider right away if any of these occur: Signs of dehydration. These include dry mouth, extreme thirst, dark urine or little urine output, dizziness, weakness, or fainting. Vomiting that won t stop Inability to keep down liquids Frequent diarrhea Weight loss or no weight gain over a 2-week period Severe constant pain in the lower right abdomen Fever of 100.4 F (38 C) or higher, or as directed by your healthcare provider [phone] [employer]. [address] [place] [address]. All rights reserved. This information is not intended as a substitute for professional medical care. Always follow your healthcare professional's instructions. Follow Up Care 08/07/2022 08:08:06 With:Your OB physician in [place] Address:Unknown When:2-4 days With:NEO OCASIO Address: [address] [place] [address]- When:2-4 days [facility] 08-07-2022 Note Discharge Instructions Thank you for allowing [facility] to assist you with your healthcare needs. The following is important discharge information regarding your hospital visit. Diagnosis from Today's Visit Vomiting - What to Do Next Instructions from Your Care Team No qualifying data available. Post Acute Orders No qualifying data available. You Need to Schedule the Following Appointments Follow Up with Your OB physician in [place] When Within 2-4 days Follow Up with NEO OCASIO When Within 2-4 days Where: [facility] [place] [address]- Allergies Latex penicillin Medications Please ask your primary doctor or pharmacist before taking any other medication not listed, including over the counter drugs, herbal medications, vitamins and or supplements as they may interact with your home medications. What How Much When Why Instructions Last Dose New ondansetron (ondansetron 4 mg oral tablet, disintegrating) 1 tab(s) by mouth Every 8 hours as needed for as needed for nausea/vomiting Duration: 3 Days Printed Prescription New promethazine (promethazine 25 mg oral tablet) 1 tab(s) by mouth Every 6 hours Duration: 3 Days Printed Prescription New promethazine (promethazine 25 mg rectal suppository) 1 suppository(ies) in the rectum Every 6 hours Duration: 3 Days Printed Prescription Unchanged dicyclomine (dicyclomine 20 mg oral tablet) 1 tab(s) by mouth Four (4) times a day as needed for abdominal discomfort Diarrhea and vomiting Abdominal pain Duration: 3 Days Please take this list to your next doctor s visit. Bring all medications you take, including over the counter medications, herbals and other supplements with you to your doctor s visit. Patients and families are reminded to discard old lists and to update any records with all medication providers or retail pharmacies. Medication Leaflets promethazine (rectal) (pro METH a zeen) Ted, [place] What is the most important information I should know about promethazine rectal? Promethazine should not be given to a child younger than 2 years old. Promethazine can cause severe breathing problems or in very young children. What is promethazine rectal? Promethazine is used to treat allergy symptoms such as itching, runny nose, sneezing, itchy or watery eyes, hives, and itchy skin rashes. Promethazine also prevents motion sickness, and treats nausea and vomiting or pain after surgery. It is also used as a sedative or sleep aid. Promethazine is not for use in treating symptoms of asthma, pneumonia, or other lower respiratory tract infections. Promethazine may also be used for other purposes not listed in this medication guide. What should I discuss with my health care provider before using promethazine rectal? Promethazine should not be used in a child younger than 2 years old. Promethazine can cause severe breathing problems or in a child younger than 2. Carefully follow your doctor's instructions when giving this medicine to a child of any age. You should not use this medicine if you are allergic to promethazine or to similar medicines such as chlorpromazine, fluphenazine, mesoridazine, perphenazine, prochlorperazine, thioridazine, or trifluoperazine. Tell your doctor if you have ever had: asthma, chronic obstructive pulmonary disease (COPD), sleep apnea, or other breathing disorder; a history of seizures; a weak immune system (bone marrow depression); glaucoma; enlarged prostate or problems with urination; stomach ulcer or obstruction; heart disease or high blood pressure; liver disease; or if you have ever had a serious side effect while using promethazine or any other phenothiazine. Tell your doctor if you are or . How should I use promethazine rectal? Follow all directions on your prescription label and read all medication guides or instruction sheets. Use the medicine exactly as directed. Do not take promethazine by mouth. It is for use only in your rectum. Try to empty your bowel and bladder just before using the promethazine suppository. Remove the outer wrapper from the suppository before inserting it. Avoid handling the suppository too long or it will melt in your hands. For best results from the suppository, lie down after inserting it and hold in the suppository for a few minutes. The suppository will melt quickly once inserted and you should feel little or no discomfort while holding it in. Avoid using the bathroom just after you have inserted the suppository. Call your doctor if your symptoms do not improve, or if they get worse while using promethazine. This medicine can cause unusual results with certain medical tests. Tell any doctor who treats you that you are using promethazine rectal. Store the rectal suppositories in the refrigerator but do not allow them to freeze. What happens if I miss a dose? Use the medicine as soon as you can, but skip the missed dose if it is almost time for your next dose. Do not use two doses at one time. What happens if I overdose? Seek emergency medical attention or call the Poison Help line at . Overdose symptoms may include overactive reflexes, loss of coordination, severe drowsiness or weakness, fainting, dilated pupils, weak or shallow breathing, or seizure (convulsions). What should I avoid while using promethazine rectal? This medicine may impair your thinking or reactions. Be careful if you drive or do anything that requires you to be alert. Avoid getting up too fast from a sitting or lying position, or you may feel dizzy. Get up slowly and steady yourself to prevent a fall. Drinking alcohol can increase certain side effects of promethazine. Avoid exposure to sunlight or tanning beds. Promethazine can make you sunburn more easily. Wear protective clothing and use sunscreen (SPF 30 or higher) when you are outdoors. What are the possible side effects of promethazine rectal? Get emergency medical help if you have signs of an allergic reaction: hives; difficult breathing; swelling of your face, lips, tongue, or throat. Call your doctor at once if you have: severe drowsiness, weak or shallow breathing; a light-headed feeling, like you might pass out; confusion, agitation, hallucinations, nightmares; seizure (convulsions); fast or slow heartbeats; jaundice (yellowing of the skin or eyes); uncontrolled muscle movements in your face (chewing, lip smacking, frowning, tongue movement, blinking or eye movement); easy bruising or bleeding (nosebleeds, bleeding gums); sudden weakness or ill feeling, fever, chills, sore throat, mouth sores, red or swollen gums, trouble swallowing; or severe nervous system reaction--very stiff (rigid) muscles, high fever, sweating, confusion, fast or uneven heartbeats, tremors, feeling like you might pass out. Common side effects may include: drowsiness, dizziness; ringing in your ears; double vision; feeling nervous; dry mouth; or tiredness, sleep problems (insomnia). This is not a complete list of side effects and others may occur. Tell your doctor about any unusual or bothersome side effect. You may report side effects to FDA at 2-140-XGY-2512. What other drugs will affect promethazine rectal? Using promethazine rectal with other drugs that make you drowsy can worsen this effect. Ask your doctor before using opioid medication, a sleeping pill, a muscle relaxer, or medicine for anxiety or seizures. Other drugs may affect promethazine rectal, including prescription and hjsa-bka-vnghsml medicines, vitamins, and herbal products. Tell your doctor about all other medicines you use. Where can I get more information? Your doctor or pharmacist can provide more information about promethazine rectal. Remember, keep this and all other medicines out of the reach of children, never share your medicines with others, and use this medication only for the indication prescribed. Every effort has been made to ensure that the information provided by [employer]. ('[employer]') is accurate, up-to-date, and complete, but no guarantee is made to that effect. Drug information contained herein may be time sensitive. [employer] information has been compiled for use by healthcare practitioners and consumers in the [place] and therefore [employer] does not warrant that uses outside of the [place] are appropriate, unless specifically indicated otherwise. [employer] drug information does not endorse drugs, diagnose patients or recommend therapy. [employer] drug information is an informational resource designed to assist licensed healthcare practitioners in caring for their patients and/or to serve consumers viewing this service as a supplement to, and not a substitute for, the expertise, skill, knowledge and judgment of healthcare practitioners. The absence of a warning for a given drug or drug combination in no way should be construed to indicate that the drug or drug combination is safe, effective or appropriate for any given patient. [employer] does not assume any responsibility for any aspect of healthcare administered with the aid of information [employer] provides. The information contained herein is not intended to cover all possible uses, directions, precautions, warnings, drug interactions, allergic reactions, or adverse effects. If you have questions about the drugs you are taking, check with your doctor, nurse or pharmacist. Copyright 1083-8597 [employer]. Version: 6.01. Revision Date: 09/03/2021. promethazine (oral) (pro METH a zeen) Phenergan What is the most important information I should know about promethazine? Promethazine should not be given to a child younger than 2 years old. Promethazine can cause severe breathing problems or in very young children. What is promethazine? Promethazine is used to treat allergy symptoms such as itching, runny nose, sneezing, itchy or watery eyes, hives, and itchy skin rashes. Promethazine also prevents motion sickness, and treats nausea and vomiting or pain after surgery. It is also used as a sedative or sleep aid. Promethazine is not for use in treating symptoms of asthma, pneumonia, or other lower respiratory tract infections. Promethazine may also be used for purposes not listed in this medication guide. What should I discuss with my healthcare provider before taking promethazine? Promethazine should not be given to a child younger than 2 years old. Promethazine can cause severe breathing problems or in very young children. Carefully follow your doctor's instructions when giving this medicine to a child of any age. You should not take this medicine if you are allergic to promethazine or to similar medicines such as chlorpromazine, fluphenazine, mesoridazine, perphenazine, prochlorperazine, thioridazine, or trifluoperazine. Tell your doctor if you have ever had: asthma, chronic obstructive pulmonary disease (COPD), sleep apnea, or other breathing disorder; a history of seizures; a weak immune system (bone marrow depression); glaucoma; enlarged prostate or problems with urination; stomach ulcer or obstruction; heart disease or high blood pressure; liver disease; or if you have ever had a serious side effect while using promethazine or any other phenothiazine. Tell your doctor if you are or . How should I take promethazine? Follow all directions on your prescription label and read all medication guides or instruction sheets. Your doctor may occasionally change your dose. Use the medicine exactly as directed. Promethazine is often taken at bedtime or before meals. For motion sickness, promethazine is usually started within 1 hour before traveling. When used for surgery, promethazine is usually taken the night before the surgery. How often you take this medicine and the timing of your dose will depend on the condition being treated. Measure liquid medicine with the dosing syringe provided, or with a special dose-measuring spoon or medicine cup. If you do not have a dose-measuring device, ask your pharmacist for one. If a child is using this medicine, tell your doctor if the child has any changes in weight. Promethazine doses are based on weight in children, and any changes may affect your child's dose. Call your doctor if your symptoms do not improve, or if they get worse while using promethazine. This medicine can cause unusual results with certain medical tests. Tell any doctor who treats you that you are using promethazine. Store at room temperature away from moisture, heat, and light. What happens if I miss a dose? Take the medicine as soon as you can, but skip the missed dose if it is almost time for your next dose. Do not take two doses at one time. What happens if I overdose? Seek emergency medical attention or call the Poison Help line at . Overdose symptoms may include overactive reflexes, loss of coordination, severe drowsiness or weakness, fainting, dilated pupils, weak or shallow breathing, or seizure (convulsions). What should I avoid while taking promethazine? This medicine may impair your thinking or reactions. Be careful if you drive or do anything that requires you to be alert. Avoid getting up too fast from a sitting or lying position, or you may feel dizzy. Get up slowly and steady yourself to prevent a fall. Drinking alcohol can increase certain side effects of promethazine. Avoid exposure to sunlight or tanning beds. Promethazine can make you sunburn more easily. Wear protective clothing and use sunscreen (SPF 30 or higher) when you are outdoors. What are the possible side effects of promethazine? Get emergency medical help if you have signs of an allergic reaction: hives; difficult breathing; swelling of your face, lips, tongue, or throat. Call your doctor at once if you have: severe drowsiness, weak or shallow breathing; a light-headed feeling, like you might pass out; confusion, agitation, hallucinations, nightmares; seizure (convulsions); fast or slow heartbeats; jaundice (yellowing of the skin or eyes); uncontrolled muscle movements in your face (chewing, lip smacking, frowning, tongue movement, blinking or eye movement); easy bruising or bleeding (nosebleeds, bleeding gums); sudden weakness or ill feeling, fever, chills, sore throat, mouth sores, red or swollen gums, trouble swallowing; or severe nervous system reaction--very stiff (rigid) muscles, high fever, sweating, confusion, fast or uneven heartbeats, tremors, feeling like you might pass out. Common side effects may include: drowsiness, dizziness; ringing in your ears; double vision; feeling nervous; dry mouth; or tiredness, sleep problems (insomnia). This is not a complete list of side effects and others may occur. Call your doctor for medical advice about side effects. You may report side effects to FDA at 4-513-YTQ-5445. What other drugs will affect promethazine? Using promethazine with other drugs that make you drowsy can worsen this effect. Ask your doctor before using opioid medication, a sleeping pill, a muscle relaxer, or medicine for anxiety or seizures. Other drugs may affect promethazine, including prescription and done-uax-bxfmtcz medicines, vitamins, and herbal products. Tell your doctor about all other medicines you use. Where can I get more information? Your doctor or pharmacist can provide more information about promethazine. Remember, keep this and all other medicines out of the reach of children, never share your medicines with others, and use this medication only for the indication prescribed. Every effort has been made to ensure that the information provided by [employer]. ('[employer]') is accurate, up-to-date, and complete, but no guarantee is made to that effect. Drug information contained herein may be time sensitive. [employer] information has been compiled for use by healthcare practitioners and consumers in the [place] and therefore [employer] does not warrant that uses outside of the [place] are appropriate, unless specifically indicated otherwise. [employer] drug information does not endorse drugs, diagnose patients or recommend therapy. [employer] drug information is an informational resource designed to assist licensed healthcare practitioners in caring for their patients and/or to serve consumers viewing this service as a supplement to, and not a substitute for, the expertise, skill, knowledge and judgment of healthcare practitioners. The absence of a warning for a given drug or drug combination in no way should be construed to indicate that the drug or drug combination is safe, effective or appropriate for any given patient. [employer] does not assume any responsibility for any aspect of healthcare administered with the aid of information [employer] provides. The information contained herein is not intended to cover all possible uses, directions, precautions, warnings, drug interactions, allergic reactions, or adverse effects. If you have questions about the drugs you are taking, check with your doctor, nurse or pharmacist. Copyright 5101-2705 [employer]. Version: 8.. Revision Date: 09/03/2021. Education Materials Hyperemesis Gravidarum Hyperemesis gravidarum is a severe form of morning sickness that can affect some women during . It may develop around the 5th week and last until the 16th week of . In some women, it may last longer. Symptoms include severe nausea and vomiting. This can lead to problems such as weight loss and dehydration. It's not clear what causes hyperemesis gravidarum. It may be from rising hormone levels early in the . It can be a serious threat to mother and fetus if symptoms are severe. Follow the advice below carefully. If your symptoms don't get better with home care measures, you may need to stay in the hospital. In the hospital, you may get IV (intravenous) fluids and medicines. Home care Diet Keep a log of the foods you eat and how they affect your symptoms. Don't eat foods that trigger your symptoms. Eat small meals often throughout the day rather than 3 large meals. This can help keep your stomach from being empty. An empty stomach can make nausea worse. Choose foods that are high in carbohydrates. Eating foods high in protein may also help. Limit greasy or spicy foods. Before getting out of bed in the morning, try eating crackers or dry toast. This may help settle your stomach. Drink cold, clear liquids. Drinking small amounts of liquids with electrolytes, such as sports drinks, may help as well. Medicine If needed, your healthcare provider may prescribe certain medicines to help ease nausea and vomiting. Your provider may suggest vitamin B6 and latricia. Don t try any nqek-yvn-rnbzmvt medicines or home remedies without talking with your provider first. Follow-up care Follow up with your healthcare provider, or as advised. When to seek medical advice Call your healthcare provider right away if any of these occur: Signs of dehydration. These include dry mouth, extreme thirst, dark urine or little urine output, dizziness, weakness, or fainting. Vomiting that won t stop Inability to keep down liquids Frequent diarrhea Weight loss or no weight gain over a 2-week period Severe constant pain in the lower right abdomen Fever of 100.4 F (38 C) or higher, or as directed by your healthcare provider [id number] The [employer]. [address] [place] [address]. All rights reserved. This information is not intended as a substitute for professional medical care. Always follow your healthcare professional's instructions. Additional Information VACCINATE! IT SAVES LIVES! Members of the community who have not yet received the COVID-19 vaccine and would like to receive it can visit one of [facility] vaccine clinics. There are many vaccine clinic locations within the [facility]. For locations and available times, please visit [email or web address]. It is important to note that some COVID mobile vaccine clinics are held outdoors and may be canceled in rainy or stormy conditions. To learn more about pediatric vaccinations (ages 5-11), we invite you to visit the [facility] webpage. [email or web address]-[email or web address] To learn more about the COVID-19 vaccine, we invite you to visit the [facility] website for a list of frequently asked questions. [email or web address] [facility] Patient Portal Access Instructions: Stay connected with your healthcare team and access your personal medical information anytime with the [facility] Patient Portal. If you would like a full copy of your medical records please contact the [facility] Medical Records Department Wednesday through Wednesday between 8a.m. and 4:30p.m. Please follow the directions below to access the portal: 1.Access the email account you provided upon registration to the [facility].2.Look for an invitation email from [facility].3.Open the email and access the invitation link: Accept Invitation to [facility].Fill in the required urbina to create your account. Sign into [email or web address] with your username and password that you created in the above steps to stay up to date. You can then view a summary of results, a summary of your visits, and the ability to download your summaries to your computer or send the information securely to a physician. Remember that your healthcare information is confidential, so carefully consider who you will allow to register on the [facility] Patient Portal for access to your information. You can also access the [facility] Patient Portal on the [employer]. Simply click on Health Records under Health Data and then click on the [facility] logo. HOW TO SAFELY DISPOSE OF PRESCRIPTION MEDICATIONS Please use one of the following methods to safely dispose of your unused medications. 1.Use a drug disposal kit: the drug disposal pouch allows you to safely discard your old and unused drugs. Ask your nurse to give you one when you are discharged.2.Visit a local take-back location: Many local pharmacies and police departments have programs that collect old and unwanted prescription drugs. Call your local pharmacy or go to http://Klooff.[employer]/8J8Nx3l to find one close to you.3.Make use of household items: Use cat litter or old coffee grounds to dispose medications if other options are not available. Mix your drugs with these household products, seal them in an airtight container and throw it into the garbage. Call [facility]: [phone] to be sure your drugs can be disposed of in this way. Some medicines may require a different approach.4.Never flush your medications down the toilet. IF YOU HAVE BEEN PRESCRIBED AN OPIOIDS FOR PAIN If you have been prescribed an opioid (such as hydrocodone, oxycodone or morphine), it is critical to understand the possible side effects and risks of opioid pain medications. Even when taken as directed, opioids can have several side effects including: Tolerance, meaning you might need to take more of a medication for the same pain relief. Nausea, vomiting and/or constipation. Sleepiness, dizziness, dry mouth, confusion, depression or itching. Physical dependence, meaning you have withdrawal symptoms when a medication is stopped ? this can develop within a few days. KNOW YOUR RESPONSIBILITIES It is important to know exactly how much and how often to take the opioid pain medications you are prescribed. Never take opioids in higher amounts or more often than prescribed. Do not combine opioids with alcohol or other drugs that cause drowsiness, such as benzodiazepines, also known as benzos, including diazepam and alprazolam, muscle relaxants or sleep aids. Never sell or share prescription opioids. This is illegal. Store opioids in a secure place and out of reach of others (including children, family, friends and visitors). The last page(s) of this document has been signed and retained as a CHART COPY Signatures Patient Education Materials Hyperemesis Gravidarum Medication Leaflets promethazine (rectal), promethazine (oral) My discharge plan and instructions have been reviewed and explained to me and IFRANCISCO MARTINA M understand my current condition and have read and understand these discharge instructions. I have received a written copy of the plan/instructions. If I have questions, I am aware that I should contact my doctor. Patient/Insole Rasper Signature: Date/Time: Relationship to Patient: Witness Name/Signature: Date/Time: [facility] 07-27-2022 Hospital Discharge instructions Patient Education 07/27/2022 21:44:23 Fracture, Clavicle Collarbone Fracture You have a break (fracture) in your collarbone (clavicle). This will cause swelling, pain, and bruising. The first few weeks will be the most painful. This is because deep breathing, coughing, or changing position from sitting to lying down may cause the broken ends to move slightly. The fracture will heal in about 4 to 6 weeks. Most people can return to normal activities in about 3 months. In children, this injury will heal often by reshaping the bone back to normal. In adults, a noticeable bump in the bone may remain. Treatment is with a sling or a special type of arm sling called a shoulder immobilizer. This supports your arm and eases pain. Home care Follow these guidelines when caring for yourself or your child at home: Put an ice pack on the injured area. Do this for 20 minutes every 1 to 2 hours on the first day. You can make an ice pack by wrapping a plastic bag of ice cubes in a thin towel. Keep using the ice pack 3 to 4 times a day for the next 2 days. Then use it as needed to ease pain and swelling. If you were given a sling or shoulder immobilizer, wear it for comfort. You may take it off when you bathe or sleep. Take your arm out of the sling for a little while each day and move your shoulder, elbow, wrist, and hand to keep them from getting stiff. Don t do any heavy lifting or raise the injured arm overhead until you are pain-free. Your child shouldn t play sports or do physical education class for at least 4 weeks, or until the healthcare provider says it s OK to do so. You may use acetaminophen or ibuprofen to control pain, unless another pain medicine was prescribed. If you have chronic liver or kidney disease, talk with your healthcare provider before using these medicines. Also talk with your provider if you ve had a stomach ulcer or gastrointestinal bleeding. Your doctor may refer you to physical therapy for shoulder exercises once it starts to heal. You may need surgery if the bones are out of place (displaced). Surgery will put them in better alignment while they heal. This leads to better strength when you have healed. Follow-up care Follow up with your healthcare provider within 1 week, or as advised. This is to be sure the bone is healing the way it should. X-rays are occasionally taken of the fracture. You will be told of any new findings that may affect your care. When to seek medical advice Call your healthcare provider right away if any of these occur: Swelling in your collarbone gets worse or the skin in the area becomes pale or discolored Large area of bruising over the collarbone Fingers become swollen, cold, blue, numb, or tingly Shortness of breath, dizziness, or general weakness Weakness or swelling in your arm Any redness, drainage, or pus coming from the wound [id number] [employer]. [address] [place] [address]. All rights reserved. This information is not intended as a substitute for professional medical care. Always follow your healthcare professional's instructions. Follow Up Care 07/27/2022 18:13:15 With:BUSHRA MOCTEZUMA MD, Orthopedic Address: [address] [place] [address] [place] [address]- When:2-4 days [facility] 07-27-2022 Note ORIGINAL EXAMINATION: CT OF THE CERVICAL SPINE WITHOUT CONTRAST 07/27/2022 9:09 pm TECHNIQUE: CT of the cervical spine was performed without the administration of intravenous contrast. Multiplanar reformatted images are provided for review. Automated exposure control, iterative reconstruction, and/or weight based adjustment of the mA/kV was utilized to reduce the radiation dose to as low as reasonably achievable. COMPARISON: Same day CT head and maxillofacial. HISTORY: ORDERING SYSTEM PROVIDED HISTORY: Reason for Exam: pain; trauma patient FINDINGS: BONES/ALIGNMENT: Straightening of the cervical lordosis. There is no acute fracture or traumatic malalignment. Small intraosseous pneumatocele is the C6. DEGENERATIVE CHANGES: No significant degenerative changes. SOFT TISSUES: There is no prevertebral soft tissue swelling. Mild biapical scarring. 0.7 cm right thyroid lobe nodule. IMPRESSION: No acute cervical fracture or traumatic malalignment. 0.7 cm right thyroid lobe nodule. No further imaging follow-up is recommended. I have personally reviewed the images of this examination and agree with the resident's findings and interpretation. RECOMMENDATIONS: Subcentimeter incidental right thyroid nodule. No follow-up imaging is recommended. Reference: J Am Kylah Radiol. 2015 Sep;12(2): 143-50 Interpreted by: Andrew Low MD Preliminary Report By: Yumi Campbell Electronically signed By Andrew Low MD Dictated Date: 07/27/2022 9:27:52 PM Prelim Date: 07/27/2022 9:31:00 PM Sign Date: 07/27/2022 10:15:26 PM Ordering Provider: [facility] 07-27-2022 Note Discharge Instructions Thank you for allowing [facility] to assist you with your healthcare needs. The following is important discharge information regarding your hospital visit. Diagnosis from Today's Visit Clavicle fracture Shoulder injury - Minor What to Do Next Instructions from Your Care Team Discharge Return to Work, School, or Sports (Return to Work, School, or Sports) - Ordered -- 07/27/22, 08/03/22, 08/03/22, May return to: work, 07/27/22 21:44:00 EST Post Acute Orders No qualifying data available. You Need to Schedule the Following Appointments Follow Up with BUSHRA MOCTEZUMA MD, Orthopedic When Within 2-4 days Where: [address] [place] [address] [place] [address]- Allergies Latex penicillin Medications Please ask your primary doctor or pharmacist before taking any other medication not listed, including over the counter drugs, herbal medications, vitamins and or supplements as they may interact with your home medications. What How Much When Why Instructions Last Dose New acetaminophen-hydrocodone ([place] 325- 5 mg oral tablet) 1 tab(s) by mouth Every 4 hours as needed for for pain Clavicle fracture Duration: 3 Days Printed Prescription Unchanged dicyclomine (dicyclomine 20 mg oral tablet) 1 tab(s) by mouth Four (4) times a day as needed for abdominal discomfort Diarrhea and vomiting Abdominal pain Duration: 3 Days Please take this list to your next doctor s visit. Bring all medications you take, including over the counter medications, herbals and other supplements with you to your doctor s visit. Patients and families are reminded to discard old lists and to update any records with all medication providers or retail pharmacies. Education Materials Collarbone Fracture You have a break (fracture) in your collarbone (clavicle). This will cause swelling, pain, and bruising. The first few weeks will be the most painful. This is because deep breathing, coughing, or changing position from sitting to lying down may cause the broken ends to move slightly. The fracture will heal in about 4 to 6 weeks. Most people can return to normal activities in about 3 months. In children, this injury will heal often by reshaping the bone back to normal. In adults, a noticeable bump in the bone may remain. Treatment is with a sling or a special type of arm sling called a shoulder immobilizer. This supports your arm and eases pain. Home care Follow these guidelines when caring for yourself or your child at home: Put an ice pack on the injured area. Do this for 20 minutes every 1 to 2 hours on the first day. You can make an ice pack by wrapping a plastic bag of ice cubes in a thin towel. Keep using the ice pack 3 to 4 times a day for the next 2 days. Then use it as needed to ease pain and swelling. If you were given a sling or shoulder immobilizer, wear it for comfort. You may take it off when you bathe or sleep. Take your arm out of the sling for a little while each day and move your shoulder, elbow, wrist, and hand to keep them from getting stiff. Don t do any heavy lifting or raise the injured arm overhead until you are pain-free. Your child shouldn t play sports or do physical education class for at least 4 weeks, or until the healthcare provider says it s OK to do so. You may use acetaminophen or ibuprofen to control pain, unless another pain medicine was prescribed. If you have chronic liver or kidney disease, talk with your healthcare provider before using these medicines. Also talk with your provider if you ve had a stomach ulcer or gastrointestinal bleeding. Your doctor may refer you to physical therapy for shoulder exercises once it starts to heal. You may need surgery if the bones are out of place (displaced). Surgery will put them in better alignment while they heal. This leads to better strength when you have healed. Follow-up care Follow up with your healthcare provider within 1 week, or as advised. This is to be sure the bone is healing the way it should. X-rays are occasionally taken of the fracture. You will be told of any new findings that may affect your care. When to seek medical advice Call your healthcare provider right away if any of these occur: Swelling in your collarbone gets worse or the skin in the area becomes pale or discolored Large area of bruising over the collarbone Fingers become swollen, cold, blue, numb, or tingly Shortness of breath, dizziness, or general weakness Weakness or swelling in your arm Any redness, drainage, or pus coming from the wound [id number] [employer]. [address] [place] [address]. All rights reserved. This information is not intended as a substitute for professional medical care. Always follow your healthcare professional's instructions. Additional Information VACCINATE! IT SAVES LIVES! Members of the community who have not yet received the COVID-19 vaccine and would like to receive it can visit one of [facility] vaccine clinics. There are many vaccine clinic locations within the [facility]. For locations and available times, please visit [email or web address]. It is important to note that some COVID mobile vaccine clinics are held outdoors and may be canceled in rainy or stormy conditions. To learn more about pediatric vaccinations (ages 5-11), we invite you to visit the [facility] webpage. [email or web address] [email or web address] To learn more about the COVID-19 vaccine, we invite you to visit the [facility] website for a list of frequently asked questions. [email or web address] [facility] Patient Portal Access Instructions: Stay connected with your healthcare team and access your personal medical information anytime with the [employer] Patient Portal. If you would like a full copy of your medical records please contact the [facility] Medical Records Department Wednesday through Wednesday between 8a.m. and 4:30p.m. Please follow the directions below to access the portal: 1.Access the email account you provided upon registration to the hospital.2.Look for an invitation email from [facility].3.Open the email and access the invitation link: Accept Invitation to [facility].Fill in the required urbina to create your account. Sign into [email or web address] with your username and password that you created in the above steps to stay up to date. You can then view a summary of results, a summary of your visits, and the ability to download your summaries to your computer or send the information securely to a physician. Remember that your healthcare information is confidential, so carefully consider who you will allow to register on the [facility] Patient Portal for access to your information. You can also access the [facility] Patient Portal on the [employer]. Simply click on Health Records under Health Data and then click on the [facility] logo. HOW TO SAFELY DISPOSE OF PRESCRIPTION MEDICATIONS Please use one of the following methods to safely dispose of your unused medications. 1.Use a drug disposal kit: the drug disposal pouch allows you to safely discard your old and unused drugs. Ask your nurse to give you one when you are discharged.2.Visit a local take-back location: Many local pharmacies and police departments have programs that collect old and unwanted prescription drugs. Call your local pharmacy or go to http://[employer]/0Y9Hl3w to find one close to you.3.Make use of household items: Use cat litter or old coffee grounds to dispose medications if other options are not available. Mix your drugs with these household products, seal them in an airtight container and throw it into the garbage. Call [facility]: [phone] to be sure your drugs can be disposed of in this way. Some medicines may require a different approach.4.Never flush your medications down the toilet. IF YOU HAVE BEEN PRESCRIBED AN OPIOIDS FOR PAIN If you have been prescribed an opioid (such as hydrocodone, oxycodone or morphine), it is critical to understand the possible side effects and risks of opioid pain medications. Even when taken as directed, opioids can have several side effects including: Tolerance, meaning you might need to take more of a medication for the same pain relief. Nausea, vomiting and/or constipation. Sleepiness, dizziness, dry mouth, confusion, depression or itching. Physical dependence, meaning you have withdrawal symptoms when a medication is stopped ? this can develop within a few days. KNOW YOUR RESPONSIBILITIES It is important to know exactly how much and how often to take the opioid pain medications you are prescribed. Never take opioids in higher amounts or more often than prescribed. Do not combine opioids with alcohol or other drugs that cause drowsiness, such as benzodiazepines, also known as benzos, including diazepam and alprazolam, muscle relaxants or sleep aids. Never sell or share prescription opioids. This is illegal. Store opioids in a secure place and out of reach of others (including children, family, friends and visitors). The last page(s) of this document has been signed and retained as a CHART COPY Signatures Patient Education Materials Fracture, Clavicle Medication Leaflets My discharge plan and instructions have been reviewed and explained to me and IFRANCISCO MARTINA M understand my current condition and have read and understand these discharge instructions. I have received a written copy of the plan/instructions. If I have questions, I am aware that I should contact my doctor. Patient/Insole Rasper Signature: Date/Time: Relationship to Patient: Witness Name/Signature: Date/Time: [facility] 07-27-2022 Note ORIGINAL EXAMINATION: CT OF THE FACE WITHOUT CONTRAST 07/27/2022 8:37 pm TECHNIQUE: CT of the face was performed without the administration of intravenous contrast. Multiplanar reformatted images are provided for review. Automated exposure control, iterative reconstruction, and/or weight based adjustment of the mA/kV was utilized to reduce the radiation dose to as low as reasonably achievable. COMPARISON: Same day CT head HISTORY: ORDERING SYSTEM PROVIDED HISTORY: Reason for Exam: pain; trauma patient FINDINGS: FACIAL BONES: The frontal sinuses, orbital sanford, maxilla, pterygoid plates, zygomatic arches, hard palate, nasal bones and mandible are intact. The temporomandibular joints are aligned. ORBITAL CONTENTS: The globes appear intact. The extraocular muscles, optic nerve sheath complexes and lacrimal glands appear unremarkable. No retrobulbar hematoma or mass is seen. SINUSES: There is no evidence of acute sinusitis, such as air fluid level. The mastoid air cells are clear. SOFT TISSUES: Mild right infraorbital, pre maxillary, perimandibular soft tissue swelling is seen.. IMPRESSION: Mild right-sided facial swelling. No facial fracture. Preliminary Report was Dictated by a Resident Interpreted by: Andrew Low MD Preliminary Report By: Yumi Campbell Electronically signed By Andrew Low MD Dictated Date: 07/27/2022 8:57:54 PM Prelim Date: 07/27/2022 9:01:37 PM Sign Date: 07/27/2022 9:31:38 PM Ordering Provider: [facility] 07-27-2022 Note ORIGINAL EXAMINATION: TWO XRAY VIEWS OF THE LEFT SHOULDER 07/27/2022 8:32 pm COMPARISON: None. HISTORY: ORDERING SYSTEM PROVIDED HISTORY: Reason for Exam: Shoulder pain after falling and landing on her shoulder FINDINGS: There are 2 different mildly displaced comminuted fractures of the left clavicle involving the mid and distal portions. There is mild widening of the acromioclavicular joint. The humerus appears well seated within the glenoid. No focal consolidation is seen within the visualized lung parenchyma. No radiopaque foreign body. IMPRESSION: Two mildly displaced comminuted fractures of the mid and distal left clavicle with widening of the acromioclavicular joint suggestive of underlying ligamentous injury. Preliminary Report was Dictated by a Resident Interpreted by: Andrew Low MD Preliminary Report By: Yumi Campbell Electronically signed By Andrew Low MD Dictated Date: 07/27/2022 8:42:54 PM Prelim Date: 07/27/2022 8:46:18 PM Sign Date: 07/27/2022 9:21:48 PM Ordering Provider: [facility] 07-27-2022 Note ORIGINAL EXAMINATION: CT OF THE CERVICAL SPINE WITHOUT CONTRAST 07/27/2022 9:09 pm TECHNIQUE: CT of the cervical spine was performed without the administration of intravenous contrast. Multiplanar reformatted images are provided for review. Automated exposure control, iterative reconstruction, and/or weight based adjustment of the mA/kV was utilized to reduce the radiation dose to as low as reasonably achievable. COMPARISON: Same day CT head and maxillofacial. HISTORY: ORDERING SYSTEM PROVIDED HISTORY: Reason for Exam: pain; trauma patient FINDINGS: BONES/ALIGNMENT: Straightening of the cervical lordosis. There is no acute fracture or traumatic malalignment. Small intraosseous pneumatocele is the C6. DEGENERATIVE CHANGES: No significant degenerative changes. SOFT TISSUES: There is no prevertebral soft tissue swelling. Mild biapical scarring. 0.7 cm right thyroid lobe nodule. IMPRESSION: No acute cervical fracture or traumatic malalignment. 0.7 cm right thyroid lobe nodule. No further imaging follow-up is recommended. I have personally reviewed the images of this examination and agree with the resident's findings and interpretation. RECOMMENDATIONS: Subcentimeter incidental right thyroid nodule. No follow-up imaging is recommended. Reference: J Am Kylah Radiol. 2015 Sep;12(2): 143-50 Interpreted by: Andrew Low MD Preliminary Report By: Yumi Campbell Electronically signed By Andrew Low MD Dictated Date: 07/27/2022 9:27:52 PM Prelim Date: 07/27/2022 9:31:00 PM Sign Date: 07/27/2022 10:15:26 PM Ordering Provider: [facility] 07-27-2022 Note ORIGINAL EXAMINATION: CT OF THE HEAD WITHOUT CONTRAST 07/27/2022 8:36 pm TECHNIQUE: CT of the head was performed without the administration of intravenous contrast. Automated exposure control, iterative reconstruction, and/or weight based adjustment of the mA/kV was utilized to reduce the radiation dose to as low as reasonably achievable. COMPARISON: None. HISTORY: ORDERING SYSTEM PROVIDED HISTORY: Reason for Exam: pain; trauma patient FINDINGS: BRAIN/VENTRICLES: There is no acute intracranial hemorrhage, mass effect or midline shift. No abnormal extra-axial fluid collection. The aden-white differentiation is maintained without evidence of an acute infarct. There is no evidence of hydrocephalus. ORBITS: The visualized portion of the orbits demonstrate no acute abnormality. SINUSES: The visualized paranasal sinuses and mastoid air cells demonstrate no acute abnormality. SOFT TISSUES/SKULL: No acute abnormality of the visualized skull or soft tissues. IMPRESSION: No acute intracranial abnormality. Interpreted by: Andrew Low MD Preliminary Report By: Andrew Low MD Electronically signed By Andrew Low MD Dictated Date: 07/27/2022 8:46:24 PM Prelim Date: 07/27/2022 8:47:48 PM Sign Date: 07/27/2022 8:47:48 PM Ordering Provider: [facility] 07-27-2022 Note ORIGINAL EXAMINATION: ONE XRAY VIEW OF THE CHEST07/27/2022 8:34 pm CHEST ONE VIEW AP/PA COMPARISON: None HISTORY: ORDERING SYSTEM PROVIDED HISTORY: Reason for Exam: Left chest pain after falling and hitting her chest last night FINDINGS: The cardiomediastinal silhouette is normal in appearance. No consolidation, pleural effusion, or vascular congestion is seen. The osseous structures are intact. IMPRESSION: No acute findings. RECOMMENDATIONS: Unavailable Interpreted by: Andrew Low MD Preliminary Report By: Andrew Low MD Electronically signed By Andrew Low MD Dictated Date: 07/27/2022 8:46:05 PM Prelim Date: 07/27/2022 8:46:13 PM Sign Date: 07/27/2022 8:46:13 PM Ordering Provider: [facility] 07-27-2022 Note ORIGINAL EXAMINATION: CT OF THE FACE WITHOUT CONTRAST 07/27/2022 8:37 pm TECHNIQUE: CT of the face was performed without the administration of intravenous contrast. Multiplanar reformatted images are provided for review. Automated exposure control, iterative reconstruction, and/or weight based adjustment of the mA/kV was utilized to reduce the radiation dose to as low as reasonably achievable. COMPARISON: Same day CT head HISTORY: ORDERING SYSTEM PROVIDED HISTORY: Reason for Exam: pain; trauma patient FINDINGS: FACIAL BONES: The frontal sinuses, orbital sanford, maxilla, pterygoid plates, zygomatic arches, hard palate, nasal bones and mandible are intact. The temporomandibular joints are aligned. ORBITAL CONTENTS: The globes appear intact. The extraocular muscles, optic nerve sheath complexes and lacrimal glands appear unremarkable. No retrobulbar hematoma or mass is seen. SINUSES: There is no evidence of acute sinusitis, such as air fluid level. The mastoid air cells are clear. SOFT TISSUES: Mild right infraorbital, pre maxillary, perimandibular soft tissue swelling is seen.. IMPRESSION: Mild right-sided facial swelling. No facial fracture. Preliminary Report was Dictated by a Resident Interpreted by: Andrew Low MD Preliminary Report By: Yumi Campbell Electronically signed By Andrew Low MD Dictated Date: 07/27/2022 8:57:54 PM Prelim Date: 07/27/2022 9:01:37 PM Sign Date: 07/27/2022 9:31:38 PM Ordering Provider: [facility] 07-27-2022 Note ORIGINAL EXAMINATION: CT OF THE HEAD WITHOUT CONTRAST 07/27/2022 8:36 pm TECHNIQUE: CT of the head was performed without the administration of intravenous contrast. Automated exposure control, iterative reconstruction, and/or weight based adjustment of the mA/kV was utilized to reduce the radiation dose to as low as reasonably achievable. COMPARISON: None. HISTORY: ORDERING SYSTEM PROVIDED HISTORY: Reason for Exam: pain; trauma patient FINDINGS: BRAIN/VENTRICLES: There is no acute intracranial hemorrhage, mass effect or midline shift. No abnormal extra-axial fluid collection. The aden-white differentiation is maintained without evidence of an acute infarct. There is no evidence of hydrocephalus. ORBITS: The visualized portion of the orbits demonstrate no acute abnormality. SINUSES: The visualized paranasal sinuses and mastoid air cells demonstrate no acute abnormality. SOFT TISSUES/SKULL: No acute abnormality of the visualized skull or soft tissues. IMPRESSION: No acute intracranial abnormality. Interpreted by: Andrew Low MD Preliminary Report By: Andrew Low MD Electronically signed By Andrew Low MD Dictated Date: 07/27/2022 8:46:24 PM Prelim Date: 07/27/2022 8:47:48 PM Sign Date: 07/27/2022 8:47:48 PM Ordering Provider: [facility] 07-27-2022 Note ORIGINAL EXAMINATION: ONE XRAY VIEW OF THE CHEST07/27/2022 8:34 pm CHEST ONE VIEW AP/PA COMPARISON: None HISTORY: ORDERING SYSTEM PROVIDED HISTORY: Reason for Exam: Left chest pain after falling and hitting her chest last night FINDINGS: The cardiomediastinal silhouette is normal in appearance. No consolidation, pleural effusion, or vascular congestion is seen. The osseous structures are intact. IMPRESSION: No acute findings. RECOMMENDATIONS: Unavailable Interpreted by: Andrew Low MD Preliminary Report By: Andrew Low MD Electronically signed By Andrew Low MD Dictated Date: 07/27/2022 8:46:05 PM Prelim Date: 07/27/2022 8:46:13 PM Sign Date: 07/27/2022 8:46:13 PM Ordering Provider: [facility] 07-27-2022 Note ORIGINAL EXAMINATION: TWO XRAY VIEWS OF THE LEFT SHOULDER 07/27/2022 8:32 pm COMPARISON: None. HISTORY: ORDERING SYSTEM PROVIDED HISTORY: Reason for Exam: Shoulder pain after falling and landing on her shoulder FINDINGS: There are 2 different mildly displaced comminuted fractures of the left clavicle involving the mid and distal portions. There is mild widening of the acromioclavicular joint. The humerus appears well seated within the glenoid. No focal consolidation is seen within the visualized lung parenchyma. No radiopaque foreign body. IMPRESSION: Two mildly displaced comminuted fractures of the mid and distal left clavicle with widening of the acromioclavicular joint suggestive of underlying ligamentous injury. Preliminary Report was Dictated by a Resident Interpreted by: Andrew Low MD Preliminary Report By: Yumi Campbell Electronically signed By Andrew Low MD Dictated Date: 07/27/2022 8:42:54 PM Prelim Date: 07/27/2022 8:46:18 PM Sign Date: 07/27/2022 9:21:48 PM Ordering Provider: [facility] 12-16-2021 Hospital Discharge instructions Patient Education 12/16/2021 18:50:23 Food Poisoning or Gastroenteritis (Adult) Food Poisoning or Viral Gastroenteritis (Adult) You have a stomach illness that is likely either food poisoning or viral gastroenteritis. Food poisoning is illness that is passed along in food and affects the stomach and intestinal tract. It usually occurs from 1 to 24 hours after eating food that has spoiled. When it happens within a few hours of eating, it is often caused by toxins from bacteria in food that has not been cooked or refrigerated properly. Viral gastroenteritis is an illness from a virus that also affects the stomach and intestinal tract. Many people call it the stomach flu, but it has nothing to do with influenza. In fact, it can happen from food poisoning, but it can also happen when germs are passed from fgpgox-ao-[id number] or contaminated surface (toothbrush, cutting board, toilet) to a person. Either illness can cause these symptoms: Abdominal pain and cramping Nausea Vomiting Diarrhea Fever and chills Loss of bowel control The symptoms of food poisoning usually last 1 to 2 days. The symptoms of viral gastroenteritis can sometimes last up to 7 days but usually end sooner. Antibiotics are not effective for either illness. Other causes of gastroenteritis include bacteria and parasites which are not discussed here. Home care Follow all instructions given by your healthcare provider. Rest at home for the next 24 hours, or until you feel better. Avoid caffeine, tobacco, and alcohol. These can make diarrhea, cramping, and pain worse. If taking medicines: Ffpr-eai-tjgdbub diarrhea or nausea medicines are generally OK unless you have bleeding, fever, or severe abdominal pain. You may use acetaminophen or NSAID medicines like ibuprofen or naproxen to reduce pain and fever. Don t use these if you have chronic liver or kidney disease, or ever had a stomach ulcer or gastrointestinal bleeding. Talk with your healthcare provider first. Don't use NSAID medicines if you are already taking one for another condition (like arthritis) or are on daily aspirin therapy (such as for heart disease or after a stroke). To prevent the spread of illness: Remember that washing with soap and water is the best way to prevent the spread of infection. Wash your hands before and after caring for a sick person. Dry your hands with a single use towel. Clean the toilet after each use. Wash your hands or use alcohol-based hand director pharmacology before eating. Wash your hands or use alcohol-based hand director pharmacology before and after preparing food. Keep in mind that people with diarrhea or vomiting should not prepare food for others. Wash your hands or use alcohol-based hand director pharmacology after using cutting boards, counter-tops, and knives (and other utensils) that have been in contact with raw foods. Wash and then peel fruits and vegetables. Keep uncooked meats away from cooked and tyqze-vr-mbd foods. Use a food thermometer when cooking. Cook poultry to at least 165 F (74 C). Cook ground meat (beef, veal, pork, ha) to at least 160 F (71 C). Cook fresh beef, veal, ha, and pork to at least 145 F (63 C). Don t eat raw or undercooked eggs (poached or jn side up), poultry, meat or unpasteurized milk and juices. Food and drinks The main goal while treating vomiting or diarrhea is to prevent dehydration. This is done by taking small amounts of liquids often. Keep in mind that liquids are more important than food right now. Drink only small amounts of liquids at a time. Don t force yourself to eat, especially if you are having cramping, vomiting, or diarrhea. Don t eat large amounts at a time, even if you are hungry. If you eat, avoid fatty, greasy, spicy, or fried foods. Don t eat dairy foods or drink milk if you have diarrhea. These can make diarrhea worse. The first 24 hours you can try: Oral rehydration solutions, available at grocery stores and pharmacies. Sports drinks are not a good choice if you are very dehydrated. They have too much sugar and not enough electrolytes. Soft drinks without caffeine Latricia jarett Water (plain or flavored) Decaf tea or coffee Clear broth, consomm , or bouillon Gelatin, ice pops, or frozen fruit juice bars The second 24 hours, if you are feeling better, you can add: Hot cereal, plain toast, bread, rolls, or crackers Plain noodles, rice, mashed potatoes, chicken noodle soup, or rice soup Unsweetened canned fruit (no pineapple) Bananas As you recover: Limit fat intake to less than 15 grams per day. Don t eat margarine, butter, oils, mayonnaise, sauces, gravies, fried foods, peanut butter, meat, poultry, or fish. Limit fiber. Don t eat raw or cooked vegetables, fresh fruits except bananas, and bran cereals. Limit caffeine and chocolate. Don t use spices or seasonings except salt. Resume a normal diet over time, as you feel better and your symptoms improve. If the symptoms come back, go back to a simple diet or clear liquids. Follow-up care Follow up with your healthcare provider, or as advised. If a stool sample was taken or cultures were done, call the healthcare provider for the results as instructed. Call 911 Call 911 if you have any of these symptoms: Trouble breathing Confusion Extreme drowsiness or trouble walking Loss of consciousness Rapid heart rate Chest pain Stiff neck Seizure When to seek medical advice Call your healthcare provider right away if any of these occur: Abdominal pain that gets worse Constant lower right abdominal pain Continued vomiting and inability to keep liquids down Diarrhea more than 5 times a day Blood in vomit or stool Dark urine or no urine for 8 hours, dry mouth and tongue, tiredness, weakness, or dizziness New rash You don t get better in 2 to 3 days Fever of 100.4 F (38 C) or higher, or as directed by your healthcare provider You have new symptoms of arthritis [id number] [employer]. [address] [place] [address]. All rights reserved. This information is not intended as a substitute for professional medical care. Always follow your healthcare professional's instructions. Follow Up Care 12/16/2021 13:09:44 With:NEO OCASIO DO Address: [address] [place] [id number] When:2-4 days [facility] 07-31-2021 History of Present illness Narrative DATE OF SERVICE: 07/29/2021 HISTORY OF PRESENT ILLNESS: This is a 21-year-old female with fever, chills, no taste or smell, sore throat, COVID exposed. She was exposed Wednesday to several people that are COVID positive. ALLERGIES: LATEX, PENICILLIN. PAST MEDICAL HISTORY: Unremarkable. HABITS: Nonsmoker, does drink alcohol. FAMILY HISTORY: Positive for diabetes, cancer, high blood pressure. SOCIAL HISTORY: Unremarkable. PHYSICAL EXAMINATION: Weight 120 pounds, blood pressure 130/87, pulse 70, respirations 20, temperature 97.3, pulse oximetry is 98% on room air. This is a 21-year-old female. HEENT: Membranes are inflamed. Pharynx is inflamed. Neck: Supple. Heart: Regular rate and rhythm. Lungs: Mild expiratory wheeze. No areas of consolidation or solid pneumonias could be appreciated. Extremities and neurologic: Grossly intact. We did do a COVID test. That will be forwarded to the lab. IMPRESSION: Respiratory illness, rule out COVID. PLAN: Self-quarantine until results. Patient is placed on Zithromax 500 once a day for 5 days, Decadron 4 mg once a day for 4 days, and Tessalon Perles for cough. Rest, fluids, finish all medicines. Follow in 7 to 10 days, sooner if complications or problems arise. Jeanne Lang DO /[id number] [employer] File#: [id number] END OF DOCUMENT / CHANGE LOG FOLLOWS Last Edited By [employer]. Signed By Jeanne Lang Lisa D DO #VAULI on 08/11/2021 08:22 ET on 08/11/2021 08:22 ET Revision Number - 2 ^^^ Verified/Reviewed by 08/11/21821 [facility] PATIENT NAME: ROSA SCHULER Sawyer [address] MEDICAL REC #: [id number] [place] [address] [facility] REPORT [facility] PHYSICIAN documented in this encounter [facility] Evaluation + Plan note No data available for this section [facility] Evaluation note Diagnosis Spontaneous vaginal delivery- Primary Normal delivery documented in this encounter [facility] note* Diagnosis with uncertain dates, antepartum- Primary state, incidental Screening for cervical cancer Screening for malignant neoplasm of the cervix Screening for human papillomavirus Special screening examination for human papillomavirus (HPV) Nausea and vomiting during Heartburn during in first trimester Post depression Mental disorders of mother, Genital herpes simplex virus (HSV) infection in mother affecting 8 weeks gestation of state, incidental Encounter for supervision of normal first in first trimester Supervision of normal first Body mass index (BMI) of 19.0 to 19.9 in adult documented in this encounter [facility] note* Diagnosis Bleeding in early - Primary Unspecified hemorrhage in early , unspecified as to episode of care documented in this encounter [facility] note* Diagnosis Encounter for supervision of normal first in second trimester- Primary Supervision of normal first 12 weeks gestation of state, incidental documented in this encounter [facility] note* Diagnosis Encounter for screening for malformation using ultrasound- Primary with uncertain dates, antepartum state, incidental documented in this encounter [facility] note* Diagnosis 17 weeks gestation of - Primary state, incidental Multigravida in second trimester Nausea and vomiting during documented in this encounter [facility] note* Diagnosis Sore throat- Primary Acute pharyngitis Viral illness Unspecified viral infection, in conditions classified elsewhere and of unspecified site documented in this encounter [facility] note* Diagnosis Encounter for supervision of other normal in second trimester- Primary 21 weeks gestation of state, incidental Heartburn during in first trimester Short interval between pregnancies affecting in second trimester, antepartum Penicillin allergy Personal history of allergy to penicillin [facility] Diagnosis Encounter for anatomic survey- Primary 21 weeks gestation of state, incidental [facility] Diagnosis Encounter for supervision of other normal in second trimester- Primary 25 weeks gestation of state, incidental Short interval between pregnancies affecting in second trimester, antepartum [facility] Diagnosis Encounter for supervision of other normal in second trimester- Primary 28 weeks gestation of state, incidental [facility] campus note* Diagnosis Anemia during in third trimester- Primary [facility] Diagnosis Encounter for supervision of other normal in third trimester- Primary Anemia during in third trimester 30 weeks gestation of state, incidental [facility] Diagnosis Encounter for supervision of other normal in third trimester- Primary Anemia during in third trimester 31 weeks gestation of state, incidental Anemia due to other cause, not classified [facility] Diagnosis Encounter for supervision of other normal in third trimester- Primary Anemia during in third trimester 34 weeks gestation of state, incidental [facility]* Diagnosis 35 weeks gestation of - Primary state, incidental Encounter for supervision of other normal in third trimester [facility] Diagnosis 36 weeks gestation of - Primary state, incidental Encounter for supervision of other normal in third trimester [facility] Diagnosis Supervision of high risk in third trimester- Primary Unspecified high-risk 38 weeks gestation of state, incidental Anemia during in third trimester Genital herpes simplex virus (HSV) infection in mother affecting Group beta Strep positive Anemia due to other cause, not classified [facility]* Diagnosis Supervision of high risk in third trimester- Primary Unspecified high-risk Anemia during in third trimester 39 weeks gestation of state, incidental Genital herpes simplex virus (HSV) infection in mother affecting * Assessment & Plan Note - Ted Harrison MD - 10/06/2024 2:57 PM ESTAssociated Problem(s): Genital herpes simplex virus (HSV) infection in mother affecting Continue acyclovir documented in this encounter [facility] note* Diagnosis Closed displaced fracture of nasal bone, initial encounter- Primary Non-seasonal allergic rhinitis, unspecified trigger Hypertrophy of inferior nasal turbinate documented in this encounter [facility] note* Diagnosis Supervision of high risk in third trimester ([facility])- Primary Unspecified high-risk Anemia during in third trimester ([facility]) 39 weeks gestation of ([facility]) state, incidental Genital herpes simplex virus (HSV) infection in mother affecting ([facility]) care and examination ([facility])- Primary Routine follow-up Encounter for insertion of Mirena IUD Encounter for insertion of intrauterine contraceptive device documented in this encounter [facility] note* Diagnosis Supervision of high risk in third trimester ([facility])- Primary Unspecified high-risk Anemia during in third trimester ([facility]) 39 weeks gestation of ([facility]) state, incidental Genital herpes simplex virus (HSV) infection in mother affecting ([facility]) Encounter for IUD insertion- Primary Encounter for insertion of intrauterine contraceptive device documented in this encounter [facility] note* Diagnosis Supervision of high risk in third trimester ([facility])- Primary Unspecified high-risk Anemia during in third trimester ([facility]) 39 weeks gestation of ([facility]) state, incidental Genital herpes simplex virus (HSV) infection in mother affecting ([facility]) HSV infection- Primary Herpes simplex without mention of complication documented in this encounter [facility] note* Diagnosis Supervision of high risk in third trimester ([facility])- Primary Unspecified high-risk Anemia during in third trimester ([facility]) 39 weeks gestation of ([facility]) state, incidental Genital herpes simplex virus (HSV) infection in mother affecting ([facility]) History of depression- Primary Suicidal thoughts Suicidal ideation Anxiety Anxiety state, unspecified depression Mental disorders of mother, documented in this encounter [facility] note* Diagnosis Supervision of high risk in third trimester ([facility])- Primary Unspecified high-risk Anemia during in third trimester ([facility]) 39 weeks gestation of ([facility]) state, incidental Genital herpes simplex virus (HSV) infection in mother affecting ([facility]) History of depression- Primary Suicidal thoughts Suicidal ideation Anxiety Anxiety state, unspecified [facility] Name Dates Details Instructions not documented [facility] Work Phone: Progress note No data available for this section [facility] Reason for referral (narrative)* Diagnostic Procedure Only (Routine) - Pending Review Specialty Diagnoses / Procedures Referred By Contac t Referred To Contact [facility] Diagnoses with uncertain dates, antepartum Procedures NUCHAL TRANSLUCENCY WHI US NUCHAL TRANSLUCENCY 1ST GESTATION Carrie Garay APRN.CNM [address] [place] [address] [facility] [address] [id number] Referral ID Status Reason Start Date Expiration Date Visits Requested Visits Authorized [id number] Pending Review Auto-Generat ed Referral 03/09/2024 03/09/2025 1 1 * Diagnostic Procedure Only (Routine) - Pending Review Specialty Diagnoses / Procedures Referred By Contac t Referred To Contact [facility] Diagnoses with uncertain dates, antepartum Procedures OBSTETRIC ULTRASOUND WHI US PREG UTERUS AFTER 1ST TRIMEST GESTATION Carrie Garay APRN.CNM [address] [place] [address] [facility] [address] [place] [address] Referral ID Status Reason Start Date Expiration Date Visits Requested Visits Authorized [id number] Pending Review Auto-Generat ed Referral 03/09/2024 03/09/2025 1 1 [facility] Family History No Family History Records Found Mother Name Dates Details No pertinent family history( V49.89, Z78.9) Status:Active Father Name Dates Details Family history of bipolar di sorder(V17.0, Z81.8) Status:Active Grandfather Name Dates Details Family history of diabetes m ellitus(V18.0, Z83.3) Status:Active Family history of bipolar di sorder(V17.0, Z81.8) Status:Active Mother Name Dates Details No pertinent family history( V49.89, Z78.9) Status:Active Father Name Dates Details Family history of bipolar di sorder(V17.0, Z81.8) Status:Active Grandfather Name Dates Details Family history of diabetes m ellitus(V18.0, Z83.3) Status:Active Family history of bipolar di sorder(V17.0, Z81.8) Status:Active Unknown Family Member Name Dates Details Family history of diabetes m ellitus: Maternal Grandfather(V18.0, Z83.3) Status:Active No pertinent family history: Mother(V49.89, Z78.9) Status:Active Family history of bipolar di sorder: Father, Maternal Grandfather(V17.0, Z81.8) Status:Active Unknown Family Member Name Dates Details Family history of diabetes m ellitus: Maternal Grandfather(V18.0, Z83.3) Status:Active No pertinent family history: Mother(V49.89, Z78.9) Status:Active Family history of bipolar di sorder: Father, Maternal Grandfather(V17.0, Z81.8) Status:Active Unknown Family Member Name Dates Details Family history of diabetes m ellitus: Maternal Grandfather(V18.0, Z83.3) Status:Active No pertinent family history: Mother(V49.89, Z78.9) Status:Active Family history of bipolar di sorder: Father, Maternal Grandfather(V17.0, Z81.8) Status:Active Unknown Family Member Name Dates Details Family history of diabetes m ellitus: Maternal Grandfather(V18.0, Z83.3) Status:Active No pertinent family history: Mother(V49.89, Z78.9) Status:Active Family history of bipolar di sorder: Father, Maternal Grandfather(V17.0, Z81.8) Status:Active Mother Name Dates Details No pertinent family history( V49.89, Z78.9) Status:Active Father Name Dates Details Family history of bipolar di sorder(V17.0, Z81.8) Status:Active Grandfather Name Dates Details Family history of diabetes m ellitus(V18.0, Z83.3) Status:Active Family history of bipolar di sorder(V17.0, Z81.8) Status:Active Unknown Family Member Name Dates Details Family history of diabetes m ellitus: Maternal Grandfather(V18.0, Z83.3) Status:Active No pertinent family history: Mother(V49.89, Z78.9) Status:Active Family history of bipolar di sorder: Father, Maternal Grandfather(V17.0, Z81.8) Status:Active Unknown Family Member Name Dates Details Family history of diabetes m ellitus: Maternal Grandfather(V18.0, Z83.3) Status:Active No pertinent family history: Mother(V49.89, Z78.9) Status:Active Family history of bipolar di sorder: Father, Maternal Grandfather(V17.0, Z81.8) Status:Active Unknown Family Member Name Dates Details Family history of diabetes m ellitus: Maternal Grandfather(V18.0, Z83.3) Status:Active No pertinent family history: Mother(V49.89, Z78.9) Status:Active Family history of bipolar di sorder: Father, Maternal Grandfather(V17.0, Z81.8) Status:Active Summary Purpose Advance Directives No Advanced Directives Records FoundLatest Code Status on File Code Status Date Activated Date Inactivated Comments Full Code 03/27/2023 12:47 AM 03/29/2023 5:16 PM Chief Complaint Pt presents for 2nd Hep B vaccine per Dr Ocasio. 1 mL given IM in R delt; no complaints of pain or discomfort.Pt presents for 3rd Hep B & Tdap vaccines per Dr Ocasio (this was ok'd by Dr De Paz). 1 mL & 0.5 mL given in L & R delts; respectively. No complaints of pain or discomfort. signed pt's student form for the 3rd Hep B.Pt presents for TB skin test per Dr Ocasio. 0.1 mL given intradermally in R forearm; no issues w/ injection. Pt understands that she has to return in 48-72 hrs for TB read. Additional Source Comments INFORMATION SOURCE (unrecogn ized section and content) DATE CREATED AUTHOR 01/02/2021 [facility] DATE CREATED AUTHOR AUTHOR'S ORGANIZ ATION 04/09/2021 [facility] DATE CREATED AUTHOR AUTHOR'S ORGANIZ ATION 04/28/2021 [facility] DATE CREATED AUTHOR AUTHOR'S ORGANIZ ATION 08/11/2021 [facility] [place] DATE CREATED AUTHOR AUTHOR'S ORGANIZ ATION 04/05/2022 [facility] DATE CREATED AUTHOR AUTHOR'S ORGANIZ ATION 04/05/2022 [employer] DATE CREATED AUTHOR AUTHOR'S ORGANIZ ATION 12/15/2022 [facility] DATE CREATED AUTHOR AUTHOR'S ORGANIZ ATION 03/30/2023 [facility] DATE CREATED AUTHOR AUTHOR'S ORGANIZ ATION 11/20/2023 [facility] ([place]) DATE CREATED AUTHOR AUTHOR'S ORGANIZ ATION 10/14/2024 [facility] DATE CREATED AUTHOR AUTHOR'S ORGANIZ ATION 11/06/2024 [facility] DATE CREATED AUTHOR AUTHOR'S ORGANIZ ATION 04/16/2025 [facility] DATE CREATED AUTHOR AUTHOR'S ORGANIZ ATION 05/11/2025 [facility] Source Comments (unrecognize d section and content) In the event this informatio n is protected by the Federal Confidentiality of Alcohol and Drug Abuse Patient Records regulations: The Federal rules restrict any use of the information to criminally investigate or prosecute any alcohol or drug abuse patient.[facility] the event this information is protected by the Federal Confidentiality of Alcohol and Drug Abuse Patient Records regulations: The Federal rules restrict any use of the information to criminally investigate or prosecute any alcohol or drug abuse patient.[facility] the event this information is protected by the Federal Confidentiality of Alcohol and Drug Abuse Patient Records regulations: The Federal rules restrict any use of the information to criminally investigate or prosecute any alcohol or drug abuse patient.[facility] the event this information is protected by the Federal Confidentiality of Alcohol and Drug Abuse Patient Records regulations: The Federal rules restrict any use of the information to criminally investigate or prosecute any alcohol or drug abuse patient.[facility] the event this information is protected by the Federal Confidentiality of Alcohol and Drug Abuse Patient Records regulations: The Federal rules restrict any use of the information to criminally investigate or prosecute any alcohol or drug abuse patient.[facility] the event this information is protected by the Federal Confidentiality of Alcohol and Drug Abuse Patient Records regulations: The Federal rules restrict any use of the information to criminally investigate or prosecute any alcohol or drug abuse patient.[facility] the event this information is protected by the Federal Confidentiality of Alcohol and Drug Abuse Patient Records regulations: The Federal rules restrict any use of the information to criminally investigate or prosecute any alcohol or drug abuse patient.[facility] the event this information is protected by the Federal Confidentiality of Alcohol and Drug Abuse Patient Records regulations: The Federal rules restrict any use of the information to criminally investigate or prosecute any alcohol or drug abuse patient.[facility] the event this information is protected by the Federal Confidentiality of Alcohol and Drug Abuse Patient Records regulations: The Federal rules restrict any use of the information to criminally investigate or prosecute any alcohol or drug abuse patient.[facility] the event this information is protected by the Federal Confidentiality of Alcohol and Drug Abuse Patient Records regulations: The Federal rules restrict any use of the information to criminally investigate or prosecute any alcohol or drug abuse patient.[facility] the event this information is protected by the Federal Confidentiality of Alcohol and Drug Abuse Patient Records regulations: The Federal rules restrict any use of the information to criminally investigate or prosecute any alcohol or drug abuse patient.[facility] the event this information is protected by the Federal Confidentiality of Alcohol and Drug Abuse Patient Records regulations: The Federal rules restrict any use of the information to criminally investigate or prosecute any alcohol or drug abuse patient.[facility] the event this information is protected by the Federal Confidentiality of Alcohol and Drug Abuse Patient Records regulations: The Federal rules restrict any use of the information to criminally investigate or prosecute any alcohol or drug abuse patient.[facility] the event this information is protected by the Federal Confidentiality of Alcohol and Drug Abuse Patient Records regulations: The Federal rules restrict any use of the information to criminally investigate or prosecute any alcohol or drug abuse patient.[facility] the event this information is protected by the Federal Confidentiality of Alcohol and Drug Abuse Patient Records regulations: The Federal rules restrict any use of the information to criminally investigate or prosecute any alcohol or drug abuse patient.[facility] Hospital[facility] the event this information is protected by the Federal Confidentiality of Alcohol and Drug Abuse Patient Records regulations: The Federal rules restrict any use of the information to criminally investigate or prosecute any alcohol or drug abuse patient.[facility] the event this information is protected by the Federal Confidentiality of Alcohol and Drug Abuse Patient Records regulations: The Federal rules restrict any use of the information to criminally investigate or prosecute any alcohol or drug abuse patient.[facility] Hospital[facility] the event this information is protected by the Federal Confidentiality of Alcohol and Drug Abuse Patient Records regulations: The Federal rules restrict any use of the information to criminally investigate or prosecute any alcohol or drug abuse patient.[facility] the event this information is protected by the Federal Confidentiality of Alcohol and Drug Abuse Patient Records regulations: The Federal rules restrict any use of the information to criminally investigate or prosecute any alcohol or drug abuse patient.[facility] Hospital[facility] the event this information is protected by the Federal Confidentiality of Alcohol and Drug Abuse Patient Records regulations: The Federal rules restrict any use of the information to criminally investigate or prosecute any alcohol or drug abuse patient.[facility] Hospital[facility] the event this information is protected by the Federal Confidentiality of Alcohol and Drug Abuse Patient Records regulations: The Federal rules restrict any use of the information to criminally investigate or prosecute any alcohol or drug abuse patient.[facility] Hospital[facility] the event this information is protected by the Federal Confidentiality of Alcohol and Drug Abuse Patient Records regulations: The Federal rules restrict any use of the information to criminally investigate or prosecute any alcohol or drug abuse patient.[facility] the event this information is protected by the Federal Confidentiality of Alcohol and Drug Abuse Patient Records regulations: The Federal rules restrict any use of the information to criminally investigate or prosecute any alcohol or drug abuse patient.[facility] the event this information is protected by the Federal Confidentiality of Alcohol and Drug Abuse Patient Records regulations: The Federal rules restrict any use of the information to criminally investigate or prosecute any alcohol or drug abuse patient.[facility] the event this information is protected by the Federal Confidentiality of Alcohol and Drug Abuse Patient Records regulations: The Federal rules restrict any use of the information to criminally investigate or prosecute any alcohol or drug abuse patient.[facility] the event this information is protected by the Federal Confidentiality of Alcohol and Drug Abuse Patient Records regulations: The Federal rules restrict any use of the information to criminally investigate or prosecute any alcohol or drug abuse patient.[facility] the event this information is protected by the Federal Confidentiality of Alcohol and Drug Abuse Patient Records regulations: The Federal rules restrict any use of the information to criminally investigate or prosecute any alcohol or drug abuse patient.[facility] the event this information is protected by the Federal Confidentiality of Alcohol and Drug Abuse Patient Records regulations: The Federal rules restrict any use of the information to criminally investigate or prosecute any alcohol or drug abuse patient.[facility] the event this information is protected by the Federal Confidentiality of Alcohol and Drug Abuse Patient Records regulations: The Federal rules restrict any use of the information to criminally investigate or prosecute any alcohol or drug abuse patient.[facility]In the event this information is protected by the Federal Confidentiality of Alcohol and Drug Abuse Patient Records regulations: The Federal rules restrict any use of the information to criminally investigate or prosecute any alcohol or drug abuse patient.[facility]In the event this information is protected by the Federal Confidentiality of Alcohol and Drug Abuse Patient Records regulations: The Federal rules restrict any use of the information to criminally investigate or prosecute any alcohol or drug abuse patient.[facility] Care Team (unrecognized sect ion and content) Technical Intern Relationship Specialty Start Date End Date Laurie Mac DO [address] [place] [id number] PCP - General Obstetrics and Gynecology 03/26/23 Technical Intern Relationship Specialty Start Date End Date Laurie Mac DO [address] [place] [id number] PCP - General Obstetrics and Gynecology 03/26/23 Kirstie Garza, RN Registered Nurse Obstetrics 03/27/23 Technical Intern Relationship Specialty Start Date End Date No, Physician [facility] PCP - General 10/28/24 Care Team (unrecognized sect ion and content) Care Team Personnel Name: NEO OCASIO DO Member Role: Primary Care Physician Address: Address: [address] [place] [address]- [place] Name: ANTONYTCER DO Position: Resident Member Role: Resident Address: Address: [address] [facility] [place] [address]- [place] Name: Sharda Taylor RN Position: AO RN Member Role: ED RN Name: GEREMIAS MOCTEZUMA DO Position: ED Physician Member Role: Attending Physician Address: Address: [facility] [address] [place] [address]- [place] Care Team Related Persons Name: FUNMILAYO TOLBERT Address: [address] [address] [place] [address] [place] Name: FUNMILAYO TOLBERT Address: [address] [address] [place] [address] Name: FUNMILAYO SCHULER Address: [facility] Name: FUNMILAYO SCHULER Address: [address] [address] [place] [address] [place] Name: FUNMILAYO SCHULER Address: [address] [address] [place] [address] [place] Name: FUNMILAYO SCHULER Address: [address] [address] [place] [address] [place] Name: LONDON SCHULER Address: [address] [place] [address] Care Team Personnel Name: NEO OCASIO DO Member Role: Primary Care Physician Address: Address: [facility] [place] [address]- [place] Name: GEREMIAS MOCTEZUMA DO Position: ED Physician Member Role: ED Physician Address: Address: [facility] [address] [place] [address]- [place] Name: Rajwinder Orta RN Position: AO RN Member Role: ED RN Care Team Related Persons Name: FUNMILAYO TOLBERT Address: [address] [address] [place] [address] [place] Name: FUNMILAYO TOLBERT Address: [address] [address] [place] [address] Name: FUNMILAYO SCHULER Address: [facility] Name: FUNMILAYO SCHULER Address: [address] [address] [place] [address] [place] Name: FUNMILAYO SCHULER Address: [address] [address] [place] [address] Name: FUNMILAYO SCHULER Address: [address] [address] [place] [address] [place] Name: LONDON SCHULER Address: [address] [place] [address] Care Team Personnel Name: NEO OCASIO DO Member Role: Primary Care Physician Address: Address: [address] [place] [id number] Name: AYLEEN PUGA MD Position: ED Physician Member Role: Attending Physician Address: Address: [address] [place] [address] Care Team Related Persons Name: FUNMILAYO TOLBERT Address: [address] [address] [place] [address] [place] Name: FUNMILAYO TOLBERT Address: [address] [address] [place] [address] Name: FRANCISCO FUNMILAYO Address: [facility] Name: FUNMILAYO SCHULER Address: [address] [address] [place] [address] [place] Name: FUNMILAYO SCHULER Address: [address] [address] [place] [address] [place] Name: FUNMILAYO SCHULER Address: [address] [address] [place] [address] [place] Name: LONDON SCHULER Address: [address] [place], [place] [address] Reason for Visit (unrecogniz ed section and content) Reason Comments Contractions Reason Comments Laboring Specialty Diagnoses / Procedures Referred By Contac t Referred To Contact Diagnoses Indication for care in labor and delivery, antepartum Procedures . Rick Doan MD [address] [place] [address] [facility] [address] [place] [address] Referral ID Status Reason Start Date Expiration Date Visits Re quested Visits Authorized [id number] 1 Reason Comments Initial OB Visit Reason Onset Date Comments Care 03/23/2024 Reason Onset Date Comments Care 04/06/2024 Reason Comments US Specialty Diagnoses / Procedures Referred By Contac t Referred To Contact [facility] Diagnoses with uncertain dates, antepartum Procedures NUCHAL TRANSLUCENCY WHI US NUCHAL TRANSLUCENCY 1ST GESTATION Carrie Garay APRN.KARINE [address] [place] [address] [facility] [address] [place] [id number] Referral ID Status Reason Start Date Expiration Date V isits Requested Visits Authorized [id number] Closed Auto-Generate d Referral 03/24/2024 08/08/2024 1 1 Reason Onset Date Comments Care 05/05/2024 Reason Comments Sore Throat ST x 2 days Reason Onset Date Comments Care 06/02/2024 Specialty Diagnoses / Procedures Referred By Contac t Referred To Contact [facility] Diagnoses with uncertain dates, antepartum Procedures OBSTETRIC ULTRASOUND WHI US PREG UTERUS AFTER 1ST TRIMEST GESTATION Carrie Garay APRN.CNSawyer [address] [place] [address] [facility] [address] [place] [id number] Referral ID Status Reason Start Date Expiration Date V isits Requested Visits Authorized [id number] Closed Auto-Generate d Referral 03/24/2024 08/08/2024 1 1 Reason Onset Date Comments Care 06/30/2024 Reason Onset Date Comments Care 07/21/2024 Reason Comments Results Reason Onset Date Comments Care 08/04/2024 Reason Onset Date Comments Care 08/16/2024 Reason Onset Date Comments Care 09/01/2024 Reason Onset Date Comments Care 09/13/2024 Reason Comments Breast Pump RX Reason Onset Date Comments Care 09/19/2024 Reason Onset Date Comments Population Health Navigation Outreach 09/29/2024 Ob peds Reason Onset Date Comments Care 09/29/2024 Reason Onset Date Comments Care 10/06/2024 Reason Comments Ob Delivery Note Reason Comments ED F/U 10/28 - closed fracture of nasal b one Reason Comments Routine Reason Onset Date Comments Insertion Of IUD 12/22/2024 Specialty Diagnoses / Procedures Referred By Contac t Referred To Contact [facility] Diagnoses care and examination (HCC) Encounter for insertion of Mirena IUD Procedures INSERT INTRAUTERINE DEVICE LEVONORGESTREL IU 52MG 5 YR INSERT INTRAUTERINE DEVICE Wilfredo Campos MD [address] [place] [address] Phone: tel: fax: [facility] [address] [place] [address] Referral ID Status Reason Start Date Expiration Date V isits Requested Visits Authorized [id number] Closed Auto-Generate d Referral 12/14/2024 12/14/2025 1 1 Reason Comments Refill Request Reason Comments Appointment Reason Comments No Show Specialty Diagnoses / Procedures Referred By Contac t Referred To Contact Psychiatry / ADULT PSYCHIATRY Diagnoses depression anxiety Procedures VIDEO PSYC/PSYL Kasia Garrison, SANFORIZING MACHINE OPERATOR.CNM [address] [place] [address] Phone: tel: fax: [place], SANFORIZING MACHINE OPERATOR.EARLY CHILDHOOD SPECIALIST [address] [place] [address] Phone: tel: fax: Referral ID Status Reason Start Date Expiration Date V isits Requested Visits Authorized [id number] New Request 04/11/2025 07/10/2025 1 1 Scheduled Active and Recently Administ ered Medications (unrecognized section and content) Medication Order 03/27/2023 03/28/2023 03/29/2023 Chlorhexidine Gluconate Cloth 2 % cloth (CANCELED) Topical, Every 6 hours, First dose on 03/27/23 at 0100, Pre-Delivery, Apply to the affected area. Clean entire abdomen. 0211 (Given - Provider: Ayaka Steward RN)0700 (Due)1300 (Due) ferrous sulfate tablet 325 mg 325 mg, Oral, 2 times daily with meals, First dose on 03/27/23 at 1700, , Start if Hgb less than 10. 1700 (Not Given - Provider: Seda Shanks RN - Reason: Order parameters not met) 0800 (Not Given - Provider: Milagros Aguilera, RN - Reason: Contraindicated)170 0 (Not Given - Provider: Milagros Aguilera RN - Reason: Contraindicated) 0800 (Not Given - Provider: Brielle Ba RN - Reason: Order parameters not met)1700 (Canceled Entry - Provider: Automatic Discharge Provider - Comment: Automatically canceled at discontinue of medication order) measles, mumps and rubella (MMR) vaccine 0.5 mL 0.5 mL, SubCUTAneous, Prior to discharge, Starting on 03/27/23 at 1334, For 1 dose, , Administer if Rubella non-immune or equivocal Vaccine is a vial of powder. Reconstitute with the available diluent for this vaccine. Barcode scan vaccine vial for Vaccine Record medroxyPROGESTERone (Depo-Provera) injection 150 mg (COMPLETED) 150 mg, IntraMUSCular, Once, On 03/29/23 at 1000, For 1 dose 1416 (Given - Provider: Brielle Ba RN) Tdap (BoostRIX) vaccine 0.5 mL 0.5 mL, IntraMUSCular, Prior to discharge, Starting on 03/27/23 at 1334, For 1 dose, If not previously administered during at 27-36 weeks as recommended by CDC. Tdap. Not to be confused with look-alike/sound-alike product DTaP. vancomycin (Vancocin) 1500 mg in NS 250 mL IVPB (compounded premix) (CANCELED) 1,500 mg (rounded from 1,406 mg = 20 mg/kg 70.3 kg), IntraVENous, at 125 mL/hr, Administer over 120 Minutes, Every 8 hours, First dose on 03/27/23 at 0115, For 2 days, Pre-Delivery, Continue until delivery. Penicillin allergic (at high risk for anaphylaxis - GBS resistance or susceptibility UNKNOWN). premix bag, Dosing of this medication varies based on severity of illness. Does this patient have sepsis or concern for sepsis (probable or documented infection plus systemic manifestations of infection)? No, Suspected Indication (Select all that apply): GBS Prophylaxis 0218 (New Bag - Provider: Ayaka Steward RN)0418 (Stopped - Provider: Ayaka Steward RN)1000 (Due - Provider: Lucia Lima [facility]) Continuous Medication Order 03/27/2023 03/28/2023 03/29/2023 lactated ringers infusion (CANCELED) 125 mL/hr, IntraVENous, Continuous, Starting on 03/27/23 at 0100, Pre-Delivery 0300 (New Bag - Provider: Ayaka Steward, MUKUND) PRN Medication Order 03/27/2023 03/28/2023 03/29/2023 acetaminophen (Tylenol) tablet 650 mg 650 mg, Oral, Every 6 hours PRN, other, pain (1-10), Starting on 03/27/23 at 1334, Give in addition to any other pain medication ordered at same time for any pain indication. Maximum dose of acetaminophen is 4000 mg from all sources in 24 hours. Alternate ibuprofen and acetaminophen every 3 hours. Give ibuprofen first in the sequence. 1435 (Given - Provider: Seda Shanks RN) 0624 (Given - Provider: Ynes Winkler, MUKUND)1226 (Given - Provider: Milagros Aguilera RN)1835 (Given - Provider: Milagros Aguilera RN) 0051 (Given - Provider: Ynes Winkler, MUKUND) benzocaine 20% containing (Dermoplast) spray Topical, As needed, pain, , Starting on 03/27/23 at 1334, , Apply to perineal area. Patient is capable and may self administer at bedside. 1435 (Given - Provider: Seda Shanks RN) docusate sodium (Colace) capsule 100 mg 100 mg, Oral, 2 times daily PRN, constipation, Vaginal Delivery, Starting on 03/27/23 at 1334, Do not crush or break. 1226 (Given - Provider: Milagros Aguilera RN) famotidine (Pepcid) tablet 20 mg 20 mg, Oral, 2 times daily PRN, heartburn, Starting on 03/27/23 at 1334, , Renal dose per pharmacy for peptic ulcer prophylaxis. ibuprofen tablet 600 mg (COMPLETED) 600 mg, Oral, Once PRN, mild pain (1-3), Starting on 03/27/23 at 0917, For 1 dose, Post-Delivery 1135 (Given - Provider: Kirstie Garza RN) ibuprofen tablet 600 mg 600 mg, Oral, Every 6 hours PRN, other, pain (1-10), Starting on 03/27/23 at 1334, Alternate ibuprofen and acetaminophen every 3 hours. Give ibuprofen first in the sequence. 1755 (Given - Provider: Yulissa Chen, RN)2325 (Given - Provider: Ynes Winkler, MUKUND) 0624 (Given - Provider: Ynes Winkler, MUKUND)1226 (Given - Provider: Milagros Aguilera, RN)1835 (Given - Provider: Milagros Aguilera, RN) 0051 (Given - Provider: Ynes Winkler, MUKUND)0654 (Given - Provider: Ynes Winkler, MUKUND) lactated Ringer's bolus (CANCELED) 1,000 mL, IntraVENous, PRN, Give prior to epidural placement. May be repeated if a second epidural/spinal procedure is performed., Starting on 03/27/23 at 0043, Pre-Delivery 0219 (New Bag - Provider: Ayaka Steward RN) lanolin (Lansinoh) cream Topical, As needed, dry skin, nipple discomfort, Starting on 03/27/23 at 1334, , Apply to affected area. ondansetron (Zofran) injection 4 mg (CANCELED) 4 mg, IntraVENous, Every 6 hours PRN, nausea, Starting on 03/27/23 at 0043, Pre-Delivery 0135 (Given - Provider: Lenora Meek RN) ondansetron (Zofran) injection 4 mg(Linked Group 1) 4 mg, IntraVENous, Every 6 hours PRN, nausea, vomiting, Starting on 03/27/23 at 1334, 1st Line. Give IV if patient is unable to take orally. If inadequate response within 60 minutes, proceed to next-line agent or contact provider if no further options ordered. ondansetron ODT (Zofran-ODT) disintegrating tablet 4 mg(Linked Group 1) 4 mg, Oral, Every 8 hours PRN, nausea, vomiting, Starting on 03/27/23 at 1334, 1st Line. If inadequate response within 60 minutes, proceed to next-line agent or contact provider if no further options ordered. Patient should allow tablet to dissolve on tongue. Do not remove from blister pack until just before administering. oxytocin (Pitocin) 30 units in 500 mL infusion 250-999 carol-units/min (250-999 mL/hr), IntraVENous, Continuous PRN, bleeding, Starting on 03/27/23 at 0917, Post-Delivery, For Immediate Post Use Only. Give after delivery of placenta. Bag 1 of 2: Bolus for bag to infuse at 999 ml/hour for 15 minutes (15 units in 250cc). After initial bolus then decrease rate to 250cc/hr for 1 hour. Then discontinue oxytocin (Pitocin) 30 units in 500 mL infusion 125 carol-units/min (125 mL/hr), IntraVENous, Continuous PRN, bleeding, Starting on 03/27/23 at 1334, For 48 hours, , For Immediate Post Use Only. Give after delivery of placenta and initial 30 unit bolus. Bag 2 of 2: 125cc/hr (125 mu/min) for an additional infusion of 500cc (30 units). 1435 (Stopped - Provider: Seda Shanks, RN) sodium chloride 0.9 % infusion (CANCELED) 5-250 mL/hr, IntraVENous, PRN, if patient receiving piggyback infusions and maintenance fluids are not ordered OR KVO fluids to protect IV site / prevent frequent line interruptions/ long duration, Starting on 03/27/23 at 0043, Pre-Delivery, For piggyback infusion, administer at same rate as piggyback for a total of 25 mL. Enter 25 mL into dose field and piggyback rate into rate field of order. If piggyback is infusing at a rate less than 100 mL/hr, enter 25 mL into dose field and 100 mL/hr into rate field of order. For KVO fluids, enter rate of 20 mL/hr or less into rate field of order. 0900 (New Bag - Provider: Kirstei Garza, MUKUND) witch sudarshan-glycerin (Tucks) pad Topical, As needed, hemorrhoids, For perineal pain or discomfort, Starting on 03/27/23 at 1334, , Apply to perineal area. Patient is capable and may self administer at bedside. 1435 (Given - Provider: Seda Shanks, RN) Linked Groups Order Group 1: ondansetron ODT (Zofran-ODT) disintegrating tablet 4 mgJump to med 4 mg, Oral, Every 8 hours PRN, nausea, vomiting, Starting on 03/27/23 at 1334
1st Line. If inadequate response within 60 minutes, proceed to next-line agent or contact provider if no further options ordered. Patient should allow tablet to dissolve on tongue. Do not remove from blister pack until just before administering.
Or ondansetron (Zofran) injection 4 mgJump to med 4 mg, IntraVENous, Every 6 hours PRN, nausea, vomiting, Starting on 03/27/23 at 1334
1st Line. Give IV if patient is unable to take orally. If inadequate response within 60 minutes, proceed to next-line agent or contact provider if no further options ordered.
FOR RECORDS PERTAINING TO PATIENTS WHO ARE OR HAVE BEEN ENROLLED IN A CHEMICAL DEPENDENCY/SUBSTANCEABUSE PROGRAM, SOME INFORMATION MAY BE OMITTED. This clinical summary was aggregated from multiple sources. Caution should be exercised in using it in the provision of clinical care. This summary normalizes information from multiple sources, and as a consequence, information in this document may materially change the coding, format and clinical context of patient data. In addition, data may be omitted in some cases. CLINICAL DECISIONS SHOULD BE BASED ON THE PRIMARY CLINICAL RECORDS. [employer] [facility]. provides no warranty or guarantee of the accuracy or completeness of information in this document.
[2025-05-25 13:51] VITALS: BP 115/68; PULSE 62; RESP 16
[2025-05-25 14:09] VITALS: BP 115/68; PULSE 62; RESP 16; TEMP 36.9; O2SAT 99
--- NOTE | 2025-05-25 17:15 | EDS_ITS ---
HPI History of Present Illness Chief Complaint: Abd Pain Narrative Narrative: Pt is a 24-year-old female who is presenting to the ER today with chief complaint of right upper quadrant discomfort and mild nausea. Patient said that she woke up having some discomfort this morning. Patient does work as well, did not go to work today. Patient just recently had a baby in October of this year. Patient states she is not . Patient is having no chest pain or shortness of breath. Mild to moderate right upper quadrant midepigastric discomfort. Patient does have intermittent constipation in the last week. Patient has no urinary frequency urgency or burning. No recent traveling. No heavy lifting or twisting. No fever or chills. No other acute complaints. Patient has no history of gallbladder or acid reflux symptoms. REVIEW OF SYSTEMS: Unless otherwise stated in this report the patient's positive and negative responses for review of systems for constitutional, eyes, ENT, cardiovascular, respiratory, gastrointestinal, neurological, , musculoskeletal, and integument systems and related systems to the presenting problem are either stated in the history of present illness or were not pertinent or were negative for the symptoms and/or complaints related to the presenting medical problem. Nurse's notes and vital signs reviewed. The patient is not hypoxic. Vital signs reviewed and patient is not hypoxic. General: The patient appears well and in no apparent distress. Patient is resting comfortably on cart. Not toxic, lethargic, or listless. Skin: Warm, dry, no pallor noted. There is no rash noted. Head: Normocephalic, atraumatic Eye: Normal conjunctiva, no drainage, EOMI. PERRL. Ears, Nose, Mouth, and Throat: oral mucosa is moist. Nares patent. Mouth without vesicles. Cardiovascular: Regular Rate and Rhythm, no murmurs, gallops, or rubs Respiratory: Patient is in no distress, no accessory muscle use, lungs are clear to auscultation, no wheezing, rales or rhonchi Back: non-tender, no CVA tenderness bilaterally to percussion. NO CTLS midline or paraspinal tenderness to palpation. GI: Soft, mild right upper quadrant tenderness to palpation, no peritoneal signs, no midepigastric tenderness palpation, no tenderness to palpation, no masses appreciated. No rebound, guarding, or rigidity noted. Musculoskeletal: The patient has full range of motion of all extremities and joints with no difficulty. Patient has no motor, no sensory deficits. Neurological: A&O x4, normal speech, no focal neurological deficits. Psychiatric: Cooperative [facility] Medical History (Updated 05/25/25 @ 14:[address] Lopez Marsh DO) depression HSV (herpes simplex virus) infection Home Medications ?Medication ?Instructions ?Recorded ?Last Taken ?Type PNV 14-iron kon-BB1-psz-docusate cap PO 10/07/2410/06 20:00 History 27 mg iron-1 mg-300 mg-50 mg capsule acyclovir 200 mg capsule 200 mg PO TID 10/07/2410/06 19:30 History acetaminophen 500 mg tablet 1,000 mg (2 x 500 mg) PO Q 6H PRN 10/09/24 Unknown Rx PRN Pain 1-10 Or Fever #0 tabs ibuprofen 600 mg tablet 600 mg PO Q6H PRN PRN Pain S core 10/09/24 Unknown Rx 1-10 #0 tabs dicyclomine 10 mg capsule 20 mg (2 x 10 mg) PO TIDAC # 20 05/25/25 Unknown Rx CAPSULES ondansetron 4 mg disintegrating 4 mg PO Q8H PRN PRN Na usea #8 tabs 05/25/25 Unknown Rx tablet Allergy/AdvReac Type Severity Reaction Status Date / Time latex Allergy Intermediate Rash Verified 05/25/25 11:51 Penicillins (PCN) Allergy Intermediate Rash Verified 05/25/25 11:51 Social History Smoking Status: Never smoker EXAM Physical Exam Const Vital Signs: 05/25/25 11:51 05/25/25 13:51 05/25/25 14:09 Temperature 98.4 F 98.4 F Temperature Source Oral Pulse Rate 72 62 62 Respiratory Rate 16 16 16 Blood Pressure 113/63 115/68 115/68 Blood Pressure Mean 79 83 83 Pulse Ox 99 99 Oxygen Delivery Method Room Air MDM MDM MDM Narrative Medical decision making narrative: Patient had IV, labs and urine testing. Patient has no acute findings. Patient glucose was 54, patient been drinking water and Gatorade in the ER. Patient nausea has improved. Patient be sent home with symptomatic treatment. Patient to follow-up with PCP. Patient was given reasons return back to the ER including intractable nausea, vomiting, diarrhea. No acute indication for ultrasound gallbladder at this time. Requested discharge. Lab Data Attestation: I reviewed the patient's lab results. Labs: Laboratory Results - last 24 hr 05/25/25 05/25/25 12:00 12:05 WBC 9.8 RBC 5.61 H Hgb 15.0 Hct 47.1 H MCV 84.0 MCH 26.7 L MCHC 31.8 L RDW Std Deviation 39.8 RDW Coeff of Flaquita 13.1 Plt Count 255 MPV 10.9 Immature Gran % (Auto) 0.300 Neut % (Auto) 50.9 Lymph % (Auto) 38.5 [place] % (Auto) 5.8 Eos % (Auto) 4.0 Baso % (Auto) 0.5 Absolute Neuts (auto) 5.0 Absolute Lymphs (auto) 3.76 Nucleated RBC % 0 Sodium 139 Potassium 3.8 Chloride 101 Carbon Dioxide 26.9 Anion Gap 11 BUN 9 Creatinine 0.65 L Estim Creat Clear Calc 115.24 Est GFR (MDRD) Non-Af 126 BUN/Creatinine Ratio 13.4 Glucose 54 L Calcium 9.8 Total Bilirubin 0.21 AST 24 ALT 10 Alkaline Phosphatase 102 Total Protein 8.0 Albumin 5.1 H Globulin 2.9 Albumin/Globulin Ratio 1.8 Lipase 49 Serum , Qual NEGATIVE Urine Color Yellow Urine Clarity Cloudy Urine pH 7.0 Ur Specific [place] 1.010 Urine Protein Negative Urine Glucose (UA) Normal Urine Ketones Negative Urine Occult Blood 50 H Urine Nitrite Negative Urine Bilirubin Negative Urine Urobilinogen Normal Ur Leukocyte Esterase Negative Urine RBC 0 SEEN Urine WBC 0-5 SEEN Ur Squamous Epith Cells 0-5 SEEN Amorphous Sediment 2+ PHOS Urine Bacteria 0 SEEN Urine Mucus 0 SEEN Discharge Plan Triage Chief Complaint: Abd Pain ED Provider: Lopez Marsh Dx/Rx/DC Orders Clinical Impression: Biliary colic Instructions: Abdominal Pain, ED Abdominal Pain Unkn Cause Fem Prescriptions: New ondansetron 4 mg tablet,disintegrating 4 mg PO Q8H PRN PRN (Reason: Nausea) Qty: 8 0RF dicyclomine 10 mg capsule 20 mg PO TIDAC Qty: 20 0RF No Action acyclovir 200 mg capsule 200 mg PO TID PNV 32-hrqq-MW0-dha-docusate 27 mg iron-1 mg -300 mg-50 mg capsule PO acetaminophen 500 mg Tablet 1,000 mg PO Q6H PRN PRN (Reason: Pain 1-10 Or Fever) Qty: 0 0RF ibuprofen 600 mg Tablet 600 mg PO Q6H PRN PRN (Reason: Pain Score 1-10) Qty: 0 0RF Stand Alone Forms: Work / School Excuse Primary Care Provider: Jessica Ocasio Referrals: Jessica Ocasio, DO [Primary Care Provider, Family Practice] Activity Restrictions/Additional Instructions: Increase fluids, Gatorade, Powerade, water. Use Zofran if needed to help with nausea. Use Bentyl as needed for abdominal cramping. If patient is getting worse, intractable pain, nausea, vomiting, please return back to the ER as needed or follow-up with PCP Print Language: Israeli Disposition Disposition: Home, Self Care Discharge Date/Time: 05/25/25 14:42
== END 2025-05-25 14:42 | disposition home or self-care (01) ==
PROVIDERS: Emergency Provider Emergency Medicine; PCP Student in an Organized Health Care Education/Training Program; Visit Provider Emergency Medicine
DX: K80.50 Calculus of bile duct without cholangitis or cholecystitis without obstruction (principal)
CPT/HCPCS: 80053; 81001; 83690; 84703; 85025; 99283; A4216